=== PATIENT | male | born 1935 | race Caucasian/White ===

== ENCOUNTER 2016-12-08 16:15 | Emergency (ER) | payer BC ==
[~2016-12-08] VITALS: Ht 170.2 cm; Wt 72.2 kg
[~2016-12-08 16:15] MED LIST changes: -BENZ100C6 PO; -CARV6.252 PO; -CLOP1TAB15 PO; -CRD200 PO; -CRG3125 PO; -FRRS300 PO; -METO25TA56 PO; -NTRGSL/4 UT; -PANT40TA PO; -TAMS0.4C38 PO; -ZNTT/150 PO
[2016-12-08 16:26] VITALS: BP 166/98; PULSE 75; TEMP 36.6; O2SAT 99; Ht 170.2 cm; Wt 72.2 kg
[2017-06-06] MEDS ORDERED: NTRGSL/4 UT (15:53)
[2017-06-06] MEDS ORDERED: FRRS300 PO (15:53)
[2017-06-06] MEDS ORDERED: LOSA50TA6 PO (15:53)
[2017-06-06] MEDS ORDERED: ZNTT/150 PO (15:53)
[2017-06-06] MEDS ORDERED: CRD200 PO (15:53)
[2017-06-06] MEDS ORDERED: CRG3125 PO (15:53)
[2017-06-06] MEDS ORDERED: BENZ100C6 PO (16:09)
[2017-07-07] MEDS ORDERED: CARV6.252 PO (13:34)
== END 2016-12-08 17:18 | disposition left against medical advice (07) ==
LOC: C.EDB 16:16
DX: R10.30 Lower abdominal pain, unspecified (principal)

== ENCOUNTER → 2016-12-08 | Outpatient (CLI) | payer BC ==
[~2016-12-08] MED LIST: ASPI81TA25 PO; BENZ100C6 PO; CARV6.252 PO; CLOP1TAB15 PO; CRD200 PO; CRG3125 PO; CRS/10 PO; EZET10TA63 PO; FRRS300 PO; LOSA50TA6 PO; METO25TA56 PO; MULT-506 PO; NTRGSL/4 UT; PANT40TA PO; RANI300T2 PO; RST15 PO; TAMS0.4C38 PO; ZNTT/150 PO
[2016-12-08 12:59] LABS: HEMATOCRIT 39.3 % (42-52); MEAN CELL VOLUME 88.5 fL (80-100); MEAN CORPUSCULAR HEMOGLOBIN 31.5 pg (25-34); MEAN PLATELET VOLUME 9.4 fL (7.4-10.4); PLATELET COUNT 215 K/uL (130-400); RED BLOOD COUNT 4.44 M/uL (4.7-6.1); WHITE BLOOD COUNT 9.01 K/uL (4.8-10.8)
[2016-12-08 13:09] LABS: MEAN CORPUSCULAR HGB CONC 35.6 g/dl (32-36)
[2016-12-08 13:24] LABS: ALB/GLOB RATIO 1.2 (0.9-2); ALKALINE PHOSPHATASE 83 U/L (45-117); ALT/SGPT 47 U/L (12-78); AST/SGOT 34 U/L (15-37); BLOOD UREA NITROGEN 23 mg/dl (7-18); BUN/CREATININE RATIO 18.8 (10-20); CALCIUM 8.9 mg/dl (8.5-10.1); CARBON DIOXIDE 29 mmol/L (21-32); CHLORIDE 100 mmol/L (98-107); COMPLETE YES; EOS % 0.3 %; GLUCOSE 97 mg/dl (70-99); IG% 0.9 %; LYMPH % 7.8 %; MONO % 9.3 %; NEUT % 81.7 %; SODIUM 138 mmol/L (136-145)
--- NOTE | 2016-12-08 15:32 | DIAGNOSTIC IMAGING REPORT ---
CT SCAN OF THE ABDOMEN AND PELVIS WITH IV CONTRAST CLINICAL HISTORY: Left lower quadrant abdominal pain. COMPARISON STUDY: Abdominal CT dated 05/27/2011. TECHNIQUE: Following the IV administration of 120 cc of Optiray 320, CT scan of the abdomen and pelvis is performed from the lung bases to the proximal femora. Images are reviewed in the axial, sagittal, and coronal planes. IV contrast was administered without complication. Automated dose control exposure was utilized. CT DOSE: 351.12 mGy.cm FINDINGS: Lung bases: The heart is enlarged and without pericardial effusion. The coronary arteries are calcified. There are fat-containing Bochdalek hernias present at both lung bases. No airspace consolidation or pleural effusion is identified. There is a small hiatal hernia. Liver: The contrast-enhanced liver is normal in size, contour, and attenuation. There is no intrahepatic biliary ductal dilatation. The hepatic veins and portal veins are patent. There is a small hiatal hernia. A 2 cm cyst is noted in the right lobe. Gallbladder: Unremarkable. Spleen: Normal in size and attenuation. Pancreas: Unremarkable. Adrenal glands: Unremarkable. Kidneys: The contrast enhanced kidneys demonstrate cortical atrophy and are without hydronephrosis. The kidneys enhance symmetrically. Abdominal vasculature: The abdominal aorta is normal in course and caliber noting advanced atherosclerotic calcification. There is high-grade (greater than 50%) stenosis in the left common iliac artery. Bowel: There are postoperative changes from right hemicolectomy with ileocolic anastomosis. No bowel obstruction is seen. There is moderate colonic fecal retention. There is moderate to advanced diverticulosis. There is significant wall thickening with pericolonic inflammation and fluid seen around the mid descending colon consistent with acute diverticulitis. There is a tiny fluid collection seen on axial image #222 measuring 1.3 x 1.2 cm which may represent a developing abscess. Peritoneum: There is no intraperitoneal free air or abdominal ascites. Lymphadenopathy: None. Pelvic viscera: The prostate gland is enlarged and heterogeneous, measuring 5.4 cm transverse diameter. The bladder wall is thickened and trabeculated suggesting chronic outlet obstruction. There is a small fat-containing left inguinal hernia. There is evidence of previous right inguinal herniorrhaphy. Skeletal structures: The skeletal structures are osteopenic. There is mild/moderate lumbosacral spondylosis as well as mild scoliosis No lytic or blastic lesions are seen. IMPRESSION: 1. There is moderate to advanced colonic diverticulosis with evidence of acute diverticulitis involving the descending colon. 2. A tiny diverticular abscess is suspected adjacent to the descending colon measuring up to 1.3 cm. No intraperitoneal free air is seen. 3. There are postoperative changes from right hemicolectomy with ileocolic anastomosis. No bowel obstruction is seen. Moderate fecal retention is noted. 4. Cardiomegaly and hiatal hernia. 5. Prostatomegaly with evidence of chronic bladder obstruction. 6. Additional findings as above. Electronically signed by: Ed Ni M.D. 12/08/2016 3:30 PM Dictated Date/Time: 12/08/2016 3:20 PM
== END | disposition home or self-care (01) ==
LOC: C.CTS 12:25
PROVIDERS: ATTEND Family Medicine
DX: R10.32 Left lower quadrant pain (principal); K44.9 Diaphragmatic hernia without obstruction or gangrene; N40.0 Benign prostatic hyperplasia without lower urinary tract symptoms

== ENCOUNTER → 2017-01-13 | Outpatient (CLI) | payer BC ==
[~2017-01-13] MED LIST changes: +BENZ100C6 PO; +CARV6.252 PO; +CLOP1TAB15 PO; +CRD200 PO; +CRG3125 PO; +FRRS300 PO; +METO25TA56 PO; +NTRGSL/4 UT; +PANT40TA PO; +TAMS0.4C38 PO; +ZNTT/150 PO
--- NOTE | 2017-01-13 16:22 | DIAGNOSTIC IMAGING REPORT ---
CHEST 2 VIEWS ROUTINE CLINICAL HISTORY: Cough and wheezing. COMPARISON STUDY: Chest radiograph July 09, 2015. FINDINGS: Lung volumes are normal. There is no pneumothorax or pleural effusion. Biapical opacities are unchanged and suggest scarring. There is no evidence of pulmonary edema. Mild left basilar opacity is unchanged and suggests atelectasis. IMPRESSION: No acute findings. No change in appearance of the chest. Electronically signed by: Neto Urbina M.D. 01/13/2017 4:20 PM Dictated Date/Time: 01/13/2017 4:18 PM
== END | disposition home or self-care (01) ==
LOC: C.RAD1850 16:00
PROVIDERS: ATTEND Internal Medicine Infectious Disease
DX: R06.2 Wheezing (principal); R05 Cough

== ENCOUNTER → 2017-04-19 | Day surgery (SDC) | payer BC ==
[2017-04-03 08:35] VITALS: Ht 170.2 cm; Wt 67.3 kg
[~2017-04-19] VITALS: Ht 170.2 cm; Wt 67.3 kg
[~2017-04-19] MED LIST changes: +IOPAMIDOL INJ 61% 15 ML VIAL ONE; +LIDOCAINE HCL 1% MPF 5 ML VIAL ONE; -RANI300T2 PO; +SODIUM CHLORIDE 0.9% INJ 10 ML VIAL ONE
--- NOTE | 2017-04-19 12:37 | History & Physical Bridge - [place] ---
H&P Re-Evaluation Bridge Note: I have examined the patient, reviewed the History & Physical and in the interval since the performance of the History & Physical I have noted the following changes of clinical significance: No changes noted
[2017-04-19 13:02] VITALS: BP 132/80; PULSE 65; TEMP 37.1; O2SAT 95
--- NOTE | 2017-04-19 13:05 | Discharge Instructions ---
Discharge Instructions Date of Service April 19, 2017. Visit Reason for Visit: Lumbar Radiculopathy Discharge Discharge Diagnosis / Problem: right leg pain Discharge Goals Goal(s): Decrease discomfort, Improve function Medications Stopped Medications Name(s): asa stopped last dose on monday. Activity Recommendations Activity Limitations: resume your previous activity Anesthesia . Post Anesthesia Instructions: If you have had General Anesthesia or IV Sedation: * Do not drive today. * Resume driving when surgeon permits. * Do not make important decisions or sign legal documents today. * Call surgeon for: 1. Temperature elevations greater than 101 degrees F. 2. Uncontrollable pain. 3. Excessive bleeding. 4. Persistent nausea and vomiting. 5. Medication intolerance (nausea, vomiting or rash). * For nausea and vomiting use only clear liquids such as: tea, soda, bouillon until nausea subsides, then gradually increase diet as tolerated. * If you have any concerns or questions, call your surgeon's office. If physician is unavailable and it is an emergency, call 911 or go to the nearest emergency room. . Diet Recommendations Recommended Home Diet: resume previous diet Procedures Procedures Performed: Lumbar Epidural Steroid Injection Pending Studies Studies pending at discharge: no Medical Emergencies . Who to Call and When: Medical Emergencies: If at any time you feel your situation is an emergency, please call 911 immediately. . Non-Emergent Contact Non-Emergency issues call your: Specialist . . "Provider Documentation" section prepared by Hector Munguia. .
--- NOTE | 2017-04-19 14:46 | OPERATIVE REPORT ---
DATE OF OPERATION: 04/19/2017 PREOPERATIVE DIAGNOSIS: Lumbar spinal stenosis with a right L5 radiculopathy. POSTOPERATIVE DIAGNOSIS: Same. PROCEDURE: Right paramedian L5-S1 intralaminar epidural steroid injection under fluoroscopic guidance. SURGEON: Dr. Hector Munguia. INDICATIONS: The patient is an 81-year-old white male who has a right L5 radiculopathy and is not responding to conservative measures. He responded favorably to an epidural injection in August. Pain is starting to return and come back and be problematic to him. PHYSICAL EXAMINATION: Pleasant male seated comfortably in no apparent distress. He has normal motor and sensory examination with the exception of the right S1 dermatome, which was subjectively decreased. Negative seated straight leg raises. CONSENT: Verbal and written consent was obtained from the patient. Risks and benefits were reviewed. Risks include but are not limited to epidural abscess, epidural hematoma, allergic reaction, dural puncture. The patient wishes to proceed. PROCEDURE: The patient was taken back to the special procedures room of the [facility] where he was maintained in a prone position. Backside was cleansed with Betadine x3 and a dry sterile dressing was applied. Fluoroscope was used to identify the L5-S1 intralaminar space. Overlying skin on the right side was anesthetized with 4 mL of lidocaine 1% with a 25 gauge 1.5-inch needle. A 22-gauge 3-1/2 inch Tuohy needle was then directed under fluoroscopic guidance into the epidural space and advanced under lateral fluoroscopic guidance with loss of resistance noted at a depth of 6.5 cm. Isovue-300 contrast 1 mL was injected in which demonstrated epidural uptake pattern which was confirmed with both AP and lateral views. The patient then underwent injection of Isovue 300 1 mL which confirmed with AP and lateral views and then 40 mg injection after negative aspiration of Depo-Medrol and 4 mL of preservative free sodium chloride. Injection was well tolerated. DISPOSITION: 1. The patient is taken out into the discharge recovery area where he will be discharged home once discharge criteria have been met. 2. Follow up in the [facility] office in 2-4 weeks. I attest to the content of the Intraoperative Record and any orders documented therein. Any exceptio ns are noted below.
== END | disposition home or self-care (01) ==
LOC: X.SURG 11:50
PROVIDERS: ATTEND Physical Medicine & Rehabilitation
DX: M48.06 Spinal stenosis, lumbar region (principal)

== ENCOUNTER 2017-05-28 11:34 | Inpatient (IN) | payer BC, OTHER ==
[~2017-05-28] VITALS: Ht 170.2 cm; Wt 76.3 kg
[~2017-05-28 11:34] MED LIST changes: -BENZ100C6 PO; -CARV6.252 PO; -CLOP1TAB15 PO; -CRD200 PO; -CRG3125 PO; -FRRS300 PO; -IOPAMIDOL INJ 61% 15 ML VIAL ONE; -LIDOCAINE HCL 1% MPF 5 ML VIAL ONE; -METO25TA56 PO; -NTRGSL/4 UT; -PANT40TA PO; -SODIUM CHLORIDE 0.9% INJ 10 ML VIAL ONE; -TAMS0.4C38 PO; -ZNTT/150 PO
--- NOTE | 2017-05-28 12:06 | EMERGENCY ROOM VISIT NOTE ---
History Report prepared by Chauncey: Isabel Lunsford Under the Supervision of: Dr. Hamilton Perez M.D. First contact with patient: 11:56 Chief Complaint: SYNCOPE Stated Complaint: NEAR SYNCOPE History of Present Illness The patient is a 81 year old male who presents to the Emergency Room with complaints of a syncopal episode that occurred just prior to arrival. The patient states that he was in the check out line of [facility] [employer] with his when he began very lightheaded. He then had the syncopal episode. His states that she helped him to the ground and he was back to consciousness within a few seconds. The patient does note that recently when he stands up fast he feels very lightheaded. The patient denies chest pain, shortness of breath, head injury, recent fevers, chills, swelling to lower extremities. The patient on Monday had a stent placed in [place]. He does note that all his medications were changed on Monday. Source of History: patient Onset: just PERSONNEL REPRESENTATIVE Position: other (global) Quality: other (syncope) Timing: other (episode) Associated Symptoms: + LOC, No fevers, No chills, No chest pain, No SOB Note: The patient is experiencing lightheadedness. Review of Systems All systems have been listed, reviewed, and are negative other than those previously mentioned. Please see Additional Medical History Sheet. Past Medical & Surgical Medical Problems: (1) CAD (coronary artery disease) (2) Hypertension (3) Status post myocardial infarction of inferior wall (4) Syncope Surgical Problems: (1) S/P cardiac catheterization Family History Patient reports no known family medical history. Social History Smoking Status: Never Smoker Smokeless Tobacco Use: No Marital Status: Housing Status: lives with significant other Occupation Status: retired Current/Historical Medications Scheduled Aspirin (Aspir-Low), 1 TAB PO QAM Clopidogrel (Plavix), 75 MG PO DAILY Ezetimibe (Zetia), 10 MG PO HS Losartan Potassium (Cozaar), 50 MG PO QAM Metoprolol Tartrate (Lopressor) (Lopressor), 25 MG PO DAILY Multivitamin (Multivitamin), 1 TAB PO QAM Nitroglycerin (Nitrostat), 0.4 MG UT PRN Pantoprazole (Protonix), 40 MG PO DAILY Rosuvastatin Calcium (Crestor), 10 MG PO HS Tamsulosin Hcl (Flomax), 0.4 MG PO HS Temazepam (Temazepam), 15 MG PO HS Allergies Coded Allergies: Oxycodone (Verified Allergy, Mild, CANT REMEMBER JUST HAD BAD REACTION, 05/28/17) Physical Exam Vital Signs Date Time Temp Pulse Resp B/P (MAP) Pulse Ox O2 Delivery O2 Flow Rate FiO2 05/28/17 14:00 98 Room Air 05/28/17 13:35 69 16 120/74 98 Room Air 05/28/17 12:12 66 05/28/17 12:05 64 05/28/17 11:45 96 Room Air 05/28/17 11:41 36.9 72 20 123/85 96 Room Air Physical Exam GENERAL: Patient awake, alert, oriented x 3. Patient follows commands. Patient does not appear toxic. Patient is adequately hydrated and well- nourished. SKIN: No erythema, pallor, cyanosis or rash HEENT: Normal head, pupils equal, reactive to light and accommodation. Ears normal. Oral cavity and posterior pharynx appear normal. Neck: Without adenopathy, no neck vein distention. LUNGS: Clear to auscultation. No wheezes, no rales, no rhonchi. HEART: No murmurs. No gallops. No rubs ABDOMEN: No masses, no rebound, no hepatomegaly or splenomegaly. EXTREMITIES: No signs of trauma. No pedal or pretibial edema. No calf or thigh tenderness. NEUROLOGIC: Cranial nerves II-XII within normal limits. No gross motor sensory function deficits. Medical Decision & Procedures ER Provider Diagnostic Interpretation: X ray results are stated below per my interpretation and the radiologist's interpretation. SINGLE VIEW CHEST CLINICAL HISTORY: Syncope. FINDINGS: An AP, portable, upright chest radiograph is compared to study dated 01/13/17. The examination is degraded by portable technique and apical lordotic positioning. The heart is enlarged and there is atherosclerotic calcification of the thoracic aorta. The pulmonary vascular structures noncongested. Chronic interstitial thickening is similar to previous. Linear atelectasis is seen at the left lung base. No airspace consolidation is identified typical for pneumonia and there is no large pleural effusion. No pneumothorax is seen. The skeletal structures are osteopenic. The bony thorax is grossly intact. IMPRESSION: Cardiomegaly with no acute cardiopulmonary abnormality. Electronically signed by: Ed Ni M.D. 05/28/2017 12:25 PM Dictated Date/Time: 05/28/2017 12:24 PM Laboratory Results 05/28/17 13:04 Red Blood Count 3.67, Mean Corpuscular Volume 88.8, Mean Corpuscular Hemoglobin 30.5, Mean Corpuscular Hemoglobin Concent 34.4, Mean Platelet Volume 9.7, Neutrophils (%) (Auto) 68.3, Lymphocytes (%) (Auto) 12.9, Monocytes (%) (Auto) 16.5, Eosinophils (%) (Auto) 1.0, Basophils (%) (Auto) 0.0, Neutrophils # (Auto ) 2.60, Lymphocytes # (Auto) 0.49, Monocytes # (Auto) 0.63, Eosinophils # (Auto ) 0.04, Basophils # (Auto) 0.00 05/28/17 11:50 Test 05/28/17 11:50 05/28/17 13:04 Prothrombin Time 10.6 SECONDS (9.0-12.0) Prothromb Time International Ratio 1.0 (0.9-1.1) Activated Partial Thromboplast Time 29.9 SECONDS (21.0-31.0) Partial Thromboplastin Ratio 1.2 Anion Gap 8.0 mmol/L (3-11) Est Creatinine Clear Calc Drug Dose 36.7 ml/min Estimated GFR () 50.2 Estimated GFR (Non- 43.3 BUN/Creatinine Ratio 21.3 (10-20) Calcium Level 8.5 mg/dl (8.5-10.1) Total Bilirubin 0.5 mg/dl (0.2-1) Aspartate Amino Transf (AST/SGOT) 90 U/L (15-37) Alanine Aminotransferase (ALT/SGPT) 121 U/L (12-78) Alkaline Phosphatase 92 U/L (45-117) Troponin I 10.400 ng/ml (0-0.045) Total Protein 6.6 gm/dl (6.4-8.2) Albumin 2.9 gm/dl (3.4-5.0) Globulin 3.8 gm/dl (2.5-4.0) Albumin/Globulin Ratio 0.8 (0.9-2) White Blood Count 3.81 K/uL (4.8-10.8) Red Blood Count 3.67 M/uL (4.7-6.1) Hemoglobin 11.2 g/dL (14.0-18.0) Hematocrit 32.6 % (42-52) Mean Corpuscular Volume 88.8 fL (80-100) Mean Corpuscular Hemoglobin 30.5 pg (25-34) Mean Corpuscular Hemoglobin Concent 34.4 g/dl (32-36) Platelet Count 214 K/uL (130-400) Mean Platelet Volume 9.7 fL (7.4-10.4) Neutrophils (%) (Auto) 68.3 % Lymphocytes (%) (Auto) 12.9 % Monocytes (%) (Auto) 16.5 % Eosinophils (%) (Auto) 1.0 % Basophils (%) (Auto) 0.0 % Neutrophils # (Auto) 2.60 K/uL (1.4-6.5) Lymphocytes # (Auto) 0.49 K/uL (1.2-3.4) Monocytes # (Auto) 0.63 K/uL (0.11-0.59) Eosinophils # (Auto) 0.04 K/uL (0-0.5) Basophils # (Auto) 0.00 K/uL (0-0.2) RDW Standard Deviation 40.9 fL (36.4-46.3) RDW Coefficient of Variation 12.7 % (11.5-14.5) Immature Granulocyte % (Auto) 1.3 % Immature Granulocyte # (Auto) 0.05 K/uL (0.00-0.02) Laboratory results as stated above per my review. Procedure An external pacemaker was placed on the patient's chest. The machine was not turned on but readied for any further episodes of block. ECG Indication: syncope Rate (beats per minute): 70 Rhythm: sinus with SA Findings: 1st degree AV block, RBBB, left axis deviation Change: Evaluation of other rhythm strips reveal a complete heart block. ED Course 1156: Past medical records reviewed. The patient was evaluated in room A2. A complete history and physical examination was performed. 1320: I spoke to Dr. Almeida - Cardiology about the patient. He said to speak with Dr. Crews because he cannot pass the pacemaker. 1328: I spoke with Dr. Crews - Cardiology. He will come evaluate the patient. 1412: Discussed the patient's case with Dr. Grant GRAHAM. The patient will be evaluated for further management. 1420: Upon reevaluation, the patient is hemodynamically stable.I discussed today 's findings with the patient. He verbalized agreement of the treatment plan. I spoke with Dr. Burns of the [facility] Hospitalist Service to evaluate the patient for further management. Medical Decision Nurses notes reviewed. Medical history sheet reviewed. Differential diagnosis includes but is not limited to: syncope, 2nd or 3rd degree block, metabolic disorder. The patient is here after syncopal episode. He apparently had an inferior wall infarction less than 1 week ago. He denies any pain at this time. He did not hurt himself when he passed out. He now feels back to normal. During the exam the patient had multiple episodes of 3-6 second pauses. EKG revealed third- degree block. He also has slight ST elevations in his inferior leads. Troponin was markedly elevated. Other labs and imaging were also obtained. Please see above. I discussed care with cardiology regarding placement of a pacemaker. In the meantime the patient had an external pacemaker placed but not turned on. I also discussed care with the hospitalist. Medication Reconciliation: I attest that I have personally reviewed the patient' s current medication list. Blood pressure Screening: Patient was found to have normal blood pressure on screening and does not require follow up. Consults Time Called: 1318 Consulting Physician: Dr. Elle Jackson Returned Call: [address] Elle Jackson about the patient. He said to speak with Dr. Crews because he cannot pass the pacemaker. Additional Consults: Time Called: 1326 Consulted Physician: Dr. Mars Jackson Returned Call: 1328 Additional Comments: I spoke with Dr. Mars Jackson. He will come evaluate the patient. Time Called: 1410 Consulted Physician: Dr. Grant GRAHAM Returned Call: 1412 Additional Comments: Discussed the patient's case with Dr. Grant GRAHAM. The patient will be evaluated for further management. Impression Primary Impression: Third degree heart block Additional Impression: Recent myocardial infarction of inferior wall Critical Care I have personally spent greater than 35 minutes of critical care time in the direct management of this patient. This includes bedside care, interpretation of diagnostic studies, and testing, discussion with consultants, patient, and family members, and other required patient management activities. This 35 minutes is in excess of all separately billable procedures. Scribe Attestation The scribe's documentation has been prepared under my direction and personally reviewed by me in its entirety. I confirm that the note above accurately reflects all work, treatment, procedures, and medical decision making performed by me. Departure Information Dispostion Being Evaluated By Hospitalist Referrals Austin Merino M.D. (PCP) Problem Qualifiers
[2017-05-28 12:22] LABS: BUN/CREATININE RATIO 21.3 (10-20); CALCIUM 8.5 mg/dl (8.5-10.1); CREATININE 1.5 mg/dl (0.60-1.40); POTASSIUM 3.9 mmol/L (3.5-5.1)
[2017-05-28 12:24] LABS: PARTIAL THROMBOPLASTIN RATIO 1.2; PROTHROMBIN TIME (PATIENT) 10.6 SECONDS (9.0-12.0)
--- NOTE | 2017-05-28 12:26 | DIAGNOSTIC IMAGING REPORT ---
SINGLE VIEW CHEST CLINICAL HISTORY: Syncope. FINDINGS: An AP, portable, upright chest radiograph is compared to study dated 01/13/17. The examination is degraded by portable technique and apical lordotic positioning. The heart is enlarged and there is atherosclerotic calcification of the thoracic aorta. The pulmonary vascular structures noncongested. Chronic interstitial thickening is similar to previous. Linear atelectasis is seen at the left lung base. No airspace consolidation is identified typical for pneumonia and there is no large pleural effusion. No pneumothorax is seen. The skeletal structures are osteopenic. The bony thorax is grossly intact. IMPRESSION: Cardiomegaly with no acute cardiopulmonary abnormality. Electronically signed by: Ed Ni M.D. 05/28/2017 12:25 PM Dictated Date/Time: 05/28/2017 12:24 PM
[2017-05-28 12:35] LABS: ALB/GLOB RATIO 0.8 (0.9-2)
[2017-05-28] MEDS ORDERED: CLOP1TAB15 PO (12:36)
[2017-05-28] MEDS ORDERED: PANT40TA PO (12:36)
[2017-05-28] MEDS ORDERED: METO25TA56 PO (12:36)
[2017-05-28] MEDS ORDERED: TAMS0.4C38 PO (12:36)
[2017-05-28] MEDS ORDERED: NTRGSL/4 UT (12:36)
[2017-05-28 13:14] LABS: COMPLETE YES; HEMATOCRIT 32.6 % (42-52); IG% 1.3 %; LYMPH % 12.9 %; LYMPH ABS # 0.49 K/uL (1.2-3.4); MEAN CELL VOLUME 88.8 fL (80-100); MEAN CORPUSCULAR HEMOGLOBIN 30.5 pg (25-34); MEAN CORPUSCULAR HGB CONC 34.4 g/dl (32-36); MEAN PLATELET VOLUME 9.7 fL (7.4-10.4); MONO % 16.5 %; NEUT % 68.3 %; PLATELET COUNT 214 K/uL (130-400); RED BLOOD COUNT 3.67 M/uL (4.7-6.1); WHITE BLOOD COUNT 3.81 K/uL (4.8-10.8)
[2017-05-28 14:00] VITALS: O2SAT 98; Ht 170.2 cm; Wt 76.3 kg
[2017-05-28] MEDS ORDERED: FENTANYL CITRATE INJ 50 MCG/1 ML 2 ML VIAL ONE (14:12)
[2017-05-28] MEDS ORDERED: MIDAZOLAM HCL 1 MG/ML 2ML VIAL ONE (14:12)
[2017-05-28] MEDS ORDERED: NSS + 20MEQ KCL 1000ML 1,000 ML IV SCH (15:00)
[2017-05-28] MEDS ORDERED: TEMAZEPAM 15 MG CAP PO PRN (15:00)
[2017-05-28] MEDS ORDERED: ALUMINUM/MAGNESIUM/SIMETH (MAALOX MAX) 30 ML UDC PO PRN (15:30)
[2017-05-28] MEDS ORDERED: ONDANSETRON INJ 2 MG/ML 2 ML VIAL IV PRN (15:30)
[2017-05-28] MEDS ORDERED: MAGNESIUM HYDROXIDE SUSP 30 ML UDC PO PRN (15:30)
[2017-05-28] MEDS ORDERED: ACETAMINOPHEN 325 MG TAB PO PRN (15:30)
[2017-05-28] MEDS ORDERED: NITROGLYCERIN 0.4 MG SL PER TAB CHARGE SL PRN (15:30)
[2017-05-28] MEDS ORDERED: ZOLPIDEM TARTRATE 5 MG TAB PO PRN ×2 (15:30)
[2017-05-28] MEDS ORDERED: IV FLUIDS COMPLETED PRN (16:30)
[2017-05-28 16:37] VITALS: BP 122/73; PULSE 74; TEMP 36.6; O2SAT 95
[2017-05-28] MEDS: NSS + 20MEQ KCL 1000ML 1,000 ML IV SCH (17:00)
[2017-05-28] MEDS: ENOXAPARIN 40 MG/0.4 ML SYR SC SCH (17:02)
--- NOTE | 2017-05-28 17:47 | Cardiology Consultation ---
Cardiology Consultation Date of Service May 28, 2017. Cardiology Consultation The patient was seen in Cardiology consultation by me this afternoon. At that time he was in the emergency department. Cardiology consultation initially requested by Dr. Hamilton Perez. The patient is an 81-year-old white male. Denies having had any history heart disease until in admission to [facility] on May 22, 2017. He was brought there by ambulance from a local gas station after developing PR type symptoms. He had had retrosternal chest pressure, diaphoresis, nausea, and dyspnea. He was found to have evidence of an acute inferior myocardial infarction. It is reported that the electrocardiogram revealed an acute inferolateral myocardial infarction. Underwent emergency cardiac catheterization. The patient states he had a total RCA occlusion treated with deployment of a CloudMedx. 2.75 millimeter diameter Synergy drug eluting stent. Was discharged home on May 24 2017. Available records from [place] showed that his troponin I on May 23 was 43.172. The patient states that he has [id number] disease in other coronary arteries. Was told he sustained myocardial injury. Available records from [place] do not include any description of his LV systolic function or LV wall motion. The patient states that after discharge she initially felt tired. Over each successive day his exercise tolerance and stamina improved. This morning he felt that he was back at his baseline. No unusual malaise or fatigue. Us since his myocardial infarction he had no further chest discomfort, diaphoresis , or nausea. Denies any orthopnea or PND. Palpitations, lightheadedness, or syncope until today. Today he had been feeling well. He was standing and a checkout counter at a local store when he developed lightheadedness. He had a brief episode of syncope lasting several seconds. This was witnessed by his . He quickly regained consciousness. He had no cardiac complaints other than the lightheadedness. No associated chest pain, nausea, dyspnea, or palpitations. Was brought by EMS to [facility]. While in the emergency department he was noted to have a 7 second episode of sinus rhythm with complete heart block. With this episode he had a brief loss of consciousness. He quickly regained consciousness when his AV conduction returned. The patient was placed on a temporary transcutaneous pacemaker in the emergency department. This was assessed by me. He paced well at only 8 mA. At the time my exam he denies any cardiac symptoms. He was feeling very well. It was discussed with him that the options were transcutaneous pacing or insertion of a temporary transvenous pacemaker. Was told he paced well with the transcutaneous pacemaker. However, he was told that if it paced him he may feel electrical shocks. He was comfortable with this. Was decided that he would remain on a transcutaneous pacemaker and that no number a transvenous pacemaker would be inserted at this time. It was discussed with him that if he required prolonged transcutaneous pacing then a temporary transvenous pacemaker would be preferable. the patient was transferred from the emergency department to the telemetry unit room. While being transferred from his stretcher to the telemetry unit bed he had a episode of complete heart block again resulting in loss of consciousness. At that time the pacemaker was not set to perform demand pacing. Thus, the transcutaneous pacemaker did not provide any impulses. The pads were in place. He transiently received chest compressions. He spontaneously regained sinus rhythm. Quickly awakened. After awakening he only had complain of mild lower retrosternal chest discomfort. This was worse with deep inspiration. Was also precipitated by pressure on his lower sternum and xiphoid process. This was felt to be secondary to the chest compressions which he had just received. Denied any of his prior PR or anginal-type symptoms. The patient stated that when he was trying to transfer from the stretcher to the bed he was straining. Past medical history 1. Coronary artery disease as above. 2. Dyslipidemia. 3. Hypertension. 4. Lumbar spinal stenosis. 5. No history of diabetes mellitus. 6. No history of pulmonary or renal disease. No endocrine disease. 7. Benign prostatic hypertrophy. Medications at time of admission were aspirin 81 milligrams daily, clopidogrel 75 milligrams daily, Zetia 10 milligrams q.h.s., losartan 50 milligrams daily, metoprolol tartrate 25 milligrams daily, multivitamin 1 daily, subcu nitroglycerin as needed, pantoprazole 40 milligram daily, Crestor 10 milligrams daily, tamsulosin 0.4 milligrams q.h.s., temazepam 50 milligrams q.h.s.. Allergies: Adverse reaction to oxycodone. Social history the patient is lives with his . 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 He has never smoked cigarettes. Occasional use of alcohol. Family history: No family history of premature coronary artery disease. Review of Systems 1. As above. 2. Bilateral hearing loss. Hearing aids in both ears. 3. No cerebrovascular or peripheral vascular complaints. 4. Ecchymoses at right groin. His recent cardiac catheterization procedure was performed via the right groin. No pain at this site. No right leg pain. No calf swelling or tenderness. 5. No claudication type symptoms. 6. No skin rash complaints suggestive of drug reaction. 7. No bleeding complaints. 8. No GI complaints. 9. No fevers or chills. No pulmonary complaints. 10. The patient denies injuring himself when he had a syncopal event at the store earlier today. Exam: In the emergency department the patient was in no distress. Vital signs revealed pulse 69. Blood pressure 120/74. Pulse oximetry on room air 98 percent. Monitor revealed sinus rhythm with first-degree atrioventricular block. Head: Normal. Eyes: Pupils equal and round. Anicteric. Conjunctiva normal. No xanthelasma. Neck: No jugular venous distention. Carotids 2/2 bilaterally. Normal upstroke. No bruits. Lungs: Normal respiratory effort. Clear. No rales or wheezes. Heart: PMI normal. No lifts or heaves. Regular rate and rhythm. S1-S2 normal. No S3 or S4. No murmur or rub. Abdomen: Soft. Nontender. No palpable masses organomegaly. No bruits. Extremities: Right femoral catheterization site without hematoma or tenderness. Extensive ecchymoses right groin in right upper thigh. No calf tenderness. No pretibial edema. No cyanosis or clubbing. Pulses: Distal pulses all extremities palpable. No bruit over the right femoral artery. Neurologic: Alert and oriented x3. Motor grossly intact. Psychiatric: Affect is normal. Data: Chest x-ray reviewed by me. No heart failure. No infiltrate. New Electrocardiogram reviewed by me. Sinus rhythm with first-degree AV block. OH interval 256 milliseconds. Q-waves in leads [address] segment elevations leads 3 and AVF. Inverted T-waves in leads 2, 3, AVF. Right bundle branch block. Left axis deviation. ST depressions V1-V3. Compared to an electrocardiogram performed May 23, 2017 at [facility] [place] inferior Q-waves are now present. The OH interval has increased. Left axis deviation is now present. The electrocardiogram from May [address] elevations in the inferior leads. Labs today with WBC 3.81, hemoglobin 11.2, hematocrit 32.6, platelet count 214. INR 1.0. PTT 29.9. Metabolic profile sodium 133, potassium 3.9, chloride 98, carbon dioxide 27, BUN 32, creatinine 1.50, random glucose 94. Troponin I 10.400. Albumin 2.9. AST 90. ALT 121. Available labs from May 23 performed at [facility] showed hemoglobin of 13.6. BUN 17 , creatinine 0.98. Assessment: 1. Documented episode of complete heart block. Baseline first- degree atrioventricular block. Suspect significant injury to the AV node from his myocardial infarction. He is on low-dose beta-frank which could contribute to the AV node dysfunction. However, he is on a very low dose of metoprolol. Repeat episode of complete heart block when he was straining to move from his stretcher to his bed in the telemetry unit. At this time is likely he had increased vagal tone which exacerbated his atrioventricular block. His potassium level is new. Do not suspect any acute myocardial injury. His troponin I is elevated. However, it was significantly elevated on May 23. Troponin elevations after myocardial infarction can persist for 2 weeks. His myocardial infarction was on May 22. This was only 6 days ago. 2. Acute kidney injury. Elevation both BUN and creatinine. This may reflect contrast dye nephropathy from his procedure on May 22. The patient appears euvolemic on exam. Is on losartan. This is a new medication. Cannot exclude an adverse reaction from the losartan. 3. Anemia. His hemoglobin has decreased since May 23. No symptoms of active bleeding. He does have significant ecchymoses in his right groin. Hemoglobin could be partly decreased from bleeding from the cardiac catheterization and PCI procedure. 4. No current signs or symptoms of congestive heart failure. No evidence of congestive heart failure on exam. Recommendations: 1. Discontinue metoprolol at this time. 2. Transcutaneous pacemaker as needed. The rate has been set 36 beats per minute. mA is 10. If he fails to capture with this mA, the mA can be increased. 3. Hold losartan. 4. Intravenous fluids. 5. Repeat troponin I in a.m.. 6. Check CK and CK-MB. Would not expect these to still be elevated from his myocardial infarction on May 22. 7. Echocardiogram to assess LV systolic function. 8. Serial hemoglobin and renal function testing. 9. EP consultation in regards to placement of a permanent pacemaker. 10. At this time the patient declines 8 transvenous pacemaker. If he has prolonged episodes of transcutaneous pacing he would be agreeable to insertion of a temporary transvenous pacemaker at that time. 11. Complete bed rest. 12. Continue aspirin and clopidogrel.
--- NOTE | 2017-05-28 18:06 | History and Physical ---
History & Physical Date & Time of Service: May 28, 2017 at 17:33 Chief Complaint: 1. Syncope secondary to Intermittent Complete Heart Block. 2. CAD s/p Acute Inferior RI 05/22/2017. 3. S/P Proximal RCA Drug Eluting Stent 05/22/2017 [facility]. 4. Hypertension. 5. Dyslipidemia. Primary Care Physician: Austin Merino M.D. History of Present Illness Source: patient, spouse, hospital records Mr. Villavicencio is an 81-year-old white male with a history of Hypertension with Dyslipidemia who sustained an Acute Inferior STEMI on 05/22/2017 s/p Drug Eluting Stent in Proximal RCA who presented acutely to [facility] ER today after a Syncopal episode. Patient has been doing reasonably well since his RI, but he has had periods of diaphoresis / lightheadedness which culminated in a Syncopal episode earlier today. Patient was standing in the checkout line at a local store when he developed sweating , [id number], and profound lightheadedness followed by a Syncopal event. His helped lower him to the ground so he did not sustain any injuries. He regained consciousness within a few seconds. Did not have any lingering symptoms afterwards. Patient denies any prodromal chest pain, discomfort, heaviness, tightness, pressure, or angina pectoris. He did not have any prodromal shortness of breath. He denies any palpitations or tachypalpitations associated with these episodes. While in the emergency room and on the heart monitor -- Patient developed CHB and had a ventricular pause of > 7 seconds. Past Medical/Surgical History 1. CAD s/p Inferior RI and Proximal RCA JONNIE 05/22/2017. 2. Hypertension. 3. Dyslipidemia. 4. Residual non-obstructive CAD of Left Coronary System. Family History Patient reports no known family medical history. Social History Smoking Status: Never Smoker Smokeless Tobacco Use: No Drug Use: none Marital Status: Housing status: lives with significant other Occupational Status: retired Immunizations History of Influenza Vaccine: Unknown History of Tetanus Vaccine?: Unknown History of Pneumococcal: Unknown History of Hepatitis B Vaccine: Unknown Multi-Drug Resistant Organisms History of MDRO: No Allergies Coded Allergies: Oxycodone (Verified Allergy, Mild, CANT REMEMBER JUST HAD BAD REACTION, 05/28/17) Amlodipine (Unverified Allergy, Unknown, UNKNOWN, 05/29/17) Codeine (Unverified Allergy, Unknown, UNKNOWN, 05/29/17) Lisinopril (Unverified Allergy, Unknown, UNKNOWN, 05/29/17) Home Medications Scheduled Aspirin (Aspir-Low), 1 TAB PO QAM Clopidogrel (Plavix), 75 MG PO DAILY Ezetimibe (Zetia), 10 MG PO HS Losartan Potassium (Cozaar), 50 MG PO QAM Metoprolol Tartrate (Lopressor) (Lopressor), 25 MG PO DAILY Multivitamin (Multivitamin), 1 TAB PO QAM Nitroglycerin (Nitrostat), 0.4 MG UT PRN Pantoprazole (Protonix), 40 MG PO DAILY Rosuvastatin Calcium (Crestor), 10 MG PO HS Tamsulosin Hcl (Flomax), 0.4 MG PO HS Temazepam (Temazepam), 15 MG PO HS Review of Systems Constitutional: + sweats Respiratory: No cough, No sputum, No wheezing, No shortness of breath, No dyspnea on exertion, No dyspnea at rest, No hemoptysis, No problem reported Cardiovascular: + problem reported (syncope), No chest pain, No orthopnea, No PND, No edema, No claudication, No palpitations Abdomen: No pain, No nausea, No vomiting, No diarrhea, No constipation, No GI bleeding, No problem reported Neurologic: No memory loss, No paralysis, No weakness, No numbness/tingling, No vertigo, No balance problems, No problem reported Psychiatric: No depression symptoms, No anhedonism, No anxiety, No insomnia, No substance abuse, No problem reported Endocrine: No fatigue, No excessive thirst, No excessive urination, No problem reported Integumentary: No rash, No itch, No new/changing skin lesions, No color change , No bleeding, No problem reported Allergic / Immunologic: No environmental allergies, No seasonal allergies, No pet sensitivities, No food allergies, No hives, No frequent infections, No poor healing, No prolonged convalescence, No problem reported Physical Exam Vital Signs Date Time Temp Pulse Resp B/P (MAP) Pulse Ox O2 Delivery O2 Flow Rate FiO2 05/28/17 16:37 36.6 74 18 122/73 (89) 95 Room Air 05/28/17 16:04 78 18 120/74 98 05/28/17 14:00 98 Room Air 7/9/17 13:35 69 16 120/74 98 Room Air 05/28/17 12:12 66 05/28/17 12:05 64 05/28/17 11:45 96 Room Air 05/28/17 11:41 36.9 72 20 123/85 96 Room Air General: Patient in no acute distress. HEENT: Head is atraumatic, normocephalic. EOMs intact. Sclerae anicteric. Facies symmetric. No perioral cyanosis. Neck: No thyromegaly, adenopathy, or JVD. Carotid upstrokes +2 bilaterally without bruits. JVP is not elevated. Chest and Lungs: Clear to auscultation throughout all lung basurto, no wheezes, rales, or rhonchi. CVS: S1 and S2 are regular at a rate of 72 bpm. No murmurs, gallops, or rubs. PMI is nondisplaced. No lifts, heaves, or thrills. No abdominal aortic or renal bruits. Abdominal Exam: Bowel sounds present. No masses, organomegaly, or tenderness. Extremities: No clubbing, cyanosis, or edema. Intact posterior tibial and radial pulses bilaterally. Normal femoral arterial pulsations. Right groin eccymosis secondary to recent arterial puncture. Neurologic Exam: Patient is awake, alert, and oriented. Pleasant and cooperative. Answers questions appropriately. Speech is clear. Normal movement in all 4 extremities. Gait pattern is unremarkable. Diagnostics Laboratory Results Results Past 24 Hours Test 05/28/17 11:50 05/28/17 13:04 Range/Units Prothrombin Time 10.6 9.0-12.0 SECONDS Prothromb Time International Ratio 1.0 0.9-1.1 Activated Partial Thromboplast Time 29.9 21.0-31.0 SECONDS Partial Thromboplastin Ratio 1.2 Sodium Level 133 136-145 mmol/L Potassium Level 3.9 3.5-5.1 mmol/L Chloride Level 98 98-107 mmol/L Carbon Dioxide Level 27 21-32 mmol/L Anion Gap 8.0 3-11 mmol/L Blood Urea Nitrogen 32 7-18 mg/dl Creatinine 1.50 0.60-1.40 mg/dl Est Creatinine Clear Calc Drug Dose 36.7 ml/min Estimated GFR () 50.2 Estimated GFR (Non- 43.3 BUN/Creatinine Ratio 21.3 10-20 Random Glucose 94 70-99 mg/dl Calcium Level 8.5 8.5-10.1 mg/dl Total Bilirubin 0.5 0.2-1 mg/dl Aspartate Amino Transf (AST/SGOT) 90 15-37 U/L Alanine Aminotransferase (ALT/SGPT) 121 12-78 U/L Alkaline Phosphatase 92 45-117 U/L Troponin I 10.400 0-0.045 ng/ml Total Protein 6.6 6.4-8.2 gm/dl Albumin 2.9 3.4-5.0 gm/dl Globulin 3.8 2.5-4.0 gm/dl Albumin/Globulin Ratio 0.8 0.9-2 White Blood Count 3.81 4.8-10.8 K/uL Red Blood Count 3.67 4.7-6.1 M/uL Hemoglobin 11.2 14.0-18.0 g/dL Hematocrit 32.6 42-52 % Mean Corpuscular Volume 88.8 80-100 fL Mean Corpuscular Hemoglobin 30.5 25-34 pg Mean Corpuscular Hemoglobin Concent 34.4 32-36 g/dl Platelet Count 214 130-400 K/uL Mean Platelet Volume 9.7 7.4-10.4 fL Neutrophils (%) (Auto) 68.3 % Lymphocytes (%) (Auto) 12.9 % Monocytes (%) (Auto) 16.5 % Eosinophils (%) (Auto) 1.0 % Basophils (%) (Auto) 0.0 % Neutrophils # (Auto) 2.60 1.4-6.5 K/uL Lymphocytes # (Auto) 0.49 1.2-3.4 K/uL Monocytes # (Auto) 0.63 0.11-0.59 K/uL Eosinophils # (Auto) 0.04 0-0.5 K/uL Basophils # (Auto) 0.00 0-0.2 K/uL RDW Standard Deviation 40.9 36.4-46.3 fL RDW Coefficient of Variation 12.7 11.5-14.5 % Immature Granulocyte % (Auto) 1.3 % Immature Granulocyte # (Auto) 0.05 0.00-0.02 K/uL Diagnostic Radiology Telemetry -- NSR with transient CHB with > 7 second ventricular pause. EKG NSR with 1st degree AV Block, RBBB, and LAFB. Evolving ST T wave abnormalities following recent Inferior RI. Trop I elevated but trending down following recent RI. Impression Assessment and Plan 1. Syncope / Intermittent CHB: -- Admit to telemetry, transcutaneous pacer in place and turned on -- 10 mA and a rate of 36 bpm. Titrate rate as needed. -- D/C Metoprolol. -- Strict Bedrest. -- Consult EP - Pacemaker placement. 2. CAD s/p Inferior RI 05/22/2017 s/p Proximal RCA drug Eluting Stent: -- Aspirin 81 mg daily. -- Plavix 75 mg daily without interruption. -- Crestor 10 mg q HS. -- Losartan 50 mg daily. -- Zetia 10 mg daily. -- PRN SL NTG. 3. HTN / Dyslipidemia: -- medications as listed above. Level of Care Telemetry Advanced Directives Existing Living Will: No Existing Power of Mine Car Dispatcher: No Resuscitation Status FULL RESUSCITATION VTE Prophylaxis VTE Risk Assessment Done? Y/N: Yes Risk Level: Moderate Given or contraindicated: Aminah Stockings Social Service Consult None Apply Additional Copies To Devin Mak MD Zoda,Chandrakant Zeng M.D. Assessment and Plan Attending Addendum: I have physically seen and examined this patient, have directed the physician assistants medical extremities, and agree with the H&P as noted above with the following exceptions: NONE The patient is awake, well-developed and adequately nourished, alert and oriented 3, normocephalic and atraumatic, lying in bed and in no acute distress. HEENT--PERRL, EOMI, mucous membranes and oropharynx dry. Neck--supple, no JVD or bruits, thyroid normal, trachea midline, no adenopathy. Heart--normal S1 and S2, no extra beats, no murmurs, rubs or gallops. Lungs--few crackles at the bases bilaterally, no respiratory distress, no accessory muscle use. Abdomen--normal bowel sounds and soft, nontender and nondistended, no hernias or masses, no organomegaly. Extremities--no cyanosis, clubbing or edema. There are good distal pulses b/l. Dermatologic--normal skin turgor, normal color, warm and dry, no abnormal lymph nodes, no rash. Neurologic--cranial nerves II through XII grossly intact. Rheumatologic--normal range of motion. Psychiatric--normal affect. Assessment and Plan: 1. CAD/status post inferior RI 05/22/2017 with proximal RCA drug-eluting stent/ syncope with intermittent complete heart block/abnormal EKG shows evolving ST elevations and Q waves inferiorly patient will be admitted to the telemetry unit. Discontinue metoprolol. Continue aspirin 81 mg by mouth daily, Plavix 75 mg by mouth daily, losartan 50 mg by mouth daily, Zetia 10 mg by mouth daily and Crestor 10 mg by mouth at bedtime. When necessary sublingual nitroglycerin. Strict bedrest. Consult EP for pacemaker placement.
[2017-05-28] MEDS ORDERED: LORAZEPAM 2 MG/ML 1 ML VIAL ONE (19:12)
[2017-05-28] MEDS ORDERED: NURSING VERBAL MED ORDER ONE (19:30)
[2017-05-28 19:55] VITALS: BP 113/65; PULSE 78; TEMP 36.7; O2SAT 94
--- NOTE | 2017-05-28 19:58 | EMERGENCY ROOM VISIT NOTE ---
ED Visit Note First contact with patient: 11:56 I responded to a CODE BLUE on this 81-year-old male. I've seen the patient earlier today with third-degree heart block. On arrival the patient was awake alert and speaking to me. According to the nurses he had at least 30-60 seconds of asystole. Patient had turned blue. The external pacemaker had not been activated. also arrived at the patient's bedside and the pacemaker was set at the correct milliamps and rate. Care of the patient was signed off to Dr. Crews.
[2017-05-28] MEDS ORDERED: ROSUVASTATIN CALCIUM 10 MG TAB PO SCH (21:00)
[2017-05-28] MEDS ORDERED: TAMSULOSIN HCL 0.4 MG CAP PO SCH (21:00)
[2017-05-29] VITALS (10 sets, daily range): BP systolic 92–127; BP diastolic 51–74; PULSE 62–83; TEMP 36.7–38.1; O2SAT 92–97
[2017-05-29 06:30] LABS: BUN/CREATININE RATIO 18.6 (10-20); CALCIUM 7.9 mg/dl (8.5-10.1); CREATININE 1.3 mg/dl (0.60-1.40); MAGNESIUM 2.4 mg/dl (1.8-2.4); POTASSIUM 4.5 mmol/L (3.5-5.1)
[2017-05-29] MEDS: NSS + 20MEQ KCL 1000ML 1,000 ML IV SCH ×2 (06:31→16:19)
[2017-05-29] MEDS ORDERED: NURSING VERBAL MED ORDER ONE (08:00)
[2017-05-29] MEDS ORDERED: AMIODARONE 360MG / 200ML D5W ONE ×2 (08:03→14:24)
[2017-05-29] MEDS ORDERED: AMIODARONE 150MG / 100ML D5W ONE ×2 (08:03→14:15)
[2017-05-29] MEDS ORDERED: MAGNESIUM SULFATE 1GM / D5W 1 GM BAG IV ONE (08:19)
[2017-05-29] MEDS ORDERED: SODIUM CHLORIDE 0.9% 10ML FLUSH IV ONE (08:19)
[2017-05-29] MEDS ORDERED: AMIODARONE HCL INJ 50 MG/ML 3 ML VIAL IV ONE (08:19)
[2017-05-29] MEDS ORDERED: FENTANYL CITRATE INJ 50 MCG/1 ML 2 ML VIAL ONE (08:40)
[2017-05-29] MEDS ORDERED: MIDAZOLAM HCL 5 MG/ML 1 ML VIAL ONE (08:40)
--- NOTE | 2017-05-29 08:56 | Progress Note ---
Progress Note Date of Service May 29, 2017. Progress Note Called by rigging man for airway management. Patient is an 81 year old M who had a recent TN and now has persistent recurrent pulseless VT. On arrival, the patient was somnolent but was conscious and protecting his airway. While preparations for intubation were being made, the patient did enter pulseless VT and ACLS was started. One attempt at defibrillation was started and the patient had return of spontaneous circulation. I made an attempt at Direct Laryngoscopy with a Mil2 blade and had an adequate view of the vocal cords but could not place the ETT due to extensive coughing and gagging on the blade. At this point the patient was given 20mg Etomidate and 200mg Succinylcholine and a glidescope was used to facilitate passage of an 8.0 ETT. The tube was secured 21cm at the lip, continuous ETCO2 was confirmed, and bilateral breath sounds were heard. The patient had a pulse and adequate oxygenation following the procedure. Care will be continued by the rigging man who plans to take the patient to the EP lab for management of his tachyarrythmia.
[2017-05-29] MEDS ORDERED: EZETIMIBE 10MG TAB PO SCH (09:00)
[2017-05-29] MEDS ORDERED: CLOPIDOGREL BISULFATE 75 MG TAB PO SCH (09:00)
[2017-05-29] MEDS ORDERED: PANTOprazole SOD 40 MG TAB PO SCH (09:00)
[2017-05-29] MEDS ORDERED: ASPIRIN 81 MG ECTAB PO SCH (09:00)
[2017-05-29] MEDS ORDERED: LOSARTAN POTASSIUM 50 MG TAB PO SCH (09:00)
[2017-05-29] MEDS ORDERED: PROPOFOL IV EMULSION 10 MG/ML 100 ML VIAL IV ONE (09:31)
[2017-05-29] MEDS: PROPOFOL IV EMULSION 10 MG/ML 100 ML VIAL IV PRN ×3 (10:10→21:40)
[2017-05-29 10:14] LABS: URINE APPEARANCE CLEAR (CLEAR); URINE BILIRUBIN NEG (NEG); URINE COLOR YELLOW; URINE EPITHELIAL CELL AUTO >30 /lpf (0-5); URINE NITRITE NEG (NEG); URINE SPECIFIC GRAVITY 1.015 (1.000-1.030); UROBILINOGEN NEG (NEG); ZZUR CULT IF INDIC CLEAN CATCH NO
[2017-05-29 10:22] LABS: MANUAL MICROSCOPIC REQUIRED? NO; REVIEW REQ? YES
--- NOTE | 2017-05-29 10:27 | Clinical Documentation Query ---
HOLDEN Vasquez : CLINICAL DOCUMENTATION QUERY Patient is an 81 year old male admitted s/p syncopal episode. This is on the backdrop of May 22 acute inferolateral myocardial infarction and subsequent JONNIE in RCA occlusive lesion. Transcutaneous pacing initiated with pending EP consultation for possible permanent pacemaker. In your clinical opinion is this patient being managed for: ( x) Complete heart block (possibly/likely) due to inferolateral NSTEMI ( ) Other explanation of clinical findings (Please Explain) ( ) Unable to determine (Please Define) ( ) Need to Discuss ( ) Not Agree The medical record reflects the following clinical findings, treatment, and risk factors. Clinical Indicators: As above Treatment: Telemetry, cardiology and EP consultation, serial cardiac enzymes, echocardiogram, discontinuation of lopressor, IVF, Risk Factors: Inferolateral OH Please clarify and document your clinical opinion in the progress notes and discharge summary. Terms such as "probable", "suspected", "likely", "questionable", "possible", or "still to be ruled out" are acceptable. IF IN AGREEMENT, YOU MUST DOCUMENT ABOVE DIAGNOSTIC STATEMENT IN DAILY PROGRESS NOTES AND DISCHARGE SUMMARY. This document is not part of the patient's record. Thank You, Crispin Kemp RN
--- NOTE | 2017-05-29 10:34 | DIAGNOSTIC IMAGING REPORT ---
CHEST ONE VIEW PORTABLE CLINICAL HISTORY: 81 years-old Male presenting with intubation. TECHNIQUE: Portable upright AP view of the chest was obtained. COMPARISON: 05/28/2017. FINDINGS: The patient is LATVIAN rotated. Interval intubation with the endotracheal tube terminating in the upper thoracic trachea. Nasogastric tube descends below the diaphragm terminating within the gastric body. Right internal jugular central venous catheter terminates within the right ventricle. Multiple overlying leads/device is noted. Cardiomediastinal silhouette unchanged. Moderately low lung volumes with hypoventilatory changes. Increased opacity at the left lung base. Minimal blunting of the bilateral costophrenic angles, possibly trace effusions. No pneumothorax. Osseous structures and upper abdomen normal. IMPRESSION: 1. Right internal jugular central venous catheter terminates within the right ventricle. This may represent a [place] catheter, which case advancement into the main pulmonary artery is recommended or alternatively a central venous line in which retraction is recommended. 2. Remaining medical devices appropriately positioned. 3. Left basilar opacity, atelectasis or aspiration. Electronically signed by: Og Varghese 05/29/2017 10:32 AM Dictated Date/Time: 05/29/2017 10:28 AM
--- NOTE | 2017-05-29 10:34 | Critical Care Consultation ---
Critical Care Consultation Date of Consultation: May 29, 2017. Attending Physician: Jesu Burns M.D. 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 Had been slowly recovering when he developed syncope and presented to [facility] ER. Was treated for possible ventricular arrhythmia with amiodarone. Underlying HTN and Hyperlipidemia. He developed VT and was cardioverted as well as received several chest compressions. Taken to the medical laboratory technician after ETT and transvenous pace placed. He is now in the ICU on a vent and amiodarone drip. Will require support pending probable AICD/pacer placement. He is intubated and sedated at the time of my initial evaluation. The records reviewed and I spoke personally with the leaf stripper. Past Medical/Surgical History HTN Dyslipidemia BPH ASCAD as noted Family History Patient reports no known family medical history. Social History Smoking Status: Never Smoker Smokeless Tobacco Use: No Drug Use: none Marital Status: Housing Status: lives with significant other Occupation Status: retired Allergies Coded Allergies: Oxycodone (Verified Allergy, Mild, CANT REMEMBER JUST HAD BAD REACTION, 05/28/17) Home Medications Scheduled Aspirin (Aspir-Low), 1 TAB PO QAM Clopidogrel (Plavix), 75 MG PO DAILY Ezetimibe (Zetia), 10 MG PO HS Losartan Potassium (Cozaar), 50 MG PO QAM Metoprolol Tartrate (Lopressor) (Lopressor), 25 MG PO DAILY Multivitamin (Multivitamin), 1 TAB PO QAM Nitroglycerin (Nitrostat), 0.4 MG UT PRN Pantoprazole (Protonix), 40 MG PO DAILY Rosuvastatin Calcium (Crestor), 10 MG PO HS Tamsulosin Hcl (Flomax), 0.4 MG PO HS Temazepam (Temazepam), 15 MG PO HS Current Inpatient Medications Current Inpatient Medications Medications (Trade) Dose Ordered Sig/Alexa Route Start Time Stop Time Status Last Admin Dose Admin Clopidogrel Bisulfate (plAVix TAB) 75 mg QAM PO 05/29/17 09:00 06/28/17 08:59 Aspirin (Ecotrin Tab) 81 mg QAM PO 05/29/17 09:00 06/28/17 08:59 Losartan Potassium (coZAAR TAB) 50 mg QAM PO 05/29/17 09:00 06/28/17 08:59 Pantoprazole Sodium (Protonix Tab) 40 mg QAM PO 05/29/17 09:00 06/28/17 08:59 Tamsulosin HCl (Flomax Cap) 0.4 mg HS PO 05/28/17 21:00 06/27/17 20:59 05/28/17 21:07 0.4 MG Rosuvastatin Calcium (Crestor Tab) 10 mg HS PO 05/28/17 21:00 06/27/17 20:59 05/28/17 21:07 10 MG Temazepam (Restoril Cap) 15 mg HS PRN PO 05/28/17 15:00 06/27/17 14:59 05/28/17 22:39 15 MG EZETIMIBE (Zetia Tab) 10 mg QAM PO 05/29/17 09:00 06/28/17 08:59 Enoxaparin Sodium (Lovenox Inj) 40 mg Q24H SC 05/28/17 18:00 06/27/17 17:59 05/28/17 17:02 40 MG Potassium Chloride/Sodium Chloride 1,000 ml @ 75 mls/hr [id number] IV 05/28/17 16:30 06/27/17 16:29 05/29/17 06:31 75 MLS/HR Acetaminophen (Tylenol Tab) 650 mg Q4H PRN PO 05/28/17 15:30 06/27/17 15:29 Al Hydrox/Mg Hydrox/Simethicone (Maalox Max Susp) 15 ml Q4H PRN PO 05/28/17 15:30 06/27/17 15:29 Magnesium Hydroxide (Milk Of Magnesia Susp) 30 ml Q12H PRN PO 05/28/17 15:30 06/27/17 15:29 Ondansetron HCl (Zofran Inj) 4 mg Q6H PRN IV 05/28/17 15:30 06/27/17 15:29 Nitroglycerin (Nitrostat Tab) 0.4 mg UD PRN SL 05/28/17 15:30 06/27/17 15:29 Polyethylene (Miralax Powder Packet) 17 gm DAILY PRN PO 05/28/17 15:30 06/27/17 15:29 Miscellaneous (Iv Fluids Completed) 1 ea PRN PRN N/A 05/28/17 16:30 05/28/18 16:29 Propofol (Diprivan Iv Emulsion 100ml Vial) 1 dose UD PRN IV 05/29/17 09:38 06/01/17 09:37 05/29/17 10:10 1 DOSE Fentanyl Citrate (Fentanyl Inj) 25 mcg Q1H PRN IV 05/29/17 09:30 06/12/17 09:29 Review of Systems The ROS was limited given his current intubated state. He is still somewhat sedated. Appears synchronous on the vent. Physical Exam Date Time Temp Pulse Resp B/P (MAP) Pulse Ox O2 Delivery O2 Flow Rate FiO2 05/29/17 09:20 50 05/29/17 08:20 100 05/29/17 07:37 36.8 77 18 114/70 (85) 95 Room Air 05/29/17 04:25 36.7 71 18 124/74 (91) 95 Room Air 05/29/17 04:00 Room Air 05/29/17 00:07 36.7 83 16 112/64 (80) 97 Room Air 05/28/17 23:59 Room Air 05/28/17 20:00 Room Air 05/28/17 19:55 36.7 78 16 113/65 (81) 94 Room Air 05/28/17 16:37 36.6 74 18 122/73 (89) 95 Room Air 05/28/17 16:04 78 18 120/74 98 05/28/17 14:00 98 Room Air 05/28/17 13:35 69 16 120/74 98 Room Air 05/28/17 12:12 66 05/28/17 12:05 64 05/28/17 11:45 96 Room Air 05/28/17 11:41 36.9 72 20 123/85 96 Room Air Intubated and sedated HEENT--Sclera pale--no lesions Resp--exchange is adequate bilaterally--some sparse rhonchi Cardio--rate and volume at this point acceptable. No JVD Abd--somewhat distended. Soft and no guarding suggested Musculo--large right groin resolving hematoma--probable from previous care for the RV infarct and cath Neuro--moving all ext. Derm--as noted Psych--sedated Laboratory Results Last 24 Hours Test 05/28/17 11:50 05/28/17 13:04 05/29/17 00:00 05/29/17 05:20 Prothrombin Time 10.6 SECONDS Prothromb Time International Ratio 1.0 Activated Partial Thromboplast Time 29.9 SECONDS Partial Thromboplastin Ratio 1.2 Sodium Level 133 mmol/L 138 mmol/L Potassium Level 3.9 mmol/L 4.5 mmol/L Chloride Level 98 mmol/L 104 mmol/L Carbon Dioxide Level 27 mmol/L 28 mmol/L Anion Gap 8.0 mmol/L 6.0 mmol/L Blood Urea Nitrogen 32 mg/dl 24 mg/dl Creatinine 1.50 mg/dl 1.30 mg/dl Est Creatinine Clear Calc Drug Dose 36.7 ml/min 42.4 ml/min Estimated GFR () 50.2 59.7 Estimated GFR (Non- 43.3 51.5 BUN/Creatinine Ratio 21.3 18.6 Random Glucose 94 mg/dl 99 mg/dl Calcium Level 8.5 mg/dl 7.9 mg/dl Total Bilirubin 0.5 mg/dl Aspartate Amino Transf (AST/SGOT) 90 U/L Alanine Aminotransferase (ALT/SGPT) 121 U/L Alkaline Phosphatase 92 U/L Troponin I 10.400 ng/ml Total Protein 6.6 gm/dl Albumin 2.9 gm/dl Globulin 3.8 gm/dl Albumin/Globulin Ratio 0.8 White Blood Count 3.81 K/uL Red Blood Count 3.67 M/uL Hemoglobin 11.2 g/dL Hematocrit 32.6 % Mean Corpuscular Volume 88.8 fL Mean Corpuscular Hemoglobin 30.5 pg Mean Corpuscular Hemoglobin Concent 34.4 g/dl Platelet Count 214 K/uL Mean Platelet Volume 9.7 fL Neutrophils (%) (Auto) 68.3 % Lymphocytes (%) (Auto) 12.9 % Monocytes (%) (Auto) 16.5 % Eosinophils (%) (Auto) 1.0 % Basophils (%) (Auto) 0.0 % Neutrophils # (Auto) 2.60 K/uL Lymphocytes # (Auto) 0.49 K/uL Monocytes # (Auto) 0.63 K/uL Eosinophils # (Auto) 0.04 K/uL Basophils # (Auto) 0.00 K/uL RDW Standard Deviation 40.9 fL RDW Coefficient of Variation 12.7 % Immature Granulocyte % (Auto) 1.3 % Immature Granulocyte # (Auto) 0.05 K/uL Magnesium Level 2.4 mg/dl Assessment & Plan RV infarct/VT/Heart Block 1. Cardio--pacer in place--continues on amiodarone. Will track volume and await cardiology continue plans--AICD/Pacer anticipated 2. Pulmonary--AC vent with 5 PEEP and Fi02 50%. TV at 500 currently. Will track sats and optimize tube placement. Sedation until procedure completed and extubation safe 3. GI- OG to low intermittent suction 4. F/E/N--will track and optimize 5. Neuro--brief CPR--will continue to track although will require sedation while on the vent. 6. --zelaya to gravity for now. Out as soon as possible.
--- NOTE | 2017-05-29 11:26 | ECHOCARDIOGRAM REPORT ---
*NOTICE TO RECEIVING [employer] This information is strictly Confidential and protected under [place] law. [place] law prohibits you from making any further disclosure of this information unless further disclosure is expressly permitted by the written consent of the person to whom it pertains or is authorized by law. A general authorization for the release of medical or other information is not sufficient for this purpose. Hospital accepts no responsibility if the information is made available to any other person, INCLUDING THE PATIENT. Interpretation Summary * Name: BREA HENRY Study Date: 05/29/2017 06:59 AM BP: 124/74 mmHg * Patient Location: C.2E\S\E205\S\1 HR: 79 * : 1935 (M/d/yyyy) Gender: Male Height: 67 in * Age: 81 yrs Ethnicity: [place] Weight: 162 lb * Ordering Physician: Ward Benitez * Referring Physician: Self, Referred * Performed By: Sarah Yates RCS * * Reason For Study: SYNCOPE * BSA: 1.8 m2 * Moderate left ventricular systolic dysfunction. * Left ventricular inferior and posterior infarct. * Left ventricular diastolic dysfunction. * Moderate to severe right ventricular systolic dysfunction. * Mild right ventricular dilatation. * Mild biatrial dilatation. * Mild tricuspid regurgitation. * -- Conclusions -- * Aortic valve sclerosis moderate, without significant aortic valvular stenosis. Procedure Details * A complete two-dimensional transthoracic echocardiogram was performed (2D, M-mode, Doppler and color flow Doppler). Left Ventricle * The left ventricle is normal in size. * There is normal left ventricular wall thickness. * Ejection Fraction = 40-45%. * A full diastolic examination was done with clinical findings of Class I diastolic dysfunction. * Left ventricular systolic function is moderately reduced. * There is inferior wall akinesis. * There is posterior wall akinesis. Right Ventricle * The right ventricle is mildly dilated. * The right ventricular systolic function is moderate to severely reduced. Atria * The left atrium is mildly dilated. * The right atrium is mildly dilated. * No ASD detected; PFO is not assessed. Mitral Valve * There is mild mitral annular calcification. * There is no mitral valve stenosis. * There is no mitral regurgitation noted. Tricuspid Valve * The tricuspid valve is normal. * There is no tricuspid stenosis. * There is mild tricuspid regurgitation. * Right ventricular systolic pressure is normal. Aortic Valve * The aortic valve is trileaflet. * Aortic valve sclerosis moderate, without significant aortic valvular stenosis. * Aortic stenosis is absent. * No aortic regurgitation is present. Great Vessels * The aortic root is normal size. Pericardium/Pleural * There is no pericardial effusion. Great Vessels * Normal inferior vena cava diameter and respiratory variation suggests normal central venous pressure. MMode 2D Measurements and Calculations IVSd 1.1 cm IVSs 1.7 cm LVIDd 4.8 cm LVIDs 3.7 cm LVPWd 1.2 cm LVPWs 1.3 cm IVS/LVPW 0.93 FS 23.1 % EDV(Teich) 109.8 ml ESV(Teich) 59.0 ml EF(Teich) 46.2 % EDV(cubed) 113.6 ml ESV(cubed) 51.6 ml EF(cubed) 54.5 % % IVS thick 53.6 % % LVPW thick 15.8 % LV mass(C)d 202.9 grams LV mass(C)dI 109.8 grams/m\S\2 LV mass(C)s 212.2 grams LV mass(C)sI 114.8 grams/m\S\2 SV(Teich) 50.8 ml SI(Teich) 27.5 ml/m\S\2 SV(cubed) 62.0 ml SI(cubed) 33.5 ml/m\S\2 Ao root diam 3.4 cm Ao root area 8.9 cm\S\2 ACS 2.0 cm LA dimension 4.2 cm LA/Ao 1.2 LVOT diam 2.0 cm LVOT area 3.3 cm\S\2 LVAd ap4 28.6 cm\S\2 LVLd ap4 7.8 cm EDV(MOD-sp4) 86.7 ml EDV(sp4-el) 88.5 ml LVAs ap4 19.4 cm\S\2 LVLs ap4 6.6 cm ESV(MOD-sp4) 48.0 ml ESV(sp4-el) 48.4 ml EF(MOD-sp4) 44.6 % EF(sp4-el) 45.3 % LVAd ap2 28.9 cm\S\2 LVLd ap2 7.8 cm EDV(MOD-sp2) 91.8 ml EDV(sp2-el) 90.9 ml LVAs ap2 20.0 cm\S\2 LVLs ap2 6.5 cm ESV(MOD-sp2) 52.7 ml ESV(sp2-el) 52.0 ml EF(MOD-sp2) 42.5 % EF(sp2-el) 42.7 % LVLd %diff -0.58 % EDV(MOD-bp) 88.7 ml LVLs %diff -1.45 % ESV(MOD-bp) 50.3 ml EF(MOD-bp) 43.4 % SV(MOD-sp4) 38.7 ml SI(MOD-sp4) 20.9 ml/m\S\2 SV(MOD-sp2) 39.0 ml SI(MOD-sp2) 21.1 ml/m\S\2 SV(MOD-bp) 38.5 ml SI(MOD-bp) 20.8 ml/m\S\2 SV(sp4-el) 40.1 ml SI(sp4-el) 21.7 ml/m\S\2 SV(sp2-el) 38.8 ml SI(sp2-el) 21.0 ml/m\S\2 Doppler Measurements and Calculations MV E max diane 45.8 cm/sec MV A max diane 78.2 cm/sec MV E/A 0.59 MV P1/2t max diane 66.4 cm/sec MV P1/2t 112.8 msec MVA(P1/2t) 1.9 cm\S\2 MV dec slope 172.5 cm/sec\S\2 MV dec time 0.24 sec Ao V2 max 139.6 cm/sec Ao max PG 7.8 mmHg Ao max PG (full) 2.6 mmHg MARINA(V,A) 2.7 cm\S\2 MARINA(V,D) 2.7 cm\S\2 LV V1 max PG 5.2 mmHg LV V1 max 113.9 cm/sec PA V2 max 102.4 cm/sec PA max PG 4.2 mmHg TR max diane 228.0 cm/sec
[2017-05-29] MEDS: FAMOTIDINE IV INJ 20 MG in DEXTROSE 5% 100ML 100 ML IV SCH ×2 (11:36→23:35)
[2017-05-29] MEDS: CLOPIDOGREL BISULFATE 75 MG TAB NG SCH (13:18)
[2017-05-29] MEDS: ASPIRIN 81 MG CHEW GT SCH (13:18)
[2017-05-29] MEDS ORDERED: SODIUM CHLORIDE 0.9% 500ML 500 ML IV SCH (13:30)
--- NOTE | 2017-05-29 15:13 | Progress Note ---
Subjective Date of Service: May 29, 2017. Problem List Medical Problems: (1) Recent myocardial infarction of inferior wall Status: Acute (2) Third degree heart block Status: Acute Objective Vital Signs Date Time Temp Pulse Resp B/P (MAP) Pulse Ox O2 Delivery O2 Flow Rate FiO2 05/29/17 11:15 30 05/29/17 10:00 97 Mechanical Ventilator 100 05/29/17 10:00 100 05/29/17 09:20 50 05/29/17 08:20 100 05/29/17 07:37 36.8 77 18 114/70 (85) 95 Room Air 05/29/17 04:25 36.7 71 18 124/74 (91) 95 Room Air 05/29/17 04:00 Room Air 05/29/17 00:07 36.7 83 16 112/64 (80) 97 Room Air 05/28/17 23:59 Room Air 05/28/17 20:00 Room Air 05/28/17 19:55 36.7 78 16 113/65 (81) 94 Room Air 05/28/17 16:37 36.6 74 18 122/73 (89) 95 Room Air 05/28/17 16:04 78 18 120/74 98 Laboratory Results Last 24 Hours Test 05/29/17 00:00 05/29/17 05:20 Urine Color YELLOW Urine Appearance CLEAR Urine pH 7.0 Urine Specific [place] 1.015 Urine Protein TRACE Urine Glucose (UA) NEG Urine Ketones NEG Urine Occult Blood NEG Urine Nitrite NEG Urine Bilirubin NEG Urine Urobilinogen NEG Urine Leukocyte Esterase NEG Urine WBC (Auto) 1-5 /hpf Urine RBC (Auto) 0-4 /hpf Urine Hyaline Casts (Auto) 1-5 /lpf Urine Epithelial Cells (Auto) >30 /lpf Urine Bacteria (Auto) NEG Urine Renal Epithelial Cells 0-5 /lpf Sodium Level 138 mmol/L Potassium Level 4.5 mmol/L Chloride Level 104 mmol/L Carbon Dioxide Level 28 mmol/L Anion Gap 6.0 mmol/L Blood Urea Nitrogen 24 mg/dl Creatinine 1.30 mg/dl Est Creatinine Clear Calc Drug Dose 42.4 ml/min Estimated GFR () 59.7 Estimated GFR (Non- 51.5 BUN/Creatinine Ratio 18.6 Random Glucose 99 mg/dl Calcium Level 7.9 mg/dl Magnesium Level 2.4 mg/dl Assessment and Plan 81 M who had recent stemi and presented with heart block, then had v tach today with amiodarone and recurred with heart block. Pt taken to manager cath lab with emergent temporary pacemaker placed. Syncope / Intermittent CHB/Vtach amiodarone , EP is following temporary pacemaker, if arrhythmia recurrs consider transfer for ablation D/C Metoprolol. Acute respiratory failure associated with heart block, intubation and ventilation until rhythm stabilizes CAD s/p Inferior NM 05/22/2017 s/p Proximal RCA drug Eluting Stent: Aspirin 81 mg daily. Plavix 75 mg daily without interruption. Crestor 10 mg q HS.Losartan 50 mg daily. Zetia 10 mg daily.
[2017-05-29] MEDS: ENOXAPARIN 40 MG/0.4 ML SYR SC SCH (18:33)
--- NOTE | 2017-05-29 18:34 | Cardiology Consultation ---
Cardiology Consultation Date of Consultation: May 29, 2017. Requesting Physician: Tony Crews Reason for Consultation: Heart Block Pt evaluation today including: conversation w/ patient, conversation w/ family , physical exam, conversation w/ building performance consultant, review of inpatient medication list History of Present Illness Patient is an 81-year-old gentleman who recently suffered an acute myocardial infarction on May 22, 2017. Patient was treated an outside hospital for right coronary artery occlusion and was eventually discharged home without complication. The patient was admitted yesterday to [facility] [address] after suffering a syncopal episode. Shortly after admission the patient was noted to have an episode of complete heart block and placed on telemetry. Transcutaneous pacing was placed on standby. The patient was on metoprolol the time of discharge from the outside facility and this was discontinued. Over the course of the evening the patient's rhythm remained stable, however this morning he began to have episodes of sustained ventricular tachycardia. This was initially felt to be related to transcutaneous pacing but further episodes clearly were not. Patient was conscious during the majority of these episodes although slightly hemodynamically compromised. He did report some discomfort in the chest at that time, however the symptoms seem to be related to compression 0 performed the day prior and were not reminiscent of his ischemic discomfort present on admission to the outside facility. Past Medical/Surgical History Acute myocardial infarction with PCI to the right coronary artery 05/22/2017 Hyperlipidemia Hypertension Lumbar stenosis Benign prostatic hypertrophy Family History Patient reports no known family medical history. No premature Social History Smoking Status: Never Smoker History of Alcohol Use: Yes (RARE) I reviewed the patient's records from [place] including his cardiac catheterization report, H&P and discharge. Review of Systems Constitutional: + see HPI Respiratory: + see HPI Cardiac: + see HPI Abdomen: + see HPI Male : + see HPI Neurologic: + see HPI Heme: + see HPI Endo: + see HPI Skin: + see HPI Some of the review of systems was deferred due to the critical nature of the patient's condition at the time of this interview All Other Systems: Reviewed and Negative Allergies Coded Allergies: Oxycodone (Verified Allergy, Mild, CANT REMEMBER JUST HAD BAD REACTION, 05/28/17) Amlodipine (Unverified Allergy, Unknown, UNKNOWN, 05/29/17) Codeine (Unverified Allergy, Unknown, UNKNOWN, 05/29/17) Lisinopril (Unverified Allergy, Unknown, UNKNOWN, 05/29/17) Medications Current Inpatient Medications Medications (Trade) Dose Ordered Sig/Alexa Route Start Time Stop Time Status Last Admin Dose Admin Losartan Potassium (coZAAR TAB) 50 mg QAM PO 05/29/17 09:00 06/28/17 08:59 Future Hold Pantoprazole Sodium (Protonix Tab) 40 mg QAM PO 05/29/17 09:00 06/28/17 08:59 Future Hold Tamsulosin HCl (Flomax Cap) 0.4 mg HS PO 05/28/17 21:00 06/27/17 20:59 Future Hold 05/28/17 21:07 0.4 MG Rosuvastatin Calcium (Crestor Tab) 10 mg HS PO 05/28/17 21:00 06/27/17 20:59 Future Hold 05/28/17 21:07 10 MG Temazepam (Restoril Cap) 15 mg HS PRN PO 05/28/17 15:00 06/27/17 14:59 Future Hold 05/28/17 22:39 15 MG EZETIMIBE (Zetia Tab) 10 mg QAM PO 05/29/17 09:00 06/28/17 08:59 Future Hold Enoxaparin Sodium (Lovenox Inj) 40 mg Q24H SC 05/28/17 18:00 06/27/17 17:59 05/28/17 17:02 40 MG Potassium Chloride/Sodium Chloride 1,000 ml @ 75 mls/hr [id number] IV 05/28/17 16:30 06/27/17 16:29 05/29/17 16:19 75 MLS/HR Acetaminophen (Tylenol Tab) 650 mg Q4H PRN PO 05/28/17 15:30 06/27/17 15:29 Al Hydrox/Mg Hydrox/Simethicone (Maalox Max Susp) 15 ml Q4H PRN PO 05/28/17 15:30 06/27/17 15:29 Magnesium Hydroxide (Milk Of Magnesia Susp) 30 ml Q12H PRN PO 05/28/17 15:30 06/27/17 15:29 Ondansetron HCl (Zofran Inj) 4 mg Q6H PRN IV 05/28/17 15:30 06/27/17 15:29 Nitroglycerin (Nitrostat Tab) 0.4 mg UD PRN SL 7/9/17 15:30 06/27/17 15:29 Polyethylene (Miralax Powder Packet) 17 gm DAILY PRN PO 05/28/17 15:30 06/27/17 15:29 Miscellaneous (Iv Fluids Completed) 1 ea PRN PRN N/A 05/28/17 16:30 05/28/18 16:29 Propofol (Diprivan Iv Emulsion 100ml Vial) 1 dose UD PRN IV 05/29/17 09:38 06/01/17 09:37 05/29/17 15:57 1 DOSE Fentanyl Citrate (Fentanyl Inj) 25 mcg Q1H PRN IV 05/29/17 09:30 06/12/17 09:29 Famotidine 20 mg/ Dextrose 102 ml @ 200 mls/hr Q12H IV 05/29/17 11:00 06/28/17 10:59 05/29/17 11:36 200 MLS/HR Clopidogrel Bisulfate (plAVix TAB) 75 mg QAM NG 05/29/17 12:00 06/28/17 11:59 05/29/17 13:18 75 MG Aspirin (Aspirin Chew) 81 mg DAILY GT 05/29/17 12:00 06/28/17 11:59 05/29/17 13:18 81 MG Amiodarone HCL/ Dextrose 200 ml @ 16.7 mls/hr [id number] IV 05/30/17 03:00 06/29/17 02:59 Physical Exam Vital Signs Past 12 Hours Date Time Temp Pulse Resp B/P (MAP) Pulse Ox O2 Delivery O2 Flow Rate FiO2 05/29/17 18:14 30 05/29/17 16:19 30 05/29/17 16:00 36.8 69 14 94/69 (77) 94 Mechanical Ventilator 30 05/29/17 16:00 94 Mechanical Ventilator 30 05/29/17 16:00 30 05/29/17 11:15 30 05/29/17 10:00 97 Mechanical Ventilator 100 05/29/17 10:00 100 05/29/17 09:20 50 05/29/17 08:20 100 05/29/17 07:37 36.8 77 18 114/70 (85) 95 Room Air The patient is alert and had normal mentation for most of today's examination.. He answered all questions appropriately. He did have a brief loss of consciousness during an episode of ventricular tachycardia. HEENT: Pupils are equal and reactive to light and accommodation. Extraocular movements are intact. The sclerae are anicteric. Neuro: Cranial nerves intact Neck: Patient's neck is supple. He has palpable carotid pulses bilaterally without bruits on auscultation. There is no evidence of jugular venous distention. The thyroid is not enlarged. Lungs: Clear to auscultation bilaterally. He has good air movement without use of accessory muscles. No rales wheezes or rhonchi. Cardiac: Heart demonstrates a regular rate and rhythm. Normal S1 and S2. No murmurs on examination. Pulses: The patient has palpable radial pulses bilaterally that are equal in intensity Extremities: There was no evidence of hypoperfusion. There is no cyanosis or clubbing. There is no edema. Skin: I did not appreciate any rashes on examination today. Data Laboratory Results: Last 24 Hours Test 05/29/17 00:00 05/29/17 05:20 05/29/17 17:41 Urine Color YELLOW Urine Appearance CLEAR Urine pH 7.0 Urine Specific [place] 1.015 Urine Protein TRACE Urine Glucose (UA) NEG Urine Ketones NEG Urine Occult Blood NEG Urine Nitrite NEG Urine Bilirubin NEG Urine Urobilinogen NEG Urine Leukocyte Esterase NEG Urine WBC (Auto) 1-5 /hpf Urine RBC (Auto) 0-4 /hpf Urine Hyaline Casts (Auto) 1-5 /lpf Urine Epithelial Cells (Auto) >30 /lpf Urine Bacteria (Auto) NEG Urine Renal Epithelial Cells 0-5 /lpf Sodium Level 138 mmol/L Potassium Level 4.5 mmol/L Chloride Level 104 mmol/L Carbon Dioxide Level 28 mmol/L Anion Gap 6.0 mmol/L Blood Urea Nitrogen 24 mg/dl Creatinine 1.30 mg/dl Est Creatinine Clear Calc Drug Dose 42.4 ml/min Estimated GFR () 59.7 Estimated GFR (Non- 51.5 BUN/Creatinine Ratio 18.6 Random Glucose 99 mg/dl Calcium Level 7.9 mg/dl Magnesium Level 2.4 mg/dl Bedside Glucose 95 mg/dl Imaging: Normal chest x-ray EKG: Initial EKG demonstrated this trifascicular block. There was telemetry available demonstrating complete heart block. Telemetry reviewed: There was evidence of R on T phenomena. Assessment & Plan 1. 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 This was likely related both to chronic conduction disease , his recent myocardial infarction and initiation of beta-blockade. Presumably his syncope was related to an episode of complete heart block as he demonstrated this during his admission. Whether this will improve over time is unclear, but given the dramatic presentation and the significant conduction disease seen on presentation would seem reasonable to recommend permanent pacing in order to avoid additional episodes of syncope. Given nature is myocardial infarction I would consider his metoprolol as necessary therapy. 2. Ventricular tachycardia: Patient had monomorphic ventricular tachycardia suggesting that this is scar mediated. This seemed to be related to R on T phenomena from early coupled PVCs. I do not think this was related to a reocclusion of his right coronary artery despite his EKG. He did not have symptoms suggestive of his initial infarct at the time of his ventricular tachycardia today. Patient was loaded with amiodarone given 1 dose of metoprolol. This did result in a transient period of complete heart block. Based on the need for medical therapy and his notable conduction disease the patient was taken to the EP lab for placement of a temporary transvenous pacemaker. Patient also underwent intubation in order to facilitate possible cardioversion or more aggressive interventions. The stability was not known at the time of intubation. Subsequent to intubation initiation of medical therapy his PVCs or reduced in number and there are no additional episodes of ventricular tachycardia. This point would seem reasonable continue medical therapy and monitor him overnight. Should he do well he appears to be an appropriate candidate for an ICD as secondary prevention against sudden cardiac . He likely has an element of scar from his myocardial infarction. Whether this will continue to be a problem is unclear as he is still in the healing process. The patient continues to have incessant episodes of ventricular tachycardia despite aggressive medical therapy he could be considered for urgent transfer and VT ablation or perhaps mechanical support. 3. Coronary artery disease: Patient does have evidence of an acute infarct on his EKG, however the changes are not much different from that on presentation. He did not have symptoms of a reocclusion at the time of presentation or during his episodes today. I suspect he simply had a completed infarct. This is supported by his echocardiogram findings as well. He will be continued on aggressive secondary prevention to include beta blockade once his device is placed. 4. Ischemic cardiomyopathy: Patient does have reduced LV for and RV function on his echocardiogram. He has not had a good trial of medical therapy as his infarct was only recent. However, he likely will have significant ventricular pacing based on his history of complete heart block and the need for 2 medications which will compromise his AV pratik function. As such consideration will be given to implantation of a biventricular device during the procedure tomorrow
[2017-05-29] MEDS: FENTANYL CITRATE INJ 50 MCG/1 ML 2 ML VIAL IV PRN ×2 (18:36→22:46)
--- NOTE | 2017-05-29 18:36 | Cardiology Procedure Brief Nt ---
Preliminary Cardiology Note Procedure Date May 29, 2017. Pre-Procedure Diagnosis Complete heart block, ventricular tachycardia Post-Procedure Diagnosis Same Procedure(s) Performed Implantation of transvenous pacemaker, temporary Patient was taken urgently to the EP lab where the right internal jugular area was prepped and draped in the usual sterile fashion. Right internal jugular vein was subsequently accessed using modified Seldinger technique under ultrasound guidance and a venous sheath was placed over a guidewire at this site. This sheath was used to facilitate passage of a balloon tip pacing catheter to the right ventricular apex under fluoroscopic guidance. Adequate pacing thresholds with good capture was confirmed prior to securing of the sheath and catheter to the patient. There were no immediate complications. The patient tolerated the procedure well. Numberer And Wirer Aubree System Support Analyst(s) None Estimated Blood Loss None Medication(s) Versed, fentanyl Preliminary Findings Successful placement of right IJ temporary transvenous pacemaker Recommendations Continue monitoring the intensive care unit Specimens None Complication(s) None Disposition
--- NOTE | 2017-05-29 18:57 | Cardiology Progress Note ---
Cardiology Progress Note Date of Service May 29, 2017. Cardiology Progress Note The events of this morning including monitor history, nursing notes, and physician notes reviewed by me. Case discussed with nursing staff, Dr. Holm , Dr. Mak, patient's , and patient's son. Patient seen and examined by me in his intensive care unit this evening. The patient had done well overnight. His rhythm was sinus rhythm. This morning he developed ventricular tachycardia. He remained conscious. After receiving intravenous amiodarone for ventricular tachycardia he developed complete heart block. Received CPR for a few minutes. He was endotracheally intubated. Then underwent placement of a temporary transvenous pacemaker by Dr. Mak. Since then he has been maintained on deep sedation with intravenous propofol and he remains endotracheally intubated and on mechanical ventilation. Since the pacemaker was placed his rhythm is sinus rhythm with occasional ventricular paced beats. No further ventricular tachycardia since this morning' s episode. The patient's family reports that he sleeps awoke slightly earlier today. He acted purposefully. Propofol infusion was increased. At the time of my exam he is under deep sedation. Current monitor reveals sinus rhythm. Blood pressure at the time of my visit was 124/65. Pulse 76. Pulse oximetry was 95 percent. Is on 30 percent FiO2. Patient is sedated. He is in no distress. Neck: No jugular venous distention noted. Lungs: No rales or wheezes. Equal breath sounds bilaterally. Heart: Regular rate and rhythm. S1-S2 normal. No S3 or S4.No murmur or rub. Abdomen: Normal bowel sounds. Soft. Extremities: No pretibial edema. No calf swelling. No erythema of the legs. Distal pulses palpable in the legs. Echocardiogram performed this morning prior to the episodes of ventricular tachycardia revealed moderate left ventricular systolic dysfunction. LV ejection fraction 40-45 percent. Inferior and posterior akinesis to dyskinesis. Mild right ventricular dilatation. Moderate to severe right ventricular systolic dysfunction. Left ventricular diastolic dysfunction. Mild tricuspid regurgitation. Mild biatrial dilatation. Electrocardiogram this morning after the ventricular tachycardia and CPR revealed sinus rhythm, inferior PR, inferior ST elevations, ST depressions in the anterolateral leads. Compared to electro cardiogram performed yesterday the ST segment elevations and depressions are more prominent. Labs this morning revealed sodium 138, potassium 4.5, chloride 104, carbon dioxide 28, BUN 24, creatinine 1.30, random glucose 99. Magnesium 2.4. Current medications include intravenous amiodarone, clopidogrel 75 milligrams daily, aspirin 81 milligrams daily, famotidine 20 milligrams IV q.12 hours, intravenous propofol, enoxaparin 40 milligram subcu Q 24 hours, normal saline with potassium chloride 75 milliliters/hour. Allergies and adverse drug reactions: Amlodipine, codeine, lisinopril, oxycodone. Assessment: 1. Status post acute inferior posterior myocardial infarction May 22, 2017. Total proximal RCA occlusion on emergency cardiac catheterization performed at [facility]. Subsequent PCI to the RCA. Deployment of a 2.75 x 16 millimeter synergy drug-eluting stent. [id number] disease reported in left circumflex and LAD. 2. Echocardiogram today with moderate LV systolic dysfunction. Inferior and posterior akinesis to dyskinesis. There is also right ventricular dilatation and right ventricular systolic dysfunction. This is consistent with him sustaining a right ventricular infarct at the time of his RCA occlusion. No evidence of congestive heart failure on exam this evening. Chest x-ray post intubation did not reveal any evidence of significant heart failure. 3. Admission to this hospital May 28, 2017 with brief syncopal episode. Episode of complete heart block noted in the emergency department. Brief episode of complete heart block also occurred when he was transferred from the emergency department to the telemetry unit. Since last evening no episodes of any his significant heart block until this morning. This occurred after receiving intravenous amiodarone for ventricular tachycardia. Since placement of the temporary transvenous pacemaker he has had no further episodes of any significant heart block. There are occasional ventricular paced beats. 4. Ventricular tachycardia this morning. Since being started on intravenous amiodarone receiving magnesium bolus he has had no further significant ventricular ectopy. 5. Following his episode ventricular tachycardia and before the episode he did not have any of his typical anginal complaints. No symptoms that he had at the time of his myocardial infarction on May 22. Post resuscitation electrocardiogram did reveal increased ST segment depressions in elevations compared to yesterday's electrocardiogram. This would not be unexpected after the his cardiac arrest this morning. He had at least a few minutes of low blood pressure. 6. Improvement in BUN and creatinine since admission. 7. Despite the biventricular systolic dysfunction there is no evidence of any significant elevations in his right heart or central venous pressures on echocardiogram this morning. Plan recommendations: 1. Remain on intravenous amiodarone. 2. Continue temporary transvenous pacemaker. 3. Continue aspirin and clopidogrel. 4. It is planned for him undergo placement of a pacemaker/ICD tomorrow. 5. Discontinuation of sedation and extubation following placement of the ICD/ pacemaker. 6. Restart beta-frank therapy after permanent pacemaker placement. 7. Recheck CBC , magnesium, and metabolic profile tomorrow morning. 8. Restart losartan if his renal function continues to improve and if his blood pressure is stable. 9. Check troponin I in a.m..
[2017-05-29] MEDS ORDERED: ALBUMIN HUMAN 25% 12.5 GM/50 ML VIAL IV STA (22:10)
--- NOTE | 2017-05-29 22:27 | DIAGNOSTIC IMAGING REPORT ---
CHEST ONE VIEW PORTABLE CLINICAL HISTORY: Fever. Respiratory failure. COMPARISON STUDY: 05/29/2017 FINDINGS: There is an endotracheal tube 53 mm above the елена. There is a nasogastric tube which passes into the stomach. There is a right internal jugular right ventricular catheter/electrode. There is mild central vascular prominence without evidence of overt failure. There are bibasilar densities, likely atelectatic.[ IMPRESSION: Bibasilar opacities, statistically atelectatic. Electronically signed by: Maico Giron M.D. 05/29/2017 10:26 PM Dictated Date/Time: 05/29/2017 10:24 PM
[2017-05-29] MEDS: AMIODARONE / D5W 200 ML IV SCH (22:39)
[2017-05-30] VITALS (62 sets, daily range): BP systolic 74–130; BP diastolic 47–76; PULSE 40–101; TEMP 36.4–38.8; O2SAT 89–99
[2017-05-30 00:46] LABS: URINE APPEARANCE TURBID (CLEAR); URINE BILIRUBIN NEG (NEG); URINE COLOR DK YELLOW; URINE NITRITE NEG (NEG); URINE PH 5.5 (4.5-7.5); URINE SPECIFIC GRAVITY 1.026 (1.000-1.030); UROBILINOGEN NEG (NEG); ZZURINE CULT IF INDIC CATH NO
[2017-05-30 00:50] LABS: MANUAL MICROSCOPIC REQUIRED? NO; REVIEW REQ? NO
[2017-05-30] MEDS ORDERED: ALBUMIN HUMAN 25% 12.5 GM/50 ML VIAL IV ONE (01:00)
[2017-05-30] MEDS ORDERED: NURSING VERBAL MED ORDER STA (02:00)
[2017-05-30] MEDS ORDERED: ALBUMIN HUMAN 25% 12.5 GM/50 ML VIAL IV STA ×2 (02:04→22:16)
[2017-05-30] MEDS ORDERED: AMIODARONE / D5W 200 ML IV SCH (03:00)
[2017-05-30] MEDS: NSS + 20MEQ KCL 1000ML 1,000 ML IV SCH ×2 (04:58→15:51)
[2017-05-30] MEDS: FENTANYL CITRATE INJ 50 MCG/1 ML 2 ML VIAL IV PRN ×2 (05:19→10:45)
[2017-05-30] MEDS ORDERED: CEFAZOLIN SOD 1000MG/55 ML D5W IV SCH (06:00)
[2017-05-30] MEDS ORDERED: CEFAZOLIN IV 1,000 MG in DEXTROSE 5% 50ML 50 ML IV SCH ×2 (06:00→23:30)
[2017-05-30 06:07] LABS: BUN/CREATININE RATIO 16.2 (10-20); CALCIUM 7.2 mg/dl (8.5-10.1); CREATININE 1.2 mg/dl (0.60-1.40); MAGNESIUM 2.6 mg/dl (1.8-2.4); POTASSIUM 4.5 mmol/L (3.5-5.1)
[2017-05-30] MEDS: PROPOFOL IV EMULSION 10 MG/ML 100 ML VIAL IV PRN ×3 (06:07→21:16)
[2017-05-30 06:26] LABS: ALB/GLOB RATIO 1.2 (0.9-2); HEMATOCRIT 25.2 % (42-52); MEAN CORPUSCULAR HEMOGLOBIN 31.4 pg (25-34); MEAN CORPUSCULAR HGB CONC 34.5 g/dl (32-36); MEAN PLATELET VOLUME 9.5 fL (7.4-10.4); PLATELET COUNT 182 K/uL (130-400); RED BLOOD COUNT 2.77 M/uL (4.7-6.1); WHITE BLOOD COUNT 5.25 K/uL (4.8-10.8)
[2017-05-30 06:31] LABS: COMPLETE YES; ECHINOCYTES 1+; EOS % 0.6 %; IG% 1.3 %; LYMPH % 10.1 %; LYMPH ABS # 0.53 K/uL (1.2-3.4); MONO % 9.7 %; NEUT % 78.3 %
--- NOTE | 2017-05-30 07:55 | Critical Care Progress Note ---
Critical Care Progress Note Date of Service May 30, 2017. ICU Day ICU Day Number: [address] Holm Subjective Uneventful night on the vent. No substantial ectopy. Amiodarone drip tolerated. Lightly sedated on propofol. Anticipating procedure today. Objective Gen--calm and synchronous HEENT--no focal changes. Pulmonary--exchange is good--no rhonchi/wheezing Cardio--rate and volume adequate--no JVD GI--nontender--functional --zelaya to gravity Musculo--no erythema or edema Neuro--no focal neuro targets--Propofol tolerated Psych--negative Derm--no active lesions--sites ok Current SOFA Score SOFA Score Response (Comments) Value PaO2/FiO2 (mmHg) < 400 1 SaO2 / FIO2 221 - 301 1 Platelets (x10) < 150 1 Bilirubin (mg/dL) < 1.2 0 [place] Coma Score < 6 4 Level of Hypotension No Hypotension 0 Creatinine (mg/dL) 1.2 - 1.9 1 Total 8 Assessment & Plan VT arrest in setting of RV infarct. Cardiology planning pacer/AICD today. Plan to extubate after procedure and mobilize Zelaya out NATALIIA too. Pulmonary toilette. Mobilization. Likely will require some rehab care post ICU. Consults & Procedures Consultants: none Procedures: none Data Medications: Current Inpatient Medications Medications (Trade) Dose Ordered Sig/Alexa Route Start Time Stop Time Status Last Admin Dose Admin Losartan Potassium (coZAAR TAB) 50 mg QAM PO 05/29/17 09:00 06/28/17 08:59 Future Hold Pantoprazole Sodium (Protonix Tab) 40 mg QAM PO 05/29/17 09:00 06/28/17 08:59 Future Hold Tamsulosin HCl (Flomax Cap) 0.4 mg HS PO 05/28/17 21:00 06/27/17 20:59 Future Hold 05/28/17 21:07 0.4 MG Rosuvastatin Calcium (Crestor Tab) 10 mg HS PO 05/28/17 21:00 06/27/17 20:59 Future Hold 05/28/17 21:07 10 MG Temazepam (Restoril Cap) 15 mg HS PRN PO 05/28/17 15:00 06/27/17 14:59 Future Hold 05/28/17 22:39 15 MG EZETIMIBE (Zetia Tab) 10 mg QAM PO 05/29/17 09:00 06/28/17 08:59 Future Hold Enoxaparin Sodium (Lovenox Inj) 40 mg Q24H SC 05/28/17 18:00 06/27/17 17:59 05/29/17 18:33 40 MG Potassium Chloride/Sodium Chloride 1,000 ml @ 100 mls/hr Q10H IV 05/28/17 16:30 06/27/17 16:29 05/30/17 04:58 100 MLS/HR Al Hydrox/Mg Hydrox/Simethicone (Maalox Max Susp) 15 ml Q4H PRN PO 05/28/17 15:30 06/27/17 15:29 Magnesium Hydroxide (Milk Of Magnesia Susp) 30 ml Q12H PRN PO 05/28/17 15:30 06/27/17 15:29 Ondansetron HCl (Zofran Inj) 4 mg Q6H PRN IV 05/28/17 15:30 06/27/17 15:29 Nitroglycerin (Nitrostat Tab) 0.4 mg UD PRN SL 05/28/17 15:30 06/27/17 15:29 Polyethylene (Miralax Powder Packet) 17 gm DAILY PRN PO 05/28/17 15:30 06/27/17 15:29 Miscellaneous (Iv Fluids Completed) 1 ea PRN PRN N/A 05/28/17 16:30 05/28/18 16:29 Propofol (Diprivan Iv Emulsion 100ml Vial) 1 dose UD PRN IV 05/29/17 09:38 06/01/17 09:37 05/30/17 06:07 1 DOSE Fentanyl Citrate (Fentanyl Inj) 25 mcg Q1H PRN IV 05/29/17 09:30 06/12/17 09:29 05/30/17 05:19 25 MCG Famotidine 20 mg/ Dextrose 102 ml @ 200 mls/hr Q12H IV 05/29/17 11:00 06/28/17 10:59 05/29/17 23:35 200 MLS/HR Clopidogrel Bisulfate (plAVix TAB) 75 mg QAM NG 05/29/17 12:00 06/28/17 11:59 05/29/17 13:18 75 MG Aspirin (Aspirin Chew) 81 mg DAILY GT 05/29/17 12:00 06/28/17 11:59 05/29/17 13:18 81 MG Cefazolin Sodium 1000 mg/Dextrose 55 ml @ 110 mls/hr PREOP IV 05/30/17 06:00 05/31/17 05:59 Amiodarone HCL/ Dextrose 200 ml @ 16.7 mls/hr [id number] IV 05/29/17 21:45 06/28/17 21:44 05/29/17 22:39 16.7 MLS/HR Acetaminophen 650 mg/Empty Bag 65 ml @ 260 mls/hr Q6H PRN IV 05/29/17 22:15 06/28/17 22:14 Vital Signs: Date Time Temp Pulse Resp B/P (MAP) Pulse Ox O2 Delivery O2 Flow Rate FiO2 05/30/17 07:35 30 05/30/17 07:02 61 15 97/58 (72) 95 05/30/17 06:32 60 15 90/53 (63) 94 05/30/17 06:02 62 14 97/55 (65) 94 05/30/17 06:00 37.1 05/30/17 05:33 61 14 80/51 (61) 93 05/30/17 05:02 65 15 94/59 (66) 94 05/30/17 04:48 30 05/30/17 04:32 64 17 101/61 (73) 95 05/30/17 04:02 65 14 110/64 (78) 96 05/30/17 04:00 30 05/30/17 04:00 96 Mechanical Ventilator 30 05/30/17 04:00 36.4 05/30/17 03:32 78 14 107/68 (72) 97 05/30/17 03:02 64 14 90/56 (73) 95 05/30/17 02:32 65 14 89/54 (66) 95 05/30/17 02:02 68 16 91/55 (65) 95 05/30/17 01:32 66 16 91/53 (64) 95 05/30/17 01:27 30 05/30/17 01:02 67 14 86/56 (59) 95 05/30/17 01:00 37.1 05/30/17 00:32 68 16 82/49 (59) 94 05/30/17 00:04 70 15 83/47 (56) 93 05/30/17 00:02 70 79/47 (51) 93 05/30/17 00:02 70 16 79/47 (51) 93 05/30/17 00:01 37.9 05/30/17 00:00 70 93 05/29/17 23:59 30 05/29/17 23:59 93 Mechanical Ventilator 30 05/29/17 23:02 76 14 92/51 (61) 92 05/29/17 22:42 30 05/29/17 22:00 38.1 62 14 104/60 (75) 93 Mechanical Ventilator 30 05/29/17 20:00 37.7 74 14 97/54 (68) 93 Mechanical Ventilator 30 05/29/17 20:00 93 Mechanical Ventilator 30 05/29/17 20:00 30 05/29/17 19:48 30 05/29/17 18:14 30 05/29/17 18:00 37.1 69 14 127/65 (85) 94 Mechanical Ventilator 30 05/29/17 16:19 30 05/29/17 16:00 36.8 69 14 94/69 (77) 94 Mechanical Ventilator 30 05/29/17 16:00 94 Mechanical Ventilator 30 05/29/17 16:00 30 05/29/17 11:15 30 05/29/17 10:00 97 Mechanical Ventilator 100 05/29/17 10:00 100 05/29/17 09:20 50 05/29/17 08:20 100 Laboratory Results: Last 24 Hours Test 05/29/17 17:41 05/29/17 23:24 05/29/17 23:43 05/30/17 05:07 Bedside Glucose 95 mg/dl 134 mg/dl 133 mg/dl Urine Color DK YELLOW Urine Appearance TURBID Urine pH 5.5 Urine Specific [place] 1.026 Urine Protein 2+ Urine Glucose (UA) NEG Urine Ketones TRACE Urine Occult Blood 3+ Urine Nitrite NEG Urine Bilirubin NEG Urine Urobilinogen NEG Urine Leukocyte Esterase TRACE Urine WBC (Auto) 1-5 /hpf Urine RBC (Auto) >30 /hpf Urine Hyaline Casts (Auto) 1-5 /lpf Urine Epithelial Cells (Auto) 10-20 /lpf Urine Bacteria (Auto) NEG Test 05/30/17 05:08 White Blood Count 5.25 K/uL Red Blood Count 2.77 M/uL Hemoglobin 8.7 g/dL Hematocrit 25.2 % Mean Corpuscular Volume 91.0 fL Mean Corpuscular Hemoglobin 31.4 pg Mean Corpuscular Hemoglobin Concent 34.5 g/dl Platelet Count 182 K/uL Mean Platelet Volume 9.5 fL Neutrophils (%) (Auto) 78.3 % Lymphocytes (%) (Auto) 10.1 % Monocytes (%) (Auto) 9.7 % Eosinophils (%) (Auto) 0.6 % Basophils (%) (Auto) 0.0 % Neutrophils # (Auto) 4.11 K/uL Lymphocytes # (Auto) 0.53 K/uL Monocytes # (Auto) 0.51 K/uL Eosinophils # (Auto) 0.03 K/uL Basophils # (Auto) 0.00 K/uL RDW Standard Deviation 44.7 fL RDW Coefficient of Variation 13.3 % Immature Granulocyte % (Auto) 1.3 % Immature Granulocyte # (Auto) 0.07 K/uL Echinocytes 1+ Sodium Level 136 mmol/L Potassium Level 4.5 mmol/L Chloride Level 105 mmol/L Carbon Dioxide Level 24 mmol/L Anion Gap 7.0 mmol/L Blood Urea Nitrogen 19 mg/dl Creatinine 1.20 mg/dl Est Creatinine Clear Calc Drug Dose 45.9 ml/min Estimated GFR () 65.8 Estimated GFR (Non- 56.8 BUN/Creatinine Ratio 16.2 Random Glucose 121 mg/dl Calcium Level 7.2 mg/dl Magnesium Level 2.6 mg/dl Total Bilirubin 0.6 mg/dl Aspartate Amino Transf (AST/SGOT) 28 U/L Alanine Aminotransferase (ALT/SGPT) 57 U/L Alkaline Phosphatase 101 U/L Troponin I 4.970 ng/ml Total Protein 5.6 gm/dl Albumin 3.0 gm/dl Globulin 2.6 gm/dl Albumin/Globulin Ratio 1.2
[2017-05-30] MEDS: CLOPIDOGREL BISULFATE 75 MG TAB NG SCH (08:27)
[2017-05-30] MEDS: ASPIRIN 81 MG CHEW GT SCH (08:27)
[2017-05-30] MEDS ORDERED: ASPIRIN 81 MG CHEW GT SCH (09:00)
--- NOTE | 2017-05-30 10:13 | Cardiology Follow-Up ---
Subjective Date of Service: May 30, 2017. Pt evaluation today including: conversation w/ family, physical exam, chart review, lab review, review of studies, conversation w/ attending History of Present Illness This morning the patient remains intubated and sedated. He was however arousable in did answer questions appropriately when queried by the nursing staff. Social History Smoking Status: Never Smoker History of Alcohol Use: Yes (RARE) Review of Systems Respiratory: + see HPI Cardiac: + see HPI Some of the review of systems was deferred due to the critical nature of the patient's condition at the time of this interview Objective Vital Signs Past 12 Hours Date Time Temp Pulse Resp B/P (MAP) Pulse Ox O2 Delivery O2 Flow Rate FiO2 05/30/17 08:02 37.1 62 15 106/64 (78) 95 Mechanical Ventilator 30 05/30/17 08:00 Mechanical Ventilator 30 05/30/17 08:00 30 05/30/17 07:35 30 05/30/17 07:02 61 14 97/58 (71) 95 Mechanical Ventilator 30 05/30/17 07:02 61 15 97/58 (72) 95 05/30/17 06:32 60 15 90/53 (63) 94 05/30/17 06:02 62 14 97/55 (65) 94 05/30/17 06:00 37.1 05/30/17 05:33 61 14 80/51 (61) 93 05/30/17 05:02 65 15 94/59 (66) 94 05/30/17 04:48 30 05/30/17 04:32 64 17 101/61 (73) 95 05/30/17 04:02 65 14 110/64 (78) 96 05/30/17 04:00 30 05/30/17 04:00 96 Mechanical Ventilator 30 05/30/17 04:00 36.4 05/30/17 03:32 78 14 107/68 (72) 97 05/30/17 03:02 64 14 90/56 (73) 95 05/30/17 02:32 65 14 89/54 (66) 95 05/30/17 02:02 68 16 91/55 (65) 95 05/30/17 01:32 66 16 91/53 (64) 95 05/30/17 01:27 30 05/30/17 01:02 67 14 86/56 (59) 95 05/30/17 01:00 37.1 05/30/17 00:32 68 16 82/49 (59) 94 05/30/17 00:04 70 15 83/47 (56) 93 05/30/17 00:02 70 79/47 (51) 93 05/30/17 00:02 70 16 79/47 (51) 93 05/30/17 00:01 37.9 05/30/17 00:00 70 93 05/29/17 23:59 30 05/29/17 23:59 93 Mechanical Ventilator 30 05/29/17 23:02 76 14 92/51 (61) 92 05/29/17 22:42 30 Last Recorded Weight-Kilograms: 71.100 Physical Exam Intubated and sedated but arousable. Lungs are clear to auscultation without upper airway congestion. Cardiac examination revealed him to be in irregular rhythm. I did not appreciate a murmurs. IJ temporary transvenous pacemaker was intact. Data Laboratory Results: Last 24 Hours Test 05/29/17 17:41 05/29/17 23:24 05/29/17 23:43 05/30/17 05:07 Bedside Glucose 95 mg/dl 134 mg/dl 133 mg/dl Urine Color DK YELLOW Urine Appearance TURBID Urine pH 5.5 Urine Specific [place] 1.026 Urine Protein 2+ Urine Glucose (UA) NEG Urine Ketones TRACE Urine Occult Blood 3+ Urine Nitrite NEG Urine Bilirubin NEG Urine Urobilinogen NEG Urine Leukocyte Esterase TRACE Urine WBC (Auto) 1-5 /hpf Urine RBC (Auto) >30 /hpf Urine Hyaline Casts (Auto) 1-5 /lpf Urine Epithelial Cells (Auto) 10-20 /lpf Urine Bacteria (Auto) NEG Test 05/30/17 05:08 White Blood Count 5.25 K/uL Red Blood Count 2.77 M/uL Hemoglobin 8.7 g/dL Hematocrit 25.2 % Mean Corpuscular Volume 91.0 fL Mean Corpuscular Hemoglobin 31.4 pg Mean Corpuscular Hemoglobin Concent 34.5 g/dl Platelet Count 182 K/uL Mean Platelet Volume 9.5 fL Neutrophils (%) (Auto) 78.3 % Lymphocytes (%) (Auto) 10.1 % Monocytes (%) (Auto) 9.7 % Eosinophils (%) (Auto) 0.6 % Basophils (%) (Auto) 0.0 % Neutrophils # (Auto) 4.11 K/uL Lymphocytes # (Auto) 0.53 K/uL Monocytes # (Auto) 0.51 K/uL Eosinophils # (Auto) 0.03 K/uL Basophils # (Auto) 0.00 K/uL RDW Standard Deviation 44.7 fL RDW Coefficient of Variation 13.3 % Immature Granulocyte % (Auto) 1.3 % Immature Granulocyte # (Auto) 0.07 K/uL Echinocytes 1+ Sodium Level 136 mmol/L Potassium Level 4.5 mmol/L Chloride Level 105 mmol/L Carbon Dioxide Level 24 mmol/L Anion Gap 7.0 mmol/L Blood Urea Nitrogen 19 mg/dl Creatinine 1.20 mg/dl Est Creatinine Clear Calc Drug Dose 45.9 ml/min Estimated GFR () 65.8 Estimated GFR (Non- 56.8 BUN/Creatinine Ratio 16.2 Random Glucose 121 mg/dl Calcium Level 7.2 mg/dl Magnesium Level 2.6 mg/dl Total Bilirubin 0.6 mg/dl Aspartate Amino Transf (AST/SGOT) 28 U/L Alanine Aminotransferase (ALT/SGPT) 57 U/L Alkaline Phosphatase 101 U/L Troponin I 4.970 ng/ml Total Protein 5.6 gm/dl Albumin 3.0 gm/dl Globulin 2.6 gm/dl Albumin/Globulin Ratio 1.2 Imaging: Echocardiogram performed yesterday revealed reduced LV systolic function with regional wall motion abnormalities including akinesis of the inferior and posterior hunter. Was also an element of RV dysfunction. EKG: Normal sinus rhythm with right bundle branch block and evidence of recent completed inferior myocardial infarction Telemetry reviewed: Occasional PVCs but no additional sustained ventricular tachycardia Assessment and Plan 1. Complete heart block: Patient will undergo implantation of a defibrillator today which will serve to treat his episode of complete heart block. With the episode in question was related to his myocardial infarction is unclear. Likely combination of cardiac ischemia, completed infarct, longstanding conduction disease and medication. 2. Ventricular tachycardia: No additional episodes since intubation and institution of amiodarone therapy. Patient will require defibrillator, and this will be placed today. Patient will be discharged on beta blockade and amiodarone 3. Ischemic cardiomyopathy: Patient does appear to have had a completed infarct. Subjective indications of such include his EKG and echocardiogram. Unclear whether he will have symptoms related to his reduced LV function. He will need to be reinstituted on his beta-blockade and Naman inhibitor. Will monitor him for evidence of pulmonary vascular congestion prior to discharge. This will dictate the use of diuretics. Hopefully, as time progresses and he maintains medical therapy we will see some improvement in his LV function. 4. Coronary artery disease: Patient had occlusion of the right coronary artery. While his EKG was suspicious for continued injury, he had no symptoms to support this. His cardiac biomarkers continue to trend down despite the EKG changes and episodes of ventricular tachycardia yesterday suggesting no reocclusion of his right coronary artery. Patient will be continued on dual anti -platelet therapy. 5. Syncope: This was the presenting complaint on May 28. Presumably this was related to complete heart block although after yesterday's events the possibility of ventricular tachycardia also exists. Both etiologies will be treated with device therapy today. 6. Anemia: Patient's hemoglobin has dropped over the course of the day. Some this is likely dilutional. However, we need to be vigilant for sources of bleeding. He is currently hemodynamically stable. No tachycardias suggest an element of hypokalemia.
[2017-05-30] MEDS: FAMOTIDINE IV INJ 20 MG in DEXTROSE 5% 100ML 100 ML IV SCH ×2 (10:44→22:04)
[2017-05-30] MEDS: AMIODARONE / D5W 200 ML IV SCH ×2 (10:49→22:04)
--- NOTE | 2017-05-30 13:56 | Progress Note ---
Subjective Date of Service: May 30, 2017. Subjective pt is sedate and ventilated, for AICD today, plan to ventilate until stable after procedure Problem List Medical Problems: (1) Recent myocardial infarction of inferior wall Status: Acute (2) Third degree heart block Status: Acute Review of Systems cannot have ROS due to intubation and sedation Objective Vital Signs Date Time Temp Pulse Resp B/P (MAP) Pulse Ox O2 Delivery O2 Flow Rate FiO2 05/30/17 12:02 37.3 65 16 110/71 (84) 95 Mechanical Ventilator 30 05/30/17 12:00 Mechanical Ventilator 30 05/30/17 12:00 30 05/30/17 11:32 63 15 116/70 (85) 93 Mechanical Ventilator 30 05/30/17 11:30 30 05/30/17 11:02 65 15 106/65 (79) 93 Mechanical Ventilator 30 05/30/17 10:03 63 16 105/70 (82) 93 Mechanical Ventilator 30 05/30/17 09:32 63 14 106/64 (78) 92 Mechanical Ventilator 05/30/17 09:02 62 14 108/67 (81) 94 Mechanical Ventilator 30 05/30/17 08:33 66 13 97/58 (71) 92 Mechanical Ventilator 30 05/30/17 08:02 37.1 62 15 106/64 (78) 95 Mechanical Ventilator 30 05/30/17 08:00 Mechanical Ventilator 05/30/17 08:00 Mechanical Ventilator 05/30/17 08:00 30 05/30/17 07:35 30 05/30/17 07:02 61 14 97/58 (71) 95 Mechanical Ventilator 05/30/17 07:02 61 15 97/58 (72) 95 05/30/17 06:32 60 15 90/53 (63) 94 05/30/17 06:02 62 14 97/55 (65) 94 05/30/17 06:00 37.1 05/30/17 05:33 61 14 80/51 (61) 93 05/30/17 05:02 65 15 94/59 (66) 94 05/30/17 04:48 30 05/30/17 04:32 64 17 101/61 (73) 95 05/30/17 04:02 65 14 110/64 (78) 96 05/30/17 04:00 30 05/30/17 04:00 96 Mechanical Ventilator 30 05/30/17 04:00 36.4 05/30/17 03:32 78 14 107/68 (72) 97 05/30/17 03:02 64 14 90/56 (73) 95 05/30/17 02:32 65 14 89/54 (66) 95 05/30/17 02:02 68 16 91/55 (65) 95 05/30/17 01:32 66 16 91/53 (64) 95 05/30/17 01:27 30 05/30/17 01:02 67 14 86/56 (59) 95 05/30/17 01:00 37.1 05/30/17 00:32 68 16 82/49 (59) 94 05/30/17 00:04 70 15 83/47 (56) 93 05/30/17 00:02 70 79/47 (51) 93 05/30/17 00:02 70 16 79/47 (51) 93 05/30/17 00:01 37.9 05/30/17 00:00 70 93 05/29/17 23:59 30 05/29/17 23:59 93 Mechanical Ventilator 30 05/29/17 23:02 76 14 92/51 (61) 92 05/29/17 22:42 30 05/29/17 22:00 38.1 62 14 104/60 (75) 93 Mechanical Ventilator 30 05/29/17 20:00 37.7 74 14 97/54 (68) 93 Mechanical Ventilator 30 05/29/17 20:00 93 Mechanical Ventilator 30 05/29/17 20:00 30 05/29/17 19:48 30 05/29/17 18:14 30 05/29/17 18:00 37.1 69 14 127/65 (85) 94 Mechanical Ventilator 30 05/29/17 16:19 30 05/29/17 16:00 36.8 69 14 94/69 (77) 94 Mechanical Ventilator 30 05/29/17 16:00 94 Mechanical Ventilator 30 05/29/17 16:00 30 Physical Exam General Appearance: WD/WN, + moderate distress Respiratory/Chest: + decreased breath sounds, + rhonchi Cardiovascular: regular rate, rhythm, + systolic murmur Abdomen: normal bowel sounds, soft Extremities: normal inspection, no pedal edema Laboratory Results Last 24 Hours Test 05/29/17 17:41 05/29/17 23:24 05/29/17 23:43 05/30/17 05:07 Bedside Glucose 95 mg/dl 134 mg/dl 133 mg/dl Urine Color DK YELLOW Urine Appearance TURBID Urine pH 5.5 Urine Specific [place] 1.026 Urine Protein 2+ Urine Glucose (UA) NEG Urine Ketones TRACE Urine Occult Blood 3+ Urine Nitrite NEG Urine Bilirubin NEG Urine Urobilinogen NEG Urine Leukocyte Esterase TRACE Urine WBC (Auto) 1-5 /hpf Urine RBC (Auto) >30 /hpf Urine Hyaline Casts (Auto) 1-5 /lpf Urine Epithelial Cells (Auto) 10-20 /lpf Urine Bacteria (Auto) NEG Test 05/30/17 05:08 White Blood Count 5.25 K/uL Red Blood Count 2.77 M/uL Hemoglobin 8.7 g/dL Hematocrit 25.2 % Mean Corpuscular Volume 91.0 fL Mean Corpuscular Hemoglobin 31.4 pg Mean Corpuscular Hemoglobin Concent 34.5 g/dl Platelet Count 182 K/uL Mean Platelet Volume 9.5 fL Neutrophils (%) (Auto) 78.3 % Lymphocytes (%) (Auto) 10.1 % Monocytes (%) (Auto) 9.7 % Eosinophils (%) (Auto) 0.6 % Basophils (%) (Auto) 0.0 % Neutrophils # (Auto) 4.11 K/uL Lymphocytes # (Auto) 0.53 K/uL Monocytes # (Auto) 0.51 K/uL Eosinophils # (Auto) 0.03 K/uL Basophils # (Auto) 0.00 K/uL RDW Standard Deviation 44.7 fL RDW Coefficient of Variation 13.3 % Immature Granulocyte % (Auto) 1.3 % Immature Granulocyte # (Auto) 0.07 K/uL Echinocytes 1+ Sodium Level 136 mmol/L Potassium Level 4.5 mmol/L Chloride Level 105 mmol/L Carbon Dioxide Level 24 mmol/L Anion Gap 7.0 mmol/L Blood Urea Nitrogen 19 mg/dl Creatinine 1.20 mg/dl Est Creatinine Clear Calc Drug Dose 45.9 ml/min Estimated GFR () 65.8 Estimated GFR (Non- 56.8 BUN/Creatinine Ratio 16.2 Random Glucose 121 mg/dl Calcium Level 7.2 mg/dl Magnesium Level 2.6 mg/dl Total Bilirubin 0.6 mg/dl Aspartate Amino Transf (AST/SGOT) 28 U/L Alanine Aminotransferase (ALT/SGPT) 57 U/L Alkaline Phosphatase 101 U/L Troponin I 4.970 ng/ml Total Protein 5.6 gm/dl Albumin 3.0 gm/dl Globulin 2.6 gm/dl Albumin/Globulin Ratio 1.2 Assessment and Plan 81 M who had recent stemi and presented with heart block, then had v tach 05/29 with amiodarone and recurred with heart block. 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 Plavix 75 mg daily without interruption. Crestor 10 mg q HS.Losartan 50 mg daily. Zetia 10 mg daily. son at bedside and updated
[2017-05-30] MEDS ORDERED: LIDOCAINE HCL 1% 20 ML VIAL ONE (14:51)
[2017-05-30] MEDS ORDERED: BUPIVACAINE 0.5 % 5 MG/1 ML MPF 30ML VIAL ONE (14:51)
[2017-05-30] MEDS ORDERED: BACITRACIN 50000 UNIT VIAL ONE (14:51)
[2017-05-30] MEDS ORDERED: DOPamine 400MG / 250ML D5W ONE (16:24)
[2017-05-30] MEDS ORDERED: PHENYLEPHRINE HCL INJ 10 MG/ML VIAL ONE (16:43)
--- NOTE | 2017-05-30 18:02 | DIAGNOSTIC IMAGING REPORT ---
CHEST ONE VIEW PORTABLE CLINICAL HISTORY: Mechanical ventilation. Cardiac catheterization. COMPARISON STUDY: Chest radiograph May 29, 2017. FINDINGS: The tip of the endotracheal tube is approximately 5.7 cm above the елена. Tip of the nasogastric tube is below the lower aspect of this image but at least within the mid body of the stomach. There has been interval placement of a dual lead left subclavian pacer/AICD. No pneumothorax is identified although sensitivity is diminished given motion artifact. There is minimal soft tissue gas inferior to the left clavicle which is postprocedural. Lead tips project over the expected location of the right atrial appendage and right ventricle. Mild cardiomegaly is noted. Mild left basilar opacity favors atelectasis. There is no evidence of pulmonary edema. IMPRESSION: 1. Satisfactory positioning of lines and tube. 2. Interval placement of a dual lead left pacer/AICD. No pneumothorax although sensitivity diminished given motion artifact. 3. Mild bibasilar opacities which favor atelectasis. No evidence of pulmonary edema. Electronically signed by: Neto Urbina M.D. 05/30/2017 6:01 PM Dictated Date/Time: 05/30/2017 5:54 PM
[2017-05-30] MEDS: ENOXAPARIN 40 MG/0.4 ML SYR SC SCH (19:24)
--- NOTE | 2017-05-30 19:41 | ECHOCARDIOGRAM REPORT ---
*NOTICE TO RECEIVING LIBERTARIAN AGENCY This information is strictly Confidential and protected under [place] law. [place] law prohibits you from making any further disclosure of this information unless further disclosure is expressly permitted by the written consent of the person to whom it pertains or is authorized by law. A general authorization for the release of medical or other information is not sufficient for this purpose. Hospital accepts no responsibility if the information is made available to any other person, INCLUDING THE PATIENT. Interpretation Summary * Name: BREA HENRY Study Date: 05/30/2017 06:48 PM BP: 130/68 mmHg * Patient Location: E104 HR: 80 * : 1935 (M/d/yyyy) Gender: Male Height: 67 in * Age: 81 yrs Ethnicity: [place] Weight: 156 lb * Ordering Physician: Christopher. Mak MD * Referring Physician: Christopher. Mak MD * Performed By: Sarah Yates RCS * * Reason For Study: ASSESS FOR FLUID * BSA: 1.8 m2 * -- Conclusions -- * The right ventricular systolic function is moderately reduced. * The right ventricle is moderate to severely dilated. * Moderate size pericardial effusion. * Compared to a study performed 2 hours prior, there is minimal change * The inferior vena cava is severely dilated. Procedure Details * Limited views were obtained. Right Ventricle * The right ventricle is moderate to severely dilated. * The right ventricular systolic function is moderately reduced. Pericardium/Pleural * Moderate size pericardial effusion. Great Vessels * The inferior vena cava is severely dilated.
--- NOTE | 2017-05-30 20:08 | Procedure Note ---
Procedure Note Date of Service May 30, 2017. 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 He presented to [facility] several days following the infarct with an episode of syncope believed related to complete heart block. Patient was also noted to have episodes of sustained ventricular tachycardia while an inpatient. This did require defibrillation on 1 occasion. Based on the nature of his arrhythmia issues felt to be a good candidate for an ICD as secondary prevention against sudden cardiac . A dual-chamber device was selected as the patient also has a pacing indication and presented with complete heart block. Procedure in detail: The patient's provided informed consent as the patient is currently intubated and sedated. The patient was brought to the electrophysiology suite in a fasting state. Preoperative antibiotic was administered. The patient was monitored electrocardiographically throughout today's procedure. The left upper pectoral area is prepped and draped in usual sterile fashion. This area was anesthetized using subcutaneous Mr. a watson of lidocaine solution. An incision was made at this site and carried down to the prepectoralis fascia using sharp dissection. Electrocautery was also employ for dissection as well as for hemostasis. A device pocket was fashioned and tissues above pectoralis muscle. Subsequent this maneuver the left axillary vein was accessed twice using modified Seldinger technique. Sheaths were placed over guidewires at this site use of silk tape passage of the pacing leads to the respective chambers under fluoroscopic guidance. This included right atrial and right ventricular leads. Adequate sensing and threshold parameters were obtained prior to Active fixation of these leads to the endocardial surface. The proximal portion of the leads were then sutured to the prepectoralis fascia using nonabsorbable suture. A device pocket was irrigated with an antibiotic solution. Leads were then attached to the device. The device and leads were then placed in the pocket and the pocket was closed with 3 layers of absorbable suture. Steri-Strips and a sterile dressing were applied. There are several complications which occurred during this procedure. The patient did have an episode of ventricular fibrillation with manipulation of leads requiring defibrillation externally. Near the end of the procedure the patient also was noted to have an acute drop in blood pressure. This was accompanied by an element of tachycardia. A bedside echocardiogram performed urgently revealed a new pericardial effusion. The patient was administered volume resuscitation and low-dose vasopressors and regained stability. Patient was subsequently transferred back to the intensive care unit for continued monitoring and therapy. Impression 1 implantation of dual-chamber ICD 2. likely lead perforation resulting in pericardial effusion and transient hypotension. Equitmint used: New pulse generator. [employer]. Model [id number] SN: [id number] RA lead: [employer]. Model Number 4076 SN: [id number] RV lead: [employer]. Model 6947M SN: [id number]
[2017-05-30] MEDS: ACETAMINOPHEN IV 650 MG in EMPTY BAG 0 ML IV PRN (20:23)
[2017-05-30] MEDS ORDERED: NURSING VERBAL MED ORDER ONE ×2 (20:30→21:00)
[2017-05-30] MEDS ORDERED: CEFEPIME IV 2000 MG in DEXTROSE 5% 100ML IV STA (21:28)
[2017-05-30] MEDS ORDERED: VANCOMYCIN IV SCH (22:00)
[2017-05-30] MEDS ORDERED: SODIUM CHLORIDE 0.9% IV SCH (22:00)
[2017-05-30 22:59] LABS: HEMATOCRIT 27.3 % (42-52); MEAN CELL VOLUME 92.5 fL (80-100); MEAN CORPUSCULAR HEMOGLOBIN 31.2 pg (25-34); MEAN PLATELET VOLUME 9.6 fL (7.4-10.4); PLATELET COUNT 224 K/uL (130-400); RED BLOOD COUNT 2.95 M/uL (4.7-6.1); WHITE BLOOD COUNT 10.35 K/uL (4.8-10.8)
[2017-05-30 23:20] LABS: MEAN CORPUSCULAR HGB CONC 33.7 g/dl (32-36)
[2017-05-30 23:40] LABS: COMPLETE YES; DOHLE BODIES 1+; ECHINOCYTES 1+; IG% 1.1 %; LYMPH % 2.5 %; LYMPH ABS # 0.26 K/uL (1.2-3.4); MONO % 6.7 %; NEUT % 89.7 %
[2017-05-31] VITALS (37 sets, daily range): BP systolic 96–167; BP diastolic 61–112; PULSE 60–81; TEMP 36.6–38; O2SAT 92–98
[2017-05-31] MEDS ORDERED: CEFTRIAXONE SOD INJ 1000 MG in DEXTROSE 5% 50ML IV SCH ×2
[2017-05-31] MEDS ORDERED: ALBUMIN HUMAN 25% 12.5 GM/50 ML VIAL IV ONE (01:00)
[2017-05-31] MEDS: NSS + 20MEQ KCL 1000ML 1,000 ML IV SCH ×3 (01:31→17:24)
[2017-05-31] MEDS ORDERED: NURSING VERBAL MED ORDER ONE ×2 (03:30→20:15)
[2017-05-31] MEDS ORDERED: NSS + 20MEQ KCL 1000ML 1,000 ML IV SCH (03:45)
[2017-05-31] MEDS: PROPOFOL IV EMULSION 10 MG/ML 100 ML VIAL IV PRN (05:26)
[2017-05-31 06:06] LABS: HEMATOCRIT 26.8 % (42-52); MEAN CELL VOLUME 92.4 fL (80-100); MEAN CORPUSCULAR HGB CONC 32.5 g/dl (32-36); MEAN PLATELET VOLUME 9.8 fL (7.4-10.4); PLATELET COUNT 193 K/uL (130-400); WHITE BLOOD COUNT 9.05 K/uL (4.8-10.8)
[2017-05-31 06:34] LABS: CREATININE 1.5 mg/dl (0.60-1.40)
--- NOTE | 2017-05-31 06:50 | DIAGNOSTIC IMAGING REPORT ---
CHEST ONE VIEW PORTABLE HISTORY:81 yearsMaleEXACT TIME ORDERED Evaluate for pneumothorax and lead placement COMPARISON: 05/30/2017 at 5:48 PM TECHNIQUE: Portable upright AP view of the chest FINDINGS: Endotracheal tube has been slightly advanced, now terminating 3.4 cm superior to the level the елена on the midline. Enteric tube courses below the level the diaphragm outside the [id number]. Multiple telemetry leads are seen overlying the chest. Left pectoral pacer/AICD appears unchanged with leads intact. There is unchanged cardiomegaly. No pneumothorax, large pleural effusion or focal airspace consolidation. Retrocardiac linear opacities suggesting atelectasis and/or pleural parenchymal scarring are redemonstrated with minimal subsegmental atelectasis of the lingula. This causes mild blunting of left costophrenic angle. The bones appear grossly intact. IMPRESSION: 1. Slight advancement of the endotracheal tube, which appears in satisfactory positioning. 2. Mild cardiomegaly without overt pulmonary edema. 3. Mild left basilar atelectasis. The above report was generated using voice recognition software. It may contain grammatical, syntax or spelling errors. Electronically signed by: Benitez Ortega M.D. 05/31/2017 6:48 AM Dictated Date/Time: 05/31/2017 6:46 AM
--- NOTE | 2017-05-31 07:56 | Critical Care Progress Note ---
Critical Care Progress Note Date of Service May 31, 2017. ICU Day ICU Day Number: [address] Holm Subjective Settled down last night. Did have a difficult time with B/P and tachycardia after Pacer/AICD. Temp spike with cultures and IV antibiotics started. Weaning sedation and started PSV trial. Goal is to extubate and mobilize today. His secretions moderate. No temp AM today. I believe important we get him extubated if close. Objective Gen--calm and synchronous HEENT--no focal changes. Pulmonary--exchange is good--some upper airway congestions/no substantial wheezing Cardio--rate and volume adequate--no JVD GI--nontender--functional --zelaya to gravity Musculo--no erythema or edema Neuro--no focal neuro targets--Propofol tolerated-plan to discontinue Psych--negative Derm--no active lesions--sites ok Current SOFA Score SOFA Score Response (Comments) Value PaO2/FiO2 (mmHg) < 400 1 SaO2 / FIO2 221 - 301 1 Platelets (x10) < 150 1 Bilirubin (mg/dL) < 1.2 0 Reza Coma Score < 6 4 Level of Hypotension No Hypotension 0 Creatinine (mg/dL) 1.2 - 1.9 1 Total 8 Assessment & Plan VT/ RV/Inferior CT/ Pacer/AICD 1. Pulmonary--wean and extubate--will track very closely 2. Cardio--appears volume appropriate today. 3. F/E/N--acceptable 4. Neuro--discontinue Propofol 5. ID--cultures--Antibiotics in place--may deescalate once next 24 hours with results noted 6. Gen-he remains critically ill and tenuous Consults & Procedures Consultants: see orders Procedures: none Data Medications: Current Inpatient Medications Medications (Trade) Dose Ordered Sig/Alexa Route Start Time Stop Time Status Last Admin Dose Admin Losartan Potassium (coZAAR TAB) 50 mg QAM PO 05/29/17 09:00 06/28/17 08:59 Future Hold Pantoprazole Sodium (Protonix Tab) 40 mg QAM PO 05/29/17 09:00 06/28/17 08:59 Future Hold Tamsulosin HCl (Flomax Cap) 0.4 mg HS PO 05/28/17 21:00 06/27/17 20:59 Future Hold 05/28/17 21:07 0.4 MG Rosuvastatin Calcium (Crestor Tab) 10 mg HS PO 05/28/17 21:00 06/27/17 20:59 Future Hold 05/28/17 21:07 10 MG Temazepam (Restoril Cap) 15 mg HS PRN PO 05/28/17 15:00 06/27/17 14:59 Future Hold 05/28/17 22:39 15 MG EZETIMIBE (Zetia Tab) 10 mg QAM PO 05/29/17 09:00 06/28/17 08:59 Future Hold Enoxaparin Sodium (Lovenox Inj) 40 mg Q24H SC 05/28/17 18:00 06/27/17 17:59 05/30/17 19:24 40 MG Al Hydrox/Mg Hydrox/Simethicone (Maalox Max Susp) 15 ml Q4H PRN PO 05/28/17 15:30 06/27/17 15:29 Magnesium Hydroxide (Milk Of Magnesia Susp) 30 ml Q12H PRN PO 05/28/17 15:30 06/27/17 15:29 Ondansetron HCl (Zofran Inj) 4 mg Q6H PRN IV 05/28/17 15:30 06/27/17 15:29 Nitroglycerin (Nitrostat Tab) 0.4 mg UD PRN SL 05/28/17 15:30 06/27/17 15:29 Polyethylene (Miralax Powder Packet) 17 gm DAILY PRN PO 05/28/17 15:30 06/27/17 15:29 Miscellaneous (Iv Fluids Completed) 1 ea PRN PRN N/A 05/28/17 16:30 05/28/18 16:29 Propofol (Diprivan Iv Emulsion 100ml Vial) 1 dose UD PRN IV 05/29/17 09:38 06/01/17 09:37 05/31/17 05:26 1 DOSE Fentanyl Citrate (Fentanyl Inj) 25 mcg Q1H PRN IV 05/29/17 09:30 06/12/17 09:29 05/30/17 10:45 25 MCG Famotidine 20 mg/ Dextrose 102 ml @ 200 mls/hr Q12H IV 05/29/17 11:00 06/28/17 10:59 05/30/17 22:04 200 MLS/HR Clopidogrel Bisulfate (plAVix TAB) 75 mg QAM NG 05/29/17 12:00 06/28/17 11:59 05/30/17 08:27 75 MG Aspirin (Aspirin Chew) 81 mg DAILY GT 05/29/17 12:00 06/28/17 11:59 05/30/17 08:27 81 MG Amiodarone HCL/ Dextrose 200 ml @ 16.7 mls/hr [id number] IV 05/29/17 21:45 06/28/17 21:44 05/30/17 22:04 16.7 MLS/HR Acetaminophen 650 mg/Empty Bag 65 ml @ 260 mls/hr Q6H PRN IV 05/29/17 22:15 06/28/17 22:14 05/30/17 20:23 260 MLS/HR Cefepime HCl 2000 mg/Dextrose 112.5 ml @ 225 mls/hr Q12H IV 05/31/17 10:00 06/02/17 09:59 Potassium Chloride/Sodium Chloride 1,000 ml @ 200 mls/hr Q5H IV 05/31/17 03:45 05/31/17 07:45 05/31/17 03:39 200 MLS/HR Potassium Chloride/Sodium Chloride 1,000 ml @ 100 mls/hr Q10H IV 05/31/17 07:45 06/30/17 07:44 Vital Signs: Date Time Temp Pulse Resp B/P (MAP) Pulse Ox O2 Delivery O2 Flow Rate FiO2 05/31/17 06:02 60 19 127/70 (89) Mechanical Ventilator 40 05/31/17 05:20 40 05/31/17 05:02 60 21 121/70 (87) Mechanical Ventilator 40 05/31/17 04:02 37.5 60 20 112/71 (85) 94 Mechanical Ventilator 40 05/31/17 04:00 92 Mechanical Ventilator 40 05/31/17 04:00 40 05/31/17 03:32 60 20 103/66 (78) Mechanical Ventilator 40 05/31/17 03:17 60 21 112/66 (81) Mechanical Ventilator 40 05/31/17 03:02 60 20 103/64 (77) Mechanical Ventilator 40 05/31/17 02:47 60 21 110/65 (80) Mechanical Ventilator 40 05/31/17 02:32 60 19 105/65 (78) Mechanical Ventilator 40 05/31/17 02:17 60 18 107/64 (78) Mechanical Ventilator 40 05/31/17 02:11 60 19 107/62 (77) Mechanical Ventilator 40 05/31/17 02:02 60 19 98/64 (75) Mechanical Ventilator 40 05/31/17 01:47 60 22 105/68 (80) Mechanical Ventilator 40 05/31/17 01:44 40 05/31/17 01:32 60 18 97/64 (75) Mechanical Ventilator 40 05/31/17 01:17 60 20 96/64 (75) Mechanical Ventilator 40 05/31/17 01:10 60 19 106/65 (79) Mechanical Ventilator 40 05/31/17 01:02 60 21 108/65 (79) Mechanical Ventilator 40 05/31/17 00:47 60 20 107/68 (81) Mechanical Ventilator 40 05/31/17 00:32 60 21 102/65 (77) Mechanical Ventilator 40 05/31/17 00:17 60 22 104/61 (75) Mechanical Ventilator 40 05/31/17 00:02 37.5 60 20 98/64 (75) 96 Mechanical Ventilator 40 05/31/17 00:01 40 05/31/17 00:01 95 Mechanical Ventilator 40 05/30/17 23:47 40 21 93/60 (71) 05/30/17 23:46 61 20 88/64 (72) 05/30/17 23:32 60 19 86/57 (67) 05/30/17 23:17 61 20 95/57 (70) 05/30/17 23:03 63 23 92/59 (70) 05/30/17 22:57 63 23 91/59 (70) 05/30/17 22:17 63 21 96/62 (73) 05/30/17 22:05 40 05/30/17 22:02 60 22 98/61 (73) 95 Mechanical Ventilator 40 05/30/17 21:47 61 20 89/59 (69) 05/30/17 21:38 61 20 96/61 (73) 05/30/17 21:32 56 22 74/59 (64) 05/30/17 21:17 54 22 96/62 (73) Mechanical Ventilator 40 05/30/17 21:03 38.0 64 24 95/53 (67) Mechanical Ventilator 40 05/30/17 20:48 68 24 112/59 (76) Mechanical Ventilator 40 05/30/17 20:32 62 24 95/64 (74) Mechanical Ventilator 40 05/30/17 20:17 93 23 95/58 (70) Mechanical Ventilator 40 05/30/17 20:10 70 24 98/59 (72) Mechanical Ventilator 40 05/30/17 20:03 89 24 95/66 (76) Mechanical Ventilator 40 05/30/17 20:00 30 05/30/17 20:00 96 Mechanical Ventilator 40 05/30/17 19:48 95 23 89/61 (70) Mechanical Ventilator 40 05/30/17 19:34 38.8 101 24 101/57 (72) Mechanical Ventilator 40 05/30/17 19:33 93 25 94/59 (71) Mechanical Ventilator 40 05/30/17 19:17 82 26 93/76 (82) Mechanical Ventilator 40 05/30/17 19:13 40 05/30/17 19:03 69 24 92/61 (71) Mechanical Ventilator 40 05/30/17 19:01 83 23 92/61 (71) 99 Mechanical Ventilator 40 05/30/17 18:30 63 24 106/72 (83) 95 Mechanical Ventilator 40 05/30/17 18:00 66 23 118/73 (88) 98 Mechanical Ventilator 50 05/30/17 17:30 85 24 92/72 (79) 95 Mechanical Ventilator 80 05/30/17 17:18 100 05/30/17 17:15 100 05/30/17 17:15 37.5 76 24 103/69 (80) 89 Mechanical Ventilator 100 05/30/17 17:15 Mechanical Ventilator 100 05/30/17 14:40 30 05/30/17 14:02 50 20 130/68 (88) 95 Mechanical Ventilator 30 05/30/17 13:32 50 18 114/64 (81) 94 Mechanical Ventilator 30 05/30/17 13:03 54 17 115/59 (77) 95 Mechanical Ventilator 30 05/30/17 12:33 52 17 108/56 (73) 95 Mechanical Ventilator 30 05/30/17 12:02 37.3 65 16 110/71 (84) 95 Mechanical Ventilator 30 05/30/17 12:00 Mechanical Ventilator 30 05/30/17 12:00 30 05/30/17 11:32 63 15 116/70 (85) 93 Mechanical Ventilator 30 05/30/17 11:30 30 05/30/17 11:02 65 15 106/65 (79) 93 Mechanical Ventilator 30 05/30/17 10:03 63 16 105/70 (82) 93 Mechanical Ventilator 30 05/30/17 09:32 63 14 106/64 (78) 92 Mechanical Ventilator 30 05/30/17 09:02 62 14 108/67 (81) 94 Mechanical Ventilator 30 05/30/17 08:33 66 13 97/58 (71) 92 Mechanical Ventilator 30 05/30/17 08:02 37.1 62 15 106/64 (78) 95 Mechanical Ventilator 30 05/30/17 08:00 Mechanical Ventilator 30 05/30/17 08:00 Mechanical Ventilator 05/30/17 08:00 30 Laboratory Results: Last 24 Hours Test 05/30/17 19:36 05/30/17 20:15 05/30/17 22:18 05/31/17 01:07 Bedside Glucose (other) 403 mg/dl 149 mg/dl 151 mg/dl White Blood Count 10.35 K/uL Red Blood Count 2.95 M/uL Hemoglobin 9.2 g/dL Hematocrit 27.3 % Mean Corpuscular Volume 92.5 fL Mean Corpuscular Hemoglobin 31.2 pg Mean Corpuscular Hemoglobin Concent 33.7 g/dl Platelet Count 224 K/uL Mean Platelet Volume 9.6 fL Neutrophils (%) (Auto) 89.7 % Lymphocytes (%) (Auto) 2.5 % Monocytes (%) (Auto) 6.7 % Eosinophils (%) (Auto) 0.0 % Basophils (%) (Auto) 0.0 % Neutrophils # (Auto) 9.29 K/uL Lymphocytes # (Auto) 0.26 K/uL Monocytes # (Auto) 0.69 K/uL Eosinophils # (Auto) 0.00 K/uL Basophils # (Auto) 0.00 K/uL RDW Standard Deviation 47.4 fL RDW Coefficient of Variation 13.9 % Immature Granulocyte % (Auto) 1.1 % Immature Granulocyte # (Auto) 0.11 K/uL Dohle Bodies 1+ Echinocytes 1+ Test 05/31/17 05:28 05/31/17 05:33 White Blood Count 9.05 K/uL Red Blood Count 2.90 M/uL Hemoglobin 8.7 g/dL Hematocrit 26.8 % Mean Corpuscular Volume 92.4 fL Mean Corpuscular Hemoglobin 30.0 pg Mean Corpuscular Hemoglobin Concent 32.5 g/dl RDW Standard Deviation 48.4 fL RDW Coefficient of Variation 14.2 % Platelet Count 193 K/uL Mean Platelet Volume 9.8 fL Creatinine 1.50 mg/dl Est Creatinine Clear Calc Drug Dose 36.7 ml/min Estimated GFR () 50.2 Estimated GFR (Non- 43.3 Bedside Glucose 167 mg/dl
[2017-05-31] MEDS ORDERED: VANCOMYCIN CONSULT ACTIVE PRN (08:15)
--- NOTE | 2017-05-31 10:08 | Cardiology Follow-Up ---
Subjective Date of Service: May 31, 2017. Pt evaluation today including: conversation w/ patient, conversation w/ family , physical exam, lab review, review of studies, conversation w/ consultant internship, review of inpatient medication list History of Present Illness Patient was extubated early this morning. He had some difficulty with speech due to his recent intubation, but when asked about pain he denied any. He did not report any pain at the device implant site. He has no abdominal discomfort. He did report feeling uncomfortable in the hospital bed. Social History Smoking Status: Never Smoker History of Alcohol Use: Yes (RARE) Review of Systems Respiratory: + see HPI Cardiac: + see HPI Some of the review of systems was deferred due to the critical nature of the patient's condition at the time of this interview Objective Vital Signs Past 12 Hours Date Time Temp Pulse Resp B/P (MAP) Pulse Ox O2 Delivery O2 Flow Rate FiO2 05/31/17 09:02 69 24 160/87 (111) 96 Nasal Cannula 6.0 05/31/17 08:32 67 25 156/84 (108) 94 Nasal Cannula 6.0 05/31/17 08:02 37.2 66 22 149/81 (103) 96 Nasal Cannula 6.0 05/31/17 08:00 Nasal Cannula 6.0 05/31/17 07:33 67 24 158/82 (107) 95 Nasal Cannula 6.0 05/31/17 07:02 61 26 136/81 (99) 05/31/17 06:02 60 19 127/70 (89) Mechanical Ventilator 40 05/31/17 05:20 40 05/31/17 05:02 60 21 121/70 (87) Mechanical Ventilator 40 05/31/17 04:02 37.5 60 20 112/71 (85) 94 Mechanical Ventilator 40 05/31/17 04:00 92 Mechanical Ventilator 40 05/31/17 04:00 40 05/31/17 03:32 60 20 103/66 (78) Mechanical Ventilator 40 05/31/17 03:17 60 21 112/66 (81) Mechanical Ventilator 40 05/31/17 03:02 60 20 103/64 (77) Mechanical Ventilator 40 05/31/17 02:47 60 21 110/65 (80) Mechanical Ventilator 40 05/31/17 02:32 60 19 105/65 (78) Mechanical Ventilator 40 05/31/17 02:17 60 18 107/64 (78) Mechanical Ventilator 40 05/31/17 02:11 60 19 107/62 (77) Mechanical Ventilator 40 05/31/17 02:02 60 19 98/64 (75) Mechanical Ventilator 40 05/31/17 01:47 60 22 105/68 (80) Mechanical Ventilator 40 05/31/17 01:44 40 05/31/17 01:32 60 18 97/64 (75) Mechanical Ventilator 40 05/31/17 01:17 60 20 96/64 (75) Mechanical Ventilator 40 05/31/17 01:10 60 19 106/65 (79) Mechanical Ventilator 40 05/31/17 01:02 60 21 108/65 (79) Mechanical Ventilator 40 05/31/17 00:47 60 20 107/68 (81) Mechanical Ventilator 40 05/31/17 00:32 60 21 102/65 (77) Mechanical Ventilator 40 05/31/17 00:17 60 22 104/61 (75) Mechanical Ventilator 40 05/31/17 00:02 37.5 60 20 98/64 (75) 96 Mechanical Ventilator 40 05/31/17 00:01 40 05/31/17 00:01 95 Mechanical Ventilator 40 05/30/17 23:47 40 21 93/60 (71) 05/30/17 23:46 61 20 88/64 (72) 05/30/17 23:32 60 19 86/57 (67) 05/30/17 23:17 61 20 95/57 (70) 05/30/17 23:03 63 23 92/59 (70) 05/30/17 22:57 63 23 91/59 (70) 05/30/17 22:17 63 21 96/62 (73) 05/30/17 22:05 40 05/30/17 22:02 60 22 98/61 (73) 95 Mechanical Ventilator 40 05/30/17 21:47 61 20 89/59 (69) Last Recorded Weight-Kilograms: 77.100 Physical Exam I patient was mildly sedated but easily arousable and answered questions appropriately. The ICD implant site appeared well healed without drainage, erythema or hematoma. His abdomen appear distended it was somewhat firm but nontender. He had an element of anasarca. Occult a watson of the lungs revealed coarse upper airway sounds with expiration. Cardiac examination revealed an be in a regular rhythm without murmur Data Laboratory Results: Last 24 Hours Test 05/30/17 19:36 05/30/17 20:15 05/30/17 22:18 05/31/17 01:07 Bedside Glucose (other) 403 mg/dl 149 mg/dl 151 mg/dl White Blood Count 10.35 K/uL Red Blood Count 2.95 M/uL Hemoglobin 9.2 g/dL Hematocrit 27.3 % Mean Corpuscular Volume 92.5 fL Mean Corpuscular Hemoglobin 31.2 pg Mean Corpuscular Hemoglobin Concent 33.7 g/dl Platelet Count 224 K/uL Mean Platelet Volume 9.6 fL Neutrophils (%) (Auto) 89.7 % Lymphocytes (%) (Auto) 2.5 % Monocytes (%) (Auto) 6.7 % Eosinophils (%) (Auto) 0.0 % Basophils (%) (Auto) 0.0 % Neutrophils # (Auto) 9.29 K/uL Lymphocytes # (Auto) 0.26 K/uL Monocytes # (Auto) 0.69 K/uL Eosinophils # (Auto) 0.00 K/uL Basophils # (Auto) 0.00 K/uL RDW Standard Deviation 47.4 fL RDW Coefficient of Variation 13.9 % Immature Granulocyte % (Auto) 1.1 % Immature Granulocyte # (Auto) 0.11 K/uL Dohle Bodies 1+ Echinocytes 1+ Test 05/31/17 05:28 05/31/17 05:33 White Blood Count 9.05 K/uL Red Blood Count 2.90 M/uL Hemoglobin 8.7 g/dL Hematocrit 26.8 % Mean Corpuscular Volume 92.4 fL Mean Corpuscular Hemoglobin 30.0 pg Mean Corpuscular Hemoglobin Concent 32.5 g/dl RDW Standard Deviation 48.4 fL RDW Coefficient of Variation 14.2 % Platelet Count 193 K/uL Mean Platelet Volume 9.8 fL Creatinine 1.50 mg/dl Est Creatinine Clear Calc Drug Dose 36.7 ml/min Estimated GFR () 50.2 Estimated GFR (Non- 43.3 Bedside Glucose 167 mg/dl Imaging: I reviewed his chest x-ray obtained last evening and this morning. No evidence of pulmonary vascular congestion. No pneumothorax. Lead placement appears stable and the leads are in good position. I reviewed the results of his echocardiogram demonstrating small pericardial effusion, reduced RV systolic function, RV dilation and plethora of the IVC. LV systolic function was also reduced. There is no evidence of VSD, or significant valvular disease. I performed a complete device interrogation this morning. Details are available in the medical record. Patient has normal sensing on the atrial lead but no intrinsic R waves. Are normal thresholds in both the atrial and ventricular leads. No events were detected by the device. EKG: Telemetry reviewed: Assessment and Plan 1. Complete heart block: Patient underwent successful implantation of dual- chamber ICD yesterday. Interrogation today reveals complete heart block.. 2. Ventricular tachycardia: Patient had 1 episode of ventricular fibrillation during the implant yesterday which required external defibrillation. No overnight events. Will continue him on amiodarone and at some point initiate beta-frank therapy. 3. Ischemic cardiomyopathy: Apprising we his lung examination is clear, no evidence of pulmonary vascular congestion. He is oxygenating well despite aggressive volume administration yesterday. Ideally he will be on Naman inhibitor or ARB as well as beta-frank. His medications have temporarily been held due to his hemodynamic instability last evening. We also must be cautious with menstruation beta-blockers in the setting of a right ventricular infarct. 4. Coronary artery disease: Patient had occlusion of the right coronary artery. While his EKG was suspicious for continued injury, he had no symptoms to support this. His cardiac biomarkers continue to trend down despite the EKG changes and episodes of ventricular tachycardia yesterday suggesting no reocclusion of his right coronary artery. Patient will be continued on dual anti -platelet therapy. 5. Syncope: This was the presenting complaint on May 28. Presumably this was related to complete heart block although after yesterday's events the possibility of ventricular tachycardia also exists. Both etiologies will be treated with device therapy today. 6. Anemia: This appears stable. His abdomen is distended but this is likely related to volume administration and RV failure. He has no back pain to suggest retroperitoneal hemorrhage. Given his hemodynamic stability as well as the stability of his hemoglobin the weekend for an additional evaluation at this point. 7. Right ventricular heart failure: This is likely a consequence of his recent inferior infarct. He is highly volume dependent at this point. He was aggressively hydrated yesterday after his procedure and does have an element of edema and anasarca today. Hopefully with normalization of his hemodynamics he will affect a diuresis. Use of diuretic medications could be considered but we must be cautious given the volume dependent nature of his RV function. A. Pericardial effusion: This is likely related to a perforation which occurred during his device implant. He had some hemodynamic embarrassment initially but appeared to respond to volume resuscitation. There did not appear to be any enlargement of the pericardial effusion during the last evaluation. Generally speaking, these infusions will resolve without drainage. We will monitor his hemodynamics and consider re-evaluation of the effusion in a no other day or so provided he continues to be stable.
--- NOTE | 2017-05-31 10:25 | Pharmacy Progress Note ---
Pharmacy Antibiotic Consult Date of Service: May 31, 2017. Pharmacy Dosing Scope Pharmacy is consulted to initiate vancomycin IV dosing therapy, order appropriate labs and adjust drug dose/frequency. Subjective The patient is a 81 year old male admitted on May 28, 2017 at 15:14. Objective Height (Feet): 5 Height (Inches): 7.00 Weight (Kilograms): 77.100 Lab Results (24hrs): Test 05/30/17 20:15 05/30/17 22:18 05/31/17 01:07 05/31/17 05:28 Bedside Glucose (other) 149 mg/dl (70-99) 151 mg/dl (70-99) White Blood Count 10.35 K/uL (4.8-10.8) 9.05 K/uL (4.8-10.8) Red Blood Count 2.95 M/uL (4.7-6.1) 2.90 M/uL (4.7-6.1) Hemoglobin 9.2 g/dL (14.0-18.0) 8.7 g/dL (14.0-18.0) Hematocrit 27.3 % (42-52) 26.8 % (42-52) Mean Corpuscular Volume 92.5 fL (80-100) 92.4 fL (80-100) Mean Corpuscular Hemoglobin 31.2 pg (25-34) 30.0 pg (25-34) Mean Corpuscular Hemoglobin Concent 33.7 g/dl (32-36) 32.5 g/dl (32-36) Platelet Count 224 K/uL (130-400) 193 K/uL (130-400) Mean Platelet Volume 9.6 fL (7.4-10.4) 9.8 fL (7.4-10.4) Neutrophils (%) (Auto) 89.7 % Lymphocytes (%) (Auto) 2.5 % Monocytes (%) (Auto) 6.7 % Eosinophils (%) (Auto) 0.0 % Basophils (%) (Auto) 0.0 % Neutrophils # (Auto) 9.29 K/uL (1.4-6.5) Lymphocytes # (Auto) 0.26 K/uL (1.2-3.4) Monocytes # (Auto) 0.69 K/uL (0.11-0.59) Eosinophils # (Auto) 0.00 K/uL (0-0.5) Basophils # (Auto) 0.00 K/uL (0-0.2) RDW Standard Deviation 47.4 fL (36.4-46.3) 48.4 fL (36.4-46.3) RDW Coefficient of Variation 13.9 % (11.5-14.5) 14.2 % (11.5-14.5) Immature Granulocyte % (Auto) 1.1 % Immature Granulocyte # (Auto) 0.11 K/uL (0.00-0.02) Dohle Bodies 1+ Echinocytes 1+ Creatinine 1.50 mg/dl (0.60-1.40) Est Creatinine Clear Calc Drug Dose 36.7 ml/min Estimated GFR () 50.2 Estimated GFR (Non- 43.3 Test 05/31/17 05:33 Bedside Glucose 167 mg/dl (70-99) Assessment & Plan Assessment * 81 yo M s/p pacemaker/AICD placement yesterday (05/30/17) now with fever spike * Remains critically ill in ICU, but was extubated this AM * On cefepime, vancomycin for ?HAP vs. other source. 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 * Anticipate it may be supratherapeutic as patient's estimated t 1/2 is about 20 hours, but would like to prevent subtherapeutic level based on severity of illness * Anticipate need for vancomycin 1250 mg IV x1 later today, timing based on level ordered for 1200. However, if level is significantly supratherapeutic, will obtain 2nd random level prior to administration of additional vancomycin Pharmacy will continue to follow and will adjust dose/frequency as necessary. Thank you
[2017-05-31] MEDS: CLOPIDOGREL BISULFATE 75 MG TAB NG SCH (10:47)
[2017-05-31] MEDS: ASPIRIN 81 MG CHEW GT SCH (10:47)
[2017-05-31] MEDS: FAMOTIDINE IV INJ 20 MG in DEXTROSE 5% 100ML 100 ML IV SCH ×2 (10:48→23:05)
[2017-05-31] MEDS: CEFEPIME IV 2000 MG in DEXTROSE 5% 100ML IV SCH ×2 (10:48→22:03)
[2017-05-31] MEDS: AMIODARONE / D5W 200 ML IV SCH ×2 (10:57→22:05)
[2017-05-31] MEDS: ACETAMINOPHEN IV 650 MG in EMPTY BAG 0 ML IV PRN (13:49)
[2017-05-31] MEDS ORDERED: VANCOMYCIN INJ 1,500 MG in SODIUM CHLORIDE 0.9% 500ML 500 ML IV ONE (14:45)
--- NOTE | 2017-05-31 15:36 | Progress Note ---
Subjective Date of Service: May 31, 2017. Subjective pt is doing fair since extubation, did have fever overnight, does have some coughing of tannish mucus, did have arrythmia 05/30 but has settled down overnight Problem List Medical Problems: (1) Recent myocardial infarction of inferior wall Status: Acute (2) Third degree heart block Status: Acute Review of Systems Constitutional: + weakness, + fatigue, No fever, No chills Respiratory: + cough, + sputum, No shortness of breath, No dyspnea on exertion Cardiac: No chest pain, No orthopnea, No PND, No edema Abdomen: + constipation, No pain, No nausea Psychiatric: No depression symptoms, No anhedonism Objective Vital Signs Date Time Temp Pulse Resp B/P (MAP) Pulse Ox O2 Delivery O2 Flow Rate FiO2 05/31/17 14:02 80 24 150/86 (107) 95 Nasal Cannula 6.0 05/31/17 13:02 81 28 167/112 (130) 95 Nasal Cannula 6.0 05/31/17 12:02 38.0 79 26 157/94 (115) 98 Nasal Cannula 6.0 05/31/17 12:00 Nasal Cannula 6.0 05/31/17 11:02 75 20 158/96 (116) 96 Nasal Cannula 6.0 05/31/17 10:02 71 20 150/83 (105) 97 Nasal Cannula 6.0 05/31/17 09:02 69 24 160/87 (111) 96 Nasal Cannula 6.0 05/31/17 08:32 67 25 156/84 (108) 94 Nasal Cannula 6.0 05/31/17 08:02 37.2 66 22 149/81 (103) 96 Nasal Cannula 6.0 05/31/17 08:00 Nasal Cannula 6.0 05/31/17 08:00 Nasal Cannula Mechanical Ventilator 05/31/17 07:33 67 24 158/82 (107) 95 Nasal Cannula 6.0 05/31/17 07:02 61 26 136/81 (99) 05/31/17 06:02 60 19 127/70 (89) Mechanical Ventilator 40 05/31/17 05:20 40 05/31/17 05:02 60 21 121/70 (87) Mechanical Ventilator 40 05/31/17 04:02 37.5 60 20 112/71 (85) 94 Mechanical Ventilator 40 05/31/17 04:00 92 Mechanical Ventilator 40 05/31/17 04:00 40 05/31/17 03:32 60 20 103/66 (78) Mechanical Ventilator 40 05/31/17 03:17 60 21 112/66 (81) Mechanical Ventilator 40 05/31/17 03:02 60 20 103/64 (77) Mechanical Ventilator 40 05/31/17 02:47 60 21 110/65 (80) Mechanical Ventilator 40 05/31/17 02:32 60 19 105/65 (78) Mechanical Ventilator 40 05/31/17 02:17 60 18 107/64 (78) Mechanical Ventilator 40 05/31/17 02:11 60 19 107/62 (77) Mechanical Ventilator 40 05/31/17 02:02 60 19 98/64 (75) Mechanical Ventilator 40 05/31/17 01:47 60 22 105/68 (80) Mechanical Ventilator 40 05/31/17 01:44 40 05/31/17 01:32 60 18 97/64 (75) Mechanical Ventilator 40 05/31/17 01:17 60 20 96/64 (75) Mechanical Ventilator 40 05/31/17 01:10 60 19 106/65 (79) Mechanical Ventilator 40 05/31/17 01:02 60 21 108/65 (79) Mechanical Ventilator 40 05/31/17 00:47 60 20 107/68 (81) Mechanical Ventilator 40 05/31/17 00:32 60 21 102/65 (77) Mechanical Ventilator 40 05/31/17 00:17 60 22 104/61 (75) Mechanical Ventilator 40 05/31/17 00:02 37.5 60 20 98/64 (75) 96 Mechanical Ventilator 40 05/31/17 00:01 40 05/31/17 00:01 95 Mechanical Ventilator 40 05/30/17 23:47 40 21 93/60 (71) 05/30/17 23:46 61 20 88/64 (72) 05/30/17 23:32 60 19 86/57 (67) 05/30/17 23:17 61 20 95/57 (70) 05/30/17 23:03 63 23 92/59 (70) 05/30/17 22:57 63 23 91/59 (70) 05/30/17 22:17 63 21 96/62 (73) 05/30/17 22:05 40 05/30/17 22:02 60 22 98/61 (73) 95 Mechanical Ventilator 40 05/30/17 21:47 61 20 89/59 (69) 05/30/17 21:38 61 20 96/61 (73) 05/30/17 21:32 56 22 74/59 (64) 05/30/17 21:17 54 22 96/62 (73) Mechanical Ventilator 40 05/30/17 21:03 38.0 64 24 95/53 (67) Mechanical Ventilator 40 05/30/17 20:48 68 24 112/59 (76) Mechanical Ventilator 40 05/30/17 20:32 62 24 95/64 (74) Mechanical Ventilator 40 05/30/17 20:17 93 23 95/58 (70) Mechanical Ventilator 40 05/30/17 20:10 70 24 98/59 (72) Mechanical Ventilator 40 05/30/17 20:03 89 24 95/66 (76) Mechanical Ventilator 40 05/30/17 20:00 30 05/30/17 20:00 96 Mechanical Ventilator 40 05/30/17 19:48 95 23 89/61 (70) Mechanical Ventilator 40 05/30/17 19:34 38.8 101 24 101/57 (72) Mechanical Ventilator 40 05/30/17 19:33 93 25 94/59 (71) Mechanical Ventilator 40 05/30/17 19:17 82 26 93/76 (82) Mechanical Ventilator 40 05/30/17 19:13 40 05/30/17 19:03 69 24 92/61 (71) Mechanical Ventilator 40 05/30/17 19:01 83 23 92/61 (71) 99 Mechanical Ventilator 40 05/30/17 18:30 63 24 106/72 (83) 95 Mechanical Ventilator 40 05/30/17 18:00 66 23 118/73 (88) 98 Mechanical Ventilator 50 05/30/17 17:30 85 24 92/72 (79) 95 Mechanical Ventilator 80 05/30/17 17:18 100 05/30/17 17:15 100 05/30/17 17:15 37.5 76 24 103/69 (80) 89 Mechanical Ventilator 100 05/30/17 17:15 Mechanical Ventilator 100 Physical Exam General Appearance: WD/WN, + mild distress Eyes: PERRL, EOMI Neck: supple, trachea midline Respiratory/Chest: chest non-tender, + decreased breath sounds, + rhonchi Cardiovascular: regular rate, rhythm, no murmur Abdomen: normal bowel sounds, non tender, soft Extremities: no pedal edema, no calf tenderness Laboratory Results Last 24 Hours Test 05/30/17 19:36 05/30/17 20:15 05/30/17 22:18 05/31/17 01:07 Bedside Glucose (other) 403 mg/dl 149 mg/dl 151 mg/dl White Blood Count 10.35 K/uL Red Blood Count 2.95 M/uL Hemoglobin 9.2 g/dL Hematocrit 27.3 % Mean Corpuscular Volume 92.5 fL Mean Corpuscular Hemoglobin 31.2 pg Mean Corpuscular Hemoglobin Concent 33.7 g/dl Platelet Count 224 K/uL Mean Platelet Volume 9.6 fL Neutrophils (%) (Auto) 89.7 % Lymphocytes (%) (Auto) 2.5 % Monocytes (%) (Auto) 6.7 % Eosinophils (%) (Auto) 0.0 % Basophils (%) (Auto) 0.0 % Neutrophils # (Auto) 9.29 K/uL Lymphocytes # (Auto) 0.26 K/uL Monocytes # (Auto) 0.69 K/uL Eosinophils # (Auto) 0.00 K/uL Basophils # (Auto) 0.00 K/uL RDW Standard Deviation 47.4 fL RDW Coefficient of Variation 13.9 % Immature Granulocyte % (Auto) 1.1 % Immature Granulocyte # (Auto) 0.11 K/uL Dohle Bodies 1+ Echinocytes 1+ Test 05/31/17 05:28 05/31/17 05:33 05/31/17 11:12 05/31/17 12:17 White Blood Count 9.05 K/uL Red Blood Count 2.90 M/uL Hemoglobin 8.7 g/dL Hematocrit 26.8 % Mean Corpuscular Volume 92.4 fL Mean Corpuscular Hemoglobin 30.0 pg Mean Corpuscular Hemoglobin Concent 32.5 g/dl RDW Standard Deviation 48.4 fL RDW Coefficient of Variation 14.2 % Platelet Count 193 K/uL Mean Platelet Volume 9.8 fL Creatinine 1.50 mg/dl Est Creatinine Clear Calc Drug Dose 36.7 ml/min Estimated GFR () 50.2 Estimated GFR (Non- 43.3 Bedside Glucose 167 mg/dl 142 mg/dl Random Vancomycin Level 11.0 mcg/ml Assessment and Plan 81 M who had recent stemi and presented with heart block, then had v tach 05/29 with amiodarone and recurred with heart block. 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 Plavix 75 mg daily Crestor 10 mg q HS.Losartan 50 mg daily. Zetia 10 mg daily. at bedside and updated
[2017-05-31] MEDS: ENOXAPARIN 40 MG/0.4 ML SYR SC SCH (17:24)
[2017-05-31] MEDS ORDERED: FUROSEMIDE INJ 40 MG in SYRINGE 0 ML IV ONE (20:15)
[2017-06-01] VITALS (39 sets, daily range): BP systolic 115–150; BP diastolic 75–116; PULSE 67–76; TEMP 36.6–36.9; O2SAT 92–98
[2017-06-01] MEDS: ACETAMINOPHEN IV 650 MG in EMPTY BAG 0 ML IV PRN (00:09)
[2017-06-01 06:22] LABS: CREATININE 1.5 mg/dl (0.60-1.40)
[2017-06-01] MEDS ORDERED: FUROSEMIDE 40 MG/4 ML VIAL ONE (07:20)
[2017-06-01] MEDS ORDERED: VANCOMYCIN INJ 1,250 MG in SODIUM CHLORIDE 0.9% 250ML 250 ML IV ONE (07:30)
--- NOTE | 2017-06-01 07:35 | Critical Care Progress Note ---
Critical Care Progress Note Date of Service Jun 01, 2017. ICU Day ICU Day Number: [address] Holm Subjective Feeling better. Had some Lasix last night and improved with regard to A-a gradient. I/Os noted with move back to baseline. No chest pain. No interactive. Remains very frail and fatigued. I spoke with cardiology and hospitalist team--should be good to move to telemetry Objective Gen--calm and synchronous HEENT--no focal changes. Pulmonary--exchange is good--better Cardio--rate and volume adequate--no JVD GI--nontender--functional --zelaya to gravity Musculo--no erythema or edema Neuro--no focal neuro targets- He is alert and oriented Psych--negative Derm--no active lesions--sites ok Current SOFA Score SOFA Score Response (Comments) Value PaO2/FiO2 (mmHg) < 400 1 SaO2 / FIO2 221 - 301 1 Platelets (x10) < 150 1 Bilirubin (mg/dL) < 1.2 0 Reza Coma Score < 6 4 Level of Hypotension No Hypotension 0 Creatinine (mg/dL) 1.2 - 1.9 1 Total 8 Assessment & Plan Complex cardiac course--InferoRV infarct and VT--he is starting to mobilize third space fluids 1. Cardio--will be able to move out of the ICU--Dose of Lasix PRN. Cardiology will modify PO Rx 2. Pulmonary--toilette is adequate--A-a gradient improved 3. ID--cultures negative to date--probably can deescalate antibiotics at 48 hours 4. F/E/N--appropriate--Ramp up nutrition 5. Dispo--will require rehab care Consults & Procedures Consultants: see orders Procedures: none Data Medications: Current Inpatient Medications Medications (Trade) Dose Ordered Sig/Alexa Route Start Time Stop Time Status Last Admin Dose Admin Losartan Potassium (coZAAR TAB) 50 mg QAM PO 05/29/17 09:00 06/28/17 08:59 Future Hold Pantoprazole Sodium (Protonix Tab) 40 mg QAM PO 05/29/17 09:00 06/28/17 08:59 Future Hold Tamsulosin HCl (Flomax Cap) 0.4 mg HS PO 05/28/17 21:00 06/27/17 20:59 Future Hold 05/28/17 21:07 0.4 MG Rosuvastatin Calcium (Crestor Tab) 10 mg HS PO 05/28/17 21:00 06/27/17 20:59 Future Hold 05/28/17 21:07 10 MG Temazepam (Restoril Cap) 15 mg HS PRN PO 05/28/17 15:00 06/27/17 14:59 Future Hold 05/28/17 22:39 15 MG EZETIMIBE (Zetia Tab) 10 mg QAM PO 05/29/17 09:00 06/28/17 08:59 Future Hold Enoxaparin Sodium (Lovenox Inj) 40 mg Q24H SC 05/28/17 18:00 06/27/17 17:59 05/31/17 17:24 40 MG Al Hydrox/Mg Hydrox/Simethicone (Maalox Max Susp) 15 ml Q4H PRN PO 05/28/17 15:30 06/27/17 15:29 Magnesium Hydroxide (Milk Of Magnesia Susp) 30 ml Q12H PRN PO 05/28/17 15:30 06/27/17 15:29 Ondansetron HCl (Zofran Inj) 4 mg Q6H PRN IV 05/28/17 15:30 06/27/17 15:29 Nitroglycerin (Nitrostat Tab) 0.4 mg UD PRN SL 05/28/17 15:30 06/27/17 15:29 Polyethylene (Miralax Powder Packet) 17 gm DAILY PRN PO 05/28/17 15:30 06/27/17 15:29 Miscellaneous (Iv Fluids Completed) 1 ea PRN PRN N/A 05/28/17 16:30 05/28/18 16:29 Fentanyl Citrate (Fentanyl Inj) 25 mcg Q1H PRN IV 05/29/17 09:30 06/12/17 09:29 05/30/17 10:45 25 MCG Famotidine 20 mg/ Dextrose 102 ml @ 200 mls/hr Q12H IV 05/29/17 11:00 06/28/17 10:59 05/31/17 23:05 200 MLS/HR Clopidogrel Bisulfate (plAVix TAB) 75 mg QAM NG 05/29/17 12:00 06/28/17 11:59 05/31/17 10:47 75 MG Aspirin (Aspirin Chew) 81 mg DAILY GT 05/29/17 12:00 06/28/17 11:59 05/31/17 10:47 81 MG Amiodarone HCL/ Dextrose 200 ml @ 16.7 mls/hr [id number] IV 05/29/17 21:45 06/28/17 21:44 05/31/17 22:05 16.7 MLS/HR Acetaminophen 650 mg/Empty Bag 65 ml @ 260 mls/hr Q6H PRN IV 05/29/17 22:15 06/28/17 22:14 06/01/17 00:09 260 MLS/HR Cefepime HCl 2000 mg/Dextrose 112.5 ml @ 225 mls/hr Q12H IV 05/31/17 10:00 06/02/17 09:59 05/31/17 22:03 225 MLS/HR Potassium Chloride/Sodium Chloride 1,000 ml @ 15 mls/hr Q24H IV 05/31/17 07:45 06/30/17 07:44 05/31/17 17:24 100 MLS/HR Vancomycin HCl (Consult) 1 ea UD PRN N/A 05/31/17 08:15 06/30/17 08:14 Vancomycin HCl 1250 mg/Sodium Chloride 275 ml @ 125 mls/hr NOW ONCE IV 06/01/17 07:30 06/01/17 09:41 Vital Signs: Date Time Temp Pulse Resp B/P (MAP) Pulse Ox O2 Delivery O2 Flow Rate FiO2 06/01/17 06:00 36.6 67 14 148/94 (112) 95 Nasal Cannula 4.0 06/01/17 04:00 36.6 72 23 130/83 (99) 96 Nasal Cannula 5.0 06/01/17 04:00 96 Nasal Cannula 5.0 06/01/17 02:00 72 28 115/80 (92) 95 Nasal Cannula 5.0 06/01/17 00:00 97 Nasal Cannula 6.0 06/01/17 00:00 36.6 72 23 149/95 (113) 97 Nasal Cannula 6.0 05/31/17 22:00 74 22 140/86 (104) 97 Nasal Cannula 6.0 05/31/17 20:00 36.7 75 31 151/102 (118) 93 Nasal Cannula 6.0 05/31/17 20:00 93 Nasal Cannula 6.0 05/31/17 18:02 76 24 148/82 (104) 98 Nasal Cannula 6.0 05/31/17 16:02 36.9 73 23 134/93 (107) 96 Nasal Cannula 6.0 05/31/17 16:00 Nasal Cannula 6.0 05/31/17 15:02 75 21 133/81 (98) 96 Nasal Cannula 6.0 05/31/17 14:02 80 24 150/86 (107) 95 Nasal Cannula 6.0 05/31/17 13:02 81 28 167/112 (130) 95 Nasal Cannula 6.0 05/31/17 12:02 38.0 79 26 157/94 (115) 98 Nasal Cannula 6.0 05/31/17 12:00 Nasal Cannula 6.0 05/31/17 11:02 75 20 158/96 (116) 96 Nasal Cannula 6.0 05/31/17 10:02 71 20 150/83 (105) 97 Nasal Cannula 6.0 05/31/17 09:02 69 24 160/87 (111) 96 Nasal Cannula 6.0 05/31/17 08:32 67 25 156/84 (108) 94 Nasal Cannula 6.0 05/31/17 08:02 37.2 66 22 149/81 (103) 96 Nasal Cannula 6.0 05/31/17 08:00 Nasal Cannula 6.0 05/31/17 08:00 Nasal Cannula Mechanical Ventilator Laboratory Results: Last 24 Hours Test 05/31/17 11:12 05/31/17 12:17 06/01/17 05:32 06/01/17 07:23 Bedside Glucose 142 mg/dl Random Vancomycin Level 11.0 mcg/ml 13.3 mcg/ml Creatinine 1.50 mg/dl Est Creatinine Clear Calc Drug Dose 36.7 ml/min Estimated GFR () 50.2 Estimated GFR (Non- 43.3
[2017-06-01] MEDS: ASPIRIN 81 MG CHEW GT SCH (07:46)
[2017-06-01] MEDS: CLOPIDOGREL BISULFATE 75 MG TAB NG SCH (07:46)
[2017-06-01 08:51] LABS: BASO % 0.1 %; BASO ABS # 0.01 K/uL (0-0.2); COMPLETE YES; EOS % 0.2 %; IG% 1.4 %; LYMPH % 3.6 %; LYMPH ABS # 0.37 K/uL (1.2-3.4); MEAN CELL VOLUME 91.2 fL (80-100); MEAN CORPUSCULAR HEMOGLOBIN 31.3 pg (25-34); MEAN CORPUSCULAR HGB CONC 34.3 g/dl (32-36); MEAN PLATELET VOLUME 10.2 fL (7.4-10.4); NEUT % 83.7 %; PLATELET COUNT 187 K/uL (130-400); RED BLOOD COUNT 3.29 M/uL (4.7-6.1); WHITE BLOOD COUNT 10.17 K/uL (4.8-10.8)
[2017-06-01 09:09] LABS: BUN/CREATININE RATIO 18.5 (10-20); CALCIUM 7.4 mg/dl (8.5-10.1); CREATININE 1.5 mg/dl (0.60-1.40); POTASSIUM 4.5 mmol/L (3.5-5.1)
[2017-06-01] MEDS: AMIODARONE 200 MG TAB PO SCH (09:14)
[2017-06-01] MEDS: ROSUVASTATIN CALCIUM 10 MG TAB PO SCH (09:15)
--- NOTE | 2017-06-01 09:28 | Cardiology Follow-Up ---
Subjective Date of Service: Jun 01, 2017. 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 He states he is somewhat tired and over the course of the evening and some generalized body aches. He denies any focal pain. He denies any pleuritic chest pain. He has some mild discomfort with deep breathing in the lower abdomen. No back pain this morning. He states his breathing is comfortable. He denies any dizziness with transferring from the bed to the chair. He appears to be tolerating a normal diet denies any pain or coughing with swallowing.. Social History Smoking Status: Never Smoker History of Alcohol Use: Yes (RARE) Review of Systems Respiratory: + cough, + sputum, No shortness of breath, No dyspnea on exertion Cardiac: No chest pain, No orthopnea, No PND, No edema Some of the review of systems was deferred due to the critical nature of the patient's condition at the time of this interview Objective Vital Signs Past 12 Hours Date Time Temp Pulse Resp B/P (MAP) Pulse Ox O2 Delivery O2 Flow Rate FiO2 06/01/17 08:03 72 27 150/83 (105) 96 06/01/17 08:00 74 26 96 06/01/17 07:30 96 Nasal Cannula 4.0 06/01/17 07:17 36.7 70 25 147/88 (107) 97 Nasal Cannula 4.0 06/01/17 07:00 68 18 97 06/01/17 06:00 36.6 67 14 148/94 (112) 95 Nasal Cannula 4.0 06/01/17 04:00 36.6 72 23 130/83 (99) 96 Nasal Cannula 5.0 06/01/17 04:00 96 Nasal Cannula 5.0 06/01/17 02:00 72 28 115/80 (92) 95 Nasal Cannula 5.0 06/01/17 00:00 97 Nasal Cannula 6.0 06/01/17 00:00 36.6 72 23 149/95 (113) 97 Nasal Cannula 6.0 05/31/17 22:00 74 22 140/86 (104) 97 Nasal Cannula 6.0 Last Recorded Weight-Kilograms: 78.300 Physical Exam He was more alert today and answered all questions appropriately. Mood and affect appeared appropriate The ICD implant site appeared well healed without drainage, erythema or hematoma. His abdomen appear distended it was somewhat firm but nontender, improved from yesterday. He had an element of anasarca, improved from yesterday. Ascultation of the lungs revealed occasional upper airway congestion but improved from yesterday. There are no rales appreciated. He has good air movement. No wheezes. Cardiac examination revealed an be in a regular rhythm without murmur Data Laboratory Results: Last 24 Hours Test 05/31/17 11:12 05/31/17 12:17 06/01/17 05:32 Bedside Glucose 142 mg/dl Random Vancomycin Level 11.0 mcg/ml 13.3 mcg/ml White Blood Count 10.17 K/uL Red Blood Count 3.29 M/uL Hemoglobin 10.3 g/dL Hematocrit 30.0 % Mean Corpuscular Volume 91.2 fL Mean Corpuscular Hemoglobin 31.3 pg Mean Corpuscular Hemoglobin Concent 34.3 g/dl Platelet Count 187 K/uL Mean Platelet Volume 10.2 fL Neutrophils (%) (Auto) 83.7 % Lymphocytes (%) (Auto) 3.6 % Monocytes (%) (Auto) 11.0 % Eosinophils (%) (Auto) 0.2 % Basophils (%) (Auto) 0.1 % Neutrophils # (Auto) 8.51 K/uL Lymphocytes # (Auto) 0.37 K/uL Monocytes # (Auto) 1.12 K/uL Eosinophils # (Auto) 0.02 K/uL Basophils # (Auto) 0.01 K/uL RDW Standard Deviation 45.9 fL RDW Coefficient of Variation 13.6 % Immature Granulocyte % (Auto) 1.4 % Immature Granulocyte # (Auto) 0.14 K/uL Sodium Level 135 mmol/L Potassium Level 4.5 mmol/L Chloride Level 107 mmol/L Carbon Dioxide Level 18 mmol/L Anion Gap 10.0 mmol/L Blood Urea Nitrogen 28 mg/dl Creatinine 1.50 mg/dl Est Creatinine Clear Calc Drug Dose 36.7 ml/min Estimated GFR () 50.2 Estimated GFR (Non- 43.3 BUN/Creatinine Ratio 18.5 Random Glucose 146 mg/dl Calcium Level 7.4 mg/dl Imaging: Limited echocardiogram pending today EKG: Telemetry reviewed: Mostly ventricular pacing with some pseudo fusion and intact AV pratik conduction. Assessment and Plan 1. Complete heart block: Patient underwent successful implantation of dual- chamber ICD 05/30. He has intermittent intact AV pratik conduction. 2. Ventricular tachycardia: No recurrent ventricular tachycardia. Will continue him on amiodarone. Will switch to oral amiodarone today. Normally functioning ICD on interrogation yesterday. 3. Ischemic cardiomyopathy: He may have had an element of mild pulmonary vascular congestion last evening. This responded well to diuretics. He has remained hemodynamically stable. I think it is likely time to attempt reinstitution of standard therapy for an ischemic cardiomyopathy to include an ARB today and likely beta-frank tomorrow. 4. Coronary artery disease: Patient had occlusion of the right coronary artery. While his EKG was suspicious for continued injury, he had no symptoms to support this. His cardiac biomarkers continue to trend down despite the EKG changes and episodes of ventricular tachycardia. Patient will be continued on dual anti-platelet therapy. Reinstitute anti-lipid therapy today 5. Syncope: This was the presenting complaint on May 28. Presumably this was related to complete heart block although after yesterday's events the possibility of ventricular tachycardia also exists. Both etiologies will be treated with device therapy today. 6. Anemia: Improved today. No evidence of active bleeding. 7. Right ventricular heart failure: He seemed to tolerate diuresis well over the past 24 hours. Blood pressure is maintained stability. He certainly has an element of volume overload in the tissues. We will need to monitor his hemodynamics closely with continued diuresis. Hopefully will fact an auto diuresis and will not require much more Lasix. 8. Pericardial effusion: This is likely related to a perforation which occurred during his device implant. He had some hemodynamic embarrassment initially but appeared to respond to volume resuscitation. Hopefully resolving. Will check limited echocardiogram today in order to track resolution. With the infusion is improving or resolve we can be more aggressive with his diuresis and therapy for cardiomyopathy. 9. Deconditioning: Patient will be evaluated by physical therapy. He will need to regain his strength over the next couple of days in order to have a discharge home. There have been some inquiries made regarding a brief stay at [facility] 10. Fever: Patient did have slight temperature yesterday afternoon. However, there is no source of active infection. He does not have a leukocytosis. All of his cultures are negative. This may been reactive in nature and not associated with infection. I think the current plan is to monitor him for another 24 hours in the absence of an obvious infection or recurrent fevers discontinue his antibiotics.
[2017-06-01] MEDS: FAMOTIDINE IV INJ 20 MG in DEXTROSE 5% 100ML 100 ML IV SCH ×2 (10:21→23:16)
[2017-06-01] MEDS: CEFEPIME IV 2000 MG in DEXTROSE 5% 100ML IV SCH ×2 (10:21→22:06)
[2017-06-01] MEDS ORDERED: ACETAMINOPHEN 325 MG TAB ONE (12:54)
[2017-06-01] MEDS ORDERED: NURSING VERBAL MED ORDER ONE ×2 (13:00→17:00)
--- NOTE | 2017-06-01 13:50 | ECHOCARDIOGRAM REPORT ---
*NOTICE TO RECEIVING [employer]ENCY This information is strictly Confidential and protected under [place] law. [place] law prohibits you from making any further disclosure of this information unless further disclosure is expressly permitted by the written consent of the person to whom it pertains or is authorized by law. A general authorization for the release of medical or other information is not sufficient for this purpose. Hospital accepts no responsibility if the information is made available to any other person, INCLUDING THE PATIENT. Interpretation Summary * Name: BREA HENRY Study Date: 06/01/2017 10:13 AM BP: 148/84 mmHg * [facility] HR: 70 * : 1935 (M/d/yyy) Gender: Male Height: 67 in * Age: 81 yrs Ethnicity: [place] Weight: 172 lb * Ordering Physician: Devin Mak * Referring Physician: Self, Referred * Performed By: Bhumika Arboleda RDCS * * Reason For Study: Pericardial effusion * BSA: 1.9 m2 * -- Conclusions -- * 1. Normal LV size. Mild to moderate LV dysfunction. EF 40-45%. Inferior akinesis. Posterior moderate hypokinesis. Abnormal septal motion consistent with conduction abnormality. * 3. Moderately dilated RV. Moderate RV dysfunction. * 4. Small pericardial effusion. * 5. IVC dilated. Est RA pressure 15 mmHg. * 5. Compared with prior study on 05/31/2017: No significant change. Procedure Details * A two-dimensional transthoracic echocardiogram was performed. Left Ventricle * The left ventricle is grossly normal size. * Ejection Fraction = 40-45%. * There is inferior wall akinesis. * There is moderate posterior wall hypokinesis. * Septal motion is consistent with conduction abnormality. Right Ventricle * The right ventricle is moderately dilated. * There is a pacemaker lead in the right ventricle. * The right ventricular systolic function is moderately reduced. Atria * The left atrial size is normal. * The right atrium is moderately dilated. Mitral Valve * There is no mitral valve stenosis. Tricuspid Valve * The tricuspid valve is not well visualized, but is grossly normal. Aortic Valve * The aortic valve opens well. * Aortic valve sclerosis mild, without significant aortic valvular stenosis. * The aortic valve is trileaflet. Pulmonic Valve * The pulmonic valve is not well visualized. Pericardium/Pleural * Small pericardial effusion. Great Vessels * Dilated inferior vena cava with reduced collapsability with sniff indicates an elevated right atrial pressure of 15 mmHg
--- NOTE | 2017-06-01 14:06 | ECHOCARDIOGRAM REPORT ---
*NOTICE TO RECEIVING [employer] AGENCY This information is strictly Confidential and protected under [place] law. [place] law prohibits you from making any further disclosure of this information unless further disclosure is expressly permitted by the written consent of the person to whom it pertains or is authorized by law. A general authorization for the release of medical or other information is not sufficient for this purpose. Hospital accepts no responsibility if the information is made available to any other person, INCLUDING THE PATIENT. Interpretation Summary * Name: BREA HENRY Study Date: 05/31/2017 07:47 AM BP: 127/70 mmHg * Patient Location: [facility] HR: 120 * : 1935 (M/d/yyyy) Gender: Male Height: 67 in * Age: 81 yrs Ethnicity: [place] Weight: 169 lb * Ordering Physician: Christopher. Mak MD * Referring Physician: Christopher. Mak MD * Performed By: Sarah Yates RCS * * Reason For Study: ASSESS FOR EFFUSION * BSA: 1.9 m2 * -- Conclusions -- * 1. Normal LV size. Mild to moderate LV dysfunction. LVEF 40-45%. Inferior akinesis. Posterior severe hypokinesis. Abnormal septal motion consistent with conduction abnormality. * 2. Moderate to severely dilated RV. Moderate RV dysfunction. * 3. Dilated IVC. Est RA 15 mmHg. * 4. Trivial pericardial effusion. * 5. Compared with prior study from 05/30/2017: Pericardial effusion is reduced. Procedure Details * Limited views were obtained. Left Ventricle * The left ventricle is grossly normal size. * Ejection Fraction = 40-45%. * There is inferior wall akinesis. * There is posterior wall akinesis. * Septal motion is consistent with conduction abnormality. Right Ventricle * The right ventricle is moderate to severely dilated. * There is a pacemaker lead in the right ventricle. * The right ventricular systolic function is moderately reduced. Atria * The left atrial size is normal. * The right atrium is severely dilated. Mitral Valve * The mitral valve is grossly normal. Tricuspid Valve * The tricuspid valve is not well visualized, but is grossly normal. * There is trace tricuspid regurgitation. * RVSP \R\ 40 mmHg. Aortic Valve * Aortic valve sclerosis mild, without significant aortic valvular stenosis. Pulmonic Valve * The pulmonic valve is not well visualized. Pericardium/Pleural * Trivial pericardial effusion Great Vessels * Dilated inferior vena cava with reduced collapsability with sniff indicates an elevated right atrial pressure of 15 mmHg
--- NOTE | 2017-06-01 16:26 | Progress Note ---
Subjective Date of Service: Jun 01, 2017. Subjective pt is doing better but is weak and fatigued, he may benefit from subacute rehab if he does not bounce back significantly before discharge at bedside and updated Problem List Medical Problems: (1) Recent myocardial infarction of inferior wall Status: Acute (2) Third degree heart block Status: Acute Review of Systems Constitutional: + weakness, + fatigue, No fever, No chills Respiratory: + cough, + dyspnea on exertion, No sputum, No shortness of breath Cardiac: No chest pain, No orthopnea, No PND, No edema Abdomen: No pain, No nausea, No vomiting, No diarrhea Objective Vital Signs Date Time Temp Pulse Resp B/P (MAP) Pulse Ox O2 Delivery O2 Flow Rate FiO2 06/01/17 15:45 94 Nasal Cannula 4.0 06/01/17 14:35 74 92 06/01/17 14:03 72 23 148/76 (100) 95 Nasal Cannula 2.0 06/01/17 14:00 73 26 92 06/01/17 13:24 72 28 142/80 (100) 96 06/01/17 13:21 75 25 96 06/01/17 13:00 74 30 96 06/01/17 12:03 36.8 73 31 140/95 (110) 96 Nasal Cannula 2.0 06/01/17 12:00 73 26 96 06/01/17 12:00 96 Nasal Cannula 2.0 06/01/17 11:00 70 20 94 06/01/17 11:00 70 20 94 06/01/17 10:15 70 23 98 06/01/17 10:02 70 23 148/84 (105) 97 Nasal Cannula 2.0 06/01/17 10:02 70 23 148/84 (105) 97 06/01/17 09:15 73 28 96 06/01/17 09:00 74 24 97 06/01/17 08:15 72 24 97 06/01/17 08:03 72 27 150/83 (105) 96 06/01/17 08:03 72 27 150/83 (105) 96 06/01/17 08:00 74 26 96 06/01/17 08:00 74 26 96 06/01/17 08:00 Nasal Cannula Mechanical Ventilator 06/01/17 07:30 96 Nasal Cannula 4.0 06/01/17 07:17 36.7 70 25 147/88 (107) 97 Nasal Cannula 4.0 06/01/17 07:17 70 25 147/88 (107) 97 06/01/17 07:00 68 18 97 06/01/17 07:00 68 18 97 06/01/17 06:12 74 25 148/94 (112) 94 06/01/17 06:00 36.6 67 14 148/94 (112) 95 Nasal Cannula 4.0 06/01/17 06:00 69 20 97 06/01/17 05:00 69 21 98 06/01/17 04:04 70 23 130/83 (99) 96 06/01/17 04:03 74 29 146/116 (126) 95 06/01/17 04:00 36.6 72 23 130/83 (99) 96 Nasal Cannula 5.0 06/01/17 04:00 72 27 95 06/01/17 04:00 96 Nasal Cannula 5.0 06/01/17 03:00 69 23 96 06/01/17 02:03 72 28 115/80 (92) 95 06/01/17 02:00 71 19 96 06/01/17 02:00 72 28 115/80 (92) 95 Nasal Cannula 5.0 06/01/17 01:00 76 16 95 06/01/17 00:02 75 28 149/95 (113) 97 06/01/17 00:00 97 Nasal Cannula 6.0 06/01/17 00:00 36.6 72 23 149/95 (113) 97 Nasal Cannula 6.0 06/01/17 00:00 76 29 96 05/31/17 22:00 74 22 140/86 (104) 97 Nasal Cannula 6.0 05/31/17 20:00 36.7 75 31 151/102 (118) 93 Nasal Cannula 6.0 05/31/17 20:00 93 Nasal Cannula 6.0 05/31/17 18:02 76 24 148/82 (104) 98 Nasal Cannula 6.0 Physical Exam General Appearance: WD/WN, + mild distress Eyes: PERRL, EOMI Respiratory/Chest: chest non-tender, lungs clear, + decreased breath sounds ( left base) Cardiovascular: regular rate, rhythm, + systolic murmur Abdomen: normal bowel sounds, non tender, soft Extremities: no pedal edema, no calf tenderness Neurologic/Psychiatric: alert, oriented x 3 Laboratory Results Last 24 Hours Test 06/01/17 05:32 White Blood Count 10.17 K/uL Red Blood Count 3.29 M/uL Hemoglobin 10.3 g/dL Hematocrit 30.0 % Mean Corpuscular Volume 91.2 fL Mean Corpuscular Hemoglobin 31.3 pg Mean Corpuscular Hemoglobin Concent 34.3 g/dl Platelet Count 187 K/uL Mean Platelet Volume 10.2 fL Neutrophils (%) (Auto) 83.7 % Lymphocytes (%) (Auto) 3.6 % Monocytes (%) (Auto) 11.0 % Eosinophils (%) (Auto) 0.2 % Basophils (%) (Auto) 0.1 % Neutrophils # (Auto) 8.51 K/uL Lymphocytes # (Auto) 0.37 K/uL Monocytes # (Auto) 1.12 K/uL Eosinophils # (Auto) 0.02 K/uL Basophils # (Auto) 0.01 K/uL RDW Standard Deviation 45.9 fL RDW Coefficient of Variation 13.6 % Immature Granulocyte % (Auto) 1.4 % Immature Granulocyte # (Auto) 0.14 K/uL Sodium Level 135 mmol/L Potassium Level 4.5 mmol/L Chloride Level 107 mmol/L Carbon Dioxide Level 18 mmol/L Anion Gap 10.0 mmol/L Blood Urea Nitrogen 28 mg/dl Creatinine 1.50 mg/dl Est Creatinine Clear Calc Drug Dose 36.7 ml/min Estimated GFR () 50.2 Estimated GFR (Non- 43.3 BUN/Creatinine Ratio 18.5 Random Glucose 146 mg/dl Calcium Level 7.4 mg/dl Random Vancomycin Level 13.3 mcg/ml Assessment and Plan 81 M who had recent stemi and presented with heart block, then had v tach 05/29 with amiodarone and recurred with heart block. 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 leader with emergent temporary pacemaker placed 05/29, pacer and AICD placed 05/30, did have some post placement arrythmia, now improved Syncope / Intermittent CHB/Vtach cardiology arrhythmia and device placement, has stable rhythm, will proceed to PT EP pacemaker/defibrillator, Acute respiratory failure associated with heart block, intubation and ventilation , now extubated and improved cough, was placed on antibiotics with fever, but no defined pneumonia concern for catheter associated uti, is covered for gram positive and negative , if cultures result negative will stop after 48 hours CAD s/p Inferior [place] 05/22/2017 s/p Proximal RCA drug Eluting Stent, no angina despite rapid rate associated with arrhythmia Aspirin 81 mg daily. Plavix 75 mg daily Crestor 10 mg q HS.Losartan 50 mg daily. Zetia 10 mg daily. and son at bedside and updated, transfer to tele, sleeping aid requested will try seroquel
[2017-06-01] MEDS: NSS + 20MEQ KCL 1000ML 1,000 ML IV SCH (16:55)
[2017-06-01] MEDS: ENOXAPARIN 40 MG/0.4 ML SYR SC SCH (17:25)
[2017-06-01] MEDS: ACETAMINOPHEN 325 MG TAB PO PRN ×2 (17:25→20:57)
[2017-06-01] MEDS: LOSARTAN POTASSIUM 25 MG TAB PO SCH (19:22)
[2017-06-01] MEDS: QUETIAPINE FUMARATE 25 MG TAB PO SCH (20:56)
[2017-06-02] VITALS (10 sets, daily range): BP systolic 98–142; BP diastolic 55–81; PULSE 62–73; TEMP 36.6–37.1; O2SAT 75–99
[2017-06-02 07:01] LABS: HEMATOCRIT 30.1 % (42-52); MEAN CELL VOLUME 90.4 fL (80-100); MEAN CORPUSCULAR HEMOGLOBIN 30.6 pg (25-34); MEAN CORPUSCULAR HGB CONC 33.9 g/dl (32-36); MEAN PLATELET VOLUME 10.4 fL (7.4-10.4); PLATELET COUNT 191 K/uL (130-400); RED BLOOD COUNT 3.33 M/uL (4.7-6.1); WHITE BLOOD COUNT 9.04 K/uL (4.8-10.8)
[2017-06-02 07:30] LABS: CREATININE 1.4 mg/dl (0.60-1.40)
[2017-06-02] MEDS: POLYETHYLENE (MIRALAX) 17 GM PACK PO PRN (08:07)
[2017-06-02] MEDS: ASPIRIN 81 MG CHEW GT SCH (08:08)
[2017-06-02] MEDS: ROSUVASTATIN CALCIUM 10 MG TAB PO SCH (08:08)
[2017-06-02] MEDS: LOSARTAN POTASSIUM 25 MG TAB PO SCH (08:08)
[2017-06-02] MEDS: CLOPIDOGREL BISULFATE 75 MG TAB NG SCH (08:08)
[2017-06-02] MEDS: AMIODARONE 200 MG TAB PO SCH (08:09)
[2017-06-02] MEDS ORDERED: CARVEDILOL 3.125 MG TAB PO ONE (10:30)
[2017-06-02] MEDS ORDERED: FUROSEMIDE INJ 40 MG in SYRINGE 0 ML IV ONE (11:00)
--- NOTE | 2017-06-02 11:02 | Cardiology Follow-Up ---
Subjective Date of Service: Jun 02, 2017. Pt evaluation today including: conversation w/ patient, conversation w/ family , physical exam, chart review, lab review, review of inpatient medication list, conversation w/ attending History of Present Illness I am seeing Mr. Villavicencio today at the request of Dr. Mak as he is away from the hospital. Mr. Villavicencio feels as though he is improving on a daily basis. He denies orthopnea, PND, syncope, near syncope, palpitations, or angina. He believes that his shortness of breath continues to improve. He states that he is weak and feels tired but that he is improving each day. Review of systems: As above. Social History Smoking Status: Never Smoker History of Alcohol Use: Yes (RARE) Medications Current Inpatient Medications Medications (Trade) Dose Ordered Sig/Alexa Route Start Time Stop Time Status Last Admin Dose Admin Losartan Potassium (coZAAR TAB) 50 mg QAM PO 05/29/17 09:00 06/28/17 08:59 Future Hold Pantoprazole Sodium (Protonix Tab) 40 mg QAM PO 05/29/17 09:00 06/28/17 08:59 Future Hold Tamsulosin HCl (Flomax Cap) 0.4 mg HS PO 05/28/17 21:00 06/27/17 20:59 Future Hold 05/28/17 21:07 0.4 MG Temazepam (Restoril Cap) 15 mg HS PRN PO 05/28/17 15:00 06/27/17 14:59 Future Hold 05/28/17 22:39 15 MG EZETIMIBE (Zetia Tab) 10 mg QAM PO 05/29/17 09:00 06/28/17 08:59 Future Hold Enoxaparin Sodium (Lovenox Inj) 40 mg Q24H SC 05/28/17 18:00 06/27/17 17:59 06/01/17 17:25 40 MG Al Hydrox/Mg Hydrox/Simethicone (Maalox Max Susp) 15 ml Q4H PRN PO 05/28/17 15:30 06/27/17 15:29 Magnesium Hydroxide (Milk Of Magnesia Susp) 30 ml Q12H PRN PO 05/28/17 15:30 06/27/17 15:29 Ondansetron HCl (Zofran Inj) 4 mg Q6H PRN IV 05/28/17 15:30 06/27/17 15:29 Nitroglycerin (Nitrostat Tab) 0.4 mg UD PRN SL 05/28/17 15:30 06/27/17 15:29 Polyethylene (Miralax Powder Packet) 17 gm DAILY PRN PO 05/28/17 15:30 06/27/17 15:29 06/02/17 08:07 17 GM Miscellaneous (Iv Fluids Completed) 1 ea PRN PRN N/A 05/28/17 16:30 05/28/18 16:29 Fentanyl Citrate (Fentanyl Inj) 25 mcg Q1H PRN IV 05/29/17 09:30 06/12/17 09:29 05/30/17 10:45 25 MCG Famotidine 20 mg/ Dextrose 102 ml @ 200 mls/hr Q12H IV 05/29/17 11:00 06/28/17 10:59 06/01/17 23:16 200 MLS/HR Clopidogrel Bisulfate (plAVix TAB) 75 mg QAM NG 05/29/17 12:00 06/28/17 11:59 06/02/17 08:08 75 MG Aspirin (Aspirin Chew) 81 mg DAILY GT 05/29/17 12:00 06/28/17 11:59 06/02/17 08:08 81 MG Amiodarone HCl (Cordarone Tab) 400 mg QAM PO 06/01/17 09:00 07/01/17 08:59 06/02/17 08:09 400 MG Rosuvastatin Calcium (Crestor Tab) 10 mg QAM PO 06/01/17 10:00 07/01/17 09:59 06/02/17 08:08 10 MG Acetaminophen (Tylenol Tab) 650 mg Q6H PRN PO 06/01/17 13:15 07/01/17 13:14 06/01/17 20:57 650 MG Quetiapine Fumarate (seroQUEL TAB) 25 mg HS PO 06/01/17 21:00 07/01/17 20:59 06/01/17 20:56 25 MG Losartan Potassium (coZAAR TAB) 25 mg QAM PO 06/01/17 18:30 07/01/17 18:29 06/02/17 08:08 25 MG Objective Vital Signs Past 12 Hours Date Time Temp Pulse Resp B/P (MAP) Pulse Ox O2 Delivery O2 Flow Rate FiO2 06/02/17 08:00 Nasal Cannula 2.0 06/02/17 07:47 37.0 73 21 136/68 (90) 99 Nasal Cannula 2.0 06/02/17 04:00 Nasal Cannula 2.0 06/02/17 03:50 37.1 66 18 105/55 (72) 98 Nasal Cannula 4.0 06/02/17 00:57 36.6 68 16 95 4.0 06/02/17 00:55 66 16 132/72 (92) 97 Nasal Cannula 4.0 06/01/17 23:59 36.6 68 18 142/81 (101) 95 Nasal Cannula 4.0 06/01/17 23:45 96 Nasal Cannula 4.0 Humidified Oxygen Last Recorded Weight-Kilograms: 77.300 Intake & Output 06/01/17 06/02/17 06/03/17 08:00 08:00 08:00 Intake Total 3293 ml 1430 ml Output Total 2050 ml 2325 ml Balance 1243 ml -895 ml Physical Exam Gen.: No acute distress. Alert. HEENT: Anicteric sclera. Neck: No appreciable JVD. Cardiac: No ventricular heave. Regular with ectopy. Normal S1-S2. No murmurs, rubs, or gallops. Pulmonary: Bibasilar rales, otherwise clear. Abdomen: Soft, nontender, nondistended, with normoactive bowel sounds. No bruits noted. Extremities: 1+ bilateral lower extremity edema. No cyanosis. Psychiatric: Affect appears appropriate. Data Laboratory Results: Last 24 Hours Test 06/02/17 06:43 White Blood Count 9.04 K/uL Red Blood Count 3.33 M/uL Hemoglobin 10.2 g/dL Hematocrit 30.1 % Mean Corpuscular Volume 90.4 fL Mean Corpuscular Hemoglobin 30.6 pg Mean Corpuscular Hemoglobin Concent 33.9 g/dl RDW Standard Deviation 45.0 fL RDW Coefficient of Variation 13.5 % Platelet Count 191 K/uL Mean Platelet Volume 10.4 fL Creatinine 1.40 mg/dl Est Creatinine Clear Calc Drug Dose 39.3 ml/min Estimated GFR () 54.6 Estimated GFR (Non- 47.1 Echo 05/31/2017: 1. Normal LV size. Mild to moderate LV dysfunction. LVEF 40-45%. Inferior akinesis. Posterior severe hypokinesis. Abnormal septal motion consistent with conduction abnormality. 2. Moderate to severely dilated RV. Moderate RV dysfunction. 3. Dilated IVC. Est RA 15 mmHg. 4. Trivial pericardial effusion. 5. Compared with prior study from 05/30/2017: Pericardial effusion is reduced. Telemetry reviewed: No ventricular arrhythmia. Assessment and Plan 1. Complete heart block: Dual-chamber ICD placed on 05/30/2017 by EP. 2. Ventricular tachycardia: He had sustained ventricular tachycardia with symptoms. He is now on amiodarone p.o.. No further ventricular tachycardia. ICD in place. Monitor TSH and LFTs while on amiodarone over time. 3. Ischemic cardiomyopathy: He appears mildly hypervolemic. We will gently diurese with Lasix 40 mg IV. Monitor closely for hypotension as he may be somewhat preload dependent given right ventricular systolic dysfunction. ARB was started yesterday. Will start low-dose carvedilol today. 4. CAD status post [place] and RCA PCI on 05/23/2017: No angina. Continue dual anti-platelet therapy. Beta-frank initiated today. Continue statin therapy. Consider high-intensity statin therapy if no contraindications. 5. RV failure: Gentle diuresis as noted above. Monitor blood pressure closely. 6. Pericardial effusion: Trace pericardial effusion reported yesterday. This was thought to be secondary to perforation during ICD implantation. Clinically he is not in tamponade. 7. Disposition: Dr. Franco will be covering over the weekend until Dr. Mak returns on 06/05/2017. Plan of care has been discussed with Dr. Narayanan.
[2017-06-02] MEDS: FAMOTIDINE IV INJ 20 MG in DEXTROSE 5% 100ML 100 ML IV SCH ×2 (12:16→20:49)
--- NOTE | 2017-06-02 13:11 | Progress Note ---
Subjective Date of Service: Jun 02, 2017. Subjective pt did have an episode of shortness of breath after some diuresis considering maybe secondary to pre load reduction from the same. he did have an EKG during the episode without significant changes but was atrial paced at the time. otherwise slightly constipated but did have some results Problem List Medical Problems: (1) Recent myocardial infarction of inferior wall Status: Acute (2) Third degree heart block Status: Acute Review of Systems Constitutional: No fever, No chills, No weakness, No fatigue Respiratory: + shortness of breath, + dyspnea at rest, No cough, No sputum, No wheezing Cardiac: + chest pain, + edema, No orthopnea, No PND Abdomen: No pain, No nausea Male : No dysuria, No urinary frequency Neurologic: + weakness, + balance problems Psychiatric: No depression symptoms, No anhedonism Objective Vital Signs Date Time Temp Pulse Resp B/P (MAP) Pulse Ox O2 Delivery O2 Flow Rate FiO2 06/02/17 12:01 110/59 (76) 06/02/17 12:00 Nasal Cannula 2.0 06/02/17 11:52 37.0 67 21 98/57 (71) 97 Nasal Cannula 2.0 06/02/17 08:00 Nasal Cannula 2.0 06/02/17 07:47 37.0 73 21 136/68 (90) 99 Nasal Cannula 2.0 06/02/17 04:00 Nasal Cannula 2.0 06/02/17 03:50 37.1 66 18 105/55 (72) 98 Nasal Cannula 4.0 06/02/17 00:57 36.6 68 16 95 4.0 06/02/17 00:55 66 16 132/72 (92) 97 Nasal Cannula 4.0 06/01/17 23:59 36.6 68 18 142/81 (101) 95 Nasal Cannula 4.0 06/01/17 23:45 96 Nasal Cannula 4.0 Humidified Oxygen 06/01/17 20:00 36.8 67 18 141/86 (104) 97 Nasal Cannula 4.0 06/01/17 20:00 96 Nasal Cannula 4.0 Humidified Oxygen 06/01/17 16:03 69 29 136/82 (100) 96 Nasal Cannula 4.0 06/01/17 16:00 70 27 95 06/01/17 15:45 94 Nasal Cannula 4.0 06/01/17 15:35 36.9 71 23 131/75 (93) 95 Nasal Cannula 4.0 06/01/17 15:00 74 28 95 06/01/17 14:35 74 92 06/01/17 14:03 72 23 148/76 (100) 95 Nasal Cannula 2.0 06/01/17 14:00 73 26 92 06/01/17 13:24 72 28 142/80 (100) 96 06/01/17 13:21 75 25 96 Physical Exam General Appearance: WD/WN, + mild distress Eyes: PERRL, EOMI Neck: supple, no JVD Respiratory/Chest: chest non-tender, + rales (scant basilar crackles) Cardiovascular: regular rate, rhythm, + systolic murmur Abdomen: normal bowel sounds, non tender, soft Extremities: no pedal edema, no calf tenderness Neurologic/Psychiatric: alert, oriented x 3 Laboratory Results Last 24 Hours Test 06/02/17 06:43 White Blood Count 9.04 K/uL Red Blood Count 3.33 M/uL Hemoglobin 10.2 g/dL Hematocrit 30.1 % Mean Corpuscular Volume 90.4 fL Mean Corpuscular Hemoglobin 30.6 pg Mean Corpuscular Hemoglobin Concent 33.9 g/dl RDW Standard Deviation 45.0 fL RDW Coefficient of Variation 13.5 % Platelet Count 191 K/uL Mean Platelet Volume 10.4 fL Creatinine 1.40 mg/dl Est Creatinine Clear Calc Drug Dose 39.3 ml/min Estimated GFR () 54.6 Estimated GFR (Non- 47.1 Assessment and Plan 81 M who had recent stemi and presented with heart block, then had v tach 05/29 with amiodarone and recurred with heart block. 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 with emergent temporary pacemaker placed 05/29, pacer and AICD placed 05/30, did have some post placement arrhythmia, now improved Syncope / Intermittent CHB/Vtach cardiology arrhythmia and device placement, has stable rhythm, will proceed to PT and eventually rehab placement Dyspnea, maybe from too brisk pre load reduction, has rebounded bp, will follow no acute ECG changes EP pacemaker/defibrillator, Acute respiratory failure associated with heart block, previous intubation and ventilation , was placed on antibiotics with fever, but no defined pneumonia or uti stopped 06/01 CAD s/p Inferior [place] 05/22/2017 s/p Proximal RCA drug Eluting Stent, no angina despite rapid rate associated with arrhythmia Aspirin 81 mg daily. Plavix 75 mg daily Crestor 10 mg q HS.Losartan 50 mg daily. Zetia 10 mg daily. PT had restful night with seroquel will continue per patient request and son at bedside and updated, transfer to tele, sleeping aid requested will try seroquel
[2017-06-02] MEDS: ENOXAPARIN 40 MG/0.4 ML SYR SC SCH (17:08)
[2017-06-02] MEDS ORDERED: NURSING VERBAL MED ORDER STA (20:18)
[2017-06-02] MEDS: CARVEDILOL 3.125 MG TAB PO SCH (20:43)
[2017-06-02] MEDS: QUETIAPINE FUMARATE 25 MG TAB PO SCH (20:43)
[2017-06-02] MEDS ORDERED: ALBUT/IPRATROP 3MG/0.5MG NEB 3 ML VIAL INH ONE (20:45)
[2017-06-03] VITALS (8 sets, daily range): BP systolic 111–133; BP diastolic 46–75; PULSE 60–67; TEMP 36.7–37; O2SAT 93–98
[2017-06-03] MEDS: LOSARTAN POTASSIUM 25 MG TAB PO SCH (08:34)
[2017-06-03] MEDS: AMIODARONE 200 MG TAB PO SCH (08:34)
[2017-06-03] MEDS: CLOPIDOGREL BISULFATE 75 MG TAB NG SCH (08:34)
[2017-06-03] MEDS: ROSUVASTATIN CALCIUM 10 MG TAB PO SCH (08:35)
[2017-06-03] MEDS: CARVEDILOL 3.125 MG TAB PO SCH ×2 (08:35→21:10)
[2017-06-03] MEDS: ASPIRIN 81 MG CHEW GT SCH (08:37)
[2017-06-03 09:26] LABS: BUN/CREATININE RATIO 29.5 (10-20); CALCIUM 8.3 mg/dl (8.5-10.1); CREATININE 1.3 mg/dl (0.60-1.40); MAGNESIUM 2.6 mg/dl (1.8-2.4); POTASSIUM 3.6 mmol/L (3.5-5.1)
--- NOTE | 2017-06-03 10:44 | Cardiology Follow-Up ---
Subjective Subjective Date of Service: Jun 03, 2017. Pt evaluation today including: conversation w/ patient, conversation w/ family , physical exam, chart review, lab review, review of studies, conversation w/ [employer] retailer sales consultant, review of inpatient medication list Additional Details: Episode of "chest tightness"/chest pain yesterday afternoon. No shortness of breath this AM + abdominal fullness Uncomfortable on bed Tele reviewed -- primarily sinus rhythm, intermittent atrial, AV pacing. No recurrent VT Problem List Medical Problems: (1) Recent myocardial infarction of inferior wall Status: Acute (2) Third degree heart block Status: Acute Review of Systems Constitutional: No fever, No chills, No weakness, No fatigue Respiratory: + shortness of breath, + dyspnea at rest, No cough, No sputum, No wheezing Cardiac: + chest pain, + edema, No orthopnea, No PND Abdomen: No pain, No nausea Male : No dysuria, No urinary frequency Psychiatric: No depression symptoms Skin: No rash Objective Vital Signs Last Vital Signs Documentation Date Time Temp Pulse Resp B/P (MAP) Pulse Ox O2 Delivery O2 Flow Rate FiO2 06/03/17 08:03 36.7 67 19 112/46 (68) 96 Nasal Cannula 2.0 05/31/17 06:02 40 Physical Exam: General Appearance: no apparent distress Neck: supple, + JVD Respiratory/Chest: chest non-tender, + rales (scant basilar crackles) Cardiovascular: regular rate, rhythm, + systolic murmur (systolic ejection murmur) Abdomen: normal bowel sounds, soft, + distended Extremities: no pedal edema, no calf tenderness Neurologic/Psychiatric: alert, oriented x 3 Skin: normal color, warm/dry Assessment and Plan 1. Complete heart block s/p Dual-chamber ICD placed on 05/30/2017 by EP. 2. Ventricular tachycardia s/p ICD on PO amiodarone 3. CAD s/p Inferior [place] and PCI to RCA 05/23 4. ICM, [id number]%, RV dysfunction 5. Pericardial effusion -- trace residual on 06/01 No recurrent ventricular arrhythmias, pacer functioning appropriately. Today still with mild pulmonary and systemic venous congestion on exam. Still up 7Kg from admit, requiring minimal supplemental 02 Agree with additional diuresis today. Gentle in the setting of RV dysfunction. -- Lasix 40 mg IV x 1 today -- reassess tomorrow -- continue PO amiodarone -- continue CAYLA/Beta-frank -- on ASA/Plavix, moderate statin Will follow. Medications: Current Inpatient Medications Medications (Trade) Dose Ordered Sig/Alexa Route Start Time Stop Time Status Last Admin Dose Admin Losartan Potassium (coZAAR TAB) 50 mg QAM PO 05/29/17 09:00 06/28/17 08:59 Future Hold Pantoprazole Sodium (Protonix Tab) 40 mg QAM PO 05/29/17 09:00 06/28/17 08:59 Future Hold Tamsulosin HCl (Flomax Cap) 0.4 mg HS PO 05/28/17 21:00 06/27/17 20:59 Future Hold 05/28/17 21:07 0.4 MG EZETIMIBE (Zetia Tab) 10 mg QAM PO 05/29/17 09:00 06/28/17 08:59 Future Hold Enoxaparin Sodium (Lovenox Inj) 40 mg Q24H SC 05/28/17 18:00 06/27/17 17:59 06/02/17 17:08 40 MG Al Hydrox/Mg Hydrox/Simethicone (Maalox Max Susp) 15 ml Q4H PRN PO 05/28/17 15:30 06/27/17 15:29 Magnesium Hydroxide (Milk Of Magnesia Susp) 30 ml Q12H PRN PO 05/28/17 15:30 06/27/17 15:29 Ondansetron HCl (Zofran Inj) 4 mg Q6H PRN IV 05/28/17 15:30 06/27/17 15:29 Nitroglycerin (Nitrostat Tab) 0.4 mg UD PRN SL 05/28/17 15:30 06/27/17 15:29 Polyethylene (Miralax Powder Packet) 17 gm DAILY PRN PO 05/28/17 15:30 06/27/17 15:29 06/02/17 08:07 17 GM Miscellaneous (Iv Fluids Completed) 1 ea PRN PRN N/A 05/28/17 16:30 05/28/18 16:29 Fentanyl Citrate (Fentanyl Inj) 25 mcg Q1H PRN IV 05/29/17 09:30 06/12/17 09:29 05/30/17 10:45 25 MCG Famotidine 20 mg/ Dextrose 102 ml @ 200 mls/hr Q12H IV 05/29/17 11:00 06/28/17 10:59 06/02/17 20:49 200 MLS/HR Clopidogrel Bisulfate (plAVix TAB) 75 mg QAM NG 05/29/17 12:00 06/28/17 11:59 06/03/17 08:34 75 MG Aspirin (Aspirin Chew) 81 mg DAILY GT 05/29/17 12:00 06/28/17 11:59 06/03/17 08:37 81 MG Amiodarone HCl (Cordarone Tab) 400 mg QAM PO 06/01/17 09:00 07/01/17 08:59 06/03/17 08:34 400 MG Rosuvastatin Calcium (Crestor Tab) 10 mg QAM PO 06/01/17 10:00 07/01/17 09:59 06/03/17 08:35 10 MG Acetaminophen (Tylenol Tab) 650 mg Q6H PRN PO 06/01/17 13:15 07/01/17 13:14 06/01/17 20:57 650 MG Quetiapine Fumarate (seroQUEL TAB) 25 mg HS PO 06/01/17 21:00 07/01/17 20:59 06/02/17 20:43 25 MG Losartan Potassium (coZAAR TAB) 25 mg QAM PO 06/01/17 18:30 07/01/17 18:29 06/03/17 08:34 25 MG Carvedilol (Coreg Tab) 3.125 mg BID PO 06/02/17 21:00 07/02/17 20:59 06/03/17 08:35 3.125 MG Lab Results: 06/03/17 08:35 Test 06/03/17 08:35 Anion Gap 5.0 mmol/L (3-11) Est Creatinine Clear Calc Drug Dose 42.4 ml/min Estimated GFR () 59.7 Estimated GFR (Non- 51.5 BUN/Creatinine Ratio 29.5 (10-20) Calcium Level 8.3 mg/dl (8.5-10.1) Magnesium Level 2.6 mg/dl (1.8-2.4)
[2017-06-03] MEDS: FAMOTIDINE IV INJ 20 MG in DEXTROSE 5% 100ML 100 ML IV SCH ×2 (11:16→23:18)
--- NOTE | 2017-06-03 12:05 | Progress Note ---
Subjective Date of Service: Jun 03, 2017. Subjective pt had a Jw night with lack of sleep, was albe to lay flat and had no further chest pain or dypsnea. Problem List Medical Problems: (1) Recent myocardial infarction of inferior wall Status: Acute (2) Third degree heart block Status: Acute Review of Systems Constitutional: + weakness, + fatigue, No fever, No chills Respiratory: + dyspnea on exertion, No cough, No shortness of breath Cardiac: No chest pain, No orthopnea, No PND, No edema Abdomen: No pain, No nausea, No vomiting, No diarrhea Objective Vital Signs Date Time Temp Pulse Resp B/P (MAP) Pulse Ox O2 Delivery O2 Flow Rate FiO2 06/03/17 04:00 Nasal Cannula 2.0 06/03/17 03:15 37.0 62 22 112/46 (68) 93 Nasal Cannula 2.0 06/03/17 00:09 36.9 63 18 111/49 (69) 96 2.0 06/03/17 00:01 Nasal Cannula 2.0 06/02/17 20:34 66 22 94 Nasal Cannula 2.0 06/02/17 20:00 Nasal Cannula 2.0 06/02/17 19:35 36.6 68 24 105/61 (76) 94 Nasal Cannula 2.0 06/02/17 16:00 Nasal Cannula 2.0 06/02/17 15:37 36.7 62 20 130/73 (92) 97 Nasal Cannula 2.0 06/02/17 14:56 75 06/02/17 12:01 110/59 (76) 06/02/17 12:00 Nasal Cannula 2.0 06/02/17 11:52 37.0 67 21 98/57 (71) 97 Nasal Cannula 2.0 06/02/17 08:00 Nasal Cannula 2.0 06/02/17 07:47 37.0 73 21 136/68 (90) 99 Nasal Cannula 2.0 Physical Exam General Appearance: WD/WN, no apparent distress Neck: supple, no JVD Respiratory/Chest: chest non-tender, lungs clear, normal breath sounds Cardiovascular: regular rate, rhythm, + systolic murmur Abdomen: normal bowel sounds, non tender, soft Extremities: no calf tenderness, + pedal edema Neurologic/Psychiatric: alert, oriented x 3 Assessment and Plan 81 M who had recent stemi and presented with heart block, then had v tach 05/29 with amiodarone and recurred with heart block. 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 placed 05/29, pacer and AICD placed 05/30, did have some post placement arrhythmia, now improved Syncope / Intermittent CHB/Vtach cardiology arrhythmia and device placement, has stable rhythm, will proceed to PT and eventually rehab placement Dyspnea, maybe from too brisk pre load reduction, has rebounded bp, no acute ECG changes, still seems volume overloaded, will try lower lasix dose 06/03 EP pacemaker/defibrillator, seems to be atiral paced Acute respiratory failure associated with heart block, previous intubation and ventilation , was placed on antibiotics with fever, but no defined pneumonia or uti stopped 06/01 CAD s/p Inferior [place] 05/22/2017 s/p Proximal RCA drug Eluting Stent, no angina despite rapid rate associated with arrhythmia. no recent ecg changes with difficulty breathing 06/02 Aspirin 81 mg daily. Plavix 75 mg daily Crestor 10 mg q HS.Losartan 50 mg daily. PT requests increase seroquel will continue per patient request at bedside and updated, keep in tele
[2017-06-03] MEDS ORDERED: FUROSEMIDE INJ 20 MG in SYRINGE 0 ML IV ONE (12:30)
[2017-06-03] MEDS ORDERED: NURSING VERBAL MED ORDER ONE (13:30)
[2017-06-03] MEDS: ALBUT/IPRATROP 3MG/0.5MG NEB 3 ML VIAL INH SCH ×2 (13:51→19:32)
[2017-06-03] MEDS: ENOXAPARIN 40 MG/0.4 ML SYR SC SCH (18:20)
[2017-06-03] MEDS: QUETIAPINE FUMARATE 25 MG TAB PO SCH (21:09)
[2017-06-04] VITALS (11 sets, daily range): BP systolic 82–123; BP diastolic 41–62; PULSE 60–77; TEMP 36.4–37; O2SAT 91–100
[2017-06-04] MEDS: ALBUT/IPRATROP 3MG/0.5MG NEB 3 ML VIAL INH SCH ×4 (07:16→19:10)
[2017-06-04] MEDS: ASPIRIN 81 MG CHEW GT SCH (07:52)
[2017-06-04] MEDS: CARVEDILOL 3.125 MG TAB PO SCH ×2 (07:52→21:05)
[2017-06-04] MEDS: LOSARTAN POTASSIUM 25 MG TAB PO SCH (07:52)
[2017-06-04] MEDS: ROSUVASTATIN CALCIUM 10 MG TAB PO SCH (07:52)
[2017-06-04] MEDS: AMIODARONE 200 MG TAB PO SCH (07:53)
[2017-06-04] MEDS: CLOPIDOGREL BISULFATE 75 MG TAB NG SCH (07:53)
--- NOTE | 2017-06-04 07:55 | DIAGNOSTIC IMAGING REPORT ---
CHEST ONE VIEW PORTABLE CLINICAL HISTORY: increased hypoxia, hcf ? pix dyspnea COMPARISON STUDY: 05/31/2017 FINDINGS: Interval extubation. The cardiac pacemaker is unchanged in position. Small fixed hiatal hernia. Bibasilar atelectasis with small bilateral pleural effusions. Mid and upper lungs remain clear. IMPRESSION: 1. Interval extubation. 2. Slightly progressive bibasilar atelectasis with trace amount pleural fluid 3. Mid and upper lungs are clear The above report was generated using voice recognition software. It may contain grammatical, syntax or spelling errors. Electronically signed by: Talat Joe M.D. 06/04/2017 7:54 AM Dictated Date/Time: 06/04/2017 7:52 AM
[2017-06-04] MEDS ORDERED: FUROSEMIDE INJ 20 MG in SYRINGE 0 ML IV ONE (08:30)
--- NOTE | 2017-06-04 09:58 | Cardiology Follow-Up ---
Subjective Subjective Date of Service: Jun 04, 2017. Pt evaluation today including: conversation w/ family, physical exam, chart review, lab review, review of studies, review of inpatient medication list Additional Details: Feeling well this morning, up in chair. No chest pain. Breathing comfortable. Slept better overnight Problem List Medical Problems: (1) Recent myocardial infarction of inferior wall Status: Acute (2) Third degree heart block Status: Acute Review of Systems Constitutional: + fatigue, No fever, No chills Respiratory: + dyspnea on exertion, No cough, No shortness of breath Cardiac: No chest pain, No orthopnea, No edema Abdomen: No pain, No nausea, No vomiting, No diarrhea Male : No dysuria, No urinary frequency Psychiatric: No depression symptoms Skin: No rash Objective Vital Signs Last Vital Signs Documentation Date Time Temp Pulse Resp B/P (MAP) Pulse Ox O2 Delivery O2 Flow Rate FiO2 06/04/17 08:00 Nasal Cannula 4.0 06/04/17 07:24 36.5 66 20 123/62 (82) 98 05/31/17 06:02 40 Physical Exam: General Appearance: no apparent distress Neck: supple, no JVD (JVP improved.) Respiratory/Chest: chest non-tender, lungs clear, normal breath sounds (scant crackles at right base - improved from yesterday) Cardiovascular: regular rate, rhythm, + systolic murmur Abdomen: normal bowel sounds, non tender, soft Extremities: no calf tenderness, + pedal edema Neurologic/Psychiatric: alert, oriented x 3 Skin: normal color, warm/dry Assessment and Plan 1. Complete heart block s/p Dual-chamber ICD placed on 05/30/2017 by EP. 2. Ventricular tachycardia s/p ICD on PO amiodarone 3. CAD s/p Inferior [place] and PCI to RCA 05/23 4. ICM, [id number]%, RV dysfunction 5. Pericardial effusion -- trace residual on 06/01 No recurrent ventricular arrhythmias, pacer functioning appropriately. Improving congestion on exam after diuresis, still requiring minimal supplemental 02 -- Received lasix this AM --> f/u I/Os, labs in AM -- continue PO amiodarone -- continue current CAYLA/Beta-frank -- on ASA/Plavix, moderate statin From a cardiac standpoint, if stable OK with discharge tomorrow. Medications: Current Inpatient Medications Medications (Trade) Dose Ordered Sig/Alexa Route Start Time Stop Time Status Last Admin Dose Admin Losartan Potassium (coZAAR TAB) 50 mg QAM PO 05/29/17 09:00 06/28/17 08:59 Future Hold Pantoprazole Sodium (Protonix Tab) 40 mg QAM PO 05/29/17 09:00 06/28/17 08:59 Future Hold Tamsulosin HCl (Flomax Cap) 0.4 mg HS PO 05/28/17 21:00 06/27/17 20:59 Future Hold 05/28/17 21:07 0.4 MG EZETIMIBE (Zetia Tab) 10 mg QAM PO 05/29/17 09:00 06/28/17 08:59 Future Hold Enoxaparin Sodium (Lovenox Inj) 40 mg Q24H SC 05/28/17 18:00 06/27/17 17:59 06/03/17 18:20 40 MG Al Hydrox/Mg Hydrox/Simethicone (Maalox Max Susp) 15 ml Q4H PRN PO 05/28/17 15:30 06/27/17 15:29 Magnesium Hydroxide (Milk Of Magnesia Susp) 30 ml Q12H PRN PO 05/28/17 15:30 06/27/17 15:29 Ondansetron HCl (Zofran Inj) 4 mg Q6H PRN IV 05/28/17 15:30 06/27/17 15:29 Nitroglycerin (Nitrostat Tab) 0.4 mg UD PRN SL 05/28/17 15:30 06/27/17 15:29 Polyethylene (Miralax Powder Packet) 17 gm DAILY PRN PO 05/28/17 15:30 06/27/17 15:29 06/02/17 08:07 17 GM Miscellaneous (Iv Fluids Completed) 1 ea PRN PRN N/A 05/28/17 16:30 05/28/18 16:29 Fentanyl Citrate (Fentanyl Inj) 25 mcg Q1H PRN IV 05/29/17 09:30 06/12/17 09:29 05/30/17 10:45 25 MCG Famotidine 20 mg/ Dextrose 102 ml @ 200 mls/hr Q12H IV 05/29/17 11:00 06/28/17 10:59 06/03/17 23:18 200 MLS/HR Clopidogrel Bisulfate (plAVix TAB) 75 mg QAM NG 05/29/17 12:00 06/28/17 11:59 06/04/17 07:53 75 MG Aspirin (Aspirin Chew) 81 mg DAILY GT 05/29/17 12:00 06/28/17 11:59 06/04/17 07:52 81 MG Amiodarone HCl (Cordarone Tab) 400 mg QAM PO 06/01/17 09:00 07/01/17 08:59 06/04/17 07:53 400 MG Rosuvastatin Calcium (Crestor Tab) 10 mg QAM PO 06/01/17 10:00 07/01/17 09:59 06/04/17 07:52 10 MG Acetaminophen (Tylenol Tab) 650 mg Q6H PRN PO 06/01/17 13:15 07/01/17 13:14 06/01/17 20:57 650 MG Losartan Potassium (coZAAR TAB) 25 mg QAM PO 06/01/17 18:30 07/01/17 18:29 06/04/17 07:52 25 MG Carvedilol (Coreg Tab) 3.125 mg BID PO 06/02/17 21:00 07/02/17 20:59 06/04/17 07:52 3.125 MG Quetiapine Fumarate (seroQUEL TAB) 50 mg HS PO 06/03/17 21:00 07/01/17 20:59 06/03/17 21:09 50 MG Albuterol/ Ipratropium (Duoneb) 3 ml QIDR INH 06/03/17 16:00 07/03/17 15:59 06/04/17 07:16 3 ML
[2017-06-04] MEDS: FAMOTIDINE IV INJ 20 MG in DEXTROSE 5% 100ML 100 ML IV SCH ×2 (10:57→23:03)
--- NOTE | 2017-06-04 10:59 | Progress Note ---
Subjective Date of Service: Jun 04, 2017. Subjective this pt is doing well, slept flat and feels that he had a good night sleep Problem List Medical Problems: (1) Recent myocardial infarction of inferior wall Status: Acute (2) Third degree heart block Status: Acute Review of Systems Constitutional: + weakness, No fever, No chills, No fatigue Respiratory: + dyspnea on exertion, No cough, No shortness of breath, No dyspnea at rest Cardiac: No chest pain, No orthopnea, No PND, No edema Abdomen: No pain, No nausea, No vomiting, No diarrhea Musculoskeletal: No joint pain, No muscle pain Male : No dysuria, No urinary frequency Psychiatric: No depression symptoms, No anhedonism Objective Vital Signs Date Time Temp Pulse Resp B/P (MAP) Pulse Ox O2 Delivery O2 Flow Rate FiO2 06/04/17 08:00 Nasal Cannula 4.0 06/04/17 07:24 36.5 66 20 123/62 (82) 98 Nasal Cannula 4.0 06/04/17 07:16 72 18 95 Nasal Cannula 4.0 06/04/17 04:00 Nasal Cannula 4.0 06/04/17 04:00 36.5 60 20 113/47 (69) 96 Nasal Cannula 4.0 06/04/17 00:02 Nasal Cannula 4.0 06/04/17 00:02 36.8 60 16 82/41 (55) 93 Nasal Cannula 4.0 06/03/17 20:00 Nasal Cannula 4.0 06/03/17 19:37 67 18 94 Nasal Cannula 4.0 06/03/17 19:32 36.8 64 26 127/70 (89) 94 Nasal Cannula 2.0 06/03/17 16:00 Nasal Cannula 2.0 06/03/17 15:30 36.7 62 24 132/59 (83) 96 Nasal Cannula 4.0 06/03/17 14:09 60 22 95 Nasal Cannula 4.0 06/03/17 12:48 36.8 62 18 133/75 (94) 98 Nasal Cannula 4.0 06/03/17 12:00 Nasal Cannula 2.0 Physical Exam General Appearance: WD/WN, + mild distress Eyes: PERRL, EOMI Neck: supple, no JVD Respiratory/Chest: chest non-tender, lungs clear, + decreased breath sounds Cardiovascular: regular rate, rhythm, + systolic murmur Abdomen: normal bowel sounds, non tender, soft Extremities: no pedal edema, no calf tenderness Neurologic/Psychiatric: alert, oriented x 3 Assessment and Plan 81 M who had recent stemi and presented with heart block, then had v tach 05/29 with amiodarone and recurred with heart block. 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 with emergent temporary pacemaker placed 05/29, pacer and AICD placed 05/30, did have some post placement arrhythmia, now improved Syncope / Intermittent CHB/Vtach cardiology arrhythmia and device placement, has stable rhythm, will proceed to rehab placement Dyspnea, still 3 kg up from admission, cxr 06/04 with mild b/l effusoins and mild congestion, gentle small doses of lasix EP pacemaker/defibrillator, seems to be atiral paced follow up with Dr Mak Acute respiratory failure associated with heart block, previous intubation and ventilation , was placed on antibiotics with fever, but no defined pneumonia or uti antibiotics stopped 06/01 CAD s/p Inferior [place] 05/22/2017 s/p Proximal RCA drug Eluting Stent, no angina despite rapid rate. no recent ecg changes with difficulty breathing 06/02 Aspirin 81 mg daily. Plavix 75 mg daily Crestor 10 mg q HS.Losartan 50 mg daily. Sleeping well with seroquel
[2017-06-04] MEDS: POLYETHYLENE (MIRALAX) 17 GM PACK PO PRN (16:43)
[2017-06-04] MEDS: ENOXAPARIN 40 MG/0.4 ML SYR SC SCH (18:32)
[2017-06-04] MEDS: QUETIAPINE FUMARATE 25 MG TAB PO SCH (21:05)
[2017-06-05] VITALS (11 sets, daily range): BP systolic 97–142; BP diastolic 49–64; PULSE 60–68; TEMP 36.4–37.1; O2SAT 92–99
[2017-06-05 06:34] LABS: HEMATOCRIT 28.5 % (42-52); MEAN CELL VOLUME 88.5 fL (80-100); MEAN CORPUSCULAR HEMOGLOBIN 29.5 pg (25-34); MEAN CORPUSCULAR HGB CONC 33.3 g/dl (32-36); PLATELET COUNT 214 K/uL (130-400); RED BLOOD COUNT 3.22 M/uL (4.7-6.1); WHITE BLOOD COUNT 7.01 K/uL (4.8-10.8)
[2017-06-05 07:01] LABS: BUN/CREATININE RATIO 32.1 (10-20); CALCIUM 7.9 mg/dl (8.5-10.1); CREATININE 1.2 mg/dl (0.60-1.40); POTASSIUM 3.5 mmol/L (3.5-5.1)
[2017-06-05] MEDS: ALBUT/IPRATROP 3MG/0.5MG NEB 3 ML VIAL INH SCH ×4 (07:11→19:03)
[2017-06-05] MEDS: LOSARTAN POTASSIUM 25 MG TAB PO SCH (08:12)
[2017-06-05] MEDS: CLOPIDOGREL BISULFATE 75 MG TAB NG SCH (08:13)
[2017-06-05] MEDS: CARVEDILOL 3.125 MG TAB PO SCH ×2 (08:13→20:59)
[2017-06-05] MEDS: AMIODARONE 200 MG TAB PO SCH (08:13)
[2017-06-05] MEDS: ROSUVASTATIN CALCIUM 10 MG TAB PO SCH (08:13)
[2017-06-05] MEDS: ASPIRIN 81 MG CHEW GT SCH (08:15)
[2017-06-05] MEDS ORDERED: POTASSIUM CHLORIDE 10 MEQ TABCR PO ONE (08:30)
[2017-06-05] MEDS: FAMOTIDINE 20 MG TAB PO SCH ×2 (08:42→20:59)
[2017-06-05] MEDS ORDERED: FUROSEMIDE INJ 20 MG in SYRINGE 0 ML IV ONE (12:15)
--- NOTE | 2017-06-05 12:32 | Cardiology Follow-Up ---
Subjective Date of Service: Jun 05, 2017. Pt evaluation today including: conversation w/ patient, physical exam, chart review, lab review, review of studies, conversation w/ attending History of Present Illness This morning the patient claims to be feeling well. He claims of an ambulatory with a walker and feeling good. He currently has no symptoms of chest discomfort and feels comfortable with respect to his breathing. He denies any significant dizziness. He appears to be tolerating a diet. He has no significant discomfort at the ICD implant site. Social History Smoking Status: Never Smoker History of Alcohol Use: Yes (RARE) Review of Systems Respiratory: + dyspnea on exertion, No cough, No shortness of breath, No dyspnea at rest Cardiac: No chest pain, No orthopnea, No PND, No edema Objective Vital Signs Past 12 Hours Date Time Temp Pulse Resp B/P (MAP) Pulse Ox O2 Delivery O2 Flow Rate FiO2 06/05/17 11:41 36.4 60 17 97/49 (65) 99 Room Air 06/05/17 11:23 68 16 92 Room Air 06/05/17 07:50 Room Air 06/05/17 07:11 64 16 92 Room Air 06/05/17 06:59 36.4 61 18 108/57 (74) 95 Room Air 06/05/17 04:00 Room Air 06/05/17 03:43 36.6 60 16 112/64 (80) 93 Last Recorded Weight-Kilograms: 76.100 Physical Exam Gen.: No acute distress. Alert. HEENT: Anicteric sclera. Neck: No appreciable JVD. Cardiac: No ventricular heave. Regular with ectopy. Normal S1-S2. No murmurs, rubs, or gallops. Pulmonary: Rare crackle in the right base, otherwise clear. Abdomen: Soft, nontender, nondistended, with normoactive bowel sounds. No bruits noted. Chest: Well-healed ICD implant site in left upper pectoral area. Extremities: Wearing compression stockings. No cyanosis. Psychiatric: Affect appears appropriate. Data Laboratory Results: Last 24 Hours Test 06/05/17 06:10 White Blood Count 7.01 K/uL Red Blood Count 3.22 M/uL Hemoglobin 9.5 g/dL Hematocrit 28.5 % Mean Corpuscular Volume 88.5 fL Mean Corpuscular Hemoglobin 29.5 pg Mean Corpuscular Hemoglobin Concent 33.3 g/dl RDW Standard Deviation 43.5 fL RDW Coefficient of Variation 13.5 % Platelet Count 214 K/uL Mean Platelet Volume 10.0 fL Sodium Level 133 mmol/L Potassium Level 3.5 mmol/L Chloride Level 99 mmol/L Carbon Dioxide Level 26 mmol/L Anion Gap 8.0 mmol/L Blood Urea Nitrogen 39 mg/dl Creatinine 1.20 mg/dl Est Creatinine Clear Calc Drug Dose 45.9 ml/min Estimated GFR () 65.8 Estimated GFR (Non- 56.8 BUN/Creatinine Ratio 32.1 Random Glucose 97 mg/dl Calcium Level 7.9 mg/dl Imaging: EKG: Telemetry reviewed: Patient currently with atrial pacing. Intact AV conduction. No significant arrhythmias. Assessment and Plan 1. Complete heart block: Patient underwent successful implantation of dual- chamber ICD 05/30. He has intermittent intact AV pratik conduction. 2. Ventricular tachycardia: No recurrent ventricular tachycardia. Will continue him on amiodarone. Normally functioning ICD on interrogation yesterday. 3. Ischemic cardiomyopathy: He appears to be well compensated currently. He is tolerating standard therapy for ischemic cardiomyopathy to include a beta- frank and ARB. I think he would benefit from a low dose daily diuretic and potassium supplementation. He is on low-dose medications with relatively low BP. I think this can be monitored over time and hopefully titrated on an outpatient basis. 4. Coronary artery disease: Patient had occlusion of the right coronary artery. Continue dual anti-platelet therapy. Continue rosuvastatin. 5. Syncope: This was the presenting complaint on May 28. Presumably this was related to complete heart block although after his hospital events the possibility of ventricular tachycardia also exists. Both etiologies are treated with device therapy.. 6. Anemia: Improved today. No evidence of active bleeding. 7. Right ventricular heart failure: He has less edema after diuresis. Will monitor dysfunction over time 8. Pericardial effusion: Resolving. No hemodynamic compromise currently 9. Deconditioning: Likely discharged to [facility] 10. Fever: No recurrent fever or source of infection. Antibiotics have been stopped. Discharge planning: rehab hospital
[2017-06-05] MEDS: ENOXAPARIN 40 MG/0.4 ML SYR SC SCH (18:10)
--- NOTE | 2017-06-05 19:42 | Progress Note ---
Subjective Date of Service: Jun 05, 2017. Subjective Pt evaluation today including: conversation w/ patient, conversation w/ family ( at bedside), physical exam, chart review, lab review, conversation w/ software developer consultant (cardiology, social work ), review of inpatient medication list Pain: denies PO Intake: normal Voiding: no voiding problems tele with paced rhythm he feels good denies orthopnea, PND, STONE, chest pain no abdominal pain anxious to get to [facility] Problem List Medical Problems: (1) Recent myocardial infarction of inferior wall Status: Acute (2) Third degree heart block Status: Acute Review of Systems Constitutional: No fever Respiratory: + cough, No sputum, No wheezing Cardiac: + edema, No chest pain, No orthopnea, No PND Objective Vital Signs Date Time Temp Pulse Resp B/P (MAP) Pulse Ox O2 Delivery O2 Flow Rate FiO2 06/05/17 16:00 Room Air 06/05/17 15:32 36.8 60 22 124/64 (84) 94 Room Air 06/05/17 15:21 60 16 95 Room Air 06/05/17 13:15 100/61 (74) 06/05/17 12:00 Room Air 06/05/17 11:41 36.4 60 17 97/49 (65) 99 Room Air 06/05/17 11:23 68 16 92 Room Air 06/05/17 08:24 94 06/05/17 07:50 Room Air 06/05/17 07:11 64 16 92 Room Air 06/05/17 06:59 36.4 61 18 108/57 (74) 95 Room Air 06/05/17 04:00 Room Air 06/05/17 03:43 36.6 60 16 112/64 (80) 93 06/05/17 00:02 Room Air 06/04/17 23:09 36.9 60 20 101/44 (63) 91 Room Air 06/04/17 20:00 Room Air 06/04/17 19:10 64 18 98 Nasal Cannula 2.0 06/04/17 19:08 36.4 64 17 104/56 (72) 99 Nasal Cannula 2.0 Physical Exam General Appearance: no apparent distress ENT: pharynx normal Neck: no JVD Respiratory/Chest: no respiratory distress, no accessory muscle use, + rales ( minimal bases) Cardiovascular: regular rate, rhythm, no gallop, no murmur Abdomen: normal bowel sounds, non tender, soft, no organomegaly Extremities: + pedal edema (1+ b/l ) Neurologic/Psychiatric: alert, oriented x 3 Skin: + pertinent finding (ecchymoses over right wrist and right groin; left upper chest - pacer site clean, incision clean/dry, no hematoma) Laboratory Results Last 24 Hours Test 06/05/17 06:10 White Blood Count 7.01 K/uL Red Blood Count 3.22 M/uL Hemoglobin 9.5 g/dL Hematocrit 28.5 % Mean Corpuscular Volume 88.5 fL Mean Corpuscular Hemoglobin 29.5 pg Mean Corpuscular Hemoglobin Concent 33.3 g/dl RDW Standard Deviation 43.5 fL RDW Coefficient of Variation 13.5 % Platelet Count 214 K/uL Mean Platelet Volume 10.0 fL Sodium Level 133 mmol/L Potassium Level 3.5 mmol/L Chloride Level 99 mmol/L Carbon Dioxide Level 26 mmol/L Anion Gap 8.0 mmol/L Blood Urea Nitrogen 39 mg/dl Creatinine 1.20 mg/dl Est Creatinine Clear Calc Drug Dose 45.9 ml/min Estimated GFR () 65.8 Estimated GFR (Non- 56.8 BUN/Creatinine Ratio 32.1 Random Glucose 97 mg/dl Calcium Level 7.9 mg/dl Assessment and Plan 81yo male: 1. complete heart block in the setting of recent acute CO - s/p permanent pacemaker insertion this admission. Dr. Mak to follow as outpatient. Pacer functioning well. 2. multiple runs of V-tach - resolved. s/p AICD placement. On amiodarone 400mg daily. Defer management to cardiology. 3. CAD s/p acute [place] 2nd to RCA occlusion - hospitalized [facility] for such. Cont BB, ARB, statin, asa, plavix. 4. acute systolic CHF - 2nd to recent CO - still volume overloaded. Lasix IV again today. 5. CKD stage 3 - creatinine stable, repeat BMP in am. 6. DVT proph - lovenox daily. 7. hyponatremia - 2nd to diuresis. Repeat BMP in am for stability. 8. HTN - controlled. 9. anemia - likely 2nd to phlebotomy/repeated labs/etc - CBC in am for stability. Ferrous sulfate at discharge. 10. deconditioning - PT, OT appreciated. Hopefully to [facility] in am. updated. Peer to peer with insurance company completed. Discharge planning: rehab hospital
[2017-06-05] MEDS: QUETIAPINE FUMARATE 25 MG TAB PO SCH (20:58)
[2017-06-06] VITALS (8 sets, daily range): BP systolic 99–124; BP diastolic 54–70; PULSE 60–62; TEMP 36.4–37; O2SAT 91–96
[2017-06-06 06:47] LABS: BUN/CREATININE RATIO 25.6 (10-20); CALCIUM 8.3 mg/dl (8.5-10.1); CREATININE 1.4 mg/dl (0.60-1.40); POTASSIUM 3.7 mmol/L (3.5-5.1)
[2017-06-06] MEDS: ALBUT/IPRATROP 3MG/0.5MG NEB 3 ML VIAL INH SCH ×3 (07:02→15:16)
[2017-06-06] MEDS ORDERED: FERROUS SULFATE 325 MG TAB PO SCH (08:00)
[2017-06-06] MEDS: FAMOTIDINE 20 MG TAB PO SCH (08:41)
[2017-06-06] MEDS: AMIODARONE 200 MG TAB PO SCH (08:41)
[2017-06-06] MEDS: LOSARTAN POTASSIUM 25 MG TAB PO SCH (08:42)
[2017-06-06] MEDS: CLOPIDOGREL BISULFATE 75 MG TAB NG SCH (08:42)
[2017-06-06] MEDS: CARVEDILOL 3.125 MG TAB PO SCH (08:42)
[2017-06-06] MEDS: ROSUVASTATIN CALCIUM 10 MG TAB PO SCH (08:42)
--- NOTE | 2017-06-06 09:03 | Cardiology Follow-Up ---
Subjective Date of Service: Jun 06, 2017. Pt evaluation today including: conversation w/ patient, conversation w/ family , physical exam, chart review, lab review History of Present Illness This morning the patient claims to be feeling well. He is somewhat frustrated at being in the hospital. He has been ambulatory. He denies any current chest discomfort. Denies significant breathing trouble. He has not had any dizziness. Social History Smoking Status: Never Smoker History of Alcohol Use: Yes (RARE) Review of Systems Respiratory: + cough, No sputum, No wheezing Cardiac: + edema, No chest pain, No orthopnea, No PND Objective Vital Signs Past 12 Hours Date Time Temp Pulse Resp B/P (MAP) Pulse Ox O2 Delivery O2 Flow Rate FiO2 06/06/17 07:54 Room Air 06/06/17 07:40 37.0 62 18 114/58 (76) 94 Room Air 06/06/17 07:02 62 16 95 Room Air 06/06/17 04:47 36.4 62 18 113/57 (75) 96 Room Air 06/06/17 04:00 Room Air 06/06/17 00:02 36.9 60 16 99/54 (69) 93 Room Air 06/05/17 23:59 Room Air Last Recorded Weight-Kilograms: 76.300 Physical Exam Gen.: No acute distress. Alert. HEENT: Anicteric sclera. Neck: No appreciable JVD. Cardiac: No ventricular heave. Regular with ectopy. Normal S1-S2. No murmurs, rubs, or gallops. Pulmonary: Rare crackle in the right base, otherwise clear. Abdomen: Soft, nontender, nondistended, with normoactive bowel sounds. No bruits noted. Chest: Well-healed ICD implant site in left upper pectoral area. Extremities: Wearing compression stockings. No cyanosis. Psychiatric: Affect appears appropriate. Data Laboratory Results: Last 24 Hours Test 06/06/17 05:45 Hemoglobin 9.8 g/dL Sodium Level 131 mmol/L Potassium Level 3.7 mmol/L Chloride Level 95 mmol/L Carbon Dioxide Level 29 mmol/L Anion Gap 7.0 mmol/L Blood Urea Nitrogen 36 mg/dl Creatinine 1.40 mg/dl Est Creatinine Clear Calc Drug Dose 39.3 ml/min Estimated GFR () 54.6 Estimated GFR (Non- 47.1 BUN/Creatinine Ratio 25.6 Random Glucose 140 mg/dl Calcium Level 8.3 mg/dl Imaging: EKG: Telemetry reviewed: No arrhythmias. Minimal RV pacing Assessment and Plan 1. Complete heart block: Patient underwent successful implantation of dual- chamber ICD 05/30. He has intermittent intact AV pratik conduction. 2. Ventricular tachycardia: No recurrent ventricular tachycardia. Will continue him on amiodarone 400 milligrams daily 3. Ischemic cardiomyopathy: He appears to be well compensated currently. He is tolerating standard therapy for ischemic cardiomyopathy to include a beta- frank and ARB. He is on low-dose medications with relatively low BP. I think this can be monitored over time and hopefully titrated on an outpatient basis. Given the slight rise in the BUN and general resolution of his edema, I do not think a daily diuretic is required at this time. He may have element of preload dependence given his RV infarct. This can be monitored and diuretics can be used as necessary once he is re-evaluated in clinic. 4. Coronary artery disease: Patient had occlusion of the right coronary artery. Continue dual anti-platelet therapy. Continue rosuvastatin. 5. Syncope: This was the presenting complaint on May 28. Presumably this was related to complete heart block although after his hospital events the possibility of ventricular tachycardia also exists. Both etiologies are treated with device therapy.. 6. Anemia: Improved today. No evidence of active bleeding. 7. Right ventricular heart failure: He has less edema after diuresis. Will monitor dysfunction over time 8. Pericardial effusion: Resolving. No hemodynamic compromise currently 9. Deconditioning: Likely discharged to [facility] 10. Fever: No recurrent fever or source of infection. Antibiotics have been stopped. Discharge planning: rehab hospital
[2017-06-06] MEDS: POLYETHYLENE (MIRALAX) 17 GM PACK PO PRN (09:38)
[2017-06-06] MEDS: ASPIRIN 81 MG CHEW GT SCH (11:12)
[2017-06-06] MEDS ORDERED: NTRGSL/4 UT (15:53)
[2017-06-06] MEDS ORDERED: FRRS300 PO (15:53)
[2017-06-06] MEDS ORDERED: ZNTT/150 PO (15:53)
[2017-06-06] MEDS ORDERED: CRD200 PO (15:53)
[2017-06-06] MEDS ORDERED: LOSA50TA6 PO (15:53)
[2017-06-06] MEDS ORDERED: CRG3125 PO (15:53)
--- NOTE | 2017-06-06 16:08 | Discharge Instructions ---
Discharge Instructions Date of Service Jun 06, 2017. Admission Reason for Admission: 3rd degree heart block Discharge Discharge Diagnosis / Problem: 3rd degree heart block - placement of pacemaker Discharge Goals Goal(s): Learn about illness, Diagnostic testing, Therapeutic intervention Activity Recommendations Activity Limitations: as noted below Exercise/Sports Limitations: until after follow-up appointment May Resume Sexual Activity: after follow-up appointment Shower/Bathe: no limitations Driving or Machine Use: resume after you see Dr. Mak ACTIVITY RECOMMENDATIONS following pacemaker placement: * Do not raise the LEFT arm over your head for 1 more week. SPECIAL CARE INSTRUCTIONS: * If bleeding occurs, apply direct pressure to area for 5 minutes. * Call your doctor if you have severe pain, fever, drainage or bleeding at site. * Keep dressing on and dry for 48 hours then remove. * Keep any scheduled doctor's appointment. * Implant Card - hand held device with website information given. SKIN IRRITATION: * You may experience some redness and/or swelling in the area where radiation was administered. If any skin irritation occurs, please contact your family physician. In addition, no strenuous activities beyond what your home physical therapist recommends. Ultimately Dr. Mak will refer you to cardiac rehab. . Instructions / Follow-Up Instructions / Follow-Up From Dr. Currie: 1. Instructions following your heart attack - Home Care: * Take your medications exactly as directed. Don't skip doses. * Remember that recovery after a heart attack takes time. Plan to rest for at lease 4-8 weeks while you recover. Then return to normal activity when your doctor says it's okay. * Ask your doctor about joining a heart rehabilitation program. * Tell your doctor if you are feeling depressed. Feelings of sadness are common after a heart attack, but it is important that you speak to someone if you are feeling overwhelmed by these feelings. * If you are having chest pain, call 911 for an ambulance. Do NOT drive yourself to the hospital. Keep your nitroglycerin bottle with you at all times. * Ask your family members to learn CPR. * Learn to take your own blood pressure and pulse. Keep a record of your results. Ask your doctor when you should seek emergency medical attention. He or she will tell you which blood pressure reading is dangerous. Lifestyle Changes: * Maintain a healthy weight. Get help to lose any extra pounds. * Cut back on salt. * Limit canned, dried, packaged, and fast foods. * Don't add salt to your food. * Season foods with herbs instead of salt when you cook. * Break the smoking habit. Enroll in a stop-smoking program to improve your chances of success. * Limit fatty foods. * Check your lipid levels regularly. (Your doctor can show you how to do this.) * Build up your activity according to your doctor's recommendation. * Ask your doctor when it's okay to resume sexual activity. * Tell your doctor about any erectile dysfunction (ED) medication you are taking. Some ED medications are not safe if you take certain heart medications. * Try to manage stress. 2. Congestive Heart Failure instructions: Your heart ultrasound ("echocardiogram") showed that you have a mild amount of congestive heart failure. You have this as a result of your heart attack. Hopefully your congestive heart failure will improve over time as you recover from the heart attack. Call 911 and go to the Emergency Room if: * You have tightness or pain in your chest that does not go away with rest or Nitroglycerin * You are very short of breath even with rest Call your doctor if any of the following symptoms or problems start or get worse: * Shortness of breath or difficulty breathing * Wake up at night short of breath * Chest pain * Cough * Swelling of your hands, fee, or legs * More fatigued or tired with your normal activity * Palpitations - sudden fast heart beats WEIGHT * Weigh yourself every morning after using the bathroom. * Use the same scale. * Wear the same amount of clothing. * Write your weight down on your chart. * Call your doctor if you gain more than 2-3 pounds in 1-2 days. This is a sign you may be taking on fluid weight* MEDICATIONS * Use this discharge instruction sheet for instructions. * Take your medications at the time your doctor ordered. * Do not skip a dose of your medicines. * If you miss a dose of medicine, take as soon as possible, but DO NOT DOUBLE A DOSE. * Read your medicine information when you get home. * Know all of the side effects of your medicine. * Call your doctor's office if you have any side effects. * Be sure all of your doctors know what medicine and herbs you take (including cold, flu, and herbal medicine). * Pain Medicine: If you do not get relief from your pain, please call your doctor for help. Take the following with you to your follow-up doctor appointments: * Weight Chart * Medication List * List of questions Do not drink excessive alcohol, beer or wine. 3. Follow-up appointments - * see Dr. Mak as scheduled next Monday * see Dr. Merino on June 09 at 12:50 * you will need a repeat "BMP" (basic metabolic panel) at that visit to ensure your kidney function and electrolytes are stable 4. Please take an iron supplement twice a day for 1-2 months. You have developed anemia due to the frequent blood draws over the course of your two hospital stays. Dr. Merino can follow your CBC (blood count) and iron levels over the next few months. Iron can make you constipated and also cause your stool to be dark in color. A common iron supplement is "ferrous sulfate". 5. It is ok to resume your temazepam for your sleep. 6. Please resume your flomax for your enlarged prostate. 7. Return to [facility] if you develop - * any symptoms that remind you of your heart attack * lightheadedness, dizziness, or you feel like you may pass out * chest pain that requires you to take nitroglycerin * worsening shortness of breath Current Hospital Diet Patient's current hospital diet: AHA Diet (Heart Healthy) Discharge Diet Recommended Diet: Low Sodium Diet (2gm Na) Fluid Restriction: 1500 ml (6 cups) Procedures Procedures Performed: 1. temporary pacemaker 2. permanent pacemaker 3. echocardiogram showing mild congestive heart failure with EF ("ejection fraction") of 40-45% Pending Studies Studies pending at discharge: no Medical Emergencies . Who to Call and When: Medical Emergencies: If at any time you feel your situation is an emergency, please call 911 immediately. Call 911 immediately or go to your nearest Emergency Room if you experience any of the following: Warning Signs and Symptoms of a Heart Attack * Chest pain that is not relieved by medication * Shortness of breath . Non-Emergent Contact Non-Emergency issues call your: Nitroglycerin Supervisor Call Non-Emergent contact if: temperature is above 100.5, your pain is not controlled, your pain is worsening, your pain is unusual for you, your pain is concerning you, wound has increased drainage, wound has increased redness, wound has increased pain, you have any medication questions . . "Provider Documentation" section prepared by Rogelio Currie. . AMI Core Measures Reason no ASA as I/P: Treatment provided - N/A Reason no ASA at D/C: Treatment provided - N/A Reason no statin as I/P: Treatment provided - N/A Reason no statin at D/C: Treatment provided - N/A VTE Core Measure Inpt VTE Proph given/why not?: Enoxaparin (Lovenox)SQ, T.E.D. Stockings
[2017-06-06] MEDS ORDERED: BENZ100C6 PO (16:09)
--- NOTE | 2017-06-15 23:07 | Discharge Summary ---
Discharge Summary Date of Service Jun 15, 2017. Discharge Summary Admission Date: May 28, 2017 at 15:14 Discharge Date: Jun 06, 2017 Discharge Disposition: Home with services Principal Diagnosis: complete heart block s/p AICD/pacemaker placement Problems/Secondary Diagnoses: 1. recent inferior wall STEMI s/p RCA stent - [facility] [place] - 05/22/17 2. ventricular tachycardia 3. acute hypoxic respiratory failure 2nd to ventricular tachycardia arrest/ complete heart block 4. acute systolic/diastolic CHF 5. acute cor pulmonale 2nd to recent RV infarction 6. CKD stage 3 7. syncope 2nd to complete heart block 8. cardiac arrest 2nd to complete heart block requiring CPR and transcutaneous pacing 9. cardiac arrest (2nd episode) due to ventricular tachycardia, followed by complete heart block - required CPR, intubation, and subsequent insertion of temporary pacemaker 10. HTN 11. hyperlipidemia 12. hyponatremia 13. BPH Immunizations: Have You Had Influenza Vaccine: Unknown History of Tetanus Vaccine?: Unknown History of Pneumococcal: Unknown History of Hepatitis B Vaccine: Unknown Procedures: 1. temporary transvenous pacemaker - Devin Mak MD 2. dual chamber ICD/permanent pacemaker - Devin Mak MD 3. echocardiogram #1 - * Moderate left ventricular systolic dysfunction, EF 40-45%. * Left ventricular inferior and posterior infarct. * Left ventricular diastolic dysfunction. * Moderate to severe right ventricular systolic dysfunction. * Mild right ventricular dilatation. * Mild biatrial dilatation. * Mild tricuspid regurgitation. 4. echocardiogram #2 - -- Conclusions -- The right ventricular systolic function is moderately reduced. The right ventricle is moderate to severely dilated. Moderate size pericardial effusion. The inferior vena cava is severely dilated. 5. echocardiogram #3 - -- Conclusions -- 1. Normal LV size. Mild to moderate LV dysfunction. LVEF 40-45%. Inferior akinesis. Posterior severe hypokinesis. Abnormal septal motion consistent with conduction abnormality. 2. Moderate to severely dilated RV. Moderate RV dysfunction. 3. Dilated IVC. Est RA 15 mmHg. 4. Trivial pericardial effusion. 5. Compared with prior study from 05/30/2017: Pericardial effusion is reduced. 6. CPR on 2 occasions 7. endotracheal intubation with mechanical ventilation Consultations: 1. critical care - Og Holm MD 2. cardiology - Chandrakant Crews MD / Devin Mak MD 3. PT, OT Medication Reconciliation New Medications: Benzonatate (Tessalon Perles) 100 Mg Cap 100 MG PO Q8H PRN for Cough, #30 CAP 0 Refills Ranitidine (Zantac) 150 Mg Tab 150 MG PO BID, #60 TAB 2 Refills to prevent stomach irritation from your aspirin & plavix Amiodarone HCl (Amiodarone HCl) 200 Mg Tab 400 MG PO QAM, #60 TAB 2 Refills for your heart Carvedilol (Carvedilol) 3.125 Mg Tab 3.125 MG PO BID, #60 TAB 2 Refills for your heart Ferrous Sulfate (Ferrous Sulfate) 325 Mg Tab 325 MG PO BIDM, #60 TAB 1 Refill take with a glass of orange juice Changed Medications: Losartan Potassium (Cozaar) 50 Mg Tab 25 MG PO QAM, #30 TAB 5 Refills (Changed from: 50 MG; Refills: ) for your heart Nitroglycerin (Nitrostat) 0.4 Mg Tab 0.4 MG UT [id number] PRN for chest pain, #1 BTL 0 Refills (Changed from: PRN; Refills: ) max 3 tablets in 15 minutes Continued Medications: Aspirin (Aspir-Low) 81 Mg Tab 1 TAB PO QAM, TAB 3 Refills Clopidogrel (Plavix) 75 Mg Tab 75 MG PO DAILY, TAB Ezetimibe (Zetia) 10 Mg Tab 10 MG PO HS, TAB Multivitamin (Multivitamin) Tab 1 TAB PO QAM, TAB Rosuvastatin Calcium (Crestor) 10 Mg Tab 10 MG PO HS, TAB Tamsulosin Hcl (Flomax) 0.4 Mg Cap 0.4 MG PO HS, CAP Temazepam (Temazepam) 15 Mg Cap 15 MG PO HS Discontinued Medications: Metoprolol Tartrate (Lopressor) (Lopressor) 25 Mg Tab 25 MG PO DAILY, TAB Pantoprazole (Protonix) 40 Mg Tab 40 MG PO DAILY, #30 TAB Referrals At Discharge Follow up Referrals: [employer] Referral - 06/13/17 with Devin Mak MD Discharge Exam Physical Exam: General Appearance: no apparent distress ENT: pharynx normal Neck: no JVD Respiratory/Chest: lungs clear, no respiratory distress, no accessory muscle use Cardiovascular: regular rate, rhythm, no gallop, no murmur, normal peripheral pulses Abdomen / GI: normal bowel sounds, non tender, soft, no organomegaly Extremities: + pedal edema (1-2+ b/l ) Neurologic/Psychiatric: alert, oriented x 3 Skin: + pertinent finding (pacemaker incision upper chest clean, no hematoma , no erythema or drainage ) Hospital Course HISTORY OF PRESENT ILLNESS: Mr. Villavicencio is an 81-year-old white male with a history of Hypertension with Dyslipidemia who recently sustained an Acute Inferior STEMI on 05/22/2017 s/p Drug Eluting Stent in Proximal RCA. He was hospitalized at [facility] for his acute AL. He presented acutely to [facility] ER today after a Syncopal episode. Patient has been doing reasonably well since his AL, but he has had periods of diaphoresis / lightheadedness which culminated in a Syncopal episode earlier today. Patient was standing in the checkout line at a local store when he developed sweating , [id number], and profound lightheadedness followed by a Syncopal event. His helped lower him to the ground so he did not sustain any injuries. He regained consciousness within a few seconds. Did not have any lingering symptoms afterwards. Patient denies any prodromal chest pain, discomfort, heaviness, tightness, pressure, or angina pectoris. He did not have any prodromal shortness of breath. He denies any palpitations or tachypalpitations associated with these episodes. While in the emergency room and on the heart monitor -- Patient developed complete heart block and had a ventricular pause of > 7 seconds. HOSPITAL COURSE: 1. complete heart block in the setting of recent acute inferior wall STEMI - The patient's hospital course was quite complicated. On hospital day #1 he developed recurrent complete heart block requiring CPR/ chest compressions and transcutaneous pacing. Beta frank was discontinued at that time and preparations were made for permanent pacemaker insertion. On the AM of hospital day #2 he developed ventricular tachycardia. Amiodarone was administered which, unfortunately, then resulted in recurrent complete heart block. He was intubated at that time and taken emergently to the cardiac EP lab where a temporary pacemaker was placed by Dr. Devin Mak. Following such he was admitted to the ICU. On hospital day #3 a permanent dual-chamber AICD/pacemaker was placed by Dr. Mak. This was complicated by lead rupture and development of a pericardial effusion. He developed transient hypotension requiring volume resuscitation and pressors. On hospital day #4 he was extubated from the ventilator and remained either on NC or in room air for the remainder of his stay. Fortunately serial echocardiograms demonstrated resolution of the pericardial effusion. For the rest of his stay his pacemaker appeared to be working well. The patient will follow-up with Dr. Mak on June 13 in the cardiology office. His AICD incision site looked clean and without infection/hematoma at time of discharge. 2. ventricular tachycardia - he is s/p AICD placement. He will remain on amiodarone 400mg once daily at discharge. 3. CAD s/p acute AL 2nd to RCA occlusion - following his AICD/pacemaker placement he was restarted on beta frank. He will also continue ARB, statin, aspirin, and plavix. He did not appear to suffer any recurrent AL despite the issues listed in #1 above. 4. acute systolic/diastolic CHF along with acute cor pulmonale - 2nd to recent AL - he required diuresis during this hospitalization. At time of discharge he was approaching euvolemia. He will need to check daily weights and restrict both his salt and fluid intake. He received comprehensive CHF instructions at discharge. 5. CKD stage 3 - creatinine was stable at discharge with level of 1.4. 6. hyponatremia - he developed this 2nd to diuresis. His sodium level was 131 at discharge. He will need a repeat BMP at time of hospital follow-up to ensure stability/ normalization. 7. anemia - likely 2nd to phlebotomy/repeated labs/etc. Discharge hemoglobin was 9.8. He will take iron supplementation after discharge. Lab follow-up is advised. 8. deconditioning - the patient was denied inpatient rehab by his insurance. Rehab at SNF was considered but the patient ultimately requested discharge to home with home health and home PT/OT. Total Time Spent: Greater than 30 minutes This includes examination of the patient, discharge planning, medication reconciliation, and communication with other providers. Discharge Instructions Please refer to the electronic Patient Visit Report (Discharge Instructions) for additional information. Follow-Up 1. Dr. Merino's office w/ Zohra BOUCHER for MondayJune 09 at 12:[address] Devin Mak, cardiology, within 1-2 weeks Additional Copies To Devin Mak MD; uAstin Merino M.D.
[2017-07-07] MEDS ORDERED: CARV6.252 PO (13:34)
== END 2017-06-06 17:00 | disposition home health service (06) | DRG 226 ==
LOC: EDBD 11:34 → C.EDA 11:35 → C.2E 15:14 → ENRESERV 15:19 → C.MSICU 05-29 08:32 → C.2E 06-02 01:02
PROVIDERS: ADMIT Hospitalist; ATTEND Internal Medicine
PROC: 0JH608Z Insertion of Defibrillator Generator into Chest Subcutaneous Tissue and Fascia, Open Approach (ICD-10-PCS; principal; 2017-05-30 13:00)
PROC: 02H63KZ Insertion of Defibrillator Lead into Right Atrium, Percutaneous Approach (ICD-10-PCS; principal; 2017-05-30 13:00)
PROC: 02HK3KZ Insertion of Defibrillator Lead into Right Ventricle, Percutaneous Approach (ICD-10-PCS; principal; 2017-05-30 13:00)
DX: I44.2 Atrioventricular block, complete (principal); I22.1 Subsequent ST elevation (STEMI) myocardial infarction of inferior wall; I31.3 Pericardial effusion (noninflammatory); T82.190A Other mechanical complication of cardiac electrode, initial encounter; I25.10 Atherosclerotic heart disease of native coronary artery without angina pectoris; I10 Essential (primary) hypertension; I95.81 Postprocedural hypotension; I25.2 Old myocardial infarction; E78.5 Hyperlipidemia, unspecified; Z79.82 Long term (current) use of aspirin; I25.5 Ischemic cardiomyopathy; I49.01 Ventricular fibrillation; Y83.1 Surgical operation with implant of artificial internal device as the cause of abnormal reaction of the patient, or of later complication, without mention of misadventure at the time of the procedure; Y92.234 Operating room of hospital as the place of occurrence of the external cause

== ENCOUNTER → 2018-01-15 | Outpatient (CLI) | payer BC ==
[~2018-01-15] MED LIST changes: +CARV6.252 PO; +CLOP1TAB15 PO; +CRD200 PO; +NTRGSL/4 UT; +RANI150T85 PO; +TAMS0.4C38 PO
== END | disposition home or self-care (01) ==
LOC: C.LABSPEC 11:57
PROVIDERS: ATTEND Physical Medicine & Rehabilitation Sports Medicine
DX: L03.115 Cellulitis of right lower limb (principal); S90.424A Blister (nonthermal), right lesser toe(s), initial encounter; X58.XXXA Exposure to other specified factors, initial encounter

== ENCOUNTER → 2018-01-15 | Outpatient (CLI) | payer BC ==
--- NOTE | 2018-01-15 10:13 | DIAGNOSTIC IMAGING REPORT ---
R FOOT MIN 3 VIEWS HISTORY: 82 years-old Male RIGHT FOOT PAIN acute right-sided foot pain without reported trauma COMPARISON: None available TECHNIQUE: 3 views of the right foot FINDINGS: Moderate to severe degenerative changes of the first MTP joint with mild hallux valgus deformity. Moderate degenerative changes are seen within the interphalangeal joints. Type II accessory navicular. Mild dorsal spurring about the midfoot. No acute fracture or subluxation. Additionally, there is mild plantar soft tissue swelling at the level the metatarsal phalangeal joints. IMPRESSION: 1. Mild soft tissue swelling without fracture. 2. 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 The above report was generated using voice recognition software. It may contain grammatical, syntax or spelling errors. Electronically signed by: Benitez Ortega M.D. 01/15/2018 10:12 AM Dictated Date/Time: 01/15/2018 10:10 AM
== END | disposition home or self-care (01) ==
LOC: C.RDSM 09:55
PROVIDERS: ATTEND Physician Assistant
DX: M79.671 Pain in right foot (principal); M19.071 Primary osteoarthritis, right ankle and foot; M20.11 Hallux valgus (acquired), right foot

== ENCOUNTER 2021-11-22 06:14 | Inpatient (IN) ==
[2021-11-22] MEDS ORDERED: ONDANSETRON INJ 2 MG/ML 2 ML VIAL IV STA ×2 (06:20→07:10)
[2021-11-22 06:33] LABS: Eosinophils # (auto) 0.05 K/uL (0-0.5); Eosinophils % (auto) 0.9 %; Hematocrit (blood only) 40.8 % (42-52); Hemoglobin 14.1 g/dL (14.0-18.0); Immature Granulocytes # (auto) 0.03 K/uL (0.00-0.02); Immature Granulocytes % (auto) 0.5 %; Lymphocytes % (auto) 20.8 %; Mean Corpuscular Hemoglobin 31.3 pg (25-34); Mean Corpuscular Hgb Conc 34.6 g/dL (32-36); Mean Corpuscular Volume 90.7 fL (80-100); Mean Platelet Volume 10.7 fL (7.4-10.4); Monocytes # (auto) 0.63 K/uL (0.11-0.59); Monocytes % (auto) 10.9 %; Neutrophils # (auto) 3.85 K/uL (1.4-6.5); Neutrophils % (auto) 66.9 %; Platelet Count 177 K/uL (130-400); RDW Coefficient of Variation 12.4 % (11.5-14.5); RDW Standard Deviation 41.4 fL (36.4-46.3); White Blood Count 5.76 K/uL (4.8-10.8)
--- NOTE | 2021-11-22 06:35 | Emergency Department Note ---
Impression & Plan ACS (acute coronary syndrome), Atypical chest pain, Nausea, Elevated troponin I level ED Provider Note NAME: BREA HENRY AGE: 86 SEX: M : 1935 ARRIVES VIA: Ambulance INFORMANT: Patient, ED PROVIDER(S): Jerod Marcelo MD Chief Complaint: Chest pain, abdominal pain HPI: Patient reportedly had some substernal chest pain which the patient did receive aspirin and 2 nitro without significant improvement in symptoms. The patient has had discomfort approximately 2 hours and is concerned about the possibility of food poisoning. Patient states currently he has a lot of nausea and abdominal discomfort but does not complain of true chest pain. The patient states that at the time that this began the patient did break out in a cold sweat and was nauseous. The patient does have a known history of CAD status post stents and pacemaker placement secondary to CAD and heart block respectively. The at bedside was concerned about the possibility of his abdominal symptoms given a prior history of an "intestinal cancer." This was completed and did require a second operation before at the beginning of 2019 the patient did not take his home medications. Patient denies any fevers or chills. No reported cough. Patient is vaccinated for Covid. No recent falls or trauma. ROS: See HPI for pertinent positives and negatives. A total of 10 systems were reviewed and otherwise negative. Past medical history: See below Surgical history: See below Social history: See below Physical Exam: GENERAL: Uncomfortable in appearance, wearing glasses. EYE EXAM: Normal conjunctiva. PERRL, no anisocoria and EOM's grossly intact w/o pain. OROPHARYNX: Moist mucus membranes. Grossly normal dentition. NECK: Supple, no nuchal rigidity, no adenopathy, non-tender. No signs of meningismus. LUNGS: Clear to auscultation. Normal chest wall mechanics. HEART: NSR, no MRG. ABDOMEN: Abdomen soft, non-tender, normo-active bowel sounds, no masses, no rebound or guarding. BACK: No CVA TTP. SKIN: No rashes and no bruising. UPPER EXTREMITIES: Upper extremities are grossly normal. LOWER EXTREMITIES: Grossly normal, no edema. NEURO EXAM: A&O x3, cranial nerves II-XII grossly intact, normal speech, moves all 4 extremities on command w/o issue. Differential diagnoses: Cardiac ischemia, aortic dissection, pulmonary embolism, pneumothorax, pneumonia, pericarditis, myocarditis, esophageal rupture, GERD, cholecystitis, pancreatitis, musculoskeletal, as well as other pathologies. Appendicitis, testicular torsion, infections, diverticulitis, UTI, obstruction, mesenteric ischemia, aortic pathology, inflammatory bowel disease, renal colic, PUD, pancreatitis, biliary pathology, hernia, volvulus, constipation, as well as other pathologies. Course: Patient was seen and evaluated the bedside. Full history physical exam was performed. EKG interpreted by me AV dual paced rhythm, rate of 76, left axis deviation, elevation in V3. EKG does appear to be changed from comparison EKG July 27, 2020. Patient's morphology appears fairly unchanged with the exception of the elevation in V3. Repeat EKG completed at 702 AV dual paced rhythm, rate of 68, wide QRS, left axis deviation, elevation in V3 no longer present. Imaging Studies: See Below Cardiac monitoring: An order was placed for continuous cardiac monitoring. The monitor shows a rate of 68 with paced rhythm. MDM: Patient was seen due to concern for abdominal discomfort/chest pain. The patient does not have significant abdominal pain to exam but does complain of nausea. He denies any chest pain at the time of my initial history and physical exam. Blood work had been ordered prior to my arrival in the department. Subsequently, I did attempt to review the prehospital EKGs and did speak with Dr. Parrish who is going to evaluate the patient. The patient may be having some dynamic changes based on prehospital and current EKG. The patient's presenting EKG did show elevation in V3 but has since resolved. The patient's troponin was positive and I did speak with Dr. Singh at approximately 715 and discussed patient's history and Dr. Singh did review the prehospital and current EKGs that had been sent. He stated that he would be at the bedside shortly and that they would discuss whether or not they would call her HEART Alert but not to do so at that time. The patient's repeat since his initial EKG appears to be improved. Patient was ordered additional nausea medication and IV fluids. Heparin bolus and gtt was ordered at recommendation of Dr. Singh. I did repeat several EKGs in the department most recent EKG showed no further elevation of V3. Patient has a normal white count hemoglobin and platelet count. Patient's k idney function does show an elevated BUN but BUN to creatinine ratio 20. Mild hyponatremia noted. Covid swab ordered. I did message Dr. Singh around 0800 again for the patient to be seen. I did speak with the on-call hospitalist Dr. Monteiro as well as the director family Dr. Wright's. He was to be admitted to the medicine service. Patient was seen by Dr. Singh. Dr. Singh will take the patient to the Emt/Dispatcher. I did reassess the patient in the room and the patient was on heparin. The patient had significant provement in his symptoms. The patient was feeling comfortable. BP was 130s over 60s. Patient was taken to the Emt/Dispatcher. Critical Care: I have personally spent 90 minutes of critical care time in direct management of this patient. This includes bedside care, interpretation of diagnostic studies, and testing, discussion with consultants, patient, and family members, and other require inpatient management activities. This 90 minutes is in excess of all separately billable procedures. Past Med/Surg History Medical History BPH (benign prostatic hyperplasia) CAD (coronary artery disease) CHF (congestive heart failure) Chronic kidney disease, stage 3a GERD (gastroesophageal reflux disease) Hearing deficit [place] History of colon polyps History of complete heart block History of myocardial infarction 1996, 2016 History of ventricular tachycardia HLD (hyperlipidemia) HTN (hypertension) ICD (implantable cardioverter-defibrillator) in place Dual-chamber Medtronic; 2019; CHB; last check 2 weeks ago Ischemic cardiomyopathy Osteoarthritis Poor historian Surgical History H/O heart artery stent pt unsure of amt. 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 Beliefs That Will Affect Care: None marital status: Current Living Situation: Spouse current occupational status: retired Feels Safe at Home: Yes Assistive Devices: Hearing Aid - Bilateral Allergies Allergies Allergy/AdvReac Type Severity Reaction Status Date / Time oxycodone Allergy Mild CANT Verified 11/22/21 07:33 REMEMBER JUST HAD BAD REACTION amlodipine Allergy Unknown UNKNOWN Verified 11/22/21 07:33 codeine Allergy Unknown UNKNOWN Verified 11/22/21 07:33 lisinopril Allergy Unknown UNKNOWN Verified 11/22/21 07:33 Home Meds Home Medications Medication Instructions Recorded Confirmed coenzyme Q10 200 mg capsule 200 mg PO QAM cap 07/03/19 11/22/21 ezetimibe 10 mg tablet 10 mg PO PM #90 tab 07/03/19 11/22/21 multivitamin (Daily Multi-Vitamin) 1 tab PO QAM 07/03/19 11/22/21 rosuvastatin 10 mg tablet 10 mg PO PM tab 07/03/19 11/22/21 tamsulosin 0.4 mg capsule 0.8 mg PO PM cap 07/03/19 11/22/21 temazepam 15 mg capsule 15 mg PO PM cap 07/03/19 11/22/21 aspirin 81 mg tablet,delayed 81 mg PO QAM 12/27/19 11/22/21 release famotidine 20 mg tablet (Pepcid) 20 - 40 mg PO DAILY PRN tab 02/22/21 11/22/21 memantine 10 mg tablet 10 mg PO HS 04/28/21 11/22/21 ferrous sulfate 325 mg (65 mg 325 mg PO QAM 11/22/21 11/22/21 iron) tablet vit C 250 mg-vit E 90 mg-zinc 40 1 tab PO BID 11/22/21 11/22/21 mg-copper 1 [id number] capsule (PreserVision AREDS-2) Previous Rx's Medication Instructions Recorded nitroglycerin 0.4 mg sublingual 0.4 mg SL Q5M PRN #30 tab 12/23/20 tablet carvedilol 12.5 mg tablet 12.5 mg PO BID #180 tab 04/16/21 sacubitril 49 mg-valsartan 51 mg 1 tab PO BID #180 tab 07/02/21 tablet (Entresto) Results & Data (ED) Vital Signs Vital Signs - 24 hr 11/22/21 06:16 11/22/21 06:30 11/22/21 06:32 Temperature 36.8 C Temperature Source Oral Pulse Rate 62 67 Pulse Rate [Apical] Respiratory Rate 20 Respiratory Effort / Characteristics Non-Labored Spontaneous Respiratory Depth Normal Respiratory Pattern Regular Blood Pressure 95/71 L 92/62 L Blood Pressure [Right Arm] Blood Pressure Mean 79 72 Blood Pressure Mean [Right Arm] Blood Pressure Position Lying Pulse Oximetry 95 96 96 Oxygen Delivery Method Room Air Room Air Room Air Sepsis Recent Fever Within 48 Hours No Sepsis New/Unexplained Change in Mental Status N/A Sepsis Action Taken by Nursing No Action Required 11/22/21 08:12 Temperature Temperature Source Pulse Rate Pulse Rate [Apical] 67 Respiratory Rate Respiratory Effort / Characteristics Respiratory Depth Respiratory Pattern Blood Pressure Blood Pressure [Right Arm] 92/64 L Blood Pressure Mean Blood Pressure Mean [Right Arm] 73 Blood Pressure Position Pulse Oximetry 96 Oxygen Delivery Method Sepsis Recent Fever Within 48 Hours Sepsis New/Unexplained Change in Mental Status Sepsis Action Taken by Retirement Medications Current Medication List: was personally reviewed by me Laboratory Data Attestation: I reviewed the patient's lab results. Result diagrams: 11/22/21 06:10 11/22/21 06:10 Lab Results 11/22/21 11/22/21 Range/Units 06:10 06:10 WBC 5.76 (4.8-10.8) K/uL RBC 4.50 L (4.7-6.1) M/uL Hgb 14.1 (14.0-18.0) g/dL Hct 40.8 L (42-52) % MCV 90.7 (80-100) fL MCH 31.3 (25-34) pg MCHC 34.6 (32-36) g/dL RDW Std Deviation 41.4 (36.4-46.3) fL RDW Coeff of Sonia 12.4 (11.5-14.5) % Plt Count 177 (130-400) K/uL MPV 10.7 H (7.4-10.4) fL Immature Gran % (Auto) 0.5 % Neut % (Auto) 66.9 % Lymph % (Auto) 20.8 % [place] % (Auto) 10.9 % Eos % (Auto) 0.9 % Baso % (Auto) 0.0 % Neut # (Auto) 3.85 (1.4-6.5) K/uL Lymph # (Auto) 1.20 (1.2-3.4) K/uL [place] # (Auto) 0.63 H (0.11-0.59) K/uL Eos # (Auto) 0.05 (0-0.5) K/uL Baso # (Auto) 0.00 (0-0.2) K/uL Immature Gran # (Auto) 0.03 H (0.00-0.02) K/uL Sodium 132 L (136-145) mmol/L Potassium 4.3 (3.5-5.1) mmol/L Chloride 97 L (98-107) mmol/L Carbon Dioxide 27 (21-32) mmol/L Anion Gap 8.0 (3-11) BUN 28 H (7-18) mg/dl Creatinine 1.39 (0.6-1.4) mg/dl Est Cr Clr Drug Dosing 38.7 ml/min Est GFR ( Amer) 53.2 ml/min Est GFR (Non-Af Amer) 45.9 ml/min BUN/Creatinine Ratio 20.0 (10-20) Glucose 187 H (70-99) mg/dl Calcium 9.0 (8.5-10.1) mg/dl Total Bilirubin 0.6 (0.2-1) mg/dl AST 28 (15-37) U/L ALT 31 (12-78) Alkaline Phosphatase 79 (45-117) U/L Troponin I 0.048 H* (0-0.045) ng/ml Total Protein 7.1 (6.4-8.2) gm/dl Albumin 3.8 (3.4-5.0) gm/dl Globulin 3.3 (2.5-4.0) gm/dl Albumin/Globulin Ratio 1.2 (0.9-2) Lipase 187 (73-393) U/L Administered Medications Heparin Sodium/Dextrose (Heparin Sodium/Dextrose) 25,000 units in 500 mls @ 0.02 mls/hr IV .Q24H [facility]; Protocol Stop: 12/22/21 07:29 Last Titration: 11/22/21 12:52 Dose: 0 units/hr, 0 mls/hr Documented by: [id number] Cosigned by: [id number] Admin: 11/22/21 08:20 Dose: 850 units/hr, 17 mls/hr Documented by: [id number] Cosigned by: [id number] Sodium Chloride (Nss 1000ml) 1,000 mls @ 100 mls/hr IV .Q10H [facility] Stop: 11/22/21 16:59 Last Admin: 11/22/21 12:56 Dose: 100 mls/hr Documented by: [id number] Eptifibatide (Integrilin) 75 mg in 100 mls @ 5.632 mls/hr IV .[id number] [facility]; Protocol Stop: 11/22/21 15:15 Last Admin: 11/22/21 12:56 Dose: 1 mcg/kg/min, 5.6 mls/hr Documented by: [id number] Cosigned by: [id number] Discontinued Medications Clopidogrel Bisulfate (Clopidogrel Bisulfate 300 Mg Tab) Confirm Administered Dose 600 mg .ROUTE .STK-MED ONE Stop: 11/22/21 11:16 Last Admin: 11/22/21 11:37 Dose: 600 mg Documented by: [id number] Eptifibatide (Eptifibatide 2 Mg/Ml 10 Ml Vial (Emt/Dispatcher Use Only)) Confirm Administered Dose 20 mg IV .STK-MED ONE Stop: 11/22/21 10:11 Last Admin: 11/22/21 10:50 Dose: 20 mg Documented by: [id number] Eptifibatide (Eptifibatide 0.75 Mg/Ml 75mg Vial (Emt/Dispatcher Use Only)) Confirm Administered Dose 75 mg .ROUTE .STK-MED ONE Stop: 11/22/21 10:11 Last Admin: 11/22/21 10:51 Dose: 75 mg Documented by: [id number] Fentanyl Citrate (Fentanyl Citrate 100 Mcg/2 Ml Vial) 25 mcg IV NOW ONE Stop: 11/22/21 07:39 Last Admin: 11/22/21 10:50 Dose: Not Given Documented by: [id number] Fentanyl Citrate (Fentanyl Citrate 100 Mcg/2 Ml Vial) Confirm Administered Dose 100 mcg .ROUTE .STK-MED ONE Stop: 11/22/21 09:25 Last Admin: 11/22/21 10:50 Dose: 25 mcg Documented by: [id number] Heparin Sodium (Porcine) (Heparin Sod (Porcine) 1000 Unit/Ml) 1 units IV NOW ONE Stop: 11/22/21 07:30 Last Admin: 11/22/21 08:15 Dose: 1 units Documented by: [id number] Cosigned by: [id number] Heparin Sodium (Porcine) (Heparin (Porcine) 1000 Unit/Ml 10 Ml (Emt/Dispatcher Use Only)) Confirm Administered Dose 10,000 units .ROUTE .STK-MED ONE Stop: 11/22/21 09:24 Last Admin: 11/22/21 10:50 Dose: 5,000 units Documented by: [id number] Heparin Sodium/Dextrose (Heparin Iv Adult Wt-Based Low-Dose With Bolus Protocol) 1 ea IV NOW STA; Protocol Stop: 11/22/21 07:15 Last Admin: 11/22/21 08:19 Dose: 1 ea Documented by: [id number] Heparin Sodium/Sodium Chloride (Heparin In Nss Infusion 1000 Unit/500 Ml (2 U/Ml) Bag) Confirm Administered Dose 3,000 units IV .STK-MED ONE Stop: 11/22/21 09:25 Last Admin: 11/22/21 10:47 Dose: 3,000 units Documented by: [id number] Sodium Chloride (Nss 1000ml) 500 mls @ 999 mls/hr IV .Q31M ONE Stop: 11/22/21 07:52 Last Infusion: 11/22/21 12:55 Dose: 0 mls/hr Documented by: [id number] Admin: 11/22/21 08:19 Dose: 999 mls/hr Documented by: [id number] Midazolam HCl (Midazolam Hcl 1 Mg/Ml 2ml Vial) Confirm Administered Dose 2 mg .ROUTE .STmVakil - Track Court Cases Live-MED ONE Stop: 11/22/21 09:24 Last Admin: 11/22/21 10:48 Dose: 1 mg Documented by: [id number] Nicardipine HCl (Nicardipine Hcl Inj 2.5 Mg/Ml 10 Ml Amp) Confirm Administered Dose 25 mg .ROUTE .STK-MED ONE Stop: 11/22/21 09:24 Last Admin: 11/22/21 10:47 Dose: 25 mg Documented by: [id number] Nitroglycerin/Dextrose (Nitroglycerin/D5w 100mcg/Ml 20ml Syr) Confirm Administered Dose 2,000 mcg .ROUTE .STmVakil - Track Court Cases Live-MED ONE Stop: 11/22/21 09:25 Last Admin: 11/22/21 10:47 Dose: 2,000 mcg Documented by: [id number] Ondansetron HCl (Ondansetron Inj 2 Mg/Ml 2 Ml Vial) 4 mg IV NOW STA Stop: 11/22/21 06:21 Last Admin: 11/22/21 06:26 Dose: 4 mg Documented by: [id number] Ondansetron HCl (Ondansetron Inj 2 Mg/Ml 2 Ml Vial) 4 mg IV NOW STA Stop: 11/22/21 07:11 Last Admin: 11/22/21 07:36 Dose: 4 mg Documented by: [id number] Imaging Data Radiologist's Impression: Chest X-Ray 11/22/21 06:18 XR chest 1V portable HISTORY: 86 years-old Male Chest Pain acute atypical chest pain COMPARISON: Chest radiograph 12/27/2019 TECHNIQUE: Portable AP view of the chest FINDINGS: Cardiac silhouette is enlarged. Left subclavian pacer/AICD. Calcified plaque of the thoracic aorta. Mild pleural thickening of the lung apices. No pneumothorax, large pleural effusion or overt pulmonary edema. Mild pulmonary vascular congestion suggested. Mild linear bibasilar densities suggestive of atelectasis. Degenerative changes of the shoulders and spine. IMPRESSION: Cardiomegaly without acute process. ACT 112: Negative or not required by law. The above report was generated using voice recognition software. It may contain grammatical, syntax or spelling errors. Electronically signed by: Ashkan Ortega M.D. 11/22/2021 6:58 AM Discharge Plan Visit Data Chief Complaint: Chest Pain Stated Complaint: Chest Pain ED Provider: Jerod Marcelo Discharge Problem: ACS (acute coronary syndrome), Atypical chest pain, Nausea, Elevated troponin I level Patient Disposition: Admitted As Inpatient Discharge Instructions Interventions: ED Discharge Assessment Last Done: 11/22/21 09:40
[2021-11-22 06:52] LABS: Albumin Level 3.8 gm/dl (3.4-5.0); Creatinine Clr Calc Pharmacy 38.7 ml/min; Est GFR (African American) 53.2 ml/min; Est GFR (Non-African American) 45.9 ml/min; Potassium 4.3 mmol/L (3.5-5.1)
--- NOTE | 2021-11-22 06:59 | XRay Report ---
XR chest 1V portable HISTORY: 86 years-old Male Chest Pain acute atypical chest pain COMPARISON: Chest radiograph 12/27/2019 TECHNIQUE: Portable AP view of the chest FINDINGS: Cardiac silhouette is enlarged. Left subclavian pacer/AICD. Calcified plaque of the thoracic aorta. M ild pleural thickening of the lung apices. No pneumothorax, large pleural effusion or overt pulmonary edema. Mild pulmonary vascular congestion suggested. Mild linear bibasilar densities suggestive of a telectasis. Degenerative changes of the shoulders and spine. IMPRESSION: Cardiomegaly without acute process. ACT 112: Negative or not required by law. The above report was generated using voice recognition software. It may contain grammatical, syntax o r spelling errors. Electronically signed by: Ashkan Ortega M.D. 11/22/2021 6:58 AM
[2021-11-22 07:08] LABS: Albumin Globulin Ratio 1.2 (0.9-2); Bilirubin,Total 0.6 mg/dl (0.2-1); Globulin 3.3 gm/dl (2.5-4.0); Total Protein 7.1 gm/dl (6.4-8.2); Troponin I 0.048 ng/ml (0-0.045)
[2021-11-22] MEDS ORDERED: Heparin IV Adult Wt-Based Low-Dose WITH Bolus Protocol IV STA (07:14)
[2021-11-22] MEDS ORDERED: SODIUM CHLORIDE 0.9% 1000ML 500 ML IV ONE (07:22)
[2021-11-22] MEDS ORDERED: HEPARIN SOD (PORCINE) 1000 UNIT/ML IV ONE (07:29)
[2021-11-22] MEDS ORDERED: HEPARIN SODIUM/DEXTROSE 25,000 UNITS/500 ML BAG IV SCH (07:30)
[2021-11-22] MEDS ORDERED: fentaNYL citrate 100 MCG/2 ML VIAL IV ONE (07:38)
--- NOTE | 2021-11-22 08:42 | Cardiology Consultation ---
Date of Consultation November 22, 2021 Assessment & Plan (1) ACS (acute coronary syndrome): Presentation concerning for acute coronary syndrome and recommend proceeding with urgent cardiac catheterization and possible PCI. No apparent contraindications to procedure. Discussed risks, benefits, alternatives of procedure with patient and they are willing to proceed. Given IV heparin in the ED. Further recommendations pending findings of coronary angiography. History of Present Illness History of Present Illness Mr. Villavicencio is a very pleasant 86-year-old man with a history of coronary artery disease post inferior MS and prior PCI seen urgently in the ED for suspected ACS. Prior inferior STEMI 05/2017 treated at [facility] with single JONNIE to proximal RCA, reported mild to moderate left system disease at that time. Chronic systolic heart failure/ischemic cardiomyopathy EF around 40% with mild to moderate RV dilation/dysfunction. Complete heart block and prior sustained VT post ICD. Follows with Dr. Mak and routinely with [facility] cardiology. Other medical issues include hypertension, dyslipidemia, BPH, stage III chronic kidney disease, lumbar spinal stenosis and colon cancer status post resection in 2014. Usual state of health until this morning around 4 AM. Was awoken with primarily abdominal/epigastric pain. Also reported nausea and chills/diaphoresis. Continued to have persistent 2 out of 10 pain despite sublingual nitroglycerin. Initial troponin mildly elevated at 0.048. Serial ECG showed atrialventricularly paced rhythm with ST changes in V2 through V5. Allergies Allergy/AdvReac Type Severity Reaction Status Date / Time oxycodone Allergy Mild CANT Verified 11/22/21 07:33 REMEMBER JUST HAD BAD REACTION amlodipine Allergy Unknown UNKNOWN Verified 11/22/21 07:33 codeine Allergy Unknown UNKNOWN Verified 11/22/21 07:33 lisinopril Allergy Unknown UNKNOWN Verified 11/22/21 07:33 Home Medications Medication Instructions Recorded Confirmed Type coenzyme Q10 200 mg capsule 200 mg PO QAM cap 07/03/19 11/22/21 History ezetimibe 10 mg tablet 10 mg PO PM #90 tab 07/03/19 11/22/21 History multivitamin (Daily Multi-Vitamin) 1 tab PO QAM 07/03/19 11/22/21 History rosuvastatin 10 mg tablet 10 mg PO PM tab 07/03/19 11/22/21 History tamsulosin 0.4 mg capsule 0.8 mg PO PM cap 07/03/19 11/22/21 History temazepam 15 mg capsule 15 mg PO PM cap 07/03/19 11/22/21 History aspirin 81 mg tablet,delayed 81 mg PO QAM 12/27/19 11/22/21 History release nitroglycerin 0.4 mg sublingual 0.4 mg SL Q5M PRN #30 tab 12/23/20 11/22/21 Rx tablet famotidine 20 mg tablet (Pepcid) 20 - 40 mg PO DAILY PRN tab 02/22/21 11/22/21 History carvedilol 12.5 mg tablet 12.5 mg PO BID #180 tab 04/16/21 11/22/21 Rx memantine 10 mg tablet 10 mg PO HS 04/28/21 11/22/21 History sacubitril 49 mg-valsartan 51 mg 1 tab PO BID #180 tab 07/02/21 11/22/21 Rx tablet (Entresto) ferrous sulfate 325 mg (65 mg 325 mg PO QAM 11/22/21 11/22/21 History iron) tablet vit C 250 mg-vit E 90 mg-zinc 40 1 tab PO BID 11/22/21 11/22/21 History mg-copper 1 [id number] capsule (PreserVision AREDS-2) Patient History Medical History (Updated 11/22/21 @ 08:53 by Jim Singh MD) BPH (benign prostatic hyperplasia) CAD (coronary artery disease) CHF (congestive heart failure) Chronic kidney disease, stage 3a GERD (gastroesophageal reflux disease) Hearing deficit [place] History of colon polyps History of complete heart block History of myocardial infarction 1996, 2016 History of ventricular tachycardia HLD (hyperlipidemia) HTN (hypertension) ICD (implantable cardioverter-defibrillator) in place Dual-chamber Medtronic; 2019; CHB; last check 2 weeks ago Ischemic cardiomyopathy Osteoarthritis Poor historian Surgical History H/O heart artery stent pt unsure of amt. per records, x 1 in 2017 History of cardiac catheterization most recent 2017 History of cataract surgery History of esophagogastroduodenoscopy (EGD) History of inguinal hernia repair sliding History of intestinal surgery removal of large polyp History of tonsillectomy History of wisdom tooth extraction Family History Other Family history non-contributory Social History Smoking Status: Former smoker Second Hand Exposure: No; Hx Alcohol Use: Yes Alcohol type: beer and wine Hx Substance Use: No Preferred Language: Mosotho Communication Ability: Effective Social Work Therapist Required: No Beliefs That Will Affect Care: None marital status: Current Living Situation: Spouse current occupational status: retired Feels Safe at Home: Yes Assistive Devices: Hearing Aid - Bilateral Review of Systems Review of Systems: All systems reviewed & are unremarkable except as noted in HPI & below Physical Exam Physical Exam: General: Uncomfortable, ill-appearing HEENT: Sclerae anicteric, Mask in place Lungs: Clear to auscultation bilaterally Cardiac: Regular rate and rhythm Vascular: 2+ radial Abdomen: Soft, tender Extremities: Well perfused, no peripheral edema Neuro: Nonfocal Psych: Alert orient x3, normal affect and mood Results & Data ([facility]) Vital Signs (Past 12 Hours) Vital Signs Temp Pulse Resp BP Pulse Ox 11/22/21 06:32 96 11/22/21 06:30 67 92/62 L 96 11/22/21 06:16 98.2 F 62 20 95/71 L 95 PG Care Time/CCT Total # of Minutes Spent Total Time Spent with Patient: Total time spent is greater than 50% in coordination of care (as documented) at patient's floor/unit and/or counseling patient: Coding Level of Care Code 76047 Initial Inpt Care Lvl 3 Diagnoses ACS (acute coronary syndrome) I24.9
--- NOTE | 2021-11-22 08:53 | History & Physical Report ---
Date of Service November 22, 2021 Assessment & Plan (1) Abdominal pain: Plan: 86 yo M w/ pMHx. of HTN, HLD, BPH, CKD, GERD, CHF, CAD s/p stent of RCA 2016, colon cancer s/p resection in 2014 and perforation in 2019 presenting with abdominal pain and nausea since 4AM without radiation, shortness of breath, with elevated troponin and dynamic EKG changes concerning for ACS. ACS Atypical chest pain with elevated troponin and dynamic changes seen on EKG Cardiology consulted and underwent catheterization and stent placement - 90% blockage - diffuse ostial to mid LAD (PCI ostial to mid LAD) - 80-90% obstruction of mid circumflex - 100% blockage - proximal RCA w/ right to right collateral - ECHO ordered - on DAPT - continue PRN Nitro, home Statin, home ASA - order for EKG with chest pain - continue to monitor for complications Heart failure, last ECHO w/ EF 38% stable in March - continue Entresto - ECHO ordered Colon cancer s/p resection s/p perforation in 2019 - continue to follow abdominal pain BPH - continue home Tamsulosin HTN - continue Carvedilol HLD - continue Rosuvastatin GERD - continue Famotidine Memory loss - continue Memantine Code: full Diet: NPO DVT: SCD's (2) Anemia: (3) Prostatic hypertrophy: (4) Ventricular tachycardia (paroxysmal): (5) Hypercholesteremia: (6) Essential hypertension: (7) Allergic rhinitis: (8) Complete heart block: (9) CAD (coronary artery disease): (10) Benign localized prostatic hyperplasia with lower urinary tract symptoms (LUTS): (11) Chronic kidney disease, stage 3a: History of Present Illness Chief Complaint: abdominal pain Primary Care Provider: Austin Merino MD Alphonso Saud has a past medical history of hypertension, hyperlipidemia, GERD, BPH, CKD, CHF, CAD s/p stent of RCA 2017, colon cancer s/p resection in 2014 and complicated by perforation in 2019 presents with abdominal pain. He came to the ER via ambulance for abdominal pain that started at 4 AM along with cold sweats and nausea. He does not remember if he had similar pain when he had a heart attack or when he had a bowel perforation. He took nitro at home for concern of a cardiac origin of the pain without improvement. It is unclear if the pain was worse with activity. Since coming to the ER he has had improvement in his pain and rates it currently at a 6/10 as a discomfort in his lower abdomen. He had stents placed in his RCA on 05/22/17 with readmit on 05/28/17 for syncope complicated by complete heart block requiring CPR and transcutaneous pacing as well as ventricular tachycardia s/p ICD 05/30/17 complicated by lead rupture and cardiac effusion (no intervention required). He follows with Dr. Mak locally for cardiology as well as through [facility] where he had a recent visit. Most recent ECHO from [facility] notes was April 09 with stable EF at 38%. Allergies Allergy/AdvReac Type Severity Reaction Status Date / Time oxycodone Allergy Mild CANT Verified 11/22/21 07:33 REMEMBER JUST HAD BAD REACTION amlodipine Allergy Unknown UNKNOWN Verified 11/22/21 07:33 codeine Allergy Unknown UNKNOWN Verified 11/22/21 07:33 lisinopril Allergy Unknown UNKNOWN Verified 11/22/21 07:33 Home Medications Medication Instructions Recorded Confirmed Type coenzyme Q10 200 mg capsule 200 mg PO QAM cap 07/03/19 11/22/21 History ezetimibe 10 mg tablet 10 mg PO PM #90 tab 07/03/19 11/22/21 History multivitamin (Daily Multi-Vitamin) 1 tab PO QAM 07/03/19 11/22/21 History rosuvastatin 10 mg tablet 10 mg PO PM tab 07/03/19 11/22/21 History tamsulosin 0.4 mg capsule 0.8 mg PO PM cap 07/03/19 11/22/21 History temazepam 15 mg capsule 15 mg PO PM cap 07/03/19 11/22/21 History aspirin 81 mg tablet,delayed 81 mg PO QAM 12/27/19 11/22/21 History release nitroglycerin 0.4 mg sublingual 0.4 mg SL Q5M PRN #30 tab 12/23/20 11/22/21 Rx tablet famotidine 20 mg tablet (Pepcid) 20 - 40 mg PO DAILY PRN tab 02/22/21 11/22/21 History carvedilol 12.5 mg tablet 12.5 mg PO BID #180 tab 04/16/21 11/22/21 Rx memantine 10 mg tablet 10 mg PO HS 04/28/21 11/22/21 History sacubitril 49 mg-valsartan 51 mg 1 tab PO BID #180 tab 07/02/21 11/22/21 Rx tablet (Entresto) ferrous sulfate 325 mg (65 mg 325 mg PO QAM 11/22/21 11/22/21 History iron) tablet vit C 250 mg-vit E 90 mg-zinc 40 1 tab PO BID 11/22/21 11/22/21 History mg-copper 1 [id number] capsule (PreserVision AREDS-2) Past Med/Surg History Medical History BPH (benign prostatic hyperplasia) CAD (coronary artery disease) CHF (congestive heart failure) Chronic kidney disease, stage 3a GERD (gastroesophageal reflux disease) Hearing deficit [place] History of colon polyps History of complete heart block History of myocardial infarction 1996, 2016 History of ventricular tachycardia HLD (hyperlipidemia) HTN (hypertension) ICD (implantable cardioverter-defibrillator) in place Dual-chamber Medtronic; 2019; CHB; last check 2 weeks ago Ischemic cardiomyopathy Osteoarthritis Poor historian Surgical History H/O heart artery stent pt unsure of amt. 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 Beliefs That Will Affect Care: None marital status: Current Living Situation: Spouse current occupational status: retired Feels Safe at Home: Yes Assistive Devices: Glasses and Hearing Aid - Bilateral Review of Systems Review of Systems: Constitutional: denies vomiting, admits chills, nausea, fatigue, diaphoresis Head: denies trauma Neurologic: denies slurring of speech, focal weakness ENT: denies rhinorrhea, stuffiness, sneezing Cardiac: denies chest pain, palpitations, leg edema Pulm.: admits chronic cough (relates to post nasal drip) GI: denies indigestion, diarrhea, blood in stool, changes in bowel habits (LBM yesterday) : chronic stable LUTS Physical Exam Constitutional: well developed and well nourished; no acute distress Eyes: PERRL, conjunctivae normal, anicteric sclerae ENMT: external ear and nose normal, oropharynx normal Neck: normal visual inspection Respiratory: normal respiratory effort, lungs clear to auscultation Cardiovascular: RRR, no murmur, no edema Vessels: no JVD Extremities: no pedal edema Gastrointestinal (Abdomen): Inspection/Auscultation: abdomen normal to inspection and normal bowel sounds; abdomen not distended Percussion/Palpation: + abdomen tender (slightly tender in the epigastric region) Musculoskeletal: no cyanosis or clubbing, extremities motor strength 5/5 Skin: no rashes, warm and dry Neurologic: no focal motor deficits Psychiatric: A+Ox3, euthymic affect Results & Data Results & Data ([place]) Vital Signs (Past 12 Hours) Vital Signs Temp Pulse Resp BP Pulse Ox 11/22/21 06:32 96 11/22/21 06:30 67 92/62 L 96 11/22/21 06:16 36.8 C 62 20 95/71 L 95 CBC Results Results Complete Blood Count Results: RBC 4.50 M/uL (4.7-6.1) L 11/22/21 WBC 5.76 K/uL (4.8-10.8) 11/22/21 Hgb 14.1 g/dL (14.0-18.0) 11/22/21 Hct 40.8 % (42-52) L 11/22/21 Plt Count 177 K/uL (130-400) 11/22/21 Chemistry (BMP) Results BMP Results: Sodium 132 mmol/L (136-145) L 11/22/21 Potassium 4.3 mmol/L (3.5-5.1) 11/22/21 Chloride 97 mmol/L (98-107) L 11/22/21 Carbon Dioxide 27 mmol/L (21-32) 11/22/21 Anion Gap 8.0 (3-11) 11/22/21 BUN 28 mg/dl (7-18) H 01/03/22 Creatinine 1.39 mg/dl (0.6-1.4) 11/22/21 Glucose 187 mg/dl (70-99) H 11/22/21 Code Status & VTE Plan VTE Prophylaxis Plan VTE Prophylaxis will be ordered: Yes Supervising Physician Co-Signing Physician Notes During face to face encounter with patient, I obtained a physical examination and history of present illness. Plan of care was discussed with Dr. Stevens, and patient. I reviewed above note and agree with it. All of patient's questions were answered. Patient is admitted with abdominal pain however, has elevated trop and history of CAD. Concern this may be ACS. will have cardiac cath done now. Resident Activity Tracking Resident Involvement: Resident Care Provided Care Provided: Adult Hospital Medicine
[2021-11-22] MEDS ORDERED: HEPARIN (PORCINE) 1000 UNIT/ML 10 ML (CATH LAB USE ONLY) ONE (09:23)
[2021-11-22] MEDS ORDERED: MIDAZOLAM HCL 1 MG/ML 2ML VIAL ONE (09:23)
[2021-11-22] MEDS ORDERED: niCARdipine HCL INJ 2.5 MG/ML 10 ML AMP ONE (09:23)
[2021-11-22] MEDS ORDERED: fentaNYL citrate 100 MCG/2 ML VIAL ONE (09:24)
[2021-11-22] MEDS ORDERED: NITROGLYCERIN/D5W 100MCG/ML 20ML SYR ONE (09:24)
--- NOTE | 2021-11-22 09:46 | Pre Anesthesia Assessment ---
Date of Service November 22, 2021 Pre Sedation Assessment Vital Signs Temp Pulse Pulse Resp BP BP Pulse Ox 11/22/21 09:25 64 16 110/71 94 11/22/21 08:12 67 92/64 L 96 11/22/21 06:32 96 11/22/21 06:30 67 92/62 L 96 11/22/21 06:16 98.2 F 62 20 95/71 L 95 Cardiovascular RRR, no murmur, no edema Respiratory normal respiratory effort, lungs clear to auscultation Pre-Sedation Airway Assessment Smoking Status: Former smoker Hx Sleep Apnea: No Hx Difficult Intubation: No Short, Thick Neck: No Thyromental Distance: > or= 3.5 Finger Breadths Oral Cavity: + WNL Mallampati Class: III ASA: ASA3 NPO Status Date of Last Intake of Fluids: 11/22/21 Time of Last Intake of Fluids: 07:00 Date of Last Intake of Solid Food: 11/21/21 Procedure Planning Contraindications for Sedation: none Current Medications Reviewed: Yes Notes The planned sedation has been discussed with the patient. Informed Consent was obtained. I have identified the patient, determined the appropriateness of sedation and have assessed the patient immediately prior to the procedure. All medicine(s) and interventions are by my order.
[2021-11-22] MEDS ORDERED: EPTIFIBATIDE 0.75 MG/ML 75MG VIAL (CATH LAB USE ONLY) ONE (10:10)
[2021-11-22] MEDS ORDERED: EPTIFIBATIDE 2 MG/ML 10 ML VIAL (CATH LAB USE ONLY) IV ONE (10:10)
[2021-11-22] MEDS ORDERED: CLOPIDOGREL BISULFATE 300 MG TAB ONE (11:15)
--- NOTE | 2021-11-22 11:53 | Post Anesthesia Assessment ---
Date of Service November 22, 2021 Post Sedation Assessment Vital Signs Temp Pulse Pulse Resp BP BP Pulse Ox 11/22/21 11:25 80 20 101/73 11/22/21 09:25 64 16 110/71 94 11/22/21 08:12 67 92/64 L 96 11/22/21 06:32 96 11/22/21 06:30 67 92/62 L 96 11/22/21 06:16 98.2 F 62 20 95/71 L 95 Recovery Score Activity: Moves 4 extremities Respiration: Deep Breath/Cough Circulation: +/-20% PreAnes Value Consciousness: Fully Awake Oxygen Saturation: O2 needed for >90% Post Anesthesia Score: 10 Discharge Sedation Level of Care: Fast Track Phase II Post Sedation Plan On clinical assessment, the patient appears to have tolerated the sedation without complications. Patient is recovering as anticipated. Patient will continue to be monitored by nursing and may be discharged when sedation discharge criteria are met per below protocol. Upon Completions of procedure up to 15 minutes continue every 5 minute vital signs and the P.A.R. score; then discharge to a Phase I or Fast Track to Phase II per the following guidelines: * Discharge Patient to appropriate Phase II area if PAR is 8 or greater or return to pre- procedure baseline. The post - procedure orders will be as directed. * If PAR score is less than 8 or not return to pre-procedure baseline then patient will follow Phase I monitoring till PAR is reached for Phase II. The Phase I may be done in procedure room or may call to secure a Phase I area. * If naloxone or flumazenil are used for reversal, hold in Phase I for continued monitoring from when last reversal dose was given for a minimum of 60 minutes or longer pending the nurse and/or physician discretion of patient condition before discharge to Phase II. Please call the Sedation Physician to re-evaluate and complete post-note for discharge to Phase II area. Do NOT discharge from procedure sedation or Phase 1 until post- sedation evaluation note is complete by procedure /sedation MD Sedation Discharge Instructions to be given to the patient at discharge to home.
--- NOTE | 2021-11-22 11:55 | Post Operative Brief Note ---
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 PCI ostial to mid LAD with 3 overlapping JONNIE. Possible staged PCI of circumflex later in hospitalization. Drains Other Anesthesia Type General Complications none Disposition Accompanied Patient To Recovery: Yes Disposition: Recovery Room Overlapping Procedure I was present for: the critical portions of procedure. I was immediately available: during the entire case. Back up surgeon: was not required during procedure.
[2021-11-22] MEDS ORDERED: EPTIFIBATIDE BOLUS/DRIP IV STA (11:56)
[2021-11-22] MEDS ORDERED: EPTIFIBATIDE 75 MG/100 ML VIAL IV SCH ×3 (12:00)
[2021-11-22] MEDS ORDERED: SODIUM CHLORIDE 0.9% 1000ML 1,000 ML IV SCH (12:00)
[2021-11-22] MEDS ORDERED: NITROGLYCERIN SL 0.4 MG/TAB TAB SL PRN (12:22)
[2021-11-22] MEDS ORDERED: ACETAMINOPHEN 325 MG TAB PO PRN (12:22)
[2021-11-22] MEDS ORDERED: NON-FORMULARY MEDICATION (Coenzyme Q10 200 mg capsule) PO SCH (12:22)
[2021-11-22] MEDS ORDERED: Nursing to Pharmacy Communication SCH (13:00)
--- NOTE | 2021-11-22 13:16 | Electrocardiogram Report ---
Test Reason : Blood Pressure : / mmHG Vent. Rate : 076 BPM Atrial Rate : 076 BPM P-R Int : 208 ms QRS Dur : 212 ms QT Int : 520 ms P-R-T Axes : 052 -79 089 degrees QTc Int : 585 ms AV dual-paced rhythm Abnormal ECG When compared with ECG of 27-DEC-2019 21:25, Vent. rate has decreased BY 4 BPM Confirmed by Kenyon Buckner ([id number]) on 11/22/2021 1:15:21 PM Referred By: REFERRED SELF Confirmed By:Kenyon Buckner
--- NOTE | 2021-11-22 13:16 | Electrocardiogram Report ---
Test Reason : Blood Pressure : / mmHG Vent. Rate : 068 BPM Atrial Rate : 057 BPM P-R Int : 206 ms QRS Dur : 214 ms QT Int : 562 ms P-R-T Axes : 011 -75 079 degrees QTc Int : 597 ms AV dual-paced rhythm with occasional Premature ventricular complexes Abnormal ECG When compared with ECG of 22-NOV-2021 06:30, (unconfirmed) Premature ventricular complexes are now Present Vent. rate has increased BY 8 BPM Confirmed by Kenyon Buckner ([id number]) on 11/22/2021 1:15:55 PM Referred By: REFERRED SELF Confirmed By:Kenyon Buckner
--- NOTE | 2021-11-22 13:16 | Electrocardiogram Report ---
Test Reason : Blood Pressure : / mmHG Vent. Rate : 060 BPM Atrial Rate : 060 BPM P-R Int : 208 ms QRS Dur : 220 ms QT Int : 568 ms P-R-T Axes : -25 -78 078 degrees QTc Int : 568 ms AV dual-paced rhythm Abnormal ECG When compared with ECG of 22-NOV-2021 06:18, (unconfirmed) Vent. rate has decreased BY 16 BPM Confirmed by Kenyon Buckner ([id number]) on 11/22/2021 1:15:26 PM Referred By: REFERRED SELF Confirmed By:Kenyon Buckner
--- NOTE | 2021-11-22 13:17 | Electrocardiogram Report ---
Test Reason : Blood Pressure : / mmHG Vent. Rate : 061 BPM Atrial Rate : 061 BPM P-R Int : 206 ms QRS Dur : 212 ms QT Int : 548 ms P-R-T Axes : -18 -77 091 degrees QTc Int : 551 ms AV dual-paced rhythm Abnormal ECG When compared with ECG of 22-NOV-2021 07:02, (unconfirmed) Premature ventricular complexes are no longer Present Vent. rate has decreased BY 7 BPM Confirmed by Kenyon Buckner ([id number]) on 11/22/2021 1:16:51 PM Referred By: REFERRED SELF Confirmed By:Kenyon Buckner
[2021-11-22] MEDS: carvediloL 12.5 MG TAB PO SCH ×2 (14:06→20:23)
[2021-11-22] MEDS: VALSARTAN/SACUBITRIL 51/49 MG TAB PO SCH ×2 (14:06→20:23)
[2021-11-22] MEDS: FAMOTIDINE 20 MG TAB PO SCH (14:06)
[2021-11-22] MEDS: FERROUS SULFATE 325 MG TAB PO SCH (14:06)
[2021-11-22] MEDS: MULTIVITAMIN TAB PO SCH (14:06)
--- NOTE | 2021-11-22 14:35 | XCELERA ---
[id number]
--- NOTE | 2021-11-22 15:07 | Cardiac Catheterization ---
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 Cardiac Status Clinical evaluation leading to the procedure CAD Presenation: Non STEMI Anginal Classification: CCS IV Heart Failure: No Cardiogenic Shock within 24 Hours: No Cardiac Arrest within 24 Hours: No Imaging Studies Past 6 Months: Yes Stress Studies Past 6 Months: No Diagnostic Physicians Name: Devin Singh MD Status: Urgent Closure Device Percutaneous Entry Location: Radial Closure Device: Radial Band Recommendations: PCI without planned CABG PCI Indication: Unstable Angina Lesion Segment Name: Proximal LAD Culprit Artery: Yes Stenosis Prior to Rx (%): 95 Chronic Total Occlusion: No IVUS: Yes FFR: No Pre-Procedure ANA Flow: 2 Previously Treated Lesion: No Lesion Complexity: High/C Lesion Length (mm): 50 Thrombus Present: Yes Bifurcation Lesion: Yes Guidewire Across Lesion: Stenosis Post-Procedure (%): 0 Post-Procedure ANA Flow: 3 Devices(s) Deployed: Yes Yes Intraprocedure Events Significant Disection: No Perforation: No Cardiac Cath Procedure Full Procedure Date November 22, 2021 Pre-Procedure Diagnosis Pre-Procedure Diagnosis: Non STEMI AUC Score AUC Score: 8 Post-Procedure Diagnosis Post-Procedure Diagnosis: Severe CAD, Successful PCI and Normal Intracardiac Pressures Procedure(s) Performed Procedure(s) Performed: Coronary Angiography, Left Heart Cath, Drug Eluting Stent and IVUS Insurance Agency 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 History of CAD with prior inferior MD with stenting to RCA 2016. Ischemic cardiomyopathy with inferior wall motion abnormality, EF around 40%. History of complete heart block/VT post ICD. Access: 6 Fr right radial artery Catheters: [place], EBU 3.5 guide Findings: LM -normal caliber, no significant disease LAD -medium caliber, 95% acute proximal stenosis with heavy thrombus burden, 80- 90% earlymid stenosis followed by diffuse up to 70% disease extending across takeoff of small D2. Distal vessel without significant disease but ANA I-II flow Circumflex -medium caliber, proximal luminal regularities, 80% focal mid stenosis prior to large OM 2 and LPL. RCA -dominant, medium caliber, 100% chronic occlusion of prior proximal stent. Mid to distal vessel fills via bridging right to right collaterals. Competitive flow in posterior lateral branches with faint [id number] collaterals. LVEDP -11 -- PCI -- Antithrombotic therapy: Heparin, Integrilin, clopidogrel Procedure: Left main cannulated with EBU 3.5 guide Nurse Charge Rn 50 wire placed into second diagonal Whisper wire placed across LAD disease into distal vessel Integrilin started for heavy thrombus burden Erlanger IVUS catheter passed across mid segment disease. IVUS pullback revealed severe diffuse disease extending back to LAD ostium. Minimal left main disease Proximal/mid LAD predilated with 2.5 compliant balloon Latemid LAD across D2 stented with 2.25 x 30 mm Hancock drug-eluting stent Second JONNIE placed to mid LAD (2.5 x 30 mm Khari) overlapped with proximal aspect of initial stent Third JONNIE placed from LAD ostium (3.0 x 26 mm Khari) overlapping with proximal aspect of mid LAD stent Stents post-dilated with 3.25 noncompliant balloon Repeat Erlanger IVUS catheter showed well apposed stents with some residual mid segment underexpansion Mid segment stents postdilated again with 4.0 NC to high atmospheres IC vasodilators administered for spasm Post procedure ANA 3 flow in LAD, stents well expanded with minimal residual stenosis and no apparent cardiac complications. Arterial Closure: TR band Summary: 1. Severe multivessel coronary artery disease -Acute 95% ostial LAD, 80 to 90% earlymid, diffuse late-mid up to 70% 80% focal mid circumflex 100% proximal RCA stent chronic total occlusion with right to right and [id number] collaterals 2. Normal intracardiac filling pressure 3. Successful PCI of ostial to latemid LAD with 3 overlapping drug-eluting stents (3.0 x 26, 2.5 x 30, 2.25 x 30 mm Hancock; postdilated in proximal/mid segment with 4.0 NC). 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 Medical management of RCA chronic total occlusion. Hemodynamics Rest Ao:: 107/62/81 Final Ao: 102/57/74 LV: 98/11 Recommendations Recommendations: PCI without planned CABG Specimens Specimens: None Radiation Exposure (mGy) 2416 Contrast (mls) 170 Fluids (cc crystalloids) Fluids (cc crystalloids): 370 Drains Drains: None Anesthesia Moderate 0548-7943 Procedural Complication(s) None Disposition PCU I attest to the content of the Intraoperative Record and any orders documented therein. Any exceptions are noted below. [facility] Card Cath Procedure Codes Cardiac Catheterization Procedure 1: Cardiovascular Cath Procedures: 67277 Coronaries and LHC (+/-LV) Therapeutic Services & Ancillary Proc Procedure 1: Cardiovascular Tx and Anc Procedures: 75233 IV Ultrasound (Coronary or Graft) Moderate Sedation Procedure 1: Sedation/Anesthesia: 57252 Mod Sedation by the same physician;Init15 Min Child Age 5 & Up Procedure 2: Sedation/Anesthesia: 68984 Mod Sedation by the same physician; Ea [id number] Minutes Stenting Procedure 1: Cardiovascular Stent Procedures: 73741 Perc transluminal revascularization of acute sub/total occl, aMI PG Care Time/CCT Total # of Minutes Spent Total Time Spent with Patient: Total time spent is greater than 50% in coordination of care (as documented) at patient's floor/unit and/or counseling patient:
[2021-11-22] MEDS ORDERED: ONDANSETRON 4 MG OD TAB PO ONE (15:24)
[2021-11-22] MEDS: ONDANSETRON 4 MG OD TAB PO PRN (20:12)
[2021-11-22] MEDS: ROSUVASTATIN CALCIUM 10 MG TAB PO SCH (20:23)
[2021-11-22] MEDS: TAMSULOSIN HCL 0.4 MG CAP PO SCH (20:23)
[2021-11-22] MEDS: EZETIMIBE 10 MG TABLET PO SCH (20:23)
--- NOTE | 2021-11-22 20:25 | Billing Data ---
Date of Service November 22, 2021 Coding Level of Care Code 61554 Initial Inpt Care Lvl 3
[2021-11-22] MEDS: TEMAZEPAM 15 MG CAPSULE PO SCH (20:36)
[2021-11-22] MEDS: MEMANTINE HCL 10 MG TAB PO SCH (20:38)
[2021-11-23] MEDS: ONDANSETRON 4 MG OD TAB PO PRN (06:08)
[2021-11-23 07:12] LABS: Eosinophils # (auto) 0.01 K/uL (0-0.5); Eosinophils % (auto) 0.1 %; Hematocrit (blood only) 38.2 % (42-52); Immature Granulocytes # (auto) 0.06 K/uL (0.00-0.02); Immature Granulocytes % (auto) 0.5 %; Lymphocytes # (auto) 0.63 K/uL (1.2-3.4); Lymphocytes % (auto) 5.4 %; Mean Corpuscular Hemoglobin 31.2 pg (25-34); Mean Corpuscular Volume 91.6 fL (80-100); Mean Platelet Volume 11.1 fL (7.4-10.4); Monocytes # (auto) 1.55 K/uL (0.11-0.59); Monocytes % (auto) 13.4 %; Neutrophils # (auto) 9.36 K/uL (1.4-6.5); Neutrophils % (auto) 80.6 %; Platelet Count 140 K/uL (130-400); RDW Coefficient of Variation 12.7 % (11.5-14.5); RDW Standard Deviation 42.8 fL (36.4-46.3); Red Blood Count 4.17 M/uL (4.7-6.1); White Blood Count 11.61 K/uL (4.8-10.8)
[2021-11-23 07:28] LABS: BUN Creatinine Ratio 20.3 (10-20); Calcium 8.2 mg/dl (8.5-10.1); Creatinine Clr Calc Pharmacy 38.6 ml/min; Est GFR (African American) 53.6 ml/min; Est GFR (Non-African American) 46.3 ml/min; Potassium 4.1 mmol/L (3.5-5.1)
--- NOTE | 2021-11-23 07:49 | Hospitalist Progress Note ---
Date of Service November 23, 2021 Assessment & Plan (1) Abdominal pain: Plan: 86 yo M w/ pMHx. of HTN, HLD, BPH, CKD, GERD, CHF, CAD s/p stent of RCA 2016, colon cancer s/p resection in 2014 and perforation in 2019 presenting with abdominal pain and nausea since 4AM without radiation, shortness of breath, with elevated troponin and dynamic EKG changes concerning for ACS. ACS Atypical chest pain with elevated troponin and dynamic changes seen on EKG Cardiology consulted and underwent catheterization and stent placement - 90% blockage - diffuse ostial to mid LAD (PCI ostial to mid LAD) - 80-90% obstruction of mid circumflex - 100% blockage - proximal RCA w/ right to right collateral - ECHO with severely reduced LV function (EF 20 to 25%), inferior wall akinesis, distal anterior wall and apical akinesis, mild mitral regurg - Per Cardiology 11/23: Continue to monitor on telemetry today Add spironolactone 12.5 mg daily Continue DAPT with aspirin, clopidogrel Continue current carvedilol, Entresto Continue home statin, Zetia Repeat limited echo in a.m. to rule out apical thrombus We will plan for staged PCI of circumflex as an outpatient in 2 weeks Likely home tomorrow with close cardiac follow-up. Discussed daily weights, salt restriction and possible need for PRN Lasix. Cardiac rehab as an outpatient. - on DAPT - continue PRN Nitro, home Statin, home ASA - order for EKG with chest pain - continue to monitor for complications Heart failure - last ECHO w/ EF 38% stable in March - continue Entresto - ECHO as above Colon cancer s/p resection s/p perforation in 2019 - continue to follow abdominal pain BPH - continue home Tamsulosin HTN - continue Carvedilol HLD - continue Rosuvastatin GERD - continue Famotidine Memory loss - continue Memantine Code: full Diet: NPO DVT: SCD's Dispo: PCU, likely DC tomorrow per cardiology (2) Anemia: (3) Prostatic hypertrophy: (4) Ventricular tachycardia (paroxysmal): (5) Hypercholesteremia: (6) Essential hypertension: (7) Allergic rhinitis: (8) Complete heart block: (9) CAD (coronary artery disease): (10) Benign localized prostatic hyperplasia with lower urinary tract symptoms (LUTS): (11) Chronic kidney disease, stage 3a: Admission and Anticipated Discharge Date Admission Date: November 22, 2021 Supervising Physician Co-Signing Physician Notes During face to face encounter with patient, I obtained a physical examination and history of present illness. Plan of care was discussed with Dr. Stevens, and patient. I reviewed above note and agree with it. All of patient's questions were answered. Patient is admitted with abdominal pain however, has elevated trop and history of CAD. NSTEMI ST/P cardiac cath and stents placement. Patient will have staged PCI as an outpatient. Trop elevated. will need to monitor peak. Will likely discharge in AM, if patient is doing well. Subjective Seen at bedside this AM. No acute events overnight. No current complaints. Denying CP, palp, SOB, cough, abd pain, neuro deficits. He did have a bout of nausea treated with zofran and then Compazine. Review of Systems Review of Systems: per subjective Physical Exam Physical Exam: GENERAL: A&Ox3. NAD. HEENT: PERRL, EOMI. Moist mucous membranes. NECK: No JVD. No lymphadenopathy. CHEST/LUNGS: CTAB A/P. No crackles, wheezes, rales, rhonchi. HEART: RRR. No m/g/r. ABDOMEN: NT/ND, soft. BS+ x4 EXTREMITIES: No cyanosis, no clubbing, no edema SKIN: Warm and dry. No rashes or lesions. PSYCHIATRIC: Euthymic affect, no SI, no pressured speech, no hallucinations NEUROLOGIC: No FND. CN II-XII grossly intact. Results & Data Results & Data ([facility]) Vital Signs (Past 12 Hours) Vital Signs Temp Pulse Resp BP Pulse Ox 11/23/21 07:09 36.4 C L 83 16 101/68 92 11/23/21 04:25 36.6 C 86 20 108/72 94 11/22/21 23:47 37 C 83 18 94/58 L 93 11/22/21 19:52 36.6 C 84 18 109/75 95 Resident Activity Tracking Resident Involvement: Resident Care Provided Care Provided: Adult Hospital Medicine
[2021-11-23] MEDS: VALSARTAN/SACUBITRIL 51/49 MG TAB PO SCH ×2 (08:03→20:44)
[2021-11-23] MEDS: ASPIRIN 81 MG ECTAB PO SCH (08:03)
[2021-11-23] MEDS: carvediloL 12.5 MG TAB PO SCH ×2 (08:03→20:44)
[2021-11-23] MEDS: CLOPIDOGREL BISULFATE 75 MG TAB PO SCH (08:03)
[2021-11-23] MEDS: FERROUS SULFATE 325 MG TAB PO SCH (08:04)
[2021-11-23] MEDS: FAMOTIDINE 20 MG TAB PO SCH (08:04)
[2021-11-23] MEDS: MULTIVITAMIN TAB PO SCH (08:05)
[2021-11-23] MEDS ORDERED: ASPIRIN 81 MG ECTAB PO SCH (09:00)
--- NOTE | 2021-11-23 09:06 | Cardiology Progress Note ---
Date of Service November 23, 2021 Assessment & Plan (1) ACS (acute coronary syndrome): Plan: Post PCI to proximal to mid LAD with 3 overlapping JONNIE 2. 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 Ischemic cardiomyopathyEF 20-25% 4. History of VT, complete heart blockpost ICD 5. Stage III CKD 6. Hyponatremia No recurrent anginal symptoms. Troponin has peaked. Hemodynamically and electrically stable No heart failure on exam today No apparent access site complications. Renal function stable Continue to monitor on telemetry today Add spironolactone 12.5 mg daily Continue DAPT with aspirin, clopidogrel Continue current carvedilol, Entresto Continue home statin, Zetia Repeat limited echo in a.m. to rule out apical thrombus We will plan for staged PCI of circumflex as an outpatient in 2 weeks Likely home tomorrow with close cardiac follow-up. Discussed daily weights, salt restriction and possible need for PRN Lasix. Cardiac rehab as an outpatient. Admission and Anticipated Discharge Date Admission Date: November 22, 2021 Subjective Feeling well this morning. Denies any chest pain or abdominal pain. Had some overnight nausea which responded to Zofran. Telemetry reviewedpaced rhythm 80s to 90s. Review of Systems Review of Systems: All systems reviewed & are unremarkable except as noted in HPI & below Physical Exam Physical Exam: General: Comfortable HEENT: Sclerae anicteric, Mask in place Lungs: Clear to auscultation bilaterally, no crackles or wheezes Cardiac: Regular rate and rhythm, no murmurs. Vascular: Right radial artery access site with no ecchymosis, hematoma. Distal pulse and sensation intact. Abdomen: Soft, nontender Extremities: Well perfused, no peripheral edema Neuro: Nonfocal Psych: Alert orient x3, normal affect and mood Results & Data ([facility]) Vital Signs (Past 12 Hours) Vital Signs Temp Pulse Pulse Resp BP Pulse Ox 11/23/21 08:00 85 11/23/21 07:09 97.5 F L 83 16 101/68 92 11/23/21 04:25 97.9 F 86 20 108/72 94 11/22/21 23:47 98.6 F 83 18 94/58 L 93 PG Care Time/CCT Total # of Minutes Spent Total Time Spent with Patient: Total time spent is greater than 50% in coordination of care (as documented) at patient's floor/unit and/or counseling patient: Coding Level of Care Code 59861 Subseq Hosp Care Lvl 3 Diagnoses ACS (acute coronary syndrome) I24.9
[2021-11-23] MEDS ORDERED: PROCHLORPERAZINE 5 MG in SYRINGE 4 ML IV PRN (10:13)
[2021-11-23] MEDS: SPIRONOLACTONE 12.5 MG TAB PO SCH (10:49)
--- NOTE | 2021-11-23 20:38 | Billing Data ---
Date of Service November 23, 2021 Coding Level of Care Code 90275 Subseq Hosp Care Lvl 2
[2021-11-23] MEDS: TEMAZEPAM 15 MG CAPSULE PO SCH (20:43)
[2021-11-23] MEDS: TAMSULOSIN HCL 0.4 MG CAP PO SCH (20:43)
[2021-11-23] MEDS: EZETIMIBE 10 MG TABLET PO SCH (20:44)
[2021-11-23] MEDS: ROSUVASTATIN CALCIUM 10 MG TAB PO SCH (20:44)
[2021-11-23] MEDS: MEMANTINE HCL 10 MG TAB PO SCH (20:47)
[2021-11-24 07:17] LABS: Hematocrit (blood only) 33.5 % (42-52); Hemoglobin 11.6 g/dL (14.0-18.0); Mean Corpuscular Hemoglobin 31.4 pg (25-34); Mean Corpuscular Hgb Conc 34.6 g/dL (32-36); Mean Corpuscular Volume 90.8 fL (80-100); Mean Platelet Volume 10.8 fL (7.4-10.4); Platelet Count 130 K/uL (130-400); RDW Coefficient of Variation 12.8 % (11.5-14.5); RDW Standard Deviation 42.5 fL (36.4-46.3); Red Blood Count 3.69 M/uL (4.7-6.1); White Blood Count 11.35 K/uL (4.8-10.8)
[2021-11-24 07:43] LABS: BUN Creatinine Ratio 23.8 (10-20); Calcium 8.2 mg/dl (8.5-10.1); Creatinine Clr Calc Pharmacy 33.4 ml/min; Est GFR (African American) 45.2 ml/min; Potassium 4.3 mmol/L (3.5-5.1)
[2021-11-24 07:45] LABS: Immature Granulocytes # (auto) 0.07 K/uL (0.00-0.02); Immature Granulocytes % (auto) 0.6 %; Lymphocytes # (auto) 1.24 K/uL (1.2-3.4); Lymphocytes % (auto) 10.9 %; Monocytes # (auto) 0.99 K/uL (0.11-0.59); Monocytes % (auto) 8.7 %; Neutrophils # (auto) 9.05 K/uL (1.4-6.5); Neutrophils % (auto) 79.8 %
--- NOTE | 2021-11-24 07:57 | Discharge Summary ---
Date of Service November 24, 2021 Admission HPI Per Admitting Provider Alphonso Villavicencio has a past medical history of hypertension, hyperlipidemia, GERD, BPH, CKD, CHF, CAD s/p stent of RCA 2016, colon cancer s/p resection in 2014 and complicated by perforation in 2019 presents with abdominal pain. He came to the ER via ambulance for abdominal pain that started at 4 AM along with cold sweats and nausea. He does not remember if he had similar pain when he had a heart attack or when he had a bowel perforation. He took nitro at home for concern of a cardiac origin of the pain without improvement. It is unclear if the pain was worse with activity. Since coming to the ER he has had improvement in his pain and rates it currently at a 6/10 as a discomfort in his lower abdomen. He had stents placed in his RCA on 05/22/17 with readmit on 05/28/17 for syncope complicated by complete heart block requiring CPR and transcutaneous pacing as well as ventricular tachycardia s/p ICD 05/30/17 complicated by lead rupture and cardiac effusion (no intervention required). He follows with Dr. Mak locally for cardiology as well as [facility] where [facility] had a [facility] visit. Most recent ECHO from [facility] notes was April 09 with stable EF at 38%. Principal Diagnosis Acute coronary syndrome Discharge Exam GENERAL: A&Ox3. NAD. CHEST/LUNGS: CTAB A/P. No crackles, wheezes, rales, rhonchi. HEART: RRR. No m/g/r. EXTREMITIES: No cyanosis, no clubbing, no edema SKIN: Warm and dry. No rashes or lesions. PSYCHIATRIC: Euthymic affect, no SI, no pressured speech, no hallucinations NEUROLOGIC: No FND. CN II-XII grossly intact. Discharge Data Allergies Allergy/AdvReac Type Severity Reaction Status Date / Time oxycodone Allergy Mild CANT Verified 11/22/21 07:33 REMEMBER JUST HAD BAD REACTION amlodipine Allergy Unknown UNKNOWN Verified 11/22/21 07:33 codeine Allergy Unknown UNKNOWN Verified 11/22/21 07:33 lisinopril Allergy Unknown UNKNOWN Verified 11/22/21 07:33 Consultations 11/22/21 07:57 ED Decision to Admit Stat 11/22/21 11:58 Consult Cardiac Rehabilitation Routine 11/22/21 12:22 Consult Cardiology Routine Procedures Performed Operation Date: 11/22/21 09:30 Actual Procedures s Cineradiography w/Routine Exam - Jim Singh MD s Cath, Left with Cors and Vent - Jim Singh MD s IVUS Coronary Single Vessel - Jim Singh MD p Drug Eluting Stent SGl Vessel - Jim Singh MD Ordered Studies 11/22/21 09:30 CL Cath Imgs for PACS use only Stat 11/22/21 11:33 CL IVUS Coronary Single Vessel Stat Hospital Course (1) Abdominal pain: 86 yo M w/ pMHx. of HTN, HLD, BPH, CKD, GERD, CHF, CAD s/p stent of RCA 2016, colon cancer s/p resection in 2014 and perforation in 2019 presenting with abdominal pain and nausea since 4AM without radiation, shortness of breath, with elevated troponin and dynamic EKG changes concerning for ACS. ACS Atypical chest pain with elevated troponin and dynamic changes seen on EKG Cardiology consulted and underwent catheterization and stent placement - 90% blockage - diffuse ostial to mid LAD (PCI ostial to mid LAD) - 80-90% obstruction of mid circumflex - 100% blockage - proximal RCA w/ right to right collateral - ECHO with severely reduced LV function (EF 20 to 25%), inferior wall akinesis, distal anterior wall and apical akinesis, mild mitral regurg - Per Cardiology: - Continue current medications including rosuvastatin, Entresto, carvedilol, clopidogrel, aspirin and spironolactone. - We will refer to cardiac rehab - Follow-up in the outpatient setting in 1-2 weeks - Refrain from vigorous use of the right wrist or arm for 1 week Heart failure - last ECHO w/ EF 38% stable in March - continue Entresto, carvedilol at DC - ECHO as above Colon cancer s/p resection s/p perforation in 2019 - Arrived to ED with abd pain but resolved with cardiac intervention BPH - continue home Tamsulosin HTN - continue Carvedilol HLD - continue Rosuvastatin GERD - continue Famotidine Memory loss - continue Memantine Dispo: Home - Self care, Cardio/PCP f/u, Cardiac rehab as outpt (2) Anemia: (3) Prostatic hypertrophy: (4) Ventricular tachycardia (paroxysmal): (5) Hypercholesteremia: (6) Essential hypertension: (7) Allergic rhinitis: (8) Complete heart block: (9) CAD (coronary artery disease): (10) Benign localized prostatic hyperplasia with lower urinary tract symptoms (LUTS): (11) Chronic kidney disease, stage 3a: Total Time Total Time Spent Total Time Spent (In Minutes): See attending attestation Discharge Plan Discharge Items Patient Disposition: Home - Self-Care Reason For Visit: ABDOMINAL PAIN Discharge Diagnosis: Acute coronary syndrome Activity: Per Instructions section Non-emergency contact: Primary Care Provider and Elevator Service Mechanic Call non-emergency contact if: you have any medication questions and your symptoms worsen Follow-up/Referrals: Jim Singh MD [Physician] - Austin Merino MD [Primary Care Provider] - Diet: Heart Healthy Addtl Attending Provider Instructions: You came to [facility] due to abdominal pain. Upon evaluation in the emergency room you were found to have a severely elevated troponin, indicative of an acute myocardial infarction. As such, you were admitted and cardiology was consulted on your case. They recommended catheterization. During this procedure you were found to have blockages of several of your coronary arteries. You had 3 stents placed to the LAD, but there were also findings of blockages in 2 other arteries. The canvas baster recommended following up as an outpatient for further percutaneous intervention of those blockages. You should continue to take all your prescribed medications. Additionally, you should start taking Plavix 75 mg daily and spironolactone 12.5 mg (half of one 25mg pill) daily. Your station operator recommended refraining from vigorous use of your right wrist or arm for 1 week. Please follow-up with your station operator within 1 to 2 weeks and with your PCP for discussion of your hospitalization and continued management of your chronic conditions. If you develop any severe, concerning symptoms such as chest pain, palpitations, significant shortness of breath, severe abdominal pain, intractable nausea or vomiting, or any other symptoms that are of significant concern to you, please return to the emergency department for further evaluation. Thank you for allowing us to participate in your care. Pending Studies at Discharge: No Stand-Alone Forms: My [facility], Smoking Cessation Medications and DC Order Prescriptions: New clopidogrel 75 mg Tablet 75 mg PO QAM 30 Days Qty: 30 RF: 0 spironolactone 25 mg Tablet 12.5 mg PO DAILY 30 Days Qty: 15 RF: 0 Hold Instructions: Home Medication placed on hold at Doctor's office Continued nitroglycerin 0.4 mg tablet, sublingual 0.4 mg SL Q5M PRN (Reason: chest pain) Qty: 30 RF: 3 carvedilol 12.5 mg tablet 12.5 mg PO BID Qty: 180 RF: 3 Entresto 49-51 mg tablet 1 tab PO BID Qty: 180 RF: 3 Hold Instructions: Home Medication placed on hold at Doctor's office tamsulosin 0.4 mg capsule 0.8 mg PO PM RF: 0 multivitamin [Daily Multi-Vitamin] tablet 1 tab PO QAM RF: 0 ezetimibe 10 mg tablet 10 mg PO PM Qty: 90 RF: 0 rosuvastatin 10 mg tablet 10 mg PO PM RF: 0 temazepam 15 mg capsule 15 mg PO PM RF: 0 coenzyme Q10 200 mg capsule 200 mg PO QAM RF: 0 memantine 10 mg tablet 10 mg PO HS RF: 0 famotidine [Pepcid] 20 mg tablet 20 - 40 mg PO DAILY PRN (Reason: gerd) RF: 0 aspirin 81 mg Tablet,Delayed Release (Dr/Ec) 81 mg PO QAM RF: 0 PreserVision AREDS-2 250-90-40-1 mg Capsule 1 tab PO BID RF: 0 ferrous sulfate 325 mg (65 mg iron) Tablet 325 mg PO QAM RF: 0 No Action furosemide 20 mg tablet 20 mg PO DAILY Qty: 30 RF: 2 Discharge Orders: Discharge Order (Routine); Ordered 11/24/21 Ordered By: Bob Cote/Other Patient Handouts: Having Cardiac Catheterization, Cardiac Catheterization Dc Admission Data Admit Date/Time: 11/22/21 08:38 Attending Provider: William Monteiro Admit Provider: William Monteiro Primary Care Provider: Austin Merino Other Providers: Jim Singh ; William Monteiro Other Interventions: Discharge Summary Assessment (RN) Last Done: 11/24/21 14:40 Supervising Physician Co-Signing Physician Notes During face to face encounter with patient, I obtained a physical examination and history of hospital stay. Plan of care was discussed with Dr. Chaparro, and patient. I reviewed above note and agree with it. All of patient's questions were answered. Patient is admitted with abdominal pain however, has elevated trop and history of CAD. NSTEMI ST/P cardiac cath and stents placement. Patient will have staged PCI as an outpatient. Trop elevated and peaked at >200 Cardiac recommendations as above. Resident Activity Tracking Resident Involvement: Resident Care Provided Care Provided: Adult Hospital Medicine
[2021-11-24] MEDS: CLOPIDOGREL BISULFATE 75 MG TAB PO SCH (08:36)
[2021-11-24] MEDS: FAMOTIDINE 20 MG TAB PO SCH (08:36)
[2021-11-24] MEDS: SPIRONOLACTONE 12.5 MG TAB PO SCH (08:36)
[2021-11-24] MEDS: MULTIVITAMIN TAB PO SCH (08:36)
[2021-11-24] MEDS: ASPIRIN 81 MG ECTAB PO SCH (08:36)
[2021-11-24] MEDS: FERROUS SULFATE 325 MG TAB PO SCH (08:36)
[2021-11-24] MEDS: VALSARTAN/SACUBITRIL 51/49 MG TAB PO SCH (08:36)
[2021-11-24] MEDS ORDERED: FUROSEMIDE INJ 20 MG/2 ML VIAL IV ONE (08:55)
--- NOTE | 2021-11-24 09:04 | XCELERA ---
[id number]
--- NOTE | 2021-11-24 09:46 | Cardiology Progress Note ---
Date of Service November 24, 2021 Assessment & Plan (1) ACS (acute coronary syndrome): Plan: Post PCI to proximal to mid LAD with 3 overlapping JONNIE 2. 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 Ischemic cardiomyopathyEF 20-25% 4. History of VT, complete heart blockpost ICD 5. Stage III CKD 6. Hyponatremia No recurrent anginal symptoms. Troponin has peaked. Hemodynamically and electrically stable No heart failure on exam today No apparent access site complications. Renal function stable Continue current medications including rosuvastatin, Entresto, carvedilol, clopidogrel, aspirin and spironolactone. We will refer to cardiac rehab Follow-up in the outpatient setting in 1-2 weeks Refrain from vigorous use of the right wrist or arm for 1 week Admission and Anticipated Discharge Date Admission Date: November 22, 2021 Subjective This morning the patient claims to be feeling well. He did not report dyspnea with ambulation or at rest. No recurrent chest pain. He denies dizziness or lightheadedness with ambulation. No discomfort at the right wrist access site. Good function of the right hand. Review of Systems Review of Systems: Per HPI Physical Exam Physical Exam: The patient is alert and oriented. Mood and affect appeared normal. He answered all questions appropriately. HEENT: Pupils are equal and reactive to light and accommodation. Extraocular movements are intact. The sclerae are anicteric. Neuro: Cranial nerves intact Lungs: Clear to auscultation bilaterally. He has good air movement without use of accessory muscles. No rales wheezes or rhonchi. Cardiac: Heart demonstrates a regular rate and rhythm. Normal S1 and S2. No murmurs on examination. Pulses: The patient has palpable radial pulses bilaterally that are equal in intensity. good perfusion of the right hand Extremities: There was no evidence of hypoperfusion. There is no cyanosis or clubbing. There is no edema. Skin: I did not appreciate any rashes on examination today. Results & Data ([facility]) Vital Signs (Past 12 Hours) Vital Signs Temp Pulse Pulse Resp BP Pulse Ox 11/24/21 08:31 86 96/62 L 11/24/21 08:00 85 11/24/21 07:01 36.9 C 84 18 91/59 L 94 11/24/21 03:37 36.7 C 89 19 94/60 L 90 11/23/21 23:48 37.0 C 86 19 102/70 91 Laboratory Results Abnormal Lab Results 11/24/21 11/24/21 06:54 06:54 WBC 11.35 H RBC 3.69 L Hgb 11.6 L Hct 33.5 L MCV 90.8 MCH 31.4 MCHC 34.6 RDW Std Deviation 42.5 RDW Coeff of Sonia 12.8 Plt Count 130 MPV 10.8 H Immature Gran % (Auto) 0.6 Neut % (Auto) 79.8 Lymph % (Auto) 10.9 Stearns % (Auto) 8.7 Eos % (Auto) 0.0 Baso % (Auto) 0.0 Neut # (Auto) 9.05 H Lymph # (Auto) 1.24 Stearns # (Auto) 0.99 H Eos # (Auto) 0.00 Baso # (Auto) 0.00 Immature Gran # (Auto) 0.07 H Sodium 128 L Potassium 4.3 Chloride 97 L Carbon Dioxide 24 Anion Gap 7.0 BUN 38 H Creatinine 1.59 H Est Cr Clr Drug Dosing 33.4 Est GFR ( Amer) 45.2 Est GFR (Non-Af Amer) 39.0 BUN/Creatinine Ratio 23.8 H Glucose 149 H Calcium 8.2 L PG Care Time/CCT Total # of Minutes Spent Total Time Spent with Patient: Total time spent is greater than 50% in coordination of care (as documented) at patient's floor/unit and/or counseling patient: Coding Level of Care Code 86523 Subseq Hosp Care Lvl 2 Diagnoses ACS (acute coronary syndrome) I24.9
[2021-11-24] MEDS: carvediloL 12.5 MG TAB PO SCH (09:55)
[2021-11-24 12:43] VITALS: TEMP 98.2; O2SAT 97
--- NOTE | 2021-11-24 13:09 | Electrocardiogram Report ---
Test Reason : Blood Pressure : / mmHG Vent. Rate : 085 BPM Atrial Rate : 085 BPM P-R Int : 176 ms QRS Dur : 202 ms QT Int : 474 ms P-R-T Axes : 027 -84 091 degrees QTc Int : 564 ms Poor data quality, interpretation may be adversely affected Atrial-sensed ventricular-paced rhythm Abnormal ECG When compared with ECG of 23-NOV-2021 08:25, Vent. rate has decreased BY 13 BPM Confirmed by Kenyon Buckner ([id number]) on 11/24/2021 1:08:42 PM Referred By: REFERRED SELF Confirmed By:Kenyon Buckner
[2021-11-24 14:42] VITALS: BP 109/77
[2021-11-24 15:37] VITALS: PULSE 83
--- NOTE | 2021-11-28 14:20 | Billing Data ---
Date of Service November 24, 2021 Coding Level of Care Code D/C DAY MANAGEMENT >30 MINS Time Spent (min) 32
--- NOTE | 2021-12-08 07:23 | Coding Query ---
CODING QUERY To promote full compliance with coding requirements relating to patient care, provider participation is requested in all cases of urogynaecologist uncertainty. Please assist us with the question(s) below: Coding Question(s): Pt admitted with chest pain. Cardiac Cath and PCI done. 100% occlusion RCA. DS documented acute coronary syndrome and NSTEMI . Cardiac Cath documented NSTEMI as presenting symptom . Seeking diagnosis, after study responsible for patient's inpatient stay /PCI. Please check below. Thank you . Thanh Olivier [facility] Physician's Response(s): ___x acute coronary syndrome NSTEMI Cannot clinically correlate if acute coronary syndrome or NSTEMI was treated Other: Please document: Principal Diagnosis: "that condition established after study, to be chiefly responsible for occasioning the admission of the patient to the hospital for care." Co-Existing Principal Diagnosis: "when two or more diagnoses equally meet the criteria for principal diagnosis as determined by the circumstances of admission, diagnostic work up, and/or therapy provided, and the Alphabetic Index, Tabular List, or another coding guideline does not provide sequencing direction, any one of the diagnoses may be sequenced first." "When the physician has documented what appears to be a current diagnosis in the body of the record, but has not included the diagnosis in the final diagnostic statement, the physician should be asked whether the diagnosis should be added." (Source Coding Clinic 2 QTR90. p3-4) APPLE
== END 2021-11-24 15:43 | disposition home or self-care (01) | DRG 247 ==
LOC: ED 06:14 → 2S 08:38

== ENCOUNTER 2021-11-29 16:20 | Inpatient (IN) ==
--- NOTE | 2021-11-29 16:51 | XRay Report ---
XR chest 1V portable CLINICAL HISTORY: Difficulty breathing. Evaluate for congestive heart failure.. COMPARISON STUDY: 11/22/2021 TECHNIQUE: 1 view of the chest FINDINGS: Single frontal view of the chest demonstrates the heart to again be enlarged with an ICD pacer in moises ce. Compared to previous examination, there is no evidence of central vascular congestion. No periphe ral interstitial edema is seen. There is no evidence for pleural effusion. No confluent alveolar opac ities are identified. There is no acute osseous pathology. IMPRESSION: Interval development of mild central vascular congestion characteristic of early cardiac decompensation and mild congestive heart failure. No peripheral interstitial edema is seen. ACT 112: Negative or not required by law. Electronically signed by: Az Smallwood M.D. 11/29/2021 4:49 PM
[2021-11-29 19:22] LABS: Eosinophils # (auto) 0.01 K/uL (0-0.5); Eosinophils % (auto) 0.1 %; Hemoglobin 12.2 g/dL (14.0-18.0); Immature Granulocytes # (auto) 0.13 K/uL (0.00-0.02); Immature Granulocytes % (auto) 1.7 %; Lymphocytes # (auto) 0.51 K/uL (1.2-3.4); Lymphocytes % (auto) 6.6 %; Mean Corpuscular Hemoglobin 31.4 pg (25-34); Mean Corpuscular Hgb Conc 34.9 g/dL (32-36); Mean Platelet Volume 11.5 fL (7.4-10.4); Monocytes # (auto) 0.79 K/uL (0.11-0.59); Monocytes % (auto) 10.2 %; Neutrophils # (auto) 6.31 K/uL (1.4-6.5); Neutrophils % (auto) 81.4 %; Platelet Count 200 K/uL (130-400); RDW Coefficient of Variation 12.8 % (11.5-14.5); RDW Standard Deviation 41.5 fL (36.4-46.3); Red Blood Count 3.89 M/uL (4.7-6.1); White Blood Count 7.75 K/uL (4.8-10.8)
[2021-11-29 19:33] LABS: iSTAT Hemoglobin 11.9 g/dl (14.0-18.0); iSTAT Ionized Calcium 1.07 mmol/l (1.12-1.32)
--- NOTE | 2021-11-29 19:48 | Emergency Department Note ---
Impression & Plan SOB (shortness of breath), Hypotension, CHF (congestive heart failure), Acute hyponatremia ED Provider Note NAME: BREA HENRY AGE: 86 SEX: M : 1935 ARRIVES VIA: Walk-In INFORMANT: [Patient][family] ED PROVIDER(S): [Ed Pabon MD] CHIEF COMPLAINT: Cardiac assessment HISTORY OF PRESENT ILLNESS: The patient is an 86-year-old male who presents to the ER with weakness and shortness of breath. The patient had 3 coronary stents placed about a week ago. He has been having increasing symptoms since. They have been trying to diurese him as an outpatient however, he is not improving. He has gained almost 20 pounds in just a week. The patient was sent to the ED today by his heater tender. He requires a hospitalization for IV diuresis and care. There has been no fever, he is coughing but this is baseline. No chest pain. He states his weakness is generalized, not one-sided. He does not think his diuretics are causing him to urinate any more than baseline. The patient is vaccinated for COVID-19 x3, he has had his flu vaccination as well. REVIEW OF SYSTEMS: See HPI for pertinent positives and negatives. A total of ten systems were reviewed and were otherwise negative. PMHx/PSHx: See Below SOCIAL HISTORY: See Below. PHYSICAL EXAM: GENERAL: Patient is in no acute distress. HEENT: No acute trauma, normocephalic atraumatic, mucous membranes moist, no nasal congestion, no scleral icterus. NECK: No stridor, no adenopathy, no meningismus, trachea is midline. LUNGS: Clear to auscultation bilaterally, no wheeze, no rhonchi, breath sounds equal. HEART: Without murmurs gallops or rubs, regular rate and rhythm. ABDOMEN: Soft, nontender, bowel sounds positive, no hernias, no peritonitis. EXTREMITIES: No cyanosis, mild bilateral pedal edema, full range of motion of all the joints without pain or difficulty, no signs for acute trauma. NEUROLOGIC: Oriented x 3, no acute motor or sensory deficits, no focal weakness. SKIN: No rash, no jaundice, no diaphoresis. DIFFERENTIAL DIAGNOSIS: Infection, dehydration, metabolic abnormality, CHF, COVID-19, influenza, hypo/hyperglycemia, electrolyte disturbance, anemia, hypoxia, cardiac sources, intracerebral event, stroke, TIA, as well as other pathologies. EMERGENCY DEPARTMENT COURSE/PROCEDURES: ECG: Indication was shortness of breath. The ECG shows a ventricular pacemaker with a rate of 68. There is no obvious ST elevation, no PVCs. The QTC is 548. Continuous Cardiac Monitoring: An order was placed for continuous cardiac monitoring. The monitor shows a rate of 67 with a ventricular pacemaker. Critical Care Note: I have personally spent 39 minutes of critical care time in the direct management of this patient. This includes bedside care, interpretation of diagnostic studies, and testing, discussion with consultants, patient, and family members, and other required patient management activities. This 39 minutes is in excess of all separately billable procedures. MEDICAL DECISION MAKING: There is no leukocytosis. The patient does have a mild anemia. There is a normal platelet count. Sodium is low at 120. Chloride is low at around 87. There is some elevation to the creatinine at 1.97. No concerning liver enzyme e levation. BNP is quite high at over 35,000. Troponin is elevated at 9.8 however, this value is quite a bit less than the value from a week ago when he was hospitalized for an MS and coronary stenting. Patient appears to be in a euthyroid state. COVID testing is negative. Chest x-ray does show some mild CHF, no pneumonia. ECG shows a ventricular pacemaker. On exam, the patient was not hypoxic. He was borderline hypotensive. The patient presents with weight gain, shortness of breath and fatigue. He is hyponatremic and in some mild CHF. Attempts have been made as an outpatient to get him feeling better however, these attempts have failed. He was sent to the hospital by cardiology for hospitalization. I did speak with the patient about his findings, I spoke with the community case manager. The on-call hospitalist was consulted. Past Med/Surg History Medical History BPH (benign prostatic hyperplasia) CAD (coronary artery disease) CHF (congestive heart failure) Chronic kidney disease, stage 3a GERD (gastroesophageal reflux disease) Hearing deficit [facility] History of colon polyps History of complete heart block History of myocardial infarction 1996, 2016 History of ventricular tachycardia HLD (hyperlipidemia) HTN (hypertension) ICD (implantable cardioverter-defibrillator) in place Dual-chamber Medtronic; 2019; [facility]; last check 2 weeks ago Ischemic cardiomyopathy Osteoarthritis Poor historian Surgical History H/O heart artery stent pt unsure of amt. 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 Beliefs That Will Affect Care: None marital status: Current Living Situation: Spouse current occupational status: retired Feels Safe at Home: Yes Assistive Devices: None Allergies Allergies Allergy/AdvReac Type Severity Reaction Status Date / Time oxycodone Allergy Mild CANT Verified 11/29/21 20:50 REMEMBER JUST HAD BAD REACTION amlodipine Allergy Unknown UNKNOWN Verified 11/29/21 20:50 codeine Allergy Unknown UNKNOWN Verified 11/29/21 20:50 lisinopril Allergy Unknown UNKNOWN Verified 11/29/21 20:50 Home Meds Home Medications Medication Instructions Recorded Confirmed coenzyme Q10 200 mg capsule 200 mg PO QAM cap 07/03/19 11/29/21 ezetimibe 10 mg tablet 10 mg PO PM #90 tab 07/03/19 11/29/21 multivitamin (Daily Multi-Vitamin) 1 tab PO QAM 07/03/19 11/29/21 rosuvastatin 10 mg tablet 10 mg PO PM tab 07/03/19 11/29/21 tamsulosin 0.4 mg capsule 0.8 mg PO PM cap 07/03/19 11/29/21 temazepam 15 mg capsule 15 mg PO PM cap 07/03/19 11/29/21 aspirin 81 mg tablet,delayed 81 mg PO QAM 12/27/19 11/29/21 release famotidine 20 mg tablet (Pepcid) 20 - 40 mg PO DAILY PRN tab 02/22/21 11/29/21 memantine 10 mg tablet 10 mg PO HS 06/09/21 01/10/22 ferrous sulfate 325 mg (65 mg 325 mg PO QAM 11/22/21 11/29/21 iron) tablet vit C 250 mg-vit E 90 mg-zinc 40 1 tab PO BID 11/22/21 11/29/21 mg-copper 1 [id number] capsule (PreserVision AREDS-2) Previous Rx's Medication Instructions Recorded nitroglycerin 0.4 mg sublingual 0.4 mg SL Q5M PRN #30 tab 12/23/20 tablet carvedilol 12.5 mg tablet 12.5 mg PO BID #180 tab 04/16/21 sacubitril 49 mg-valsartan 51 mg 1 tab PO BID #180 tab 07/02/21 tablet (Entresto) clopidogrel 75 mg tablet 75 mg PO QAM 30 Days #30 tab 11/24/21 furosemide 20 mg tablet 20 mg PO DAILY #30 tab 11/26/21 Results & Data (ED) Vital Signs Vital Signs - 24 hr 11/29/21 16:34 11/29/21 20:18 11/29/21 20:20 Temperature 36.4 C L Temperature Source Oral Pulse Rate 62 67 67 Pulse Rate [Bilateral Apical] Pulse Rate from SpO2 Sensor 64 Pulse Rhythm Regular Pulse Strength Normal Respiratory Rate 20 18 16 Respiratory Effort / Characteristics Non-Labored Spontaneous Respiratory Depth Normal Respiratory Pattern Regular Blood Pressure 97/69 L Blood Pressure [Left Arm] Blood Pressure Mean 78 Blood Pressure Mean [Left Arm] Pulse Oximetry 95 90 98 Oxygen Delivery Method Room Air Room Air Sepsis Recent Fever Within 48 Hours No Sepsis New/Unexplained Change in Mental Status N/A Sepsis Action Taken by Nursing No Action Required 11/29/21 20:30 11/29/21 20:40 11/29/21 20:45 Temperature Temperature Source Pulse Rate 65 65 67 Pulse Rate [Bilateral Apical] Pulse Rate from SpO2 Sensor 68 Pulse Rhythm Pulse Strength Respiratory Rate 12 12 14 Respiratory Effort / Characteristics Respiratory Depth Respiratory Pattern Blood Pressure 93/63 L 96/66 L Blood Pressure [Left Arm] Blood Pressure Mean 73 76 Blood Pressure Mean [Left Arm] Pulse Oximetry 99 99 97 Oxygen Delivery Method Room Air Room Air Room Air Sepsis Recent Fever Within 48 Hours Sepsis New/Unexplained Change in Mental Status Sepsis Action Taken by Nursing 11/29/21 20:50 11/29/21 21:00 11/29/21 22:54 Temperature Temperature Source Pulse Rate 68 67 Pulse Rate [Bilateral Apical] 67 Pulse Rate from SpO2 Sensor Pulse Rhythm Pulse Strength Respiratory Rate 16 22 20 Respiratory Effort / Characteristics Non-Labored Respiratory Depth Normal Respiratory Pattern Blood Pressure 99/66 L Blood Pressure [Left Arm] 91/50 L Blood Pressure Mean 77 Blood Pressure Mean [Left Arm] 63 Pulse Oximetry 97 94 Oxygen Delivery Method Room Air Room Air Sepsis Recent Fever Within 48 Hours Sepsis New/Unexplained Change in Mental Status Sepsis Action Taken by Correction Medications Current Medication List: was personally reviewed by me Laboratory Data Attestation: I reviewed the patient's lab results. Result diagrams: 11/29/21 19:12 11/29/21 19:12 Lab Results 11/29/21 11/29/21 11/29/21 Range/Units 19:12 19:12 19:19 WBC 7.75 (4.8-10.8) K/uL RBC 3.89 L (4.7-6.1) M/uL Hgb 12.2 L (14.0-18.0) g/dL POC Hgb 11.9 L (14.0-18.0) g/dl Hct 35.0 L (42-52) % POC Hct 35 L (42-52) % MCV 90.0 (80-100) fL MCH 31.4 (25-34) pg MCHC 34.9 (32-36) g/dL RDW Std Deviation 41.5 (36.4-46.3) fL RDW Coeff of Sonia 12.8 (11.5-14.5) % Plt Count 200 (130-400) K/uL MPV 11.5 H (7.4-10.4) fL Immature Gran % (Auto) 1.7 % Neut % (Auto) 81.4 % Lymph % (Auto) 6.6 % Haskell % (Auto) 10.2 % Eos % (Auto) 0.1 % Baso % (Auto) 0.0 % Neut # (Auto) 6.31 (1.4-6.5) K/uL Lymph # (Auto) 0.51 L (1.2-3.4) K/uL Haskell # (Auto) 0.79 H (0.11-0.59) K/uL Eos # (Auto) 0.01 (0-0.5) K/uL Baso # (Auto) 0.00 (0-0.2) K/uL Immature Gran # (Auto) 0.13 H (0.00-0.02) K/uL POC Sodium 120 L (135-144) mmol/L Sodium 119 L* (136-145) mmol/L POC Potassium 5.0 (3.3-5.0) mmol/L Potassium 4.9 (3.5-5.1) mmol/L POC Chloride 89 L (101-112) mmol/L Chloride 87 L (98-107) mmol/L Carbon Dioxide 22 (21-32) mmol/L POC Total CO2 23 L (24-31) mmol/L Anion Gap 10.0 (3-11) POC Anion Gap 14.0 L (16-25) mmol/L POC BUN 57 H (7-18) mg/dl BUN 60 H (7-18) mg/dl Creatinine 1.97 H (0.6-1.4) mg/dl POC Creatinine 2.0 H (0.6-1.3) mg/dl Est Cr Clr Drug Dosing 25.6 ml/min Est GFR ( Amer) 34.9 ml/min Est GFR (Non-Af Amer) 30.1 ml/min BUN/Creatinine Ratio 30.6 H (10-20) Glucose 162 H (70-99) mg/dl POC Glucose (other) 163 H (70-99) mg/dl Calcium 9.0 (8.5-10.1) mg/dl POC Ioniz Calcium Manish 1.07 L (1.12-1.32) mmol/l Magnesium 3.0 H (1.8-2.4) mg/dl Total Bilirubin 0.4 (0.2-1) mg/dl AST 56 H (15-37) U/L ALT 77 (12-78) Alkaline Phosphatase 117 (45-117) U/L Troponin I 9.840 H* (0-0.045) ng/ml NT-Pro-B Natriuret Pep > 13038 H (0-1800) pg/ml Total Protein 7.3 (6.4-8.2) gm/dl Albumin 3.4 (3.4-5.0) gm/dl Globulin 3.9 (2.5-4.0) gm/dl Albumin/Globulin Ratio 0.9 (0.9-2) TSH 3.010 (0.300-4.500) uIu/ml SARS-CoV-2, RNA, NAAT (NEGATIVE) 11/29/21 Range/Units 20:06 WBC (4.8-10.8) K/uL RBC (4.7-6.1) M/uL Hgb (14.0-18.0) g/dL POC Hgb (14.0-18.0) g/dl Hct (42-52) % POC Hct (42-52) % MCV (80-100) fL MCH (25-34) pg MCHC (32-36) g/dL RDW Std Deviation (36.4-46.3) fL RDW Coeff of Sonia (11.5-14.5) % Plt Count (130-400) K/uL MPV (7.4-10.4) fL Immature Gran % (Auto) % Neut % (Auto) % Lymph % (Auto) % Haskell % (Auto) % Eos % (Auto) % Baso % (Auto) % Neut # (Auto) (1.4-6.5) K/uL Lymph # (Auto) (1.2-3.4) K/uL Haskell # (Auto) (0.11-0.59) K/uL Eos # (Auto) (0-0.5) K/uL Baso # (Auto) (0-0.2) K/uL Immature Gran # (Auto) (0.00-0.02) K/uL POC Sodium (135-144) mmol/L Sodium (136-145) mmol/L POC Potassium (3.3-5.0) mmol/L Potassium (3.5-5.1) mmol/L POC Chloride (101-112) mmol/L Chloride (98-107) mmol/L Carbon Dioxide (21-32) mmol/L POC Total CO2 (24-31) mmol/L Anion Gap (3-11) POC Anion Gap (16-25) mmol/L POC BUN (7-18) mg/dl BUN (7-18) mg/dl Creatinine (0.6-1.4) mg/dl POC Creatinine (0.6-1.3) mg/dl Est Cr Clr Drug Dosing ml/min Est GFR ( Amer) ml/min Est GFR (Non-Af Amer) ml/min BUN/Creatinine Ratio (10-20) Glucose (70-99) mg/dl POC Glucose (other) (70-99) mg/dl Calcium (8.5-10.1) mg/dl POC Ioniz Calcium Manish (1.12-1.32) mmol/l Magnesium (1.8-2.4) mg/dl Total Bilirubin (0.2-1) mg/dl AST (15-37) U/L ALT (12-78) Alkaline Phosphatase (45-117) U/L Troponin I (0-0.045) ng/ml NT-Pro-B Natriuret Pep (0-1800) pg/ml Total Protein (6.4-8.2) gm/dl Albumin (3.4-5.0) gm/dl Globulin (2.5-4.0) gm/dl Albumin/Globulin Ratio (0.9-2) TSH (0.300-4.500) uIu/ml SARS-CoV-2, RNA, NAAT NEGATIVE (NEGATIVE) Administered Medications Discontinued Medications Furosemide (Furosemide Inj 20 Mg/2 Ml Vial) 20 mg IV ONE ONE Stop: 11/29/21 21:57 Last Admin: 11/29/21 22:51 Dose: 20 mg Documented by: [id number] Furosemide (Furosemide 40 Mg/4 Ml Vial) Confirm Administered Dose 40 mg IV .STK- MED ONE Stop: 11/29/21 22:49 Last Admin: 11/29/21 22:52 Dose: Not Given Documented by: [id number] Imaging Data Radiologist's Impression: Chest X-Ray 11/29/21 16:39 XR chest 1V portable CLINICAL HISTORY: Difficulty breathing. Evaluate for congestive heart failure.. COMPARISON STUDY: 11/22/2021 TECHNIQUE: 1 view of the chest FINDINGS: Single frontal view of the chest demonstrates the heart to again be enlarged with an ICD pacer in place. Compared to previous examination, there is no evidence of central vascular congestion. No peripheral interstitial edema is seen. There is no evidence for pleural effusion. No confluent alveolar opacities are identified. There is no acute osseous pathology. IMPRESSION: Interval development of mild central vascular congestion characteristic of early cardiac decompensation and mild congestive heart failu re. No peripheral interstitial edema is seen. ACT 112: Negative or not required by law. Electronically signed by: Az Smallwood M.D. 11/29/2021 4:49 PM Discharge Plan Visit Data Chief Complaint: Cardiac Assessment Stated Complaint: FLUID AROUNG HEART, SOB- DOC REF ED Provider: Ed Pabon Discharge Problem: SOB (shortness of breath), Hypotension, CHF (congestive heart failure), Acute hyponatremia Patient Disposition: Admitted As Inpatient Condition: Fair Forms Stand Alone Forms: [facility] [employer] Prescriptions Prescriptions: No Action nitroglycerin 0.4 mg tablet, sublingual 0.4 mg SL Q5M PRN (Reason: chest pain) Qty: 30 RF: 3 carvedilol 12.5 mg tablet 12.5 mg PO BID Qty: 180 RF: 3 Entresto 49-51 mg tablet 1 tab PO BID Qty: 180 RF: 3 Hold Instructions: Home Medication placed on hold at Doctor's office furosemide 20 mg tablet 20 mg PO DAILY Qty: 30 RF: 2 tamsulosin 0.4 mg capsule 0.8 mg PO PM RF: 0 multivitamin [Daily Multi-Vitamin] tablet 1 tab PO QAM RF: 0 ezetimibe 10 mg tablet 10 mg PO PM Qty: 90 RF: 0 rosuvastatin 10 mg tablet 10 mg PO PM RF: 0 temazepam 15 mg capsule 15 mg PO PM RF: 0 coenzyme Q10 200 mg capsule 200 mg PO QAM RF: 0 memantine 10 mg tablet 10 mg PO HS RF: 0 famotidine [Pepcid] 20 mg tablet 20 - 40 mg PO DAILY PRN (Reason: gerd) RF: 0 aspirin 81 mg Tablet,Delayed Release (Dr/Ec) 81 mg PO QAM RF: 0 PreserVision AREDS-2 250-90-40-1 mg Capsule 1 tab PO BID RF: 0 ferrous sulfate 325 mg (65 mg iron) Tablet 325 mg PO QAM RF: 0 clopidogrel 75 mg Tablet 75 mg PO QAM 30 Days Qty: 30 RF: 0 Referrals Referrals: Austin Merino MD [Primary Care Provider] -
[2021-11-29 20:15] LABS: Alanine Aminotransferase 77 (12-78); Albumin Globulin Ratio 0.9 (0.9-2); Albumin Level 3.4 gm/dl (3.4-5.0); Alkaline Phosphatase 117 U/L (45-117); Aspartate Aminotransferase 56 U/L (15-37); BUN Creatinine Ratio 30.6 (10-20); Bilirubin,Total 0.4 mg/dl (0.2-1); Blood Urea Nitrogen 60 mg/dl (7-18); Carbon Dioxide 22 mmol/L (21-32); Chloride 87 mmol/L (98-107); Creatinine Clr Calc Pharmacy 25.6 ml/min; Est GFR (African American) 34.9 ml/min; Est GFR (Non-African American) 30.1 ml/min; Globulin 3.9 gm/dl (2.5-4.0); Glucose 162 mg/dl (70-99); NT Pro B Type Natriuretic Pept > 35000 pg/ml (0-1800); Potassium 4.9 mmol/L (3.5-5.1); Sodium 119 mmol/L (136-145); Total Protein 7.3 gm/dl (6.4-8.2)
--- NOTE | 2021-11-29 21:38 | History & Physical Report ---
Date of Service November 29, 2021 Assessment & Plan (1) SOB (shortness of breath): Plan: Alphonso Villavicencio is a 86y/o M w/ PMH difficult for hypertension, hyperlipidemia, benign prostatic hyperplasia, CKD stage III, GERD, complete heart block s/p AICD, and recent PCI x3 to LAD following NSTEMI with significant reduction in EF; who presents following acute evaluation in cardiology clinic this afternoon for worsening shortness of breath and fatigue over the last week. Shortness of breath: -Likely 2/2 acute on chronic congestive heart failure in the setting of ischemic cardiomyopathy verse less likely acute coronary syndrome -Troponin in ED of 9.8, this is down trended from post cath troponin (11/22) -10 pound weight gain over last week -Echo from 11/24 demonstrating EF of 20 to 25% with significant LAD distribution wall motion abnormality -Hold Entresto -Transition oral Lasix to 20 mg IV every 6 hours -Hold for SBP level less than 80 -Cardiology consulted -Monitor I's and O's closely Hypotension: -Likely in the setting of poor forward flow from congestive heart failure/ischemic cardiomyopathy -Improved following 20 mg IV Lasix -Hold Entresto -Continue to monitor Elevated troponin: -Troponin on admission of 9.84, this is significantly down from last troponin on 11/22 of 189 -Does not appear to be secondary to acute coronary syndrome -Cardiology noted potential for additional PCI in future -Repeat troponin in a.m. to continue to trend downward -Continue aspirin, Plavix Acute kidney injury superimposed on chronic kidney disease: -Baseline creatinine approximately 1 -Creatinine on admission 1.97 -Slight improvement to 1.88 following 20 mg IV Lasix -Likely secondary to poor forward flow as above -Continue to monitor with BMPs twice daily to closely watch effect of continued IV Lasix Hyponatremia: -Na of 119 on admission -Down from last check on 11/24 of 128 -Potential for contributions from increased fluid retention versus potential overdiuresis -Slight increase to 122 following IV Lasix administration -Continue to monitor with BMPs twice daily Hypercholesterolemia: -Continue rosuvastatin 10 mg nightly BPH: -Continue tamsulosin nightly CODE STATUS: Full code Diet: Heart healthy/low-sodium DVT prophylaxis: SCDs (2) Acute systolic heart failure: (3) Acute hyponatremia: (4) Hypotension: (5) Elevated troponin I level: (6) Acute kidney injury: (7) Ischemic cardiomyopathy: (8) Hypercholesteremia: (9) Benign localized prostatic hyperplasia with lower urinary tract symptoms (LUTS): (10) Complete heart block: (11) Chronic kidney disease, stage 3a: History of Present Illness Primary Care Provider: Austin Merino MD Alphonso Villavicencio is a 86y/o M w/ PMH difficult for hypertension, hyperlipidemia, benign prostatic hyperplasia, CKD stage III, GERD, complete heart block s/p AICD, and recent PCI x3 to LAD following NSTEMI with significant reduction in EF; who presents following acute evaluation in cardiology clinic this afternoon for worsening shortness of breath and fatigue over the last week. Of note patient presented approximately 1 week ago with acute onset abdominal pain and subsequently underwent cardiac catheterization with 3 drug-eluting stents deployed. After that time had echo which demonstrated EF of 20 to 25% with significant wall motion abnormalities across the LAD distribution. Since that time he has continued to take his medication regularly, however has noticed that he has continued to have increasing shortness of breath and fatigue throughout the day. Occasionally helps had his note low blood pressures. Was seen by cardiology office earlier today for these concerns, and subsequently sent to the ED after discovery of 10 pound weight gain since discharge from hospital, as well as JVD. He notes that he feels comfortable lying flat at this time and most notices this when he is having to move around at all. Neither he nor noticed significant swelling of arms or legs, but did note that his ring was slightly tighter on his hand over the last several days. Allergies Allergy/AdvReac Type Severity Reaction Status Date / Time oxycodone Allergy Mild CANT Verified 11/29/21 20:50 REMEMBER JUST HAD BAD REACTION amlodipine Allergy Unknown UNKNOWN Verified 11/29/21 20:50 codeine Allergy Unknown UNKNOWN Verified 11/29/21 20:50 lisinopril Allergy Unknown UNKNOWN Verified 11/29/21 20:50 Home Medications Medication Instructions Recorded Confirmed Type coenzyme Q10 200 mg capsule 200 mg PO QAM cap 07/03/19 11/29/21 History ezetimibe 10 mg tablet 10 mg PO PM #90 tab 07/03/19 11/29/21 History multivitamin (Daily Multi-Vitamin) 1 tab PO QAM 07/03/19 11/29/21 History rosuvastatin 10 mg tablet 10 mg PO PM tab 07/03/19 11/29/21 History tamsulosin 0.4 mg capsule 0.8 mg PO PM cap 07/03/19 11/29/21 History temazepam 15 mg capsule 15 mg PO PM cap 07/03/19 11/29/21 History aspirin 81 mg tablet,delayed 81 mg PO QAM 12/27/19 11/29/21 History release nitroglycerin 0.4 mg sublingual 0.4 mg SL Q5M PRN #30 tab 12/23/20 11/29/21 Rx tablet famotidine 20 mg tablet (Pepcid) 20 - 40 mg PO DAILY PRN tab 02/22/21 11/29/21 History carvedilol 12.5 mg tablet 12.5 mg PO BID #180 tab 04/16/21 11/29/21 Rx memantine 10 mg tablet 10 mg PO HS 04/28/21 11/29/21 History sacubitril 49 mg-valsartan 51 mg 1 tab PO BID #180 tab 07/02/21 11/29/21 Rx tablet (Entresto) ferrous sulfate 325 mg (65 mg 325 mg PO QAM 11/22/21 11/29/21 History iron) tablet vit C 250 mg-vit E 90 mg-zinc 40 1 tab PO BID 11/22/21 11/29/21 History mg-copper 1 [id number] capsule (PreserVision AREDS-2) clopidogrel 75 mg tablet 75 mg PO QAM 30 Days #30 tab 11/24/21 11/29/21 Rx furosemide 20 mg tablet 20 mg PO DAILY #30 tab 11/26/21 11/29/21 Rx Past Med/Surg History Medical History BPH (benign prostatic hyperplasia) CAD (coronary artery disease) CHF (congestive heart failure) Chronic kidney disease, stage 3a GERD (gastroesophageal reflux disease) Hearing deficit [facility] History of colon polyps History of complete heart block History of myocardial infarction 1996, 2016 History of ventricular tachycardia HLD (hyperlipidemia) HTN (hypertension) ICD (implantable cardioverter-defibrillator) in place Dual-chamber [employer]; 2019; [facility]; last check 2 weeks ago Ischemic cardiomyopathy Osteoarthritis Poor historian Surgical History H/O heart artery stent pt unsure of amt. per records, x 1 in 2017 History of cardiac catheterization most recent 2017 History of cataract surgery History of esophagogastroduodenoscopy (EGD) History of inguinal hernia repair sliding History of intestinal surgery removal of large polyp History of tonsillectomy History of wisdom tooth extraction Family History Other Family history non-contributory Social History Smoking Status: Former smoker Tobacco Type: Cigarettes Second Hand Exposure: No; Do You Dip or Chew Tobacco: No; Tobacco Cessation Education Requested by Patient: No Hx Alcohol Use: No Hx Substance Use: No Preferred Language: Welsh Communication Ability: Effective 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 Beliefs That Will Affect Care: None marital status: Current Living Situation: Spouse current occupational status: retired Other Information That Helps Us Care for You: No Feels Safe at Home: Yes Safety Concerns: Feels Safe At This Time Assistive Devices: Glasses, Hearing Aid - Bilateral and Walker Review of Systems Review of Systems: All systems reviewed & are unremarkable except as noted in HPI & below Physical Exam Constitutional: WD/WN, vitals as above Eyes: PERRL, conjunctivae normal, anicteric sclerae ENMT: external ear and nose normal, oropharynx normal Respiratory: normal respiratory effort, lungs clear to auscultation Cardiovascular: Rate/Rhythm: regular rate and regular rhythm Heart Sounds: no murmur Vessels: + JVD Extremities: + pedal edema (trace to 1+); no calf tenderness Gastrointestinal (Abdomen): normal bowel sounds, soft, nontender, no hepatosplenomegaly Skin: + dry skin; no rashes and no erythema Psychiatric: A+Ox3, euthymic affect Results & Data Results & Data ([facility]) Vital Signs (Past 12 Hours) Vital Signs Temp Pulse Resp BP Pulse Ox 11/29/21 21:00 67 22 99/66 L 11/29/21 20:50 68 16 97 11/29/21 20:45 67 14 96/66 L 97 11/29/21 20:40 65 12 99 11/29/21 20:30 65 12 93/63 L 99 11/29/21 20:20 67 16 98 11/29/21 20:18 67 18 90 11/29/21 16:34 36.4 C L 62 20 97/69 L 95 Laboratory Results 11/30/21 11/29/21 11/29/21 Range/Units 01:06 20:06 19:19 WBC (4.8-10.8) K/uL RBC (4.7-6.1) M/uL Hgb (14.0-18.0) g/dL POC Hgb 11.9 L (14.0-18.0) g/dl Hct (42-52) % POC Hct 35 L (42-52) % MCV (80-100) fL MCH (25-34) pg MCHC (32-36) g/dL RDW Std Deviation (36.4-46.3) fL RDW Coeff of Sonia (11.5-14.5) % Plt Count (130-400) K/uL MPV (7.4-10.4) fL Immature Gran % (Auto) % Neut % (Auto) % Lymph % (Auto) % [place] % (Auto) % Eos % (Auto) % Baso % (Auto) % Neut # (Auto) (1.4-6.5) K/uL Lymph # (Auto) (1.2-3.4) K/uL [place] # (Auto) (0.11-0.59) K/uL Eos # (Auto) (0-0.5) K/uL Baso # (Auto) (0-0.2) K/uL Immature Gran # (Auto) (0.00-0.02) K/uL POC Sodium 120 L (135-144) mmol/L Sodium Pending (136-145) mmol/L POC Potassium 5.0 (3.3-5.0) mmol/L Potassium Pending (3.5-5.1) mmol/L POC Chloride 89 L (101-112) mmol/L Chloride Pending (98-107) mmol/L Carbon Dioxide Pending (21-32) mmol/L POC Total CO2 23 L (24-31) mmol/L Anion Gap Pending (3-11) POC Anion Gap 14.0 L (16-25) mmol/L POC BUN 57 H (7-18) mg/dl BUN Pending (7-18) mg/dl Creatinine Pending (0.6-1.4) mg/dl POC Creatinine 2.0 H (0.6-1.3) mg/dl Est Cr Clr Drug Dosing Pending ml/min Est GFR ( Amer) Pending ml/min Est GFR (Non-Af Amer) Pending ml/min BUN/Creatinine Ratio Pending (10-20) Glucose Pending (70-99) mg/dl POC Glucose (other) 163 H (70-99) mg/dl Calcium Pending (8.5-10.1) mg/dl POC Ioniz Calcium Manish 1.07 L (1.12-1.32) mmol/l Magnesium (1.8-2.4) mg/dl Total Bilirubin (0.2-1) mg/dl AST (15-37) U/L ALT (12-78) Alkaline Phosphatase (45-117) U/L Troponin I (0-0.045) ng/ml NT-Pro-B Natriuret Pep (0-1800) pg/ml Total Protein (6.4-8.2) gm/dl Albumin (3.4-5.0) gm/dl Globulin (2.5-4.0) gm/dl Albumin/Globulin Ratio (0.9-2) TSH (0.300-4.500) uIu/ml SARS-CoV-2, RNA, NAAT NEGATIVE (NEGATIVE) 11/29/21 11/29/21 Range/Units 19:12 19:12 WBC 7.75 (4.8-10.8) K/uL RBC 3.89 L (4.7-6.1) M/uL Hgb 12.2 L (14.0-18.0) g/dL POC Hgb (14.0-18.0) g/dl Hct 35.0 L (42-52) % POC Hct (42-52) % MCV 90.0 (80-100) fL MCH 31.4 (25-34) pg MCHC 34.9 (32-36) g/dL RDW Std Deviation 41.5 (36.4-46.3) fL RDW Coeff of Sonia 12.8 (11.5-14.5) % Plt Count 200 (130-400) K/uL MPV 11.5 H (7.4-10.4) fL Immature Gran % (Auto) 1.7 % Neut % (Auto) 81.4 % Lymph % (Auto) 6.6 % [place] % (Auto) 10.2 % Eos % (Auto) 0.1 % Baso % (Auto) 0.0 % Neut # (Auto) 6.31 (1.4-6.5) K/uL Lymph # (Auto) 0.51 L (1.2-3.4) K/uL [place] # (Auto) 0.79 H (0.11-0.59) K/uL Eos # (Auto) 0.01 (0-0.5) K/uL Baso # (Auto) 0.00 (0-0.2) K/uL Immature Gran # (Auto) 0.13 H (0.00-0.02) K/uL POC Sodium (135-144) mmol/L Sodium 119 L* (136-145) mmol/L POC Potassium (3.3-5.0) mmol/L Potassium 4.9 (3.5-5.1) mmol/L POC Chloride (101-112) mmol/L Chloride 87 L (98-107) mmol/L Carbon Dioxide 22 (21-32) mmol/L POC Total CO2 (24-31) mmol/L Anion Gap 10.0 (3-11) POC Anion Gap (16-25) mmol/L POC BUN (7-18) mg/dl BUN 60 H (7-18) mg/dl Creatinine 1.97 H (0.6-1.4) mg/dl POC Creatinine (0.6-1.3) mg/dl Est Cr Clr Drug Dosing 25.6 ml/min Est GFR ( Amer) 34.9 ml/min Est GFR (Non-Af Amer) 30.1 ml/min BUN/Creatinine Ratio 30.6 H (10-20) Glucose 162 H (70-99) mg/dl POC Glucose (other) (70-99) mg/dl Calcium 9.0 (8.5-10.1) mg/dl POC Ioniz Calcium Manish (1.12-1.32) mmol/l Magnesium 3.0 H (1.8-2.4) mg/dl Total Bilirubin 0.4 (0.2-1) mg/dl AST 56 H (15-37) U/L ALT 77 (12-78) Alkaline Phosphatase 117 (45-117) U/L Troponin I 9.840 H* (0-0.045) ng/ml NT-Pro-B Natriuret Pep > 12962 H (0-1800) pg/ml Total Protein 7.3 (6.4-8.2) gm/dl Albumin 3.4 (3.4-5.0) gm/dl Globulin 3.9 (2.5-4.0) gm/dl Albumin/Globulin Ratio 0.9 (0.9-2) TSH 3.010 (0.300-4.500) uIu/ml SARS-CoV-2, RNA, NAAT (NEGATIVE) Diagnostic Findings Impressions Chest X-Ray 11/29/21 16:39 XR chest 1V portable CLINICAL HISTORY: Difficulty breathing. Evaluate for congestive heart failure.. COMPARISON STUDY: 11/22/2021 TECHNIQUE: 1 view of the chest FINDINGS: Single frontal view of the chest demonstrates the heart to again be enlarged with an ICD pacer in place. Compared to previous examination, there is no evidence of central vascular congestion. No peripheral interstitial edema is seen. There is no evidence for pleural effusion. No confluent alveolar opacities are identified. There is no acute osseous pathology. IMPRESSION: Interval development of mild central vascular congestion characteristic of early cardiac decompensation and mild congestive heart failure. No peripheral interstitial edema is seen. ACT 112: Negative or not required by law. Electronically signed by: Az Smallwood M.D. 11/29/2021 4:49 PM Medications Administered Home Medication List Medication Instructions Recorded coenzyme Q10 200 mg capsule 200 mg PO QAM cap 07/03/19 ezetimibe 10 mg tablet 10 mg PO PM #90 tab 07/03/19 multivitamin (Daily Multi-Vitamin) 1 tab PO QAM 07/03/19 rosuvastatin 10 mg tablet 10 mg PO PM tab 07/03/19 tamsulosin 0.4 mg capsule 0.8 mg PO PM cap 07/03/19 temazepam 15 mg capsule 15 mg PO PM cap 07/03/19 aspirin 81 mg tablet,delayed 81 mg PO QAM 12/27/19 release nitroglycerin 0.4 mg sublingual 0.4 mg SL Q5M PRN #30 tab 12/23/20 tablet famotidine 20 mg tablet (Pepcid) 20 - 40 mg PO DAILY PRN tab 02/22/21 carvedilol 12.5 mg tablet 12.5 mg PO BID #180 tab 04/16/21 memantine 10 mg tablet 10 mg PO HS 04/28/21 sacubitril 49 mg-valsartan 51 mg 1 tab PO BID #180 tab 07/02/21 tablet (Entresto) ferrous sulfate 325 mg (65 mg 325 mg PO QAM 11/22/21 iron) tablet vit C 250 mg-vit E 90 mg-zinc 40 1 tab PO BID 11/22/21 mg-copper 1 [id number] capsule (PreserVision AREDS-2) clopidogrel 75 mg tablet 75 mg PO QAM 30 Days #30 tab 11/24/21 furosemide 20 mg tablet 20 mg PO DAILY #30 tab 11/26/21 Supervising Physician Co-Signing Physician Notes Patient seen and examined, chart reviewed, case discussed with Dr. Najera and I agree with the assessment and plan as discussed. In brief, Mr. Villavicencio is an 86yo male with history of multivessel CAD s/p recent anterior SD s/p catheterization with placement of 3 overlapping JONNIE to mid LAD. Patient has ICM with EF of 20-25% presenting in acute decompensated systolic heart failure. Patient reports compliance with his home regimen to include ASA, Plavix, Carvedilol, Entresto, Spironolactone and Crestor. He reports 10# weight gain over the last week as well as weakness and fatigue. He has been in contact with Cardiology - Entresto and Spironolactone have been on hold due to low blood pressures. Patient has been on Lasix 40mg daily which was increased to 40mg BID over the weekend. Patient is being admitted for IV diuresis. On exam patient is afebrile, HD stable, breathing comfortably on RA Skin - no rash HEENT - NC/AT, PERRL, Neck supple, +JVD to earlobe noted on right with bed at 45 degrees Heart - +S1/S2, regular, no m/r/g Lungs - scant bibasilar crackles Abd - +BS, soft, NT/ND Ext- 1+ pitting edema pretibial, 2+ palpable pulses, cool extremities Neuro - No deficits Labs and images reviewed. Patient with hyponatremia with Go=584. Elevation in BUN from 38 --> 60 and Cr from 1.59 --> 1.97 Troponin = 9.84, decline from prior BNP>[id number] CXR with suggestion of pulmonary edema Assessment/Plan - 86yo male with history of CAD, recent anterior SD with ICM EF of 20-25% presenting with acute systolic CHF. Hypervolemic hyponatremia. Suspect Cr with improve with diuresis -Lasix 20mg IV x 1, monitor response and redose if needed -Follow labs BID -Cardiology consultation appreciated -Continue to hold Entresto and Spironolactone -Remainder of plan as above Resident Activity Tracking Resident Involvement: Resident Care Provided Care Provided: Adult Hospital Medicine (1) Hypotension Hypotension type: unspecified hypotension type Qualified Code(s): I95.9 - Hypotension, unspecified
[2021-11-29] MEDS ORDERED: FUROSEMIDE INJ 20 MG/2 ML VIAL IV ONE (21:56)
[2021-11-29] MEDS ORDERED: FUROSEMIDE 40 MG/4 ML VIAL IV ONE (22:48)
[2021-11-30] MEDS ORDERED: POLYETHYLENE (MIRALAX) 17 GM PACK PO PRN (00:51)
[2021-11-30] MEDS ORDERED: MAGNESIUM HYDROXIDE SUSP 30 ML UDC PO PRN (00:51)
[2021-11-30] MEDS ORDERED: ONDANSETRON INJ 2 MG/ML 2 ML VIAL IV PRN (00:51)
[2021-11-30] MEDS ORDERED: ALUMINUM/MAGNESIUM SUSP 30 ML UDC PO PRN (00:51)
[2021-11-30] MEDS ORDERED: NITROGLYCERIN SL 0.4 MG/TAB TAB SL PRN (00:51)
[2021-11-30] MEDS ORDERED: FAMOTIDINE 20 MG TAB PO PRN (00:51)
[2021-11-30] MEDS ORDERED: ACETAMINOPHEN 325 MG TAB PO PRN (00:51)
[2021-11-30 01:37] LABS: BUN Creatinine Ratio 32.9 (10-20); Calcium 8.1 mg/dl (8.5-10.1); Creatinine Clr Calc Pharmacy 26.9 ml/min; Est GFR (African American) 36.9 ml/min; Est GFR (Non-African American) 31.9 ml/min; Potassium 5.1 mmol/L (3.5-5.1)
[2021-11-30] MEDS: ASPIRIN 81 MG ECTAB PO SCH (02:06)
[2021-11-30] MEDS: FERROUS SULFATE 325 MG TAB PO SCH (02:06)
[2021-11-30] MEDS: carvediloL 12.5 MG TAB PO SCH ×2 (02:06→20:58)
[2021-11-30] MEDS: CLOPIDOGREL BISULFATE 75 MG TAB PO SCH (02:06)
[2021-11-30] MEDS ORDERED: TEMAZEPAM 15 MG CAPSULE PO ONE (02:30)
[2021-11-30] MEDS ORDERED: FUROSEMIDE INJ 20 MG/2 ML VIAL IV SCH (03:30)
--- NOTE | 2021-11-30 03:47 | Billing Data ---
Date of Service November 29, 2021 Coding Level of Care Code 69458 Initial Inpt Care Lvl 3
[2021-11-30 04:34] LABS: Eosinophils # (auto) 0.02 K/uL (0-0.5); Eosinophils % (auto) 0.3 %; Hematocrit (blood only) 28.3 % (42-52); Hemoglobin 9.9 g/dL (14.0-18.0); Immature Granulocytes # (auto) 0.06 K/uL (0.00-0.02); Immature Granulocytes % (auto) 0.9 %; Lymphocytes # (auto) 1.08 K/uL (1.2-3.4); Lymphocytes % (auto) 16.9 %; Mean Corpuscular Hemoglobin 31.3 pg (25-34); Mean Corpuscular Volume 89.6 fL (80-100); Mean Platelet Volume 11.4 fL (7.4-10.4); Monocytes # (auto) 0.37 K/uL (0.11-0.59); Monocytes % (auto) 5.8 %; Neutrophils # (auto) 4.85 K/uL (1.4-6.5); Neutrophils % (auto) 76.1 %; Platelet Count 168 K/uL (130-400); RDW Coefficient of Variation 12.8 % (11.5-14.5); RDW Standard Deviation 41.1 fL (36.4-46.3); Red Blood Count 3.16 M/uL (4.7-6.1); White Blood Count 6.38 K/uL (4.8-10.8)
[2021-11-30 04:53] LABS: BUN Creatinine Ratio 32.6 (10-20); Calcium 8.1 mg/dl (8.5-10.1); Creatinine Clr Calc Pharmacy 26.9 ml/min; Est GFR (African American) 36.9 ml/min; Est GFR (Non-African American) 31.9 ml/min; Phosphorus 4.6 mg/dl (2.5-4.9)
--- NOTE | 2021-11-30 07:41 | Hospitalist Progress Note ---
Date of Service November 30, 2021 Assessment & Plan (1) SOB (shortness of breath): Plan: Alphonso Villavicencio is a 86y/o M w/ PMH difficult for hypertension, hyperlipidemia, benign prostatic hyperplasia, CKD stage III, GERD, complete heart block s/p AICD, and recent PCI x3 to LAD following NSTEMI with significant reduction in EF; who presents following acute evaluation in cardiology clinic for worsening shortness of breath and fatigue over a week. Acute on chronic Heart Failure w/ reduced EF: BNP >35,000. 10 pound weight gain in one week. -Echo from 11/24 demonstrating EF of 20 to 25% with significant LAD distribution wall motion abnormality -Cardiology consulted - Primary intervention diuresis with close monitor of kidney function and electrolytes. - 40mg IV Lasix BID. Hold for SBP less than 80. -Monitor I's and O's closely Hypotension: -Likely 2/2 congestive heart failure/ischemic cardiomyopathy given history of last admission. -Improved following 20 mg IV Lasix -Hold Entresto and spironolactone. -Continue to monitor Elevated troponin: NSTEMI 11/22/2021 within four weeks of admission -Troponin on admission of 9.84, this is significantly down from last troponin on 11/22 of 189 -No ACS currently -Cardiology noted potential for additional PCI in future. No current symptoms suggestive of ischemia. -Troponin continuing to downtrend. -Continue aspirin, Plavix Acute kidney injury superimposed on chronic kidney disease: -Baseline creatinine approximately 1.4 -Creatinine on admission 1.97 -Slight improvement to 1.88 following 20 mg IV Lasix -Likely secondary to poor forward flow from the heart. -Continue to monitor with BMPs twice daily to closely watch effect of continued IV Lasix Hyponatremia: -Na of 119 on admission -Down from last check on 11/24 of 128 -Potential for contributions from increased fluid retention versus potential overdiuresis -Slight increase to 122 following first IV Lasix administration -Sodium 117 on latest reading. Continue diuresis w/ cardiology recommendations. -Continue to monitor with BMPs twice daily Hypercholesterolemia: -Continue rosuvastatin 10 mg nightly BPH: -Continue tamsulosin nightly Dispo: Med/Surg w/ Tele CODE STATUS: Full code Diet: Heart healthy/low-sodium DVT prophylaxis: SCDs (2) Acute systolic heart failure: (3) Acute hyponatremia: (4) Hypotension: (5) Elevated troponin I level: (6) Acute kidney injury: (7) Ischemic cardiomyopathy: (8) Hypercholesteremia: (9) Benign localized prostatic hyperplasia with lower urinary tract symptoms (LUTS): (10) Complete heart block: (11) Chronic kidney disease, stage 3a: Admission and Anticipated Discharge Date Admission Date: November 29, 2021 Supervising Physician Co-Signing Physician Notes Resident Physician Supervision Note: I independently interviewed and examined the patient and verified the deluca history and physical, reviewed labs and image studies and agree with resident Dr. Pichardo findings and care plan. Subjective Patient seen at bedside this morning. Patient stated he feels tired and has more short of breath recently before coming in. He saw cardiology outpatient before coming in to the hospital. He told me Dr. 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 He said he was in the hospital a week ago for a heart attack where Dr. Singh put in stents. Patient denies any noticeable increased swelling to his peripheral extremities over the past week. Physical Exam Constitutional: WD/WN, vitals as above Eyes: PERRL, conjunctivae normal, anicteric sclerae Respiratory: normal respiratory effort, lungs clear to auscultation Cardiovascular: RRR, no murmur, no edema Gastrointestinal (Abdomen): normal bowel sounds, soft, nontender, no hepatosplenomegaly Results & Data Results & Data ([facility]) Vital Signs (Past 12 Hours) Vital Signs Temp Pulse Pulse Resp BP BP Pulse Ox 11/30/21 06:18 20 86/54 L 96 11/30/21 01:14 36.4 C L 70 22 107/67 98 11/30/21 00:06 67 20 80/56 L 95 11/29/21 22:54 67 20 91/50 L 94 11/29/21 21:00 67 22 99/66 L 11/29/21 20:50 68 16 97 11/29/21 20:45 67 14 96/66 L 97 11/29/21 20:40 65 12 99 11/29/21 20:30 65 12 93/63 L 99 11/29/21 20:20 67 16 98 11/29/21 20:18 67 18 90 Resident Activity Tracking Resident Involvement: Resident Care Provided Care Provided: Adult Hospital Medicine (1) Hypotension Hypotension type: unspecified hypotension type Qualified Code(s): I95.9 - Hypotension, unspecified
--- NOTE | 2021-11-30 08:48 | Electrocardiogram Report ---
Test Reason : Blood Pressure : / mmHG Vent. Rate : 068 BPM Atrial Rate : 068 BPM P-R Int : 178 ms QRS Dur : 170 ms QT Int : 516 ms P-R-T Axes : 027 -87 094 degrees QTc Int : 548 ms Atrial-sensed ventricular-paced rhythm Abnormal ECG When compared with ECG of 29-NOV-2021 19:05, No significant change was found Confirmed by Abebe Franco ([id number]) on 11/30/2021 8:47:46 AM Referred By: REFERRED SELF Confirmed By:Abebe Franco
[2021-11-30] MEDS ORDERED: FUROSEMIDE 20 MG TAB PO SCH (09:00)
[2021-11-30] MEDS ORDERED: VALSARTAN/SACUBITRIL 51/49 MG TAB PO SCH ×2 (09:00)
[2021-11-30] MEDS: FUROSEMIDE 40 MG/4 ML VIAL IV SCH ×2 (09:47→17:21)
--- NOTE | 2021-11-30 12:55 | Cardiology Progress Note ---
Date of Service November 30, 2021 Assessment & Plan (1) SOB (shortness of breath): (2) CHF (congestive heart failure): (3) Acute hyponatremia: (4) Ischemic cardiomyopathy: (5) Complete heart block: Plan: 1. Decompensated systolic heart failure: He suffered a recent large anterior myocardial infarction with resultant reduction in his overall LV function. I. Well compensated at the time of discharge she appears to have had progressive worsening of dyspnea and development of pulmonary edema. This was despite escalation in his outpatient diuretic regimen. At this point, the primary intervention is diuresis. Will need to monitor his renal function and electrolytes closely. Also borderline hypotensive. Hopefully all these elements will improve as we affect diuresis and improve overall cardiac function. 2. Coronary artery disease: He is known to have residual left circumflex disease. At some point intervention may be beneficial. However, at this point we need to monitor his renal function and determine the appropriate time for intervention. No current symptoms suggestive of ischemia. Continue aspirin and Plavix 3. Ischemic cardiomyopathy: Severe. Hopefully stunned myocardium. He was on an aggressive regimen for an ischemic cardiomyopathy. Entresto and spironolactone currently being held due to presenting hypotension. 4. Complete heart block: Normally functioning dual-chamber ICD. there been some inquiries regarding an upgrade to a biventricular device in the outpatient setting. Given his worsening LV function and heart failure he appears to have a good indication for upgrade. This could be accomplished when his clinical status stabilizes. 5. Hypotension: Likely related to medications and decompensated heart failure. 6. Hyponatremia: Likely due to his congestive heart failure. Will continue diuresis. He may require fluid restriction as well. 7. Anemia: Mild. He has had some anemia in the past. No symptoms or signs of active bleeding. We will need to monitor this closely. Admission and Anticipated Discharge Date Admission Date: November 29, 2021 Subjective This morning patient claims to be feeling well. He states that his breathing is improved. He was able ambulate to the commode and back without limiting dyspnea. No dizziness or lightheadedness. No palpitations. No orthopnea last evening. No chest pain. Review of Systems Review of Systems: Per HPI Physical Exam Physical Exam: The patient is alert and oriented. Mood and affect appeared normal. He answered all questions appropriately. HEENT: Pupils are equal and reactive to light and accommodation. Extraocular movements are intact. The sclerae are anicteric. Neuro: Cranial nerves intact Lungs: crackles in the bases bilaterally. More noticeable in the left. No expiratory wheezing. Normal respiratory effort. Cardiac: Heart demonstrates a regular rate and rhythm. Normal S1 and S2. No murmurs on examination. Pulses: The patient has palpable radial pulses bilaterally that are equal in intensity Extremities: There was no evidence of hypoperfusion. There is no cyanosis or clubbing. Mild lower extremity edema Skin: I did not appreciate any rashes on examination today. Results & Data ([facility]) Vital Signs (Past 12 Hours) Vital Signs Temp Pulse Resp BP BP Pulse Ox 11/30/21 11:55 36.5 C 61 16 98/60 L 96 11/30/21 09:12 88/60 L 86/58 L 11/30/21 08:14 36.2 C L 69 22 95/62 L 93 11/30/21 06:18 20 86/54 L 96 11/30/21 01:14 36.4 C L 70 22 107/67 98 Laboratory Results Abnormal Lab Results 11/29/21 11/29/21 11/29/21 19:12 19:12 19:19 WBC 7.75 RBC 3.89 L Hgb 12.2 L POC Hgb 11.9 L Hct 35.0 L POC Hct 35 L MCV 90.0 MCH 31.4 MCHC 34.9 RDW Std Deviation 41.5 RDW Coeff of Sonia 12.8 Plt Count 200 MPV 11.5 H Immature Gran % (Auto) 1.7 Neut % (Auto) 81.4 Lymph % (Auto) 6.6 [place] % (Auto) 10.2 Eos % (Auto) 0.1 Baso % (Auto) 0.0 Neut # (Auto) 6.31 Lymph # (Auto) 0.51 L [place] # (Auto) 0.79 H Eos # (Auto) 0.01 Baso # (Auto) 0.00 Immature Gran # (Auto) 0.13 H POC Sodium 120 L Sodium 119 L* POC Potassium 5.0 Potassium 4.9 POC Chloride 89 L Chloride 87 L Carbon Dioxide 22 POC Total CO2 23 L Anion Gap 10.0 POC Anion Gap 14.0 L POC BUN 57 H BUN 60 H Creatinine 1.97 H POC Creatinine 2.0 H Est Cr Clr Drug Dosing 25.6 Est GFR ( Amer) 34.9 Est GFR (Non-Af Amer) 30.1 BUN/Creatinine Ratio 30.6 H Glucose 162 H POC Glucose (other) 163 H Calcium 9.0 POC Ioniz Calcium Manish 1.07 L Phosphorus Magnesium 3.0 H Total Bilirubin 0.4 AST 56 H ALT 77 Alkaline Phosphatase 117 Troponin I 9.840 H* NT-Pro-B Natriuret Pep > 29008 H Total Protein 7.3 Albumin 3.4 Globulin 3.9 Albumin/Globulin Ratio 0.9 TSH 3.010 Nasal Screen MRSA (PCR) SARS-CoV-2, RNA, NAAT 11/29/21 11/30/21 11/30/21 20:06 01:06 02:00 WBC RBC Hgb POC Hgb Hct POC Hct MCV MCH MCHC RDW Std Deviation RDW Coeff of Sonia Plt Count MPV Immature Gran % (Auto) Neut % (Auto) Lymph % (Auto) [place] % (Auto) Eos % (Auto) Baso % (Auto) Neut # (Auto) Lymph # (Auto) [place] # (Auto) Eos # (Auto) Baso # (Auto) Immature Gran # (Auto) POC Sodium Sodium 122 L POC Potassium Potassium 5.1 POC Chloride Chloride 91 L Carbon Dioxide 20 L POC Total CO2 Anion Gap 11.0 POC Anion Gap POC BUN BUN 62 H Creatinine 1.88 H POC Creatinine Est Cr Clr Drug Dosing 26.9 Est GFR ( Amer) 36.9 Est GFR (Non-Af Amer) 31.9 BUN/Creatinine Ratio 32.9 H Glucose 147 H POC Glucose (other) Calcium 8.1 L POC Ioniz Calcium Manish Phosphorus Magnesium Total Bilirubin AST ALT Alkaline Phosphatase Troponin I NT-Pro-B Natriuret Pep Total Protein Albumin Globulin Albumin/Globulin Ratio TSH Nasal Screen MRSA (PCR) Negative SARS-CoV-2, RNA, NAAT NEGATIVE 11/30/21 11/30/21 11/30/21 04:14 04:14 04:14 WBC 6.38 RBC 3.16 L Hgb 9.9 L POC Hgb Hct 28.3 L POC Hct MCV 89.6 MCH 31.3 MCHC 35.0 RDW Std Deviation 41.1 RDW Coeff of Sonia 12.8 Plt Count 168 MPV 11.4 H Immature Gran % (Auto) 0.9 Neut % (Auto) 76.1 Lymph % (Auto) 16.9 [place] % (Auto) 5.8 Eos % (Auto) 0.3 Baso % (Auto) 0.0 Neut # (Auto) 4.85 Lymph # (Auto) 1.08 L [place] # (Auto) 0.37 Eos # (Auto) 0.02 Baso # (Auto) 0.00 Immature Gran # (Auto) 0.06 H POC Sodium Sodium 122 L POC Potassium Potassium 5.0 POC Chloride Chloride 91 L Carbon Dioxide 22 POC Total CO2 Anion Gap 9.0 POC Anion Gap POC BUN BUN 61 H Creatinine 1.88 H POC Creatinine Est Cr Clr Drug Dosing 26.9 Est GFR ( Amer) 36.9 Est GFR (Non-Af Amer) 31.9 BUN/Creatinine Ratio 32.6 H Glucose 123 H POC Glucose (other) Calcium 8.1 L POC Ioniz Calcium Manish Phosphorus 4.6 Magnesium 3.0 H Total Bilirubin AST ALT Alkaline Phosphatase Troponin I 8.000 H* NT-Pro-B Natriuret Pep Total Protein Albumin Globulin Albumin/Globulin Ratio TSH Nasal Screen MRSA (PCR) SARS-CoV-2, RNA, NAAT Diagnostic Findings chest x-ray obtained the time admission revealed some mild pulmonary vascular congestion. PG Care Time/CCT Total # of Minutes Spent Total Time Spent with Patient: Total time spent is greater than 50% in coordination of care (as documented) at patient's floor/unit and/or counseling patient: Coding Level of Care Code 10008 Subseq Hosp Care Lvl 3 Diagnoses SOB (shortness of breath) R06.02 CHF (congestive heart failure) I50.9 Heart failure chronicity: acute on chronic Heart failure type: unspecified Acute hyponatremia E87.1 Ischemic cardiomyopathy I25.5 Complete heart block I44.2 (1) CHF (congestive heart failure) Heart failure chronicity: acute on chronic Heart failure type: unspecified Qualified Code(s): I50.9 - Heart failure, unspecified
[2021-11-30 16:43] LABS: BUN Creatinine Ratio 30.6 (10-20); Calcium 8.2 mg/dl (8.5-10.1); Est GFR (African American) 29.1 ml/min; Est GFR (Non-African American) 25.1 ml/min; Potassium 5.3 mmol/L (3.5-5.1)
[2021-11-30] MEDS: MEMANTINE HCL 10 MG TAB PO SCH (20:58)
[2021-11-30] MEDS: EZETIMIBE 10 MG TABLET PO SCH (20:58)
[2021-11-30] MEDS: TAMSULOSIN HCL 0.4 MG CAP PO SCH (20:59)
[2021-11-30] MEDS: ROSUVASTATIN CALCIUM 10 MG TAB PO SCH (20:59)
[2021-11-30] MEDS: TEMAZEPAM 15 MG CAPSULE PO SCH (21:03)
[2021-12-01 05:40] LABS: Basophils # (auto) 0.01 K/uL (0-0.2); Basophils % (auto) 0.1 %; Eosinophils # (auto) 0.03 K/uL (0-0.5); Eosinophils % (auto) 0.4 %; Hematocrit (blood only) 32.3 % (42-52); Hemoglobin 11.4 g/dL (14.0-18.0); Immature Granulocytes # (auto) 0.07 K/uL (0.00-0.02); Immature Granulocytes % (auto) 0.9 %; Lymphocytes # (auto) 1.51 K/uL (1.2-3.4); Lymphocytes % (auto) 18.6 %; Mean Corpuscular Hemoglobin 31.3 pg (25-34); Mean Corpuscular Hgb Conc 35.3 g/dL (32-36); Mean Corpuscular Volume 88.7 fL (80-100); Mean Platelet Volume 11.5 fL (7.4-10.4); Monocytes % (auto) 11.1 %; Neutrophils # (auto) 5.61 K/uL (1.4-6.5); Neutrophils % (auto) 68.9 %; Platelet Count 171 K/uL (130-400); RDW Standard Deviation 41.9 fL (36.4-46.3); Red Blood Count 3.64 M/uL (4.7-6.1); White Blood Count 8.13 K/uL (4.8-10.8)
[2021-12-01 06:04] LABS: BUN Creatinine Ratio 34.1 (10-20); Calcium 7.9 mg/dl (8.5-10.1); Creatinine Clr Calc Pharmacy 23.6 ml/min; Est GFR (African American) 31.6 ml/min; Est GFR (Non-African American) 27.2 ml/min; Potassium 5.1 mmol/L (3.5-5.1)
--- NOTE | 2021-12-01 06:55 | Hospitalist Progress Note ---
Date of Service December 01, 2021 Assessment & Plan (1) SOB (shortness of breath): Plan: Alphonso Villavicencio is a 86y/o M w/ PMH difficult for hypertension, hyperlipidemia, benign prostatic hyperplasia, CKD stage III, GERD, complete heart block s/p AICD, and recent PCI x3 to LAD following NSTEMI with significant reduction in EF; who presents following acute evaluation in cardiology clinic for worsening shortness of breath and fatigue over a week. Acute on chronic Heart Failure w/ reduced EF: BNP >35,000. 10 pound weight gain in one week. -Echo from 11/24 EF of 20 to 25% with significant LAD distribution wall motion abnormality -Cardiology consulted -Patient not diuresing well, likely has cardiorenal syndrome. Hold evening diuretic dose. -w/ improvement in BP, candidate for new inotropic agent. -Goal is to unload left ventricle. -Monitor I's and O's closely Hypotension: -Likely 2/2 congestive heart failure/ischemic cardiomyopathy given history of last admission. -Improved following 20 mg IV Lasix -Hold Entresto and spironolactone. -Continue to monitor Elevated troponin: NSTEMI 11/22/2021 within four weeks of admission -Troponin on admission of 9.84, this is significantly down from last troponin on 11/22 of 189 -No ACS currently -Cardiology noted potential for additional PCI in future. No current symptoms suggestive of ischemia. -Troponin continuing to downtrend. -Continue aspirin, Plavix Acute kidney injury superimposed on chronic kidney disease: -Baseline creatinine approximately 1.4 -Creatinine on admission 1.97 -Slight improvement to 1.88 following 20 mg IV Lasix -Likely secondary to poor forward flow from the heart. -Continue to monitor with BMPs twice daily to closely watch effect of continued IV Lasix Hyponatremia: -Na of 119 on admission -Down from last check on 11/24 of 128 -Potential for contributions from increased fluid retention versus potential overdiuresis -Slight increase to 122 following first IV Lasix administration -Sodium 118 on latest reading. -Will consider nephro opinion if sodium persistently. -Continue to monitor with BMPs twice daily Hypercholesterolemia: -Continue rosuvastatin 10 mg nightly BPH: -Continue tamsulosin nightly Dispo: Med/Surg w/ Tele CODE STATUS: Full code Diet: Heart healthy/low-sodium DVT prophylaxis: SCDs (2) Acute systolic heart failure: (3) Acute hyponatremia: (4) Hypotension: (5) Elevated troponin I level: (6) Acute kidney injury: (7) Ischemic cardiomyopathy: (8) Hypercholesteremia: (9) Benign localized prostatic hyperplasia with lower urinary tract symptoms (LUTS): (10) Complete heart block: (11) Chronic kidney disease, stage 3a: Admission and Anticipated Discharge Date Admission Date: November 29, 2021 Supervising Physician Co-Signing Physician Notes Resident Physician Supervision Note: I independently interviewed and examined the patient and verified the deluca history and physical, reviewed labs and image studies and agree with resident Dr. Pichardo findings and care plan. Subjective Patient seen at bedside this morning. Patient states he is feeling fine today. Not having any shortness of breath or noticing any swelling in his legs. Denies any chest pain, fevers, chills, nausea. Physical Exam Constitutional: WD/WN, vitals as above Eyes: PERRL, conjunctivae normal, anicteric sclerae Respiratory: normal respiratory effort, lungs clear to auscultation Cardiovascular: Rate/Rhythm: regular rate and regular rhythm Heart Sounds: normal S1 and normal S2 Extremities: + pedal edema (1+) Gastrointestinal (Abdomen): normal bowel sounds, soft, nontender, no hepatosplenomegaly Results & Data Results & Data ([facility]) Vital Signs (Past 12 Hours) Vital Signs Temp Pulse Pulse Resp BP BP Pulse Ox 12/01/21 04:10 36.9 C 67 20 107/74 97 12/01/21 01:01 64 11/30/21 23:08 36.5 C 66 16 92/51 L 99 11/30/21 19:38 36.3 C L 65 20 93/64 L 93 Resident Activity Tracking Resident Involvement: Resident Care Provided Care Provided: Adult Hospital Medicine (1) Hypotension Hypotension type: unspecified hypotension type Qualified Code(s): I95.9 - Hypotension, unspecified
[2021-12-01] MEDS: ASPIRIN 81 MG ECTAB PO SCH (08:03)
[2021-12-01] MEDS: FERROUS SULFATE 325 MG TAB PO SCH (08:04)
[2021-12-01] MEDS: CLOPIDOGREL BISULFATE 75 MG TAB PO SCH (08:04)
[2021-12-01] MEDS: FUROSEMIDE 40 MG/4 ML VIAL IV SCH (08:05)
[2021-12-01] MEDS: carvediloL 12.5 MG TAB PO SCH (08:34)
--- NOTE | 2021-12-01 10:41 | Cardiology Progress Note ---
Date of Service December 01, 2021 Assessment & Plan (1) SOB (shortness of breath): (2) CHF (congestive heart failure): (3) Acute hyponatremia: (4) Ischemic cardiomyopathy: (5) Complete heart block: Plan: 1. Decompensated systolic heart failure: stable, but minimal improvement. He did not affect a good diuresis despite escalating doses of diuretics. In fact, he appears somewhat intravascularly depleted. He likely has cardiorenal syndrome. Renal function has declined. He appears more hemoconcentrated today. BUN is also elevated. This is all likely result of his severe LV dysfunction subsequent to his recent MRI. With some improvement in his blood pressure he may be a good candidate for a new trophic therapy. All this is not a good long- term solution perhaps we can unload the ventricle and affect some improved function. 2. Coronary artery disease: He is known to have residual left circumflex disease. No plans for immediate intervention. No current symptoms of angina or recurrent ischemia. 3. Ischemic cardiomyopathy: Severe. Hopefully stunned myocardium. He was on an aggressive regimen for an ischemic cardiomyopathy. Entresto and spironolactone currently being held due to presenting hypotension. Carvedilol also be held in order to facilitate higher blood pressures. 4. Complete heart block: Normally functioning dual-chamber ICD. 5. Hypotension: Likely related to medications and decompensated heart failure. We will temporarily hold carvedilol. 6. Hyponatremia: Slightly worse. Perhaps related to intravascular depletion in the setting of severe heart failure. Mentation appears to be adequate. I would advocate a fluid restriction. I will hold his diuretic until we can affect some inotropic therapy. 7. Anemia: Improved. Likely related to hemoconcentration from intravascular depletion. Will plan fluid restriction, PICC placement, echocardiogram to exclude mechanical complication, hold all antihypertensives including carvedilol and consider inotropic therapy. Admission and Anticipated Discharge Date Admission Date: November 29, 2021 Subjective this morning the patient reported feeling somewhat tired. He was able to ambulate around his room with some mild dyspnea and fatigue. He did not endorse symptoms of dizziness. He did not sleep well. No chest pain. No breathing difficulty at rest. Review of Systems Review of Systems: Per HPI Physical Exam Physical Exam: The patient is alert and oriented. Mood and affect appeared normal. He answered all questions appropriately. HEENT: Pupils are equal and reactive to light and accommodation. Extraocular movements are intact. The sclerae are anicteric. Neuro: Cranial nerves intact Lungs: good air movement. Occasional crackles at the bases. No expiratory wheezing. Cardiac: Heart demonstrates a regular rate and rhythm. Normal S1 and S2. No murmurs on examination. Pulses: The patient has palpable radial pulses bilaterally that are equal in intensity Extremities: There was no evidence of hypoperfusion. There is no cyanosis or clubbing. No lower extremity edema Skin: I did not appreciate any rashes on examination today. Results & Data ([facility]) Vital Signs (Past 12 Hours) Vital Signs Temp Pulse Pulse Resp BP BP Pulse Ox 12/01/21 04:10 36.9 C 67 20 107/74 97 12/01/21 01:01 64 11/30/21 23:08 36.5 C 66 16 92/51 L 99 Laboratory Results Abnormal Lab Results 11/30/21 11/30/21 11/30/21 15:47 17:10 19:25 WBC RBC Hgb Hct MCV MCH MCHC RDW Std Deviation RDW Coeff of Sonia Plt Count MPV Immature Gran % (Auto) Neut % (Auto) Lymph % (Auto) [place] % (Auto) Eos % (Auto) Baso % (Auto) Neut # (Auto) Lymph # (Auto) [place] # (Auto) Eos # (Auto) Baso # (Auto) Immature Gran # (Auto) Sodium 117 L* Potassium 5.3 H Chloride 86 L Carbon Dioxide 24 Anion Gap 7 BUN 70 H Creatinine 2.29 H Est Cr Clr Drug Dosing 22.0 Est GFR ( Amer) 29.1 Est GFR (Non-Af Amer) 25.1 BUN/Creatinine Ratio 30.6 H Glucose 152 H Osmolality 282 Calcium 8.2 L Urine Osmolality 424 L Ur Random Sodium 11/30/21 12/01/21 12/01/21 19:25 05:24 05:24 WBC 8.13 RBC 3.64 L Hgb 11.4 L Hct 32.3 L MCV 88.7 MCH 31.3 MCHC 35.3 RDW Std Deviation 41.9 RDW Coeff of Sonia 13.0 Plt Count 171 MPV 11.5 H Immature Gran % (Auto) 0.9 Neut % (Auto) 68.9 Lymph % (Auto) 18.6 [place] % (Auto) 11.1 Eos % (Auto) 0.4 Baso % (Auto) 0.1 Neut # (Auto) 5.61 Lymph # (Auto) 1.51 [place] # (Auto) 0.90 H Eos # (Auto) 0.03 Baso # (Auto) 0.01 Immature Gran # (Auto) 0.07 H Sodium Potassium 5.1 Chloride 88 L Carbon Dioxide 20 L Anion Gap 10 BUN 73 H Creatinine 2.14 H Est Cr Clr Drug Dosing 23.6 Est GFR ( Amer) 31.6 Est GFR (Non-Af Amer) 27.2 BUN/Creatinine Ratio 34.1 H Glucose 114 H Osmolality Calcium 7.9 L Urine Osmolality Ur Random Sodium 12 PG Care Time/CCT Total # of Minutes Spent Total Time Spent with Patient: Total time spent is greater than 50% in coordination of care (as documented) at patient's floor/unit and/or counseling patient: Coding Level of Care Code 76849 Subseq Hosp Care Lvl 3 Diagnoses SOB (shortness of breath) R06.02 CHF (congestive heart failure) I50.9 Heart failure chronicity: acute on chronic Heart failure type: unspecified Acute hyponatremia E87.1 Ischemic cardiomyopathy I25.5 Complete heart block I44.2 (1) CHF (congestive heart failure) Heart failure chronicity: acute on chronic Heart failure type: unspecified Qualified Code(s): I50.9 - Heart failure, unspecified
--- NOTE | 2021-12-01 12:51 | XCELERA ---
[id number] \\[id number]
--- NOTE | 2021-12-01 14:47 | XRay Report ---
XR chest 1V portable CLINICAL HISTORY: pICC tip placement. COMPARISON STUDY: 11/29/2021 TECHNIQUE: 1 view of the chest FINDINGS: Single frontal view of the chest demonstrates the cardiomediastinal silhouette to be within normal li mits. Cardiac ICD pacer is again seen. Right-sided PICC line has been placed with its tip in the rafal on of the proximal SVC. There is no evidence for pneumothorax. The lungs are clear of alveolar opacit ies. There is no evidence for pleural effusion. There is slight decrease in mild central vascular con gestion. There is no acute osseous pathology. IMPRESSION: Tip of the PICC line in the region of the proximal SVC. Decreased mild central vascular c ongestion. ACT 112: Negative or not required by law. Electronically signed by: Az Smallwood M.D. 12/01/2021 2:46 PM
[2021-12-01] MEDS: TAMSULOSIN HCL 0.4 MG CAP PO SCH (21:32)
[2021-12-01] MEDS: TEMAZEPAM 15 MG CAPSULE PO SCH (21:32)
[2021-12-01] MEDS: MEMANTINE HCL 10 MG TAB PO SCH (21:35)
[2021-12-01] MEDS: EZETIMIBE 10 MG TABLET PO SCH (21:35)
[2021-12-01] MEDS: ROSUVASTATIN CALCIUM 10 MG TAB PO SCH (21:35)
[2021-12-02 05:59] LABS: Hematocrit (blood only) 31.3 % (42-52); Mean Corpuscular Hemoglobin 31.8 pg (25-34); Mean Corpuscular Hgb Conc 35.1 g/dL (32-36); Mean Corpuscular Volume 90.5 fL (80-100); Mean Platelet Volume 11.6 fL (7.4-10.4); Platelet Count 187 K/uL (130-400); RDW Coefficient of Variation 13.1 % (11.5-14.5); RDW Standard Deviation 42.7 fL (36.4-46.3); Red Blood Count 3.46 M/uL (4.7-6.1); White Blood Count 6.97 K/uL (4.8-10.8)
[2021-12-02 06:20] LABS: BUN Creatinine Ratio 35.6 (10-20); Est GFR (African American) 33.8 ml/min; Est GFR (Non-African American) 29.2 ml/min; Potassium 4.8 mmol/L (3.5-5.1)
[2021-12-02 06:24] LABS: ALC (manual) 0.37 K/uL (1.2-3.4); ANC (manual) 5.68 K/uL (1.4-6.5); Echinocytes 1+; Lymphocytes # (manual) 0.37 K/uL (1.2-3.4); Lymphocytes % (manual) 5.3 %; Monocytes # (manual) 0.92 K/uL (0.11-0.59); Monocytes % (manual) 13.2 %; Neutrophils # (manual) 5.68 K/uL (1.4-6.5); Neutrophils % (manual) 81.5 %; Ovalocytes 1+
--- NOTE | 2021-12-02 06:36 | Hospitalist Progress Note ---
Date of Service December 02, 2021 Assessment & Plan (1) SOB (shortness of breath): Plan: Alphonso Villavicencio is a 86y/o M w/ PMH difficult for hypertension, hyperlipidemia, benign prostatic hyperplasia, CKD stage III, GERD, complete heart block s/p AICD, and recent PCI x3 to LAD following NSTEMI with significant reduction in EF; who presents following acute evaluation in cardiology clinic for worsening shortness of breath and fatigue over a week. Acute on chronic Heart Failure w/ reduced EF: BNP >35,000. 10 pound weight gain in one week. -Echo from 11/24 EF of 20 to 25% with significant LAD distribution wall motion abnormality -Cardiology consulted -PICC line placed and pt started on Dobutamine gtt, moved to ICU status while on titration. -Goal is to unload left ventricle and augment diuresis. -Monitor I's and O's closely -Continue diuresis. -Villatoro placed Hypotension: -Likely 2/2 congestive heart failure/ischemic cardiomyopathy given history of [facility] admission. -Improved following 20 mg IV Lasix -Holding Entresto and spironolactone. -Continue to monitor Elevated troponin: NSTEMI 11/22/2021 within four weeks of admission -Troponin on admission of 9.84, this is significantly down from last troponin on 11/22 189 -No ACS currently -Cardiology noted potential for additional PCI in future. No current symptoms suggestive of ischemia. -Troponin continuing to downtrend. -Continue aspirin, Plavix Acute kidney injury superimposed on chronic kidney disease: -Baseline creatinine approximately 1.4 -Creatinine on admission 1.97 -Likely secondary to poor forward flow from the heart. -Continue to monitor with BMPs twice daily to closely watch effect of continued IV Lasix Hyponatremia: -Na of 119 on admission -Sodium 123 on latest reading. -Continue to monitor with BMPs. Hypercholesterolemia: -Continue rosuvastatin 10 mg nightly BPH: -Continue tamsulosin nightly Dispo: Med/Surg w/ Tele CODE STATUS: Full code Diet: Heart healthy/low-sodium DVT prophylaxis: SCDs (2) Acute systolic heart failure: (3) Acute hyponatremia: (4) Hypotension: (5) Elevated troponin I level: (6) Acute kidney injury: (7) Ischemic cardiomyopathy: (8) Hypercholesteremia: (9) Benign localized prostatic hyperplasia with lower urinary tract symptoms (LUTS): (10) Complete heart block: (11) Chronic kidney disease, stage 3a: Admission and Anticipated Discharge Date Admission Date: November 29, 2021 Supervising Physician Co-Signing Physician Notes Resident Physician Supervision Note: I independently interviewed and examined the patient and verified the deluca history and physical, reviewed labs and image studies and agree with resident Dr. Pichardo findings and care plan. Subjective Patient seen at the bedside this morning. Patient stated he is feeling fine this morning but finds he tends to get more tired as the day progresses. Denies any chest pain, shortness of breath, fevers, chills, nausea. Physical Exam Constitutional: WD/WN, vitals as above Eyes: PERRL, conjunctivae normal, anicteric sclerae Respiratory: normal respiratory effort, lungs clear to auscultation Cardiovascular: RRR, no murmur, no edema Rate/Rhythm: regular rate and regular rhythm Heart Sounds: normal S1 and normal S2 Extremities: + pedal edema (1+) Gastrointestinal (Abdomen): normal bowel sounds, soft, nontender, no hepatosplenomegaly Results & Data Results & Data ([facility]) Vital Signs (Past 12 Hours) Vital Signs Temp Pulse Resp BP Pulse Ox 12/02/21 04:00 36.5 C 66 10 L 96/50 L 12/02/21 00:00 65 17 84/56 L 98 12/01/21 21:00 72 18 110/72 Resident Activity Tracking Resident Involvement: Resident Care Provided Care Provided: Adult Hospital Medicine (1) Hypotension Hypotension type: unspecified hypotension type Qualified Code(s): I95.9 - Hypotension, unspecified
[2021-12-02] MEDS: FERROUS SULFATE 325 MG TAB PO SCH (09:36)
[2021-12-02] MEDS: ASPIRIN 81 MG ECTAB PO SCH (09:36)
[2021-12-02] MEDS: CLOPIDOGREL BISULFATE 75 MG TAB PO SCH (09:36)
[2021-12-02] MEDS ORDERED: STAT IV Infusion **Titration per Protocol STA (10:17)
--- NOTE | 2021-12-02 10:39 | Cardiology Progress Note ---
Date of Service December 02, 2021 Assessment & Plan (1) SOB (shortness of breath): (2) CHF (congestive heart failure): (3) Acute hyponatremia: (4) Ischemic cardiomyopathy: (5) Complete heart block: Plan: 1. Decompensated systolic heart failure: Stable. Clinically improved. Reflected some diuresis yesterday. He continues on a fluid restriction. A PICC line was placed yesterday and I think we will have an opportunity for some inotropic support today. This would augment diuresis. Hopefully for less than 24 hours. Perhaps this will improve cardiac function as well. 2. Coronary artery disease: He is known to have residual left circumflex disease. No plans for immediate intervention. No current symptoms of angina or recurrent ischemia. 3. Ischemic cardiomyopathy: Severe. Hopefully stunned myocardium. He was on an aggressive regimen for an ischemic cardiomyopathy. Entresto and spironolactone currently being held due to presenting hypotension. Carvedilol also be held in order to facilitate higher blood pressures. 4. Complete heart block: Normally functioning dual-chamber ICD. At some point he will require an upgrade to a biventricular device. We will wait till his overall clinical situation stabilizes. 5. Hypotension: Likely related to medications and decompensated heart failure. Antihypertensives being held. We will try low-dose dobutamine and monitor his blood pressures closely. 6. Hyponatremia: Improved. Less diuretic administered yesterday. Also on a fluid restriction. 7. Anemia: Improved. No evidence of active bleeding. Will plan trial of inotropic agents and possible additional diuretics today. Admission and Anticipated Discharge Date Admission Date: November 29, 2021 Subjective This morning patient clinically feeling well. He was able to sleep well last night. He did not report any orthopnea. Has not been up yet this morning. No breathing difficulty at rest. No chest pain. Still fatigued. He ate breakfast without incident. Review of Systems Review of Systems: Per HPI Physical Exam Physical Exam: The patient is alert and oriented. Mood and affect appeared normal. He answered all questions appropriately. HEENT: Pupils are equal and reactive to light and accommodation. Extraocular movements are intact. The sclerae are anicteric. Neuro: Cranial nerves intact. Lungs: Clear to auscultation bilaterally. He has good air movement without use of accessory muscles. No rales wheezes or rhonchi. Cardiac: Heart demonstrates a regular rate and rhythm. Normal S1 and S2. No murmurs on examination. Extremities: There was no evidence of hypoperfusion. There is no cyanosis or clubbing. There is no edema. Skin: I did not appreciate any rashes on examination today. Atrial fibrillation Results & Data ([facility]) Vital Signs (Past 12 Hours) Vital Signs Temp Pulse Resp BP Pulse Ox 12/02/21 04:00 36.5 C 66 10 L 96/50 L 12/02/21 00:00 65 17 84/56 L 98 PG Care Time/CCT Total # of Minutes Spent Total Time Spent with Patient: Total time spent is greater than 50% in coordination of care (as documented) at patient's floor/unit and/or counseling patient: Coding Level of Care Code 23106 Subseq Hosp Care Lvl 3 Diagnoses SOB (shortness of breath) R06.02 CHF (congestive heart failure) I50.9 Heart failure chronicity: acute on chronic Heart failure type: unspecified Acute hyponatremia E87.1 Ischemic cardiomyopathy I25.5 Complete heart block I44.2 (1) CHF (congestive heart failure) Heart failure chronicity: acute on chronic Heart failure type: unspecified Qualified Code(s): I50.9 - Heart failure, unspecified
[2021-12-02] MEDS: DOBUTamine / D5W 500 MG/250 ML BAG IV SCH (10:44)
[2021-12-02] MEDS ORDERED: FUROSEMIDE 40 MG/4 ML VIAL IV ONE ×2 (14:04→23:45)
[2021-12-02] MEDS: TAMSULOSIN HCL 0.4 MG CAP PO SCH (20:14)
[2021-12-02] MEDS: EZETIMIBE 10 MG TABLET PO SCH (20:14)
[2021-12-02] MEDS: MEMANTINE HCL 10 MG TAB PO SCH (20:14)
[2021-12-02] MEDS: ROSUVASTATIN CALCIUM 10 MG TAB PO SCH (20:15)
[2021-12-02] MEDS: TEMAZEPAM 15 MG CAPSULE PO SCH (20:21)
[2021-12-03] MEDS: DOBUTamine / D5W 500 MG/250 ML BAG IV SCH ×3 (00:24→18:26)
[2021-12-03 05:04] LABS: Basophils # (auto) 0.01 K/uL (0-0.2); Basophils % (auto) 0.2 %; Eosinophils # (auto) 0.03 K/uL (0-0.5); Eosinophils % (auto) 0.5 %; Hemoglobin 10.1 g/dL (14.0-18.0); Immature Granulocytes # (auto) 0.04 K/uL (0.00-0.02); Immature Granulocytes % (auto) 0.7 %; Lymphocytes # (auto) 0.42 K/uL (1.2-3.4); Lymphocytes % (auto) 7.6 %; Mean Corpuscular Hemoglobin 30.9 pg (25-34); Mean Corpuscular Hgb Conc 34.8 g/dL (32-36); Mean Corpuscular Volume 88.7 fL (80-100); Mean Platelet Volume 10.8 fL (7.4-10.4); Monocytes # (auto) 0.96 K/uL (0.11-0.59); Monocytes % (auto) 17.3 %; Neutrophils % (auto) 73.7 %; Platelet Count 175 K/uL (130-400); RDW Coefficient of Variation 12.9 % (11.5-14.5); RDW Standard Deviation 41.8 fL (36.4-46.3); Red Blood Count 3.27 M/uL (4.7-6.1); White Blood Count 5.56 K/uL (4.8-10.8)
[2021-12-03 05:34] LABS: BUN Creatinine Ratio 35.2 (10-20); Calcium 7.7 mg/dl (8.5-10.1); Creatinine Clr Calc Pharmacy 27.7 ml/min; Est GFR (African American) 38.4 ml/min; Est GFR (Non-African American) 33.1 ml/min; Potassium 3.6 mmol/L (3.5-5.1)
--- NOTE | 2021-12-03 07:04 | Hospitalist Progress Note ---
Date of Service December 03, 2021 Assessment & Plan (1) SOB (shortness of breath): Plan: Alphonso Villavicencio is a 86y/o M w/ PMH difficult for hypertension, hyperlipidemia, benign prostatic hyperplasia, CKD stage III, GERD, complete heart block s/p AICD, and recent PCI x3 to LAD following NSTEMI with significant reduction in EF; who presents following acute evaluation in cardiology clinic for worsening shortness of breath and fatigue over a week. Acute on chronic Heart Failure w/ reduced EF: BNP >35,000. 10 pound weight gain in one week. -Echo from 11/24 EF of 20 to 25% with significant LAD distribution wall motion abnormality -Cardiology consulted -PICC line placed and pt started on Dobutamine gtt, moved to ICU status while on titration. -Goal is to unload left ventricle and augment diuresis. -Repeat BNP >4,700. -Negative fluid balance. Monitor I's and O's closely -Continue diuresis. -Villatoro in place. Hypotension: -2/2 cardiomyopathy . -Per cardiology, consider adding small dose of dopamine if continues. -Holding Entresto and spironolactone. -Continue to monitor Elevated troponin: NSTEMI 11/22/2021 within four weeks of admission -Troponin on admission of 9.84, this is significantly down from last troponin on 11/22 -No ACS currently -Cardiology noted potential for additional PCI in future. No current symptoms suggestive of ischemia. -Troponin continuing to downtrend. -Continue aspirin, Plavix Acute kidney injury superimposed on chronic kidney disease: -Baseline creatinine approximately 1.4 -Creatinine on admission 1.97 -Likely secondary to poor forward flow from the heart. -Continue to monitor with BMPs daily to closely watch effect of continued IV Lasix Hyponatremia: -Na of 119 on admission -Sodium 124 on latest reading. -Continue to monitor with BMPs. Hypercholesterolemia: -Continue rosuvastatin 10 mg nightly BPH: -Continue tamsulosin nightly Dispo: Med/Surg w/ Tele CODE STATUS: Full code Diet: Heart healthy/low-sodium DVT prophylaxis: SCDs (2) Acute systolic heart failure: (3) Acute hyponatremia: (4) Hypotension: (5) Elevated troponin I level: (6) Acute kidney injury: (7) Ischemic cardiomyopathy: (8) Hypercholesteremia: (9) Benign localized prostatic hyperplasia with lower urinary tract symptoms (LUTS): (10) Complete heart block: (11) Chronic kidney disease, stage 3a: Admission and Anticipated Discharge Date Admission Date: November 29, 2021 Supervising Physician Co-Signing Physician Notes Resident Physician Supervision Note: I independently interviewed and examined the patient and verified the deluca history and physical, reviewed labs and image studies and agree with resident Dr. Pichardo findings and care plan. Subjective Patient seen at bedside this morning. Patient stated he's feeling fine this morning. Denies any shortness of breath, chest pain, nausea, fevers, chills. Physical Exam Constitutional: WD/WN, vitals as above Eyes: PERRL, conjunctivae normal, anicteric sclerae Respiratory: normal respiratory effort, lungs clear to auscultation Cardiovascular: RRR, no murmur, no edema Rate/Rhythm: regular rate and regular rhythm Heart Sounds: normal S1 and normal S2 Extremities: + pedal edema (1+) Gastrointestinal (Abdomen): normal bowel sounds, soft, nontender, no hepatosplenomegaly Results & Data Results & Data ([facility]) Vital Signs (Past 12 Hours) Vital Signs Pulse Pulse Resp BP Pulse Ox 12/03/21 06:05 80 22 95 12/03/21 06:00 79 20 88/55 L 91 12/03/21 05:55 77 23 93 12/03/21 05:50 83 25 H 80/44 L 97 12/03/21 05:45 78 18 94 12/03/21 05:30 79 14 95 12/03/21 05:15 79 17 92 12/03/21 05:00 76 17 83/46 L 93 12/03/21 04:00 78 95/43 L 90 12/03/21 03:00 77 17 101/48 L 96 12/03/21 02:35 76 19 89/52 L 94 12/03/21 02:00 88 19 85/49 L 95 12/03/21 01:00 80 19 107/51 L 95 12/03/21 00:52 72 12/03/21 00:00 78 17 95/63 L 97 12/02/21 23:34 80 12/02/21 23:09 84 23 97/55 L 95 12/02/21 23:00 79 14 84/53 L 96 12/02/21 22:00 80 101/47 L 92 01/13/22 21:02 84 19 101/60 93 12/02/21 21:00 88 14 94 12/02/21 20:00 75 25 H 101/60 95 12/02/21 19:33 77 15 96/62 L Resident Activity Tracking Resident Involvement: Resident Care Provided Care Provided: Adult Hospital Medicine (1) Hypotension Hypotension type: unspecified hypotension type Qualified Code(s): I95.9 - Hypotension, unspecified
[2021-12-03] MEDS ORDERED: FUROSEMIDE 40 MG/4 ML VIAL IV ONE ×2 (08:58→21:32)
[2021-12-03] MEDS: CLOPIDOGREL BISULFATE 75 MG TAB PO SCH (09:17)
[2021-12-03] MEDS: ASPIRIN 81 MG ECTAB PO SCH (09:17)
[2021-12-03] MEDS: FERROUS SULFATE 325 MG TAB PO SCH (09:17)
--- NOTE | 2021-12-03 09:17 | Cardiology Progress Note ---
Date of Service December 03, 2021 Assessment & Plan (1) SOB (shortness of breath): (2) CHF (congestive heart failure): (3) Acute hyponatremia: (4) Ischemic cardiomyopathy: (5) Complete heart block: Plan: 1. Decompensated systolic heart failure: Stable. he seemed to have affected a diuresis yesterday with additional Lasix and dobutamine infusion. He is tolerating the infusion well. Higher doses apparently cause some mild hypotension and we have settled on approximately 14 micrograms/kilogram per minute as the top dose. I think we will continue this infusion through the majority of the day. We will give him additional doses of diuretics in an attempt to affect better diuresis. His renal function appeared better likely due to improved perfusion. Sodium also improving. 2. Coronary artery disease: He is known to have residual left circumflex dis ease. No plans for immediate intervention. No current symptoms of angina or recurrent ischemia. 3. Ischemic cardiomyopathy: Severe. Hopefully stunned myocardium. He was on an aggressive regimen for an ischemic cardiomyopathy. Entresto and spironolactone currently being held due to presenting hypotension. Carvedilol also be held in order to facilitate higher blood pressures. Unclear if he will tolerate any additional medications prior to discharge. Also unclear what the recovery of the ventricle will be in the long-term. Clearly our efforts at this point are designed at improving his acute symptoms. unclear if he would be a candidate for more aggressive advanced heart failure therapies. 4. Complete heart block: Normally functioning dual-chamber ICD. At some point he will require an upgrade to a biventricular device. We will wait until his overall clinical situation stabilizes. 5. Hypotension: Likely related to medications and decompensated heart failure. Antihypertensives being held. Tolerating the current dose of dobutamine. We could consider a very small infusion of dopamine as well if necessary. 6. Hyponatremia: Slowly improving with Fluid restriction and better renal perfusion. 7. Anemia: stable. No evidence of active bleeding. continue dobutamine infusion today consider low-dose dopamine for persistently low blood pressures while on dobutamine additional diuretic administration today hopefully with some unloading of the ventricle we can reach a better compensated state. I would anticipate weaning dobutamine over the next 24 hours. We will need to watch his electrolytes and renal function closely. He will need to be transition to an oral regimen of diuretics prior to discharge. Unclear at this time whether he would tolerate any resumption of his medications for his recent NV and Cardiomyopathy. Admission and Anticipated Discharge Date Admission Date: November 29, 2021 Subjective Current patient claimed he feeling well. He was somewhat tired. He claimed if slept well. He tolerated his breakfast. He felt comfortable sitting in a chair. He did not report dizziness or breathing difficulty. He has not ambulated in approximately 24 hours. Review of Systems Review of Systems: Per HPI Physical Exam Physical Exam: The patient is alert and oriented. Mood and affect appeared normal. He answered all questions appropriately. HEENT: Pupils are equal and reactive to light and accommodation. Extraocular movements are intact. The sclerae are anicteric. Neuro: Cranial nerves intact. Lungs: Clear to auscultation bilaterally. He has good air movement without use of accessory muscles. No rales wheezes or rhonchi. Cardiac: Heart demonstrates a regular rate and rhythm. Normal S1 and S2. No murmurs on examination. Extremities: There was no evidence of hypoperfusion. There is no cyanosis or c lubbing. There is no edema. Skin: I did not appreciate any rashes on examination today. Atrial fibrillation Results & Data ([facility]) Vital Signs (Past 12 Hours) Vital Signs Temp Pulse Pulse Resp BP BP Pulse Ox 12/03/21 09:00 79 15 81/44 L 95 12/03/21 08:00 78 16 93/65 L 95 12/03/21 07:30 83 12/03/21 07:00 36.5 C 85 16 87/45 L 95 12/03/21 06:05 80 22 95 12/03/21 06:00 79 20 88/55 L 91 12/03/21 05:55 77 23 93 12/03/21 05:50 83 25 H 80/44 L 97 12/03/21 05:45 78 18 94 12/03/21 05:30 79 14 95 12/03/21 05:15 79 17 92 12/03/21 05:00 76 17 83/46 L 93 12/03/21 04:00 78 95/43 L 90 12/03/21 03:00 77 17 101/48 L 96 12/03/21 02:35 76 19 89/52 L 94 12/03/21 02:00 88 19 85/49 L 95 12/03/21 01:00 80 19 107/51 L 95 12/03/21 00:52 72 12/03/21 00:00 78 17 95/63 L 97 12/02/21 23:34 80 12/02/21 23:09 84 23 97/55 L 95 12/02/21 23:00 79 14 84/53 L 96 12/02/21 22:00 80 101/47 L 92 Laboratory Results Abnormal Lab Results 12/03/21 12/03/21 12/03/21 04:39 04:39 04:39 WBC 5.56 RBC 3.27 L Hgb 10.1 L Hct 29.0 L MCV 88.7 MCH 30.9 MCHC 34.8 RDW Std Deviation 41.8 RDW Coeff of Sonia 12.9 Plt Count 175 MPV 10.8 H Immature Gran % (Auto) 0.7 Neut % (Auto) 73.7 Lymph % (Auto) 7.6 [place] % (Auto) 17.3 Eos % (Auto) 0.5 Baso % (Auto) 0.2 Neut # (Auto) 4.10 Lymph # (Auto) 0.42 L [place] # (Auto) 0.96 H Eos # (Auto) 0.03 Baso # (Auto) 0.01 Immature Gran # (Auto) 0.04 H Sodium 124 L Potassium 3.6 D Chloride 90 L Carbon Dioxide 25 Anion Gap 9 BUN 64 H Creatinine 1.82 H Est Cr Clr Drug Dosing 27.7 Est GFR ( Amer) 38.4 Est GFR (Non-Af Amer) 33.1 BUN/Creatinine Ratio 35.2 H Glucose 104 H Calcium 7.7 L B-Natriuretic Peptide > 4700 H PG Care Time/CCT Total # of Minutes Spent Total Time Spent with Patient: Total time spent is greater than 50% in coordination of care (as documented) at patient's floor/unit and/or counseling patient: Coding Level of Care Code 86060 Subseq Hosp Care Lvl 3 Diagnoses SOB (shortness of breath) R06.02 CHF (congestive heart failure) I50.9 Heart failure chronicity: acute on chronic Heart failure type: unspecified Acute hyponatremia E87.1 Ischemic cardiomyopathy I25.5 Complete heart block I44.2 (1) CHF (congestive heart failure) Heart failure chronicity: acute on chronic Heart failure type: unspecified Qualified Code(s): I50.9 - Heart failure, unspecified
[2021-12-03] MEDS: TAMSULOSIN HCL 0.4 MG CAP PO SCH (20:05)
[2021-12-03] MEDS: TEMAZEPAM 15 MG CAPSULE PO SCH (20:05)
[2021-12-03] MEDS: EZETIMIBE 10 MG TABLET PO SCH (20:06)
[2021-12-03] MEDS: ROSUVASTATIN CALCIUM 10 MG TAB PO SCH (20:06)
[2021-12-03] MEDS: MEMANTINE HCL 10 MG TAB PO SCH (20:06)
[2021-12-03 23:56] LABS: BUN Creatinine Ratio 30.2 (10-20); Calcium 7.7 mg/dl (8.5-10.1); Creatinine Clr Calc Pharmacy 28.2 ml/min; Est GFR (African American) 39.2 ml/min; Est GFR (Non-African American) 33.8 ml/min; Magnesium 2.3 mg/dl (1.7-2.4); Phosphorus 3.9 mg/dl (2.5-4.9); Potassium 3.5 mmol/L (3.5-5.1)
[2021-12-04] MEDS: POTASSIUM CHLORIDE / WTR 10 MEQ/100 ML PLCT IV SCH ×2 (00:37→01:29)
[2021-12-04] MEDS: DOBUTamine / D5W 500 MG/250 ML BAG IV SCH (04:06)
[2021-12-04 05:29] LABS: Eosinophils # (auto) 0.04 K/uL (0-0.5); Eosinophils % (auto) 0.7 %; Hematocrit (blood only) 28.9 % (42-52); Hemoglobin 9.9 g/dL (14.0-18.0); Immature Granulocytes # (auto) 0.03 K/uL (0.00-0.02); Immature Granulocytes % (auto) 0.5 %; Lymphocytes # (auto) 0.41 K/uL (1.2-3.4); Lymphocytes % (auto) 7.3 %; Mean Corpuscular Hemoglobin 31.2 pg (25-34); Mean Corpuscular Hgb Conc 34.3 g/dL (32-36); Mean Corpuscular Volume 91.2 fL (80-100); Mean Platelet Volume 10.8 fL (7.4-10.4); Monocytes % (auto) 19.7 %; Neutrophils # (auto) 4.01 K/uL (1.4-6.5); Neutrophils % (auto) 71.8 %; Platelet Count 186 K/uL (130-400); RDW Coefficient of Variation 13.1 % (11.5-14.5); RDW Standard Deviation 43.3 fL (36.4-46.3); Red Blood Count 3.17 M/uL (4.7-6.1); White Blood Count 5.59 K/uL (4.8-10.8)
[2021-12-04 05:48] LABS: BUN Creatinine Ratio 30.5 (10-20); Calcium 7.5 mg/dl (8.5-10.1); Creatinine Clr Calc Pharmacy 30.2 ml/min; Est GFR (African American) 42.6 ml/min; Est GFR (Non-African American) 36.8 ml/min; Potassium 3.7 mmol/L (3.5-5.1)
[2021-12-04] MEDS: ASPIRIN 81 MG ECTAB PO SCH (08:52)
[2021-12-04] MEDS: CLOPIDOGREL BISULFATE 75 MG TAB PO SCH (08:52)
[2021-12-04] MEDS: FERROUS SULFATE 325 MG TAB PO SCH (08:52)
--- NOTE | 2021-12-04 09:20 | Hospitalist Progress Note ---
Date of Service December 04, 2021 Assessment & Plan (1) SOB (shortness of breath): Plan: Alphonso Villavicencio is a 86y/o M w/ PMH difficult for hypertension, hyperlipidemia, benign prostatic hyperplasia, CKD stage III, GERD, complete heart block s/p AICD, and recent PCI x3 to LAD following NSTEMI with significant reduction in EF; admitted for worsening dyspnea/fatigue for 1 week, referred to hospital after acute evaluation in cardiology clinic. Acute on chronic systolic heart failure w/ reduced EF: -Admission BNP >35,000, 10 pound weight gain in one week -Echo from 11/24 EF of 20-25% with significant LAD distribution wall motion abnormality -Cardiology following -S/p dobutamine, weaned off 12/04. BPs average 80s/50s -Diuresis with Lasix 40 mg IV as needed. Improving fluid status, 12/03 repeat BNP >4,700 -12/04 recommendation- given severe LV dysfunction and limited ability to treat with medication, recommend upgrade dual chamber defibrillator to biventricular defibrillator during this hospitalization -Monitor I/O closely, daily weights, zelaya in place Hypotension: -2/2 congestive heart failure/ischemic cardiomyopathy given history of last admission -Weaned off dobutamine 12/04, will restart per cardiology if hypotension persists -Holding home Entresto and spironolactone Elevated troponin: NSTEMI 11/22/2021 within four weeks of admission -11/22 troponin 189, troponin on admission 9.84 -No ACS currently -Cardiology noted potential for additional PCI in future. No current symptoms suggestive of ischemia. -Continue aspirin, Plavix Acute kidney injury superimposed on chronic kidney disease: -Baseline creatinine approximately 1.4 -Creatinine on admission 1.97, 12/04 Cr 1.67 -Likely secondary to poor forward flow from the heart -Continue to trend BMP while on regular IV Lasix therapy Hyponatremia: -Na of 119 on admission -BMP 12/04- Na 127, stable from day prior -Likely dilutional from CHF fluid overload -Continue to trend BMP Hypercholesterolemia: -Continue rosuvastatin 10 mg nightly BPH: -Continue tamsulosin nightly Dispo: Med/Surg w/ Tele CODE STATUS: Full code Diet: Heart healthy/low-sodium DVT prophylaxis: SCDs (2) Acute systolic heart failure: (3) Acute hyponatremia: (4) Hypotension: (5) Elevated troponin I level: (6) Acute kidney injury: (7) Ischemic cardiomyopathy: (8) Hypercholesteremia: (9) Benign localized prostatic hyperplasia with lower urinary tract symptoms (LUTS): (10) Complete heart block: (11) Chronic kidney disease, stage 3a: Admission and Anticipated Discharge Date Admission Date: November 29, 2021 Supervising Physician Co-Signing Physician Notes Resident Physician Supervision Note: I independently interviewed and examined the patient and verified the deluca history and physical, reviewed labs and image studies and agree with resident Dr. Pichardo findings and care plan. Subjective Overnight, pt had multiple runs of ventricular tachycardia on monitor starting at 11:00 PM on 12/03. This continued intermittently throughout the night but pt did not experience any lightheadedness, palpitations, chest pain, dizziness, vision change, LOC. Dobutamine was decreased gradually from 15 mcg/kg/min to 8. Dobutamine stopped at 7:45 AM on 12/04, pt continues to deny symptoms. He reports feeling well, no dyspnea, producing urine. Eating and drinking without difficulty. Review of Systems Review of Systems: Per subjective Physical Exam Constitutional: WD/WN, vitals as above Respiratory: normal respiratory effort and able to speak in complete sentences; no respiratory distress and no retractions Auscultation: lungs clear to auscultation bilaterally (Faint crackles at b/l bases) Cardiovascular: Rate/Rhythm: regular rate and regular rhythm Heart Sounds: normal S1 and normal S2; no murmur Trace peripheral edema b/l LE No appreciable JVD b/l Gastrointestinal (Abdomen): normal bowel sounds, soft, nontender, no hepatosplenomegaly Results & Data Results & Data ([facility]) Vital Signs (Past 12 Hours) Vital Signs Temp Pulse Resp BP Pulse Ox 12/04/21 07:00 102 H 14 94/62 L 93 12/04/21 06:00 83 18 89/52 L 93 12/04/21 05:00 83 13 95 12/04/21 04:00 36.8 C 104 H 12 92/53 L 96 12/04/21 03:00 83 13 94 12/04/21 02:00 87 20 83/53 L 96 12/04/21 01:00 77 13 85/47 L 92 12/04/21 00:00 36.8 C 92 H 25 H 81/51 L 94 01/14/22 23:26 96 H 19 96/62 L 93 12/03/21 23:06 121 H 19 83/52 L 92 12/03/21 23:00 118 H 13 93 12/03/21 22:58 79 12/03/21 22:35 84 19 85/49 L 96 12/03/21 22:00 95 H 19 97 Resident Activity Tracking Resident Involvement: Resident Care Provided Care Provided: Adult Hospital Medicine (1) Hypotension Hypotension type: unspecified hypotension type Qualified Code(s): I95.9 - Hypotension, unspecified
--- NOTE | 2021-12-04 09:41 | Electrocardiogram Report ---
Test Reason : Blood Pressure : / mmHG Vent. Rate : 086 BPM Atrial Rate : 086 BPM P-R Int : 202 ms QRS Dur : 168 ms QT Int : 496 ms P-R-T Axes : 048 -85 086 degrees QTc Int : 593 ms Atrial-sensed ventricular-paced rhythm Normal sinus rhythm with possible PAC's Abnormal ECG When compared with ECG of 29-NOV-2021 19:06, Vent. rate has increased BY 18 BPM Confirmed by Orlando Almeida ([id number]) on 12/04/2021 9:40:57 AM Referred By: REFERRED SELF Confirmed By:Orlando Almeida
--- NOTE | 2021-12-04 10:50 | Cardiology Progress Note ---
Date of Service December 04, 2021 Assessment & Plan Admission and Anticipated Discharge Date Admission Date: November 29, 2021 Subjective Patient was seen for Dr. Almaguer. He denies any chest pain chest pressure chest heaviness. Shortness of breath is improving. He does not appear short of breath talking in sentences. He denies any lightheadedness or dizziness. He has not been out of bed to a chair today but was out yesterday and felt okay. He has no lower extremity edema he notes his abdominal distention has improved. His appetite is stable. He is unaware of any palpitations or fluttering or feeling his heart racing. Cognitively he seems okay. Results & Data ([facility]) Vital Signs (Past 12 Hours) Vital Signs Temp Pulse Resp BP Pulse Ox 12/04/21 10:00 77 13 81/56 L 95 12/04/21 09:00 75 18 81/54 L 95 12/04/21 08:13 77 17 78/47 L 94 12/04/21 08:00 88 12/04/21 07:31 87 20 97/60 L 95 12/04/21 07:00 102 H 14 94/62 L 93 12/04/21 06:00 83 18 89/52 L 93 12/04/21 05:00 83 13 95 12/04/21 04:00 36.8 C 104 H 12 92/53 L 96 12/04/21 03:00 83 13 94 12/04/21 02:00 87 20 83/53 L 96 12/04/21 01:00 77 13 85/47 L 92 12/04/21 00:00 36.8 C 92 H 25 H 81/51 L 94 12/03/21 23:26 96 H 19 96/62 L 93 12/03/21 23:06 121 H 19 83/52 L 92 12/03/21 23:00 118 H 13 93 12/03/21 22:58 79 He is awake alert and oriented x3. HEENT: Markedly reduced carotid upstrokes Lungs: Clear to auscultation bilaterally no rales rhonchi or wheezing Heart: Regular rate and rhythm (paced) no appreciable murmurs or rubs Abdomen: Soft nontender distended positive bowel sounds Extremities: No clubbing cyanosis or edema Psychiatric as after. Appropriate IMPRESSIONS: 1. Severe ischemic cardiomyopathy likely worsened by chronic RV pacing 2. History of mild left ventricular dysfunction with a nonischemic stress test and areas of scar September 2022 at [facility] 3. History of dual-chamber defibrillator 4. Complete heart block 5. History of VT arrest 6. CAD 7. Acute on chronic systolic heart failure 8. Chronic kidney disease stage III 9. Hyponatremia Dobutamine has been discontinued he did have a good diuresis with that and helped his heart failure symptoms. His blood pressures are on the soft side this morning given the severity of his LV dysfunction he likely will have blood pressures in the mid 80s to low 90s systolic and not be orthostatic. The problem is it limits our ability to give him heart failure medications. I did review the [facility] notes as well as Dr. Mak's notes. Given the fact that his LV function was only mildly abnormal September 2020 and now he has severe LV dysfunction it raises the question as to upgrading his dual- chamber defibrillator to a biventricular defibrillator sooner than later. Given our limited ability to use medications to improve his heart failure symptoms this sounds like his best option as he is not a candidate for an LVAD. There are obvious risks given his current cardiac status with regards to placing an LV lead. The primary team will have to determine the risk-benefit of proceeding. Given the issues of COVID in the hospital he is likely better off proceeding with upgrading his device while he is still here rather than trying to get it done as an outpatient and the potential for not having a bed. This was discussed with the primary service as well. If he starts to decompensate again I would restart his dobutamine at low-dose.
[2021-12-04] MEDS: TEMAZEPAM 15 MG CAPSULE PO SCH (20:49)
[2021-12-04] MEDS: MEMANTINE HCL 10 MG TAB PO SCH (20:50)
[2021-12-04] MEDS: EZETIMIBE 10 MG TABLET PO SCH (20:50)
[2021-12-04] MEDS: TAMSULOSIN HCL 0.4 MG CAP PO SCH (20:50)
[2021-12-04] MEDS: ROSUVASTATIN CALCIUM 10 MG TAB PO SCH (20:50)
[2021-12-05 05:18] LABS: Hematocrit (blood only) 30.1 % (42-52); Hemoglobin 10.1 g/dL (14.0-18.0); Mean Corpuscular Hgb Conc 33.6 g/dL (32-36); Mean Corpuscular Volume 92.3 fL (80-100); Mean Platelet Volume 10.7 fL (7.4-10.4); Platelet Count 185 K/uL (130-400); RDW Coefficient of Variation 13.3 % (11.5-14.5); RDW Standard Deviation 44.5 fL (36.4-46.3); Red Blood Count 3.26 M/uL (4.7-6.1); White Blood Count 6.13 K/uL (4.8-10.8)
[2021-12-05 05:40] LABS: BUN Creatinine Ratio 31.9 (10-20); Calcium 7.7 mg/dl (8.5-10.1); Creatinine Clr Calc Pharmacy 35.1 ml/min; Potassium 3.8 mmol/L (3.5-5.1)
[2021-12-05] MEDS: ASPIRIN 81 MG ECTAB PO SCH (08:12)
[2021-12-05] MEDS: FERROUS SULFATE 325 MG TAB PO SCH (08:12)
[2021-12-05] MEDS: CLOPIDOGREL BISULFATE 75 MG TAB PO SCH (08:12)
--- NOTE | 2021-12-05 11:18 | Hospitalist Progress Note ---
Date of Service December 05, 2021 Assessment & Plan (1) SOB (shortness of breath): Plan: Alphonso Villavicencio is a 86y/o M w/ PMH difficult for hypertension, hyperlipidemia, benign prostatic hyperplasia, CKD stage III, GERD, complete heart block s/p AICD, and recent PCI x3 to LAD following NSTEMI with significant reduction in EF; admitted for worsening dyspnea/fatigue for 1 week, referred to hospital after acute evaluation in cardiology clinic. Acute on chronic systolic heart failure w/ reduced EF: -Admission BNP >35,000, 5 kg weight gain in 1 week -Echo from 11/24 EF of 20-25% with significant LAD distribution wall motion abnormality -Cardiology following -S/p dobutamine, weaned off 12/04. BPs average 80s-90s/50s-60s -Diuresis with Lasix 40 mg IV as needed. Euvolemic on exam. 12/03 repeat BNP >4,700 -12/04 recommendation- given severe LV dysfunction and limited ability to treat with medication, recommend upgrade dual chamber defibrillator to biventricular defibrillator during this hospitalization. Will likely be done this week. -Admission weight 74.1 kg, 12/05 weight 70.3 kg -Monitor I/O closely, daily weights, zelaya in place Hypotension, improving: -Likely 2/2 congestive heart failure/ischemic cardiomyopathy given history of last admission -Weaned off dobutamine 12/04, will restart per cardiology if hypotension persists -Holding home Entresto and spironolactone -BPs stable in high 80s-90s/high 50s-60s off pressors Elevated troponin, NSTEMI 11/22/2021 within four weeks of admission -11/22 troponin 189, troponin on admission 9.84 -No ACS currently -Cardiology noted potential for additional PCI in future. No current symptoms suggestive of ischemia. -Continue aspirin, Plavix Acute kidney injury superimposed on chronic kidney disease, improving: -Baseline creatinine approximately 1.4 -Creatinine on admission 1.97, 12/05 Cr 1.44 now back to baseline -Likely secondary to poor forward flow from the heart -Continue to trend BMP Hyponatremia, improving: -Na of 119 on admission -BMP 12/05- Na 128, increased from day prior -Likely dilutional from CHF fluid overload -Continue to trend BMP Hypercholesterolemia: -Continue rosuvastatin 10 mg nightly BPH: -Continue tamsulosin nightly Dispo: Med/Surg w/ Tele CODE STATUS: Full code Diet: Heart healthy/low-sodium DVT prophylaxis: SCDs (2) Acute systolic heart failure: (3) Acute hyponatremia: (4) Hypotension: (5) Acute kidney injury: (6) Ischemic cardiomyopathy: (7) Hypercholesteremia: (8) Benign localized prostatic hyperplasia with lower urinary tract symptoms (LUTS): (9) Chronic kidney disease, stage 3a: Admission and Anticipated Discharge Date Admission Date: November 29, 2021 Supervising Physician Co-Signing Physician Notes Resident Physician Supervision Note: I independently interviewed and examined the patient and verified the deluca history and physical, reviewed labs and image studies and agree with resident Dr. Ruvalcaba findings and care plan. Subjective No acute events overnight. Slept well, eating, drinking and voiding without issue. BPs remained stable in high 80s/90s systolic over high 50s/60s diastolic. Pt feels well, no acute complaints or concerns. Review of Systems Review of Systems: Per subjective Physical Exam Constitutional: WD/WN, vitals as above Respiratory: normal respiratory effort, lungs clear to auscultation normal respiratory effort and able to speak in complete sentences; no respiratory distress and no retractions Auscultation: lungs clear to auscultation bilaterally Cardiovascular: Rate/Rhythm: regular rate and regular rhythm Heart Sounds: normal S1 and normal S2; no murmur Extremities: normal capillary refill; no pedal edema (1+) Gastrointestinal (Abdomen): normal bowel sounds, soft, nontender, no hepatosplenomegaly Results & Data Results & Data ([facility]) Vital Signs (Past 12 Hours) Vital Signs Temp Pulse Resp BP Pulse Ox 12/05/21 10:01 87 17 95/53 L 96 12/05/21 10:00 85 18 96 12/05/21 09:00 88 19 106/52 L 95 12/05/21 08:00 36.6 C 91 H 14 93/66 L 94 12/05/21 07:00 81 18 99/60 L 91 12/05/21 06:00 78 11 L 89/65 L 92 12/05/21 05:00 78 13 89/57 L 92 12/05/21 04:00 36.7 C 72 8 L 86/57 L 88 L 12/05/21 03:00 75 10 L 85/58 L 90 12/05/21 02:00 75 10 L 81/51 L 92 12/05/21 01:00 79 12 94/62 L 94 12/05/21 00:00 72 11 L 95/57 L 95 Resident Activity Tracking Resident Involvement: Resident Care Provided Care Provided: Adult Hospital Medicine (1) Hypotension Hypotension type: unspecified hypotension type Qualified Code(s): I95.9 - Hypotension, unspecified
--- NOTE | 2021-12-05 11:48 | Cardiology Progress Note ---
Date of Service December 05, 2021 Assessment & Plan Admission and Anticipated Discharge Date Admission Date: November 29, 2021 Subjective He is feeling better this morning. He is not short of breath. He does not appear short of breath talking in sentences. He denies any lightheadedness or dizziness with his blood pressures in the mid 90s systolic. His appetite is improving. And he feels much better compared to when he came in the hospital. He denies significant lower extremity edema. Results & Data ([facility]) Vital Signs (Past 12 Hours) Vital Signs Temp Pulse Resp BP Pulse Ox 12/05/21 10:01 87 17 95/53 L 96 12/05/21 10:00 85 18 96 12/05/21 09:00 88 19 106/52 L 95 12/05/21 08:00 36.6 C 91 H 14 93/66 L 94 12/05/21 07:00 81 18 99/60 L 91 12/05/21 06:00 78 11 L 89/65 L 92 12/05/21 05:00 78 13 89/57 L 92 12/05/21 04:00 36.7 C 72 8 L 86/57 L 88 L 12/05/21 03:00 75 10 L 85/58 L 90 12/05/21 02:00 75 10 L 81/51 L 92 12/05/21 01:00 79 12 94/62 L 94 12/05/21 00:00 72 11 L 95/57 L 95 He is awake alert and oriented x3. HEENT: Markedly reduced carotid upstrokes Lungs: Faint crackles in the bases bilaterally Heart: Regular rate and rhythm (paced) no appreciable murmurs or rubs Abdomen: Soft nontender distended positive bowel sounds Extremities: No clubbing cyanosis or edema Psychiatric as after. Appropriate IMPRESSIONS: 1. Severe ischemic cardiomyopathy likely worsened by chronic RV pacing 2. History of mild left ventricular dysfunction with a nonischemic stress test and areas of scar September 2022 at [facility] 3. History of dual-chamber defibrillator 4. Complete heart block 5. History of VT arrest 6. CAD 7. Acute on chronic systolic heart failure 8. Chronic kidney disease stage III 9. Hyponatremia Dobutamine has been discontinued he did have a good diuresis with that and helped his heart failure symptoms. His blood pressures are in the mid 90s systolic and given the severity of his LV dysfunction he likely will have blood pressures in the mid 80s to low 90s systolic and not be orthostatic. The problem is it limits our ability to give him heart failure medications. I did review the [facility] notes as well as Dr. Mak's notes. Given the fact that his LV function was only mildly abnormal September 2020 and now he has severe LV dysfunction it raises the question as to upgrading his dual- chamber defibrillator to a biventricular defibrillator sooner than later. Given our limited ability to use medications to improve his heart failure symptoms this sounds like his best option as he is not a candidate for an LVAD. There are obvious risks given his current cardiac status with regards to placing an LV lead but he may be of the most stable now post dobutamine infusion I will reach out to Dr. Almaguer to determine whether he wants to upgrade his device while he is here in the hospital given the issues of COVID and the challenge of elective overnight stays for procedures in the future. At this point given his low blood pressure there is no room to give him Entresto or beta-blockers. If his blood pressure remained stable we can try low-dose Toprol-XL 12-1/[address] Berg will return to continue his care tomorrow. His sodium continues to slightly improved and his renal function continues to improve as well
[2021-12-05] MEDS: TEMAZEPAM 15 MG CAPSULE PO SCH (20:25)
[2021-12-05] MEDS: EZETIMIBE 10 MG TABLET PO SCH (20:26)
[2021-12-05] MEDS: TAMSULOSIN HCL 0.4 MG CAP PO SCH (20:26)
[2021-12-05] MEDS: ROSUVASTATIN CALCIUM 10 MG TAB PO SCH (20:26)
[2021-12-05] MEDS: MEMANTINE HCL 10 MG TAB PO SCH (20:26)
[2021-12-06 04:44] LABS: Hematocrit (blood only) 30.6 % (42-52); Hemoglobin 10.3 g/dL (14.0-18.0); Mean Corpuscular Hemoglobin 31.2 pg (25-34); Mean Corpuscular Hgb Conc 33.7 g/dL (32-36); Mean Corpuscular Volume 92.7 fL (80-100); Mean Platelet Volume 10.7 fL (7.4-10.4); Platelet Count 192 K/uL (130-400); RDW Coefficient of Variation 13.5 % (11.5-14.5); White Blood Count 5.49 K/uL (4.8-10.8)
[2021-12-06 05:13] LABS: BUN Creatinine Ratio 34.8 (10-20); Calcium 7.9 mg/dl (8.5-10.1); Creatinine Clr Calc Pharmacy 38.3 ml/min; Est GFR (African American) 56.6 ml/min; Est GFR (Non-African American) 48.8 ml/min; Potassium 3.7 mmol/L (3.5-5.1)
--- NOTE | 2021-12-06 07:52 | Hospitalist Progress Note ---
Date of Service December 06, 2021 Assessment & Plan (1) SOB (shortness of breath): Plan: Alphonso Villavicencio is a 86y/o M w/ PMH difficult for hypertension, hyperlipidemia, benign prostatic hyperplasia, CKD stage III, GERD, complete heart block s/p AICD, and recent PCI x3 to LAD following NSTEMI with significant reduction in EF; admitted for worsening dyspnea/fatigue for 1 week, referred to hospital after acute evaluation in cardiology clinic. Acute on chronic systolic heart failure w/ reduced EF: Admission BNP >35,000, 5 kg weight gain in 1 week. S/p dobutamine, weaned off 12/04. BPs average 80s-90s/50s-60s -Echo from 11/24 EF of 20-25% with significant LAD distribution wall motion abnormality -Monitor I/O closely, daily weights, zelaya in place -Admission weight 74.1 kg, 12/06 weight 70.8 kg -Cardiology following -Diuresis with Lasix 40 mg IV as needed. Euvolemic on exam. 12/03 repeat BNP >4,700 -severe LV dysfunction -> limited ability to treat with medication -D/C Entresto and spironolactone -recommend upgrade dual chamber defibrillator to biventricular defibrillator during this hospitalization. -Plan to upgrade tomorrow or wednseday. Hypotension, improvin/2 congestive heart failure/ischemic cardiomyopathy given history of last admission. -Weaned off dobutamine 12/04 -will restart per cardiology if hypotension persists -BPs stable in high 80s-90s/high 50s-60s off pressors Elevated troponin, NSTEMI 11/22/2021 within four weeks of admission 11/22 troponin 189, troponin on admission 9.84, No ACS currently. Cardiology noted potential for additional PCI in future. No current symptoms suggestive of ischemia. -Continue aspirin, Plavix Acute kidney injury superimposed on chronic kidney disease, improving: Baseline creatinine approximately 1.4 Creatinine on admission 1.97, 12/05 Cr 1.44 back to baseline. Likely secondary to poor forward flow from the heart -Continue to trend BMP -Cr:2.14->2.02->1.82->1.79->1.67->1.44->1.32 Hyponatremia, improving: -Na of 119 on admission, Likely dilutional from CHF fluid overload -Continue to trend BMP -Na:117->118->123->124->127->128->129 Hypercholesterolemia: -Continue rosuvastatin 10 mg nightly BPH: -Continue tamsulosin nightly Dispo: Med/Surg w/ Tele CODE STATUS: Full code Diet: Heart healthy/low-sodium DVT prophylaxis: SCDs (2) Acute systolic heart failure: (3) Acute hyponatremia: (4) Hypotension: (5) Acute kidney injury: (6) Ischemic cardiomyopathy: (7) Hypercholesteremia: (8) Benign localized prostatic hyperplasia with lower urinary tract symptoms (LUTS): (9) Chronic kidney disease, stage 3a: Admission and Anticipated Discharge Date Admission Date: November 29, 2021 Supervising Physician Co-Signing Physician Notes I personally examined the patient and verified all deluca points of history and exam, discussed case, and agree with decision making with Dr Frey feeling ok just bored. not really sob. awaiting further input from cardiology - indirect information sounds likely that device can be done ~1-2 days vitals noted nad heent nc at mmm breathing unlabored no accessory muscles good effort skin no rashes no pallor or icterus HFrEF EF 25% complicated by lower end BP. now compensated. anticipate device upgrade by cardiology. continue current care otherwise otherwise as above Subjective Patient sitting up in bed this morning in no acute distress. Reports no acute events overnight. Ports he is breathing better, tolerating his diet, stooling, Zelaya in place. Acute concerns relate to EP consultation, all questions answered. Patient specifically denying any chest pressure chest pain, shortness of breath Physical Exam Physical Exam: General: Lying in bed in no acute distress HEENT: Normocephalic atraumatic Neck: Normal visual inspection Cardiac: Regular rate and rhythm I do not appreciate significant murmurs rubs or gallops, normal S1, normal S2, 1+ pedal edema, negative calf tenderness Respiratory: Clear to auscultation bilaterally with symmetrical chest expansion Faint crackles at the bibasilar bases GI: Soft, nontender, nondistended Neuro: AAOx3 Results & Data Results & Data ([facility]) Vital Signs (Past 12 Hours) Vital Signs Temp Pulse Resp BP Pulse Ox 12/06/21 06:47 75 4 L 95/54 L 92 12/06/21 06:00 75 10 L 84/51 L 92 01/17/22 05:00 78 14 92/63 L 94 12/06/21 04:00 104 H 6 L 99/70 L 93 12/06/21 03:00 82 11 L 104/62 97 12/06/21 02:00 88 19 103/80 94 12/06/21 01:00 78 16 102/68 97 12/06/21 00:00 37 C 81 20 103/68 90 12/05/21 23:00 78 12 96/60 L 96 12/05/21 22:00 88 18 98/63 L 95 12/05/21 21:00 87 15 124/73 95 12/05/21 20:00 83 18 101/70 78 L Laboratory Results 12/06/21 12/06/21 Range/Units 04:08 04:08 WBC 5.49 (4.8-10.8) K/uL RBC 3.30 L (4.7-6.1) M/uL Hgb 10.3 L (14.0-18.0) g/dL Hct 30.6 L (42-52) % MCV 92.7 (80-100) fL MCH 31.2 (25-34) pg MCHC 33.7 (32-36) g/dL RDW Std Deviation 45.0 (36.4-46.3) fL RDW Coeff of Sonia 13.5 (11.5-14.5) % Plt Count 192 (130-400) K/uL MPV 10.7 H (7.4-10.4) fL Sodium 129 L (136-145) mmol/L Potassium 3.7 (3.5-5.1) mmol/L Chloride 93 L (98-107) mmol/L Carbon Dioxide 27 (21-32) mmol/L Anion Gap 9 (3-11) BUN 46 H (6-23) mg/dl Creatinine 1.32 (0.6-1.4) mg/dl Est Cr Clr Drug Dosing 38.3 ml/min Est GFR ( Amer) 56.6 ml/min Est GFR (Non-Af Amer) 48.8 ml/min BUN/Creatinine Ratio 34.8 H (10-20) Glucose 102 H (70-99(Fasting)) mg/dl Calcium 7.9 L (8.5-10.1) mg/dl Medications Administered Current Inpatient Medications Al Hydrox/Mg Hydrox/Simethicone (Aluminum/Magnesium Susp 30 Ml Udc) 15 ml PO Q4H PRN PRN Reason: Dyspepsia Stop: 12/30/21 00:50 Aspirin (Aspirin 81 Mg Ectab) 81 mg PO [facility] Stop: 12/30/21 08:59 Last Admin: 12/06/21 08:12 Dose: 81 mg Documented by: Carvedilol (Carvedilol 12.5 Mg Tab) 12.5 mg PO BID [facility] Stop: 12/30/21 08:59 Last Admin: 12/01/21 08:34 Dose: Not Given Documented by: Clopidogrel Bisulfate (Clopidogrel Bisulfate 75 Mg Tab) 75 mg PO [facility] Stop: 12/30/21 08:59 Last Admin: 12/06/21 08:12 Dose: 75 mg Documented by: Ezetimibe (Ezetimibe 10 Mg Tablet) 10 mg PO PM [facility] Stop: 12/30/21 20:59 Last Admin: 12/05/21 20:26 Dose: 10 mg Documented by: Famotidine (Famotidine 20 Mg Tab) 20 mg PO DAILY PRN PRN Reason: gerd Stop: 12/30/21 00:50 Last Admin: 11/30/21 02:08 Dose: 20 mg Documented by: Ferrous Sulfate (Ferrous Sulfate 325 Mg Tab) 325 mg PO [facility] Stop: 12/30/21 08:59 Last Admin: 12/06/21 08:12 Dose: 325 mg Documented by: Heparin Sodium (Beef Lung) (Heparin 10 Unit/Ml 5 Ml Flush) 5 ml FLUSH PRN PRN PRN Reason: Flush Stop: 01/03/22 23:54 Dobutamine HCl/Dextrose (Dobutamine / D5w) 500 mg in 250 mls @ 5.52 mls/hr IV .Q24H [facility]; Protocol Stop: 01/01/22 10:29 Last Titration: 12/04/21 19:33 Dose: Infused Documented by: Magnesium Hydroxide (Magnesium Hydroxide Susp 30 Ml Udc) 30 ml PO Q12H PRN PRN Reason: Constipation Stop: 12/30/21 00:50 Memantine (Memantine Hcl 10 Mg Tab) 10 mg PO [facility] Stop: 12/30/21 20:59 Last Admin: 12/05/21 20:26 Dose: 10 mg Documented by: Nitroglycerin (Nitroglycerin Sl 0.4 Mg/Tab Tab) 0.4 mg SL Q5M PRN PRN Reason: chest pain Stop: 12/30/21 00:50 Ondansetron HCl (Ondansetron Inj 2 Mg/Ml 2 Ml Vial) 4 mg IV Q6H PRN PRN Reason: Nausea Stop: 12/30/21 00:50 Polyethylene Glycol (Polyethylene (Miralax) 17 Gm Pack) 17 gm PO DAILY PRN PRN Reason: Constipation Stop: 12/30/21 00:50 Rosuvastatin Calcium (Rosuvastatin Calcium 10 Mg Tab) 10 mg PO PM [facility] Stop: 12/30/21 20:59 Last Admin: 12/05/21 20:26 Dose: 10 mg Documented by: Sacubitril/Valsartan (Valsartan/Sacubitril 51/49 Mg Tab) 1 tab PO BID [facility] Stop: 12/30/21 08:59 Tamsulosin HCl (Tamsulosin Hcl 0.4 Mg Cap) 0.8 mg PO PM [facility] Stop: 12/30/21 20:59 Last Admin: 12/05/21 20:26 Dose: 0.8 mg Documented by: Temazepam (Temazepam 15 Mg Capsule) 15 mg PO PM [facility] Stop: 12/30/21 20:59 Last Admin: 12/05/21 20:25 Dose: 15 mg Documented by: Resident Activity Tracking Resident Involvement: Resident Care Provided Care Provided: Adult Hospital Medicine (1) Hypotension Hypotension type: unspecified hypotension type Qualified Code(s): I95.9 - Hypotension, unspecified
[2021-12-06] MEDS: CLOPIDOGREL BISULFATE 75 MG TAB PO SCH (08:12)
[2021-12-06] MEDS: FERROUS SULFATE 325 MG TAB PO SCH (08:12)
[2021-12-06] MEDS: ASPIRIN 81 MG ECTAB PO SCH (08:12)
--- NOTE | 2021-12-06 14:30 | Billing Data ---
Date of Service December 06, 2021 Coding Level of Care Code 89824 Subseq Hosp Care Lvl 2
[2021-12-06] MEDS: MEMANTINE HCL 10 MG TAB PO SCH (20:49)
[2021-12-06] MEDS: TAMSULOSIN HCL 0.4 MG CAP PO SCH (20:49)
[2021-12-06] MEDS: ROSUVASTATIN CALCIUM 10 MG TAB PO SCH (20:49)
[2021-12-06] MEDS: EZETIMIBE 10 MG TABLET PO SCH (20:49)
[2021-12-06] MEDS: TEMAZEPAM 15 MG CAPSULE PO SCH (20:49)
[2021-12-07] MEDS ORDERED: POTASSIUM CHLORIDE CRTAB 20 MEQ TABCR PO STA (04:08)
[2021-12-07 05:08] LABS: Basophils # (auto) 0.01 K/uL (0-0.2); Basophils % (auto) 0.2 %; Eosinophils # (auto) 0.06 K/uL (0-0.5); Hematocrit (blood only) 34.1 % (42-52); Hemoglobin 11.4 g/dL (14.0-18.0); Immature Granulocytes # (auto) 0.04 K/uL (0.00-0.02); Immature Granulocytes % (auto) 0.7 %; Lymphocytes # (auto) 0.87 K/uL (1.2-3.4); Lymphocytes % (auto) 14.3 %; Mean Corpuscular Hemoglobin 31.1 pg (25-34); Mean Corpuscular Hgb Conc 33.4 g/dL (32-36); Mean Corpuscular Volume 93.2 fL (80-100); Mean Platelet Volume 10.8 fL (7.4-10.4); Monocytes # (auto) 0.94 K/uL (0.11-0.59); Monocytes % (auto) 15.4 %; Neutrophils # (auto) 4.17 K/uL (1.4-6.5); Neutrophils % (auto) 68.4 %; Platelet Count 209 K/uL (130-400); RDW Coefficient of Variation 13.3 % (11.5-14.5); RDW Standard Deviation 45.7 fL (36.4-46.3); Red Blood Count 3.66 M/uL (4.7-6.1); White Blood Count 6.09 K/uL (4.8-10.8)
[2021-12-07 05:29] LABS: BUN Creatinine Ratio 34.6 (10-20); Calcium 8.2 mg/dl (8.5-10.1); Creatinine Clr Calc Pharmacy 37.1 ml/min; Est GFR (African American) 54.6 ml/min; Est GFR (Non-African American) 47.1 ml/min; Magnesium 2.6 mg/dl (1.7-2.4); Potassium 3.8 mmol/L (3.5-5.1)
[2021-12-07] MEDS ORDERED: MAGNESIUM SULFATE / D5W 1 GM/100 ML BAG IV SCH (05:30)
[2021-12-07] MEDS ORDERED: AMIODARONE IV BOLUS & DRIP IV STA (05:32)
[2021-12-07] MEDS ORDERED: STAT IV Infusion **Titration per Protocol STA ×2 (05:32→15:55)
[2021-12-07] MEDS ORDERED: 0.2 MICRON FILTER SET 1 EA IV ONE (05:32)
[2021-12-07] MEDS ORDERED: AMIODARONE / D5W 150 MG/100 ML BAG IV STA (05:35)
--- NOTE | 2021-12-07 05:36 | Communication Note ---
Date of Service: December 07, 2021 Upgrading to ICU level care prolonged V-tach. His pacer-defib fired twice at 4:56 and 4:57. K and Mg pending. Repleting empirically.
[2021-12-07] MEDS ORDERED: AMIODARONE / D5W 360 MG/200 ML BAG IV ONE (06:00)
[2021-12-07] MEDS: POTASSIUM CHLORIDE / WTR 10 MEQ/100 ML PLCT IV SCH ×2 (06:04→07:47)
--- NOTE | 2021-12-07 06:07 | Critical Care Consultation ---
Date of Consultation December 07, 2021 Assessment & Plan (1) Ventricular tachycardia: Reason Critically Ill: 86-year-old male admitted with acute on chronic systolic heart failure and BARB who was transferred to the ICU after sustained V. tach with shock from AICD. Prior to this event patient's clinical status was improving and he was scheduled to undergo upgrade to biventricular defibrillator later today. Neuro - [facility] ICU: Negative Cardiac - Ventricular tachycardiapatient with sustained ventricular tachycardia. He has had multiple runs and at one point was in V. tach for approximately 30 minutes on the floor. AICD fired and converted him x1, however he is continued to have 10-20 second runs of V. tach and a rate of 1 60-1 70. -We will replete potassium to keep greater than 4. Mag 2.6 -Bolused with 150 mg IV amiodarone and started on amnio drip -Cardiology following, will update. -Continuous monitoring on telemetry Acute on chronic systolic heart failureon admission patient had BNP greater than 35,005 kg weight gain over 1 week. He was relatively hypotensive and had developed an BARB. He had a recent NSTEMI with PCI x3. -Was temporarily on dobutamine drip which was weaned off on 12/04 -Echo 11/24 EF 20-25% with LAD distribution wall motion abnormality -Currently euvolemic on exam, continue with diuresis as needed. Monitor strict I's and O's and daily weights -Continue ASA, Plavix, Coreg, Zetia, Crestor -Cardiology following, appreciate recommendations -If patient becomes hypotensive may restart dobutamine. Baseline SBP 90s to 80s. Monitor Respiratory - Shortness of breaththis is improved following reentry of underlying paced rhythm. His volume status is also -4 L since hospitalization and he is euvolemic on exam. Lungs clear to auscultation and no respiratory distress and currently maintaining oxygen saturations on room air. Continuous monitoring with pulse ox for now. Diuresis is needed. GI - N.p.o. IV famotidine RENAL/LYTES - BARB on CKD stage IIIimproved, creatinine back to baseline at 1.36 -Continue to monitor routine BMPs. Replete electrolytes as indicated. Avoid nephrotoxins and renally adjust meds. Hyponatremiainitial sodium 119 on admission was thought to be delusional to the CHF fluid overload -Improved, most recent sodium 127 -Continue to monitor with routine BMPs - BPHFoley. Continue Flomax ENDO - No history of diabetes or thyroid disease. ICU hyperglycemic protocol HEME - H&H stable, monitor routine CBCs ID - No indication for infectious process at this time LINES/IV ACCESS - PICC line, peripheral IVs DVT PROPHYLAXIS - SCDs I have personally spent 40 minutes of critical care time in the direct management of this patient. This is a life/limb threatening event. This includes time spent evaluating patient, direct bedside care, chart review, placing orders, interpretation of diagnostic studies, discussion with consultants, patient, and family members, as well as other required patient management activities. This time is exclusive of all separately billable procedures, and teaching time and separate from and in addition to any other critical care service time. Thank you for allowing us to participate in the care of this patient. Please refer to my attending physician's documentation for any further recommendations. (2) Acute kidney injury: (3) SOB (shortness of breath): (4) Hypotension: (5) CHF (congestive heart failure): (6) Acute systolic heart failure: (7) Prostatic hypertrophy: (8) Solitary pulmonary nodule: (9) Acute hyponatremia: (10) Hypercholesteremia: (11) CAD (coronary artery disease): Supervising Physician Co-Signing Physician Notes I have personally evaluated and examined this patient. I agree with assessment and plan of Meryl BOUCHER. Patient's arrhythmia has largely resolved since initiation of amiodarone. Plan for upgrading to dual-chamber pacemaker deferring to cardiology as to optimal timing. Continued observation in the ICU. History of Present Illness Attending Physician: Trav Rod DO History of Present Illness Mr. Villavicencio is a 86-year-old male past medical history significant for systolic heart failure following recent NSTEMI with PCI x3 and with a EF 20 to 25%, complete heart block s/p AICD, HLD, HTN, BPH, CKD stage III, GERD. Patient was admitted to the hospital and was placed on dobutamine drip for acute on chronic systolic heart failure for which she was weaned off on 12/04. Patient was determined not to be candidate for LVAD. Overall, his kidney function and blood pressure had improved along with his volume status following diuresis. He currently has a dual-chamber defibrillator and was scheduled to undergo biventricular defibrillator. I was notified by the patient's primary team that he had developed sustained ventricular tachycardia and his AICD had fired. Following this event, patient was transferred to the ICU. In review of his monitor strips it appears that the patient was in ventricular tachycardia at one-point for approximately 30 minutes. Since arrival to the ICU patient has had multiple runs of sustained ventricular tachycardia with rates 160s to 170s. He is being started on amiodarone drip with bolus. For the most part, patient is asymptomatic. He did state that he felt somewhat short of breath prior to his AICD firing, but soon felt better after the AICD had fired. Patient is alert and oriented and although he was initially hypotensive with systolic pressure in the 70s, systolic pressures have now returned to the 90s since arrival to the ICU which is his baseline. Currently he denies any dizziness, syncope, headache, sore throat or congestion, cough, shortness of breath, wheezing, chest pain, palpitations, abdominal pain, nausea or vomiting, or diarrhea. Allergies Allergy/AdvReac Type Severity Reaction Status Date / Time oxycodone Allergy Mild CANT Verified 11/29/21 20:50 REMEMBER JUST HAD BAD REACTION amlodipine Allergy Unknown UNKNOWN Verified 11/29/21 20:50 codeine Allergy Unknown UNKNOWN Verified 11/29/21 20:50 lisinopril Allergy Unknown UNKNOWN Verified 11/29/21 20:50 Home Medications Medication Instructions Recorded Confirmed Type coenzyme Q10 200 mg capsule 200 mg PO QAM cap 07/03/19 11/29/21 History ezetimibe 10 mg tablet 10 mg PO PM #90 tab 07/03/19 11/29/21 History multivitamin (Daily Multi-Vitamin) 1 tab PO QAM 07/03/19 11/29/21 History rosuvastatin 10 mg tablet 10 mg PO PM tab 07/03/19 11/29/21 History tamsulosin 0.4 mg capsule 0.8 mg PO PM cap 07/03/19 11/29/21 History temazepam 15 mg capsule 15 mg PO PM cap 07/03/19 11/29/21 History aspirin 81 mg tablet,delayed 81 mg PO QAM 12/27/19 11/29/21 History release nitroglycerin 0.4 mg sublingual 0.4 mg SL Q5M PRN #30 tab 12/23/20 11/29/21 Rx tablet famotidine 20 mg tablet (Pepcid) 20 - 40 mg PO DAILY PRN tab 02/22/21 11/29/21 History carvedilol 12.5 mg tablet 12.5 mg PO BID #180 tab 04/16/21 11/29/21 Rx memantine 10 mg tablet 10 mg PO HS 04/28/21 11/29/21 History ferrous sulfate 325 mg (65 mg 325 mg PO QAM 11/22/21 11/29/21 History iron) tablet vit C 250 mg-vit E 90 mg-zinc 40 1 tab PO BID 11/22/21 11/29/21 History mg-copper 1 [id number] capsule (PreserVision AREDS-2) clopidogrel 75 mg tablet 75 mg PO QAM 30 Days #30 tab 11/24/21 11/29/21 Rx furosemide 20 mg tablet 20 mg PO DAILY #30 tab 11/26/21 11/29/21 Rx sacubitril 49 mg-valsartan 51 mg 1 tab PO BID 12/02/21 12/02/21 History tablet (Entresto) Patient History Medical History BPH (benign prostatic hyperplasia) CAD (coronary artery disease) CHF (congestive heart failure) Chronic kidney disease, stage 3a GERD (gastroesophageal reflux disease) Hearing deficit [facility] [place] History of colon polyps History of complete heart block History of myocardial infarction 1996, 2016 History of ventricular tachycardia HLD (hyperlipidemia) HTN (hypertension) ICD (implantable cardioverter-defibrillator) in place Dual-chamber Medtronic; 2019; [facility]; last check 2 weeks ago Ischemic cardiomyopathy Osteoarthritis Poor historian Surgical History H/O heart artery stent pt unsure of amt. per records, x 1 in 2017 History of cardiac catheterization most recent 2017 History of cataract surgery History of esophagogastroduodenoscopy (EGD) History of inguinal hernia repair sliding History of intestinal surgery removal of large polyp History of tonsillectomy History of wisdom tooth extraction Family History Other Family history non-contributory Social History Smoking Status: Former smoker Tobacco Type: Cigarettes Second Hand Exposure: No; Do You Dip or Chew Tobacco: No; Tobacco Cessation Education Requested by Patient: No Hx Alcohol Use: No Hx Substance Use: No Preferred Language: Venezuelan Communication Ability: Effective [employer]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 Beliefs That Will Affect Care: None marital status: Current Living Situation: Spouse current occupational status: retired Other Information That Helps Us Care for You: No Feels Safe at Home: Yes Safety Concerns: Feels Safe At This Time Assistive Devices: Walker Review of Systems Review of Systems: All systems reviewed & are unremarkable except as noted in HPI & below Physical Exam Constitutional: cooperative and comfortable; no acute distress Eyes: PERRL, conjunctivae normal, anicteric sclerae ENMT: external ear and nose normal, oropharynx normal Neck: trachea midline, no thyromegaly Respiratory: normal respiratory effort, lungs clear to auscultation Cardiovascular: Paced rhythm with runs of sustained V. tach on monitor. No murmur. Trace bilateral lower extremity edema. No JVD. Gastrointestinal (Abdomen): normal bowel sounds, soft, nontender, no hepatosplenomegaly Musculoskeletal: no cyanosis or clubbing, extremities motor strength 5/5 Skin: no rashes, warm and dry Neurologic: PERRL, EOMI, accommodation nl, no face palsy, no dysarthria Psychiatric: A+Ox3, euthymic affect Genitourinary: Blood-tinged urine in catheter tubing Results & Data Results & Data ([facility]) Vital Signs (Past 12 Hours) Vital Signs Temp Pulse Pulse Pulse Resp BP BP 12/07/21 05:13 104 H 81/57 L 12/07/21 05:02 35.9 C L 90 18 75/28 L 12/07/21 02:16 79 12/07/21 00:05 36.5 C 87 18 96/64 L 12/06/21 19:53 36.4 C L 84 18 97/65 L 97/65 L Pulse Ox 12/07/21 05:13 12/07/21 05:02 91 12/07/21 02:16 12/07/21 00:05 98 12/06/21 19:53 94 Coding Level of Care Code Critical Care 1st 30-74 mins Diagnoses Ventricular tachycardia I47.2 Acute kidney injury N17.9 SOB (shortness of breath) R06.02 Hypotension I95.9 Hypotension type: unspecified hypotension type CHF (congestive heart failure) I50.9 Heart failure chronicity: acute on chronic Heart failure type: unspecified Acute systolic heart failure I50.21 Prostatic hypertrophy N40.0 Solitary pulmonary nodule R91.1 Acute hyponatremia E87.1 Hypercholesteremia E78.00 CAD (coronary artery disease) I25.10 (1) CHF (congestive heart failure) Heart failure chronicity: acute on chronic Heart failure type: unspecified Qualified Code(s): I50.9 - Heart failure, unspecified (2) Hypotension Hypotension type: unspecified hypotension type Qualified Code(s): I95.9 - Hypotension, unspecified
--- NOTE | 2021-12-07 07:11 | Hospitalist Progress Note ---
Date of Service December 07, 2021 Assessment & Plan (1) SOB (shortness of breath): Plan: *ICU Status* Alphonso Villavicencio is a 86y/o M w/ PMH difficult for hypertension, hyperlipidemia, benign prostatic hyperplasia, CKD stage III, GERD, complete heart block s/p AICD, and recent PCI x3 to LAD following NSTEMI with significant reduction in EF; admitted for worsening dyspnea/fatigue for 1 week, referred to hospital after acute evaluation in cardiology clinic. Ventricular tachycardia Overnight on 12/06 patient had a 30-minute long sustained run of ventricular tachycardia requiring 2 firings of is a AICD. He was subsequently transferred to the ICU and continued to have multiple runs of sustained ventricular tachycardia with rates the 160s to 170s. He was started on an amiodarone drip. Of note for the most part the patient has been asymptomatic and was cognizant when his AICD fired. -Assuming patient remains stable on amnio plan to upgrade pacemaker later today Acute on chronic systolic heart failure w/ reduced EF: Admission BNP >35,000, 5 kg weight gain in 1 week. S/p dobutamine, weaned off 12/04. BPs average 80s-90s/50s-60s. 12/03 repeat BNP >4,700 -Echo from 11/24 EF of 20-25% with significant LAD distribution wall motion abnormality -Monitor I/O closely, daily weights, zelaya in place -Admission weight 74.1 kg, 12/07 weight 70.9 kg -Cardiology following -Diuresis with Lasix 40 mg IV as needed. Euvolemic on exam. -severe LV dysfunction -> limited ability to treat with medication -D/C Entresto and spironolactone -recommend upgrade dual chamber defibrillator to biventricular defibrillator during this hospitalization. -Plan to upgrade Today pending clinically Stable Hypotension, improvin/2 congestive heart failure/ischemic cardiomyopathy given history of last admission. -Weaned off dobutamine 12/04 -will restart per cardiology if hypotension persists -BPs stable in high 80s-90s/high 50s-60s off pressors Elevated troponin, NSTEMI 11/22/2021 within four weeks of admission 11/22 troponin 189, troponin on admission 9.84, No ACS currently. Cardiology noted potential for additional PCI in future. No current symptoms suggestive of ischemia. -Continue aspirin, Plavix Acute kidney injury superimposed on chronic kidney disease, improving: Baseline creatinine approximately 1.4 Creatinine on admission 1.97, 116 Cr 1.44 back to baseline. Likely secondary to poor forward flow from the heart -Continue to trend BMP -Cr:2.14->2.02->1.82->1.79->1.67->1.44->1.32->1.36 Hyponatremia, improving: -Na of 119 on admission, Likely dilutional from CHF fluid overload -Continue to trend BMP -Na:117->118->123->124->127->128->129->127 Hypercholesterolemia: -Continue rosuvastatin 10 mg nightly BPH: -Continue tamsulosin nightly Dispo: ICU CODE STATUS: Full code Diet: Heart healthy/low-sodium DVT prophylaxis: SCDs (2) Acute systolic heart failure: (3) Acute hyponatremia: (4) Hypotension: (5) Acute kidney injury: (6) Ischemic cardiomyopathy: (7) Hypercholesteremia: (8) Benign localized prostatic hyperplasia with lower urinary tract symptoms (LUTS): (9) Chronic kidney disease, stage 3a: Admission and Anticipated Discharge Date Admission Date: November 29, 2021 Supervising Physician Co-Signing Physician Notes I personally examined the patient and verified all deluca points of history and exam, discussed case, and agree with decision making with Dr Frey More fatigued. Not really short of breath. A little bit nauseated. Notes he thinks it might be from not eating. Procedure delayed till tomorrow due to V. tachnow improved. vitals noted nad heent nc at mmm breathing unlabored no accessory muscles good effort lungs overall clear without rales rhonchi or wheezes skin no rashes no pallor or icterus V. tachnow improved. Continue amiodarone. Device upgrade likely tomorrow. Suspect mild diastolic/systolic CHF (combined given his tachycardia would lend towards diastolic failure, but his EF obviously would be systolic)but oxygenating well, and with blood pressures at the lower end caution with additional Lasix at this time. HFrEF EF 25% complicated by lower end BPsee above, probably mildly acute from tachycardia. anticipate device upgrade by cardiology. continue current care otherwise otherwise as above Subjective Patient sitting upright in bed this morning in no acute distress. He reported a difficult night overnight secondary to runs of V. tach which required defibrillation. He is currently on amiodarone drip. Patient states he met with EP this morning and they are planning to upgrade his pacemaker this afternoon. He denies any chest pressure chest pain or shortness of breath. All questions answered Physical Exam Physical Exam: General: Lying in bed in no acute distress HEENT: Normocephalic atraumatic Neck: Normal visual inspection Cardiac: Regular rate and rhythm I do not appreciate significant murmurs rubs or gallops, normal S1, normal S2, 1+ pedal edema, negative calf tenderness Respiratory: Clear to auscultation bilaterally with symmetrical chest expansion Faint crackles at the bibasilar bases GI: Soft, nontender, nondistended Neuro: AAOx3 Results & Data Results & Data ([facility]) Vital Signs (Past 12 Hours) Vital Signs Temp Pulse Pulse Pulse Resp BP BP 12/07/21 06:45 79 14 96/65 L 12/07/21 06:30 77 16 81/60 L 12/07/21 06:15 77 18 89/59 L 12/07/21 06:00 80 16 90/66 L 12/07/21 05:47 111 H 15 90/59 L 12/07/21 05:40 89 24 12/07/21 05:13 104 H 81/57 L 12/07/21 05:02 35.9 C L 90 18 75/28 L 12/07/21 02:16 79 12/07/21 00:05 36.5 C 87 18 96/64 L 12/06/21 19:53 36.4 C L 84 18 97/65 L BP Pulse Ox 12/07/21 06:45 89 L 12/07/21 06:30 98 12/07/21 06:15 93 12/07/21 06:00 93 12/07/21 05:47 12/07/21 05:40 12/07/21 05:13 12/07/21 05:02 91 12/07/21 02:16 12/07/21 00:05 98 12/06/21 19:53 97/65 L 94 Laboratory Results 12/07/21 12/07/21 Range/Units 04:38 04:38 WBC 6.09 (4.8-10.8) K/uL RBC 3.66 L (4.7-6.1) M/uL Hgb 11.4 L (14.0-18.0) g/dL Hct 34.1 L (42-52) % MCV 93.2 (80-100) fL MCH 31.1 (25-34) pg MCHC 33.4 (32-36) g/dL RDW Std Deviation 45.7 (36.4-46.3) fL RDW Coeff of Sonia 13.3 (11.5-14.5) % Plt Count 209 (130-400) K/uL MPV 10.8 H (7.4-10.4) fL Immature Gran % (Auto) 0.7 % Neut % (Auto) 68.4 % Lymph % (Auto) 14.3 % Duchesne % (Auto) 15.4 % Eos % (Auto) 1.0 % Baso % (Auto) 0.2 % Neut # (Auto) 4.17 (1.4-6.5) K/uL Lymph # (Auto) 0.87 L (1.2-3.4) K/uL Duchesne # (Auto) 0.94 H (0.11-0.59) K/uL Eos # (Auto) 0.06 (0-0.5) K/uL Baso # (Auto) 0.01 (0-0.2) K/uL Immature Gran # (Auto) 0.04 H (0.00-0.02) K/uL Sodium 127 L (136-145) mmol/L Potassium 3.8 (3.5-5.1) mmol/L Chloride 91 L (98-107) mmol/L Carbon Dioxide 28 (21-32) mmol/L Anion Gap 8 (3-11) BUN 47 H (6-23) mg/dl Creatinine 1.36 (0.6-1.4) mg/dl Est Cr Clr Drug Dosing 37.1 ml/min Est GFR ( Amer) 54.6 ml/min Est GFR (Non-Af Amer) 47.1 ml/min BUN/Creatinine Ratio 34.6 H (10-20) Glucose 115 H (70-99(Fasting)) mg/dl Calcium 8.2 L (8.5-10.1) mg/dl Magnesium 2.6 H (1.7-2.4) mg/dl Medications Administered Current Inpatient Medications Al Hydrox/Mg Hydrox/Simethicone (Aluminum/Magnesium Susp 30 Ml Udc) 15 ml PO Q4H PRN PRN Reason: Dyspepsia Stop: 12/30/21 00:50 Aspirin (Aspirin 81 Mg Ectab) [facility] [place]: 12/30/21 08:59 Last Admin: 12/06/21 08:12 Dose: 81 mg Documented by: Carvedilol (Carvedilol 12.5 Mg Tab) 12.5 mg PO BID [facility] Stop: 12/30/21 08:59 Last Admin: 12/01/21 08:34 Dose: Not Given Documented by: Clopidogrel Bisulfate (Clopidogrel Bisulfate 75 Mg Tab) 75 mg PO [facility] [place] Stop: 12/30/21 08:59 Last Admin: 12/06/21 08:12 Dose: 75 mg Documented by: Ezetimibe (Ezetimibe 10 Mg Tablet) 10 mg PO PM [facility] Stop: 12/30/21 20:59 Last Admin: 12/06/21 20:49 Dose: 10 mg Documented by: Famotidine (Famotidine 20 Mg Tab) 20 mg PO DAILY PRN PRN Reason: gerd Stop: 12/30/21 00:50 Last Admin: 11/30/21 02:08 Dose: 20 mg Documented by: Ferrous Sulfate (Ferrous Sulfate 325 Mg Tab) 325 mg PO [facility] [place] Stop: 12/30/21 08:59 Last Admin: 12/06/21 08:12 Dose: 325 mg Documented by: Heparin Sodium (Beef Lung) (Heparin 10 Unit/Ml 5 Ml Flush) 5 ml FLUSH PRN PRN PRN Reason: Flush Stop: 01/03/22 23:54 Amiodarone HCl/Dextrose (Nexterone / D5w) 360 mg in 200 mls @ 33.333 mls/hr IV ONE ONE Stop: 12/07/21 11:59 Last Admin: 12/07/21 05:59 Dose: 33.3 mls/hr Documented by: Amiodarone HCl/Dextrose (Nexterone / D5w) 360 mg in 200 mls @ 16.667 mls/hr IV .Q12H [facility] Stop: 01/06/22 11:59 Magnesium Hydroxide (Magnesium Hydroxide Susp 30 Ml Udc) 30 ml PO Q12H PRN PRN Reason: Constipation Stop: 12/30/21 00:50 Memantine (Memantine Hcl 10 Mg Tab) 10 mg PO HS SHANE Stop: 12/30/21 20:59 Last Admin: 12/06/21 20:49 Dose: 10 mg Documented by: Multivitamins/Minerals (Cerovite Adv Formula Tab) 1 tab PO DAILY SHANE Stop: 01/06/22 08:59 Nitroglycerin (Nitroglycerin Sl 0.4 Mg/Tab Tab) 0.4 mg SL Q5M PRN PRN Reason: chest pain Stop: 12/30/21 00:50 Ondansetron HCl (Ondansetron Inj 2 Mg/Ml 2 Ml Vial) 4 mg IV Q6H PRN PRN Reason: Nausea Stop: 12/30/21 00:50 Polyethylene Glycol (Polyethylene (Miralax) 17 Gm Pack) 17 gm PO DAILY PRN PRN Reason: Constipation Stop: 12/30/21 00:50 Rosuvastatin Calcium (Rosuvastatin Calcium 10 Mg Tab) 10 mg PO PM SHANE Stop: 12/30/21 20:59 Last Admin: 12/06/21 20:49 Dose: 10 mg Documented by: Sacubitril/Valsartan (Valsartan/Sacubitril 51/49 Mg Tab) 1 tab PO BID SHANE Stop: 12/30/21 08:59 Tamsulosin HCl (Tamsulosin Hcl 0.4 Mg Cap) 0.8 mg PO PM SHANE Stop: 12/30/21 20:59 Last Admin: 12/06/21 20:49 Dose: 0.8 mg Documented by: Resident Activity Tracking Resident Involvement: Resident Care Provided Care Provided: Adult Hospital Medicine (1) Hypotension Hypotension type: unspecified hypotension type Qualified Code(s): I95.9 - Hypotension, unspecified
[2021-12-07] MEDS ORDERED: VALSARTAN/SACUBITRIL 51/49 MG TAB PO SCH (09:00)
[2021-12-07] MEDS: CLOPIDOGREL BISULFATE 75 MG TAB PO SCH (09:29)
[2021-12-07] MEDS: ASPIRIN 81 MG ECTAB PO SCH (09:29)
[2021-12-07] MEDS: FERROUS SULFATE 325 MG TAB PO SCH (09:30)
[2021-12-07] MEDS ORDERED: FUROSEMIDE 40 MG/4 ML VIAL IV ONE ×2 (10:35→23:45)
[2021-12-07] MEDS: carvediloL 12.5 MG TAB PO SCH (10:51)
[2021-12-07] MEDS: CEROVITE ADV FORMULA TAB PO SCH (11:02)
[2021-12-07] MEDS: AMIODARONE / D5W 360 MG/200 ML BAG IV SCH ×2 (11:03→23:16)
[2021-12-07] MEDS: MIDODRINE HCL 2.5 MG TAB PO SCH (15:33)
[2021-12-07] MEDS ORDERED: FUROSEMIDE 40 MG/4 ML VIAL IV STA (15:52)
[2021-12-07] MEDS ORDERED: DOBUTamine 500MG / 250ML D5W IV ONE (15:57)
[2021-12-07] MEDS: DOBUTamine / D5W 500 MG/250 ML BAG IV SCH (16:05)
--- NOTE | 2021-12-07 16:30 | Billing Data ---
Date of Service December 07, 2021 Coding Level of Care Code 25586 Subseq Hosp Care Lvl 2
--- NOTE | 2021-12-07 16:34 | XRay Report ---
XR chest 1V portable CLINICAL HISTORY: Shortness of breath COMPARISON STUDY: Chest radiograph December 01, 2021. FINDINGS: A dual-lead left pacer/AICD is in place. A right PICC is noted. There is no pneumothorax. S mall bilateral pleural effusions are present. Cardiomegaly is unchanged. Interstitial thickening has developed. IMPRESSION: 1. Interval development of interstitial thickening which favors pulmonary edema. An infectious proces s could appear similar although is considered less likely. 2. Small bilateral pleural effusions. ACT 112: Negative or not required by law. Electronically signed by: Neto Urbina M.D. 12/07/2021 4:32 PM
--- NOTE | 2021-12-07 17:19 | XCELERA ---
[id number]
--- NOTE | 2021-12-07 17:32 | Cardiology Progress Note ---
Date of Service December 07, 2021 Assessment & Plan (1) SOB (shortness of breath): (2) CHF (congestive heart failure): (3) Acute hyponatremia: (4) Ischemic cardiomyopathy: (5) Complete heart block: (6) Ventricular tachycardia: Plan: 1. Decompensated systolic heart failure: Worse this evening. He did well for a couple of days. Unclear if the VT episode last night resulted in decompensation or was a result of decompensation. He has pulmonary edema that did not respond to diuretics this morning. Now on dobutamine again with improved hemodynamics and reduced pulmonary congestion. We'll see if we can effect a diuresis. I did contact [facility] to see if he is a candidate for any advanced therapies. I am worried he will continue to decompensate without pressors. He will not tolerate additional medical therapy. [facility] suggested that outpatient inotropes may be an op tion for palliative/hospice care. I had a discussion with is regarding code status. Currently DNI and no compressions. 2. Coronary artery disease: He is known to have residual left circumflex disease. No plans for immediate intervention. No current symptoms of angina or recurrent ischemia. 3. Ischemic cardiomyopathy: Severe. Now with evidence of biventricular failure. No mechanical complication seen on echo today. He did not tolerate addition of low-dose carvedilol today. 4. Complete heart block: Normally functioning dual-chamber ICD. The plan was for an upgrade today, but he has decompensated over the course of the afternoon. postponed indefinitely. 5. Hypotension: This hampers our ability to be more aggressive with medical therapy. 6. Hyponatremia: Slowly improving with Fluid restriction and better renal perfusion. Will need to monitor with more aggressive diuretic therapy 7. Anemia: stable. No evidence of active bleeding. 8. Ventricular tachycardia: Appropriately treated with ICD (below detection limit at first). Will continue amiodarone. Admission and Anticipated Discharge Date Admission Date: November 29, 2021 Subjective The patient was evaluated twice today. Initially tired and weak after the events of last night. He did not describe much dizziness, but was "agitated". He did feel a shock, but not painful. Later int he day he felt more dyspneic and tired. He felt as if he was gasping for air. No pain. Very weak. Review of Systems Review of Systems: Per HPI Physical Exam Physical Exam: The patient is alert and oriented.Very tired. Mildly Tachypneic HEENT: Pupils are equal and reactive to light and accommodation. Extraocular movements are intact. The sclerae are anicteric. Neuro: Cranial nerves intact. Lungs: Rales noted. Poor inspiratory effort Cardiac: Heart demonstrates a regular rate and rhythm. Normal S1 and S2. No murmurs on examination. Extremities: There was no evidence of hypoperfusion. There is no cyanosis or clubbing. There is no edema. Skin: I did not appreciate any rashes on examination today. Results & Data ([facility]) Vital Signs (Past 12 Hours) Vital Signs Temp Pulse Resp BP Pulse Ox 12/07/21 16:25 60 21 100 12/07/21 14:15 60 25 H 72/34 L 93 12/07/21 14:08 60 18 76/55 L 93 12/07/21 14:00 60 22 94 12/07/21 13:45 61 20 98 12/07/21 13:30 60 22 71/45 L 99 12/07/21 13:20 61 21 77/50 L 12/07/21 13:16 60 20 71/53 L 95 12/07/21 13:00 60 17 77/52 L 97 12/07/21 12:00 60 16 93/60 L 96 12/07/21 11:00 61 19 92 12/07/21 10:00 61 20 94/50 L 12/07/21 09:00 61 18 12/07/21 08:30 36.5 C 12/07/21 08:00 76 18 12/07/21 07:45 80 19 90/69 L 90 12/07/21 07:00 80 18 97/74 L 93 12/07/21 06:45 79 14 96/65 L 89 L 12/07/21 06:30 77 16 81/60 L 98 12/07/21 06:15 77 18 89/59 L 93 12/07/21 06:00 80 16 90/66 L 93 12/07/21 05:47 111 H 15 90/59 L 12/07/21 05:40 89 24 Laboratory Results Diagnostic Findings Repeat echo demonstrates biventricular failure. Moderate MR. Device interrogation performed this AM revealing the VT/VF and therapies. VT detection turned down to 140 BPM. MAx tracking rate turned down to 120 BPM. Appropriate therapy and detection. Normal device function. PG Care Time/CCT Total # of Minutes Spent Total Time Spent with Patient: Total time spent is greater than 50% in coordination of care (as documented) at patient's floor/unit and/or counseling patient: Coding Level of Care Code 58983 Subseq Hosp Care Lvl 3 Diagnoses SOB (shortness of breath) R06.02 CHF (congestive heart failure) I50.9 Heart failure chronicity: acute on chronic Heart failure type: unspecified Acute hyponatremia E87.1 Ischemic cardiomyopathy I25.5 Complete heart block I44.2 Ventricular tachycardia I47.2 (1) CHF (congestive heart failure) Heart failure chronicity: acute on chronic Heart failure type: unspecified Qualified Code(s): I50.9 - Heart failure, unspecified
[2021-12-07] MEDS: ROSUVASTATIN CALCIUM 10 MG TAB PO SCH (21:08)
[2021-12-07] MEDS: TAMSULOSIN HCL 0.4 MG CAP PO SCH (21:08)
[2021-12-07] MEDS: EZETIMIBE 10 MG TABLET PO SCH (21:09)
[2021-12-07] MEDS: MEMANTINE HCL 10 MG TAB PO SCH (21:09)
--- NOTE | 2021-12-07 21:13 | Electrocardiogram Report ---
Test Reason : Blood Pressure : / mmHG Vent. Rate : 087 BPM Atrial Rate : 078 BPM P-R Int : 240 ms QRS Dur : 182 ms QT Int : 306 ms P-R-T Axes : 066 092 113 degrees QTc Int : 368 ms Atrial-sensed ventricular-paced rhythm with intermittent AV pacing and episode of ventricular tachyca rdia Abnormal ECG When compared with ECG of 03-DEC-2021 23:26, Episode of VT is now present Confirmed by Carlitos Sanderson ([id number]) on 12/07/2021 9:12:44 PM Referred By: REFERRED SELF Confirmed By:Carlitos Sanderson
[2021-12-07] MEDS: MELATONIN 3 MG TAB PO PRN (21:24)
[2021-12-08] MEDS: DOBUTamine / D5W 500 MG/250 ML BAG IV SCH ×2 (05:06→15:44)
[2021-12-08 05:07] LABS: Hematocrit (blood only) 33.2 % (42-52); Hemoglobin 11.2 g/dL (14.0-18.0); Mean Corpuscular Hemoglobin 30.7 pg (25-34); Mean Corpuscular Hgb Conc 33.7 g/dL (32-36); Mean Platelet Volume 11.2 fL (7.4-10.4); Platelet Count 166 K/uL (130-400); RDW Coefficient of Variation 13.3 % (11.5-14.5); RDW Standard Deviation 43.9 fL (36.4-46.3); Red Blood Count 3.65 M/uL (4.7-6.1); White Blood Count 6.96 K/uL (4.8-10.8)
[2021-12-08 05:33] LABS: Acanthocytes 1+; Eosinophils # (auto) 0.02 K/uL (0-0.5); Eosinophils % (auto) 0.3 %; Immature Granulocytes # (auto) 0.04 K/uL (0.00-0.02); Immature Granulocytes % (auto) 0.6 %; Lymphocytes # (auto) 0.53 K/uL (1.2-3.4); Lymphocytes % (auto) 7.6 %; Monocytes # (auto) 0.98 K/uL (0.11-0.59); Monocytes % (auto) 14.1 %; Neutrophils # (auto) 5.39 K/uL (1.4-6.5); Neutrophils % (auto) 77.4 %
[2021-12-08 05:39] LABS: BUN Creatinine Ratio 28.2 (10-20); Calcium 8.1 mg/dl (8.5-10.1); Est GFR (African American) 33.8 ml/min; Est GFR (Non-African American) 29.2 ml/min; Magnesium 2.6 mg/dl (1.7-2.4); Phosphorus 4.1 mg/dl (2.5-4.9); Potassium 4.7 mmol/L (3.5-5.1)
--- NOTE | 2021-12-08 07:23 | Hospitalist Progress Note ---
Date of Service December 08, 2021 Assessment & Plan (1) SOB (shortness of breath): Plan: *ICU Status* Alphonso Villavicencio is a 86y/o M w/ PMH difficult for hypertension, hyperlipidemia, benign prostatic hyperplasia, CKD stage III, GERD, complete heart block s/p AICD, and recent PCI x3 to LAD following NSTEMI with significant reduction in EF; admitted for worsening dyspnea/fatigue for 1 week, referred to hospital after acute evaluation in cardiology clinic. Acute on chronic systolic heart failure w/ reduced EF: Admission BNP >35,000, 5 kg weight gain in 1 week. S/p dobutamine, weaned off 12/04. BPs average 80s-90s/50s-60s. 12/03 repeat BNP >4,700. severe LV dysfunction -> limited ability to treat with medication D/C'd Entresto and spironolactone Restarted on Pressors 12/07. Prognosis poor -Echo from 11/24 EF of 20-25% with significant LAD distribution wall motion abnormality -Monitor I/O closely, daily weights, zelaya in place -Admission weight 74.1 kg, 12/07 weight 70.9 kg -Cardiology following -Attempt dopamine to effect diuresis -recommend upgrade dual chamber defibrillator to biventricular defibrillator during this hospitalization. -Prognosis poor, patients goals are to return home -Likely will require outpt ionotrope infusion to return home Ventricular tachycardia Overnight on 12/06 patient had a 30-minute long sustained run of ventricular tachycardia requiring 2 firings of is a AICD. He was subsequently transferred to the ICU and continued to have multiple runs of sustained ventricular tachycardia with rates the 160s to 170s. He was started on an amiodarone drip. Of note for the most part the patient has been asymptomatic and was cognizant when his AICD fired. Hypotension, improvin/2 congestive heart failure/ischemic cardiomyopathy given history of last admission. -Weaned off dobutamine 12/04 restarted 12/07 Elevated troponin, NSTEMI 11/22/2021 within four weeks of admission 11/22 troponin 189, troponin on admission 9.84, No ACS currently. Cardiology noted potential for additional PCI in future. No current symptoms suggestive of ischemia. -Continue aspirin, Plavix Acute kidney injury superimposed on chronic kidney disease, improving: Baseline creatinine approximately 1.4 Creatinine on admission 1.97, 1/16 Cr 1.44 back to baseline. Likely secondary to poor forward flow from the heart -Continue to trend BMP -Cr:2.14->2.02->1.82->1.79->1.67->1.44->1.32->1.36->2.02 Hyponatremia, improving: -Na of 119 on admission, Likely dilutional from CHF fluid overload -Continue to trend BMP -Na:117->118->123->124->127->128->129->127->127 Hypercholesterolemia: -Continue rosuvastatin 10 mg nightly BPH: -Continue tamsulosin nightly Dispo: ICU CODE STATUS: Full code Diet: Heart healthy/low-sodium DVT prophylaxis: SCDs (2) Acute systolic heart failure: (3) Acute hyponatremia: (4) Hypotension: (5) Acute kidney injury: (6) Ischemic cardiomyopathy: (7) Hypercholesteremia: (8) Benign localized prostatic hyperplasia with lower urinary tract symptoms (LUTS): (9) Chronic kidney disease, stage 3a: Admission and Anticipated Discharge Date Admission Date: November 29, 2021 Supervising Physician Co-Signing Physician Notes I personally examined the patient and verified all deluca points of history and exam, discussed case, and agree with decision making with Dr Frey feeling better again - no sob, fatigue improved. talking w . wants to get home - plan is home on dobutamine - sounds like case management has found options to make this viable. vitals noted nad heent nc at mmm breathing unlabored no accessory muscles good effortskin no rashes no pallor or icterus no focal neuro deficits V. tachnow improved. Continue amiodarone. Suspect mild diastolic/systolic CHF (combined given his tachycardia would lend towards diastolic failure, but his EF obviously would be systolic)that has now improved HFrEF EF 25% complicated by lower end BPsee above, probably mildly acute from tachycardia now improved to compensated. now goal is home on dobutamine otherwise as above Subjective Patient lying in bed this morning in no acute distress. Reported doing better overnight last night. At present he denies any chest pressure or chest pain. Given the events of the past few days his prognosis is tenuous. He reports he is tolerating his diet, voiding and stooling. Acute concerns relate to plans to return home. Physical Exam Physical Exam: General: Lying in bed in no acute distress HEENT: Normocephalic atraumatic Neck: Normal visual inspection Cardiac: Regular rate and rhythm I do not appreciate significant murmurs rubs or gallops, normal S1, normal S2, 1+ pedal edema, negative calf tenderness Respiratory: Clear to auscultation bilaterally with symmetrical chest expansion Faint crackles at the bibasilar bases GI: Soft, nontender, nondistended Neuro: AAOx3 Results & Data Results & Data ([facility]) Vital Signs (Past 12 Hours) Vital Signs Temp Pulse Resp BP Pulse Ox 12/08/21 06:04 36.3 C L 12/08/21 06:01 85 16 97/63 L 98 12/08/21 06:00 84 16 92 12/08/21 05:49 99 12/08/21 05:00 84 17 97/65 L 97 12/08/21 04:30 85 13 112/62 97 12/08/21 04:00 84 96/62 L 97 12/08/21 03:30 84 94/62 L 97 12/08/21 03:00 84 96/61 L 97 12/08/21 02:30 84 16 99/62 L 96 12/08/21 02:01 36.3 C L 12/08/21 02:00 85 12 94/63 L 97 12/08/21 01:30 84 12 98/65 L 98 12/08/21 01:00 84 15 104/63 94 12/08/21 00:30 84 12 90/63 L 97 12/08/21 00:00 85 15 95/67 L 100 12/07/21 23:30 84 13 100/63 100 12/07/21 23:00 85 11 L 89/66 L 12/07/21 22:30 36.3 C L 84 21 99/61 L 98 12/07/21 22:00 84 17 93/69 L 100 12/07/21 21:30 34.6 C L 84 20 100 12/07/21 21:00 85 100/68 99 12/07/21 20:30 84 13 100/65 100 12/07/21 20:00 85 16 102/71 100 12/07/21 19:30 87 20 103/74 100 Laboratory Results 12/08/21 12/08/21 Range/Units 04:27 04:27 WBC 6.96 (4.8-10.8) K/uL RBC 3.65 L (4.7-6.1) M/uL Hgb 11.2 L (14.0-18.0) g/dL Hct 33.2 L (42-52) % MCV 91.0 (80-100) fL MCH 30.7 (25-34) pg MCHC 33.7 (32-36) g/dL RDW Std Deviation 43.9 (36.4-46.3) fL RDW Coeff of Sonia 13.3 (11.5-14.5) % Plt Count 166 (130-400) K/uL MPV 11.2 H (7.4-10.4) fL Immature Gran % (Auto) 0.6 % Neut % (Auto) 77.4 % Lymph % (Auto) 7.6 % Sunflower % (Auto) 14.1 % Eos % (Auto) 0.3 % Baso % (Auto) 0.0 % Neut # (Auto) 5.39 (1.4-6.5) K/uL Lymph # (Auto) 0.53 L (1.2-3.4) K/uL Sunflower # (Auto) 0.98 H (0.11-0.59) K/uL Eos # (Auto) 0.02 (0-0.5) K/uL Baso # (Auto) 0.00 (0-0.2) K/uL Immature Gran # (Auto) 0.04 H (0.00-0.02) K/uL Acanthocytes (Spur) 1+ Sodium 127 L (136-145) mmol/L Potassium 4.7 D (3.5-5.1) mmol/L Chloride 91 L (98-107) mmol/L Carbon Dioxide 26 (21-32) mmol/L Anion Gap 10 (3-11) BUN 57 H (6-23) mg/dl Creatinine 2.02 H D (0.6-1.4) mg/dl Est Cr Clr Drug Dosing 25.0 ml/min Est GFR ( Amer) 33.8 ml/min Est GFR (Non-Af Amer) 29.2 ml/min BUN/Creatinine Ratio 28.2 H (10-20) Glucose 113 H (70-99(Fasting)) mg/dl Calcium 8.1 L (8.5-10.1) mg/dl Phosphorus 4.1 (2.5-4.9) mg/dl Magnesium 2.6 H (1.7-2.4) mg/dl Medications Administered Current Inpatient Medications Al Hydrox/Mg Hydrox/Simethicone (Aluminum/Magnesium Susp 30 Ml Udc) 15 ml PO Q4H PRN PRN Reason: Dyspepsia Stop: 12/30/21 00:50 Aspirin (Aspirin 81 Mg Ectab) [address] [facility] Stop: 12/30/21 08:59 Last Admin: 12/08/21 08:03 Dose: 81 mg Documented by: Clopidogrel Bisulfate (Clopidogrel Bisulfate 75 Mg Tab) [address] [facility] Stop: 12/30/21 08:59 Last Admin: 12/08/21 08:03 Dose: 75 mg Documented by: Ezetimibe (Ezetimibe 10 Mg Tablet) 10 mg PO PM [facility] Stop: 12/30/21 20:59 Last Admin: 12/07/21 21:09 Dose: 10 mg Documented by: Famotidine (Famotidine 20 Mg Tab) 20 mg PO DAILY PRN PRN Reason: gerd Stop: 12/30/21 00:50 Last Admin: 11/30/21 02:08 Dose: 20 mg Documented by: Ferrous Sulfate (Ferrous Sulfate 325 Mg Tab) [address] [facility] Stop: 12/30/21 08:59 Last Admin: 12/08/21 08:03 Dose: 325 mg Documented by: Heparin Sodium (Beef Lung) (Heparin 10 Unit/Ml 5 Ml Flush) 5 ml FLUSH PRN PRN PRN Reason: Flush Stop: 01/03/22 23:54 Amiodarone HCl/Dextrose (Nexterone / D5w) 360 mg in 200 mls @ 16.667 mls/hr IV .Q12H [facility] Stop: 01/06/22 11:59 Last Admin: 12/08/21 10:23 Dose: 0.5 mg/min, 16.7 mls/hr Documented by: Dobutamine HCl/Dextrose (Dobutamine / D5w) 500 mg in 250 mls @ 5.318 mls/hr IV .Q24H [facility]; Protocol Stop: 01/06/22 15:59 Last Admin: 12/08/21 05:06 Dose: 10 mcg/kg/min, 21.3 mls/hr Documented by: Dopamine HCl/Dextrose (Dopamine / D5w) 400 mg in 250 mls @ 13.294 mls/hr IV .[id number] [facility]; Protocol Stop: 01/07/22 08:44 Last Admin: 12/08/21 09:23 Dose: 5 mcg/kg/min, 13.3 mls/hr Documented by: Magnesium Hydroxide (Magnesium Hydroxide Susp 30 Ml Udc) 30 ml PO Q12H PRN PRN Reason: Constipation Stop: 12/30/21 00:50 Melatonin (Melatonin 3 Mg Tab) 3 mg PO HS PRN PRN Reason: Sleep Stop: 01/06/22 21:12 Last Admin: 12/07/21 21:24 Dose: 3 mg Documented by: Memantine (Memantine Hcl 10 Mg Tab) 10 mg PO HS SHANE Stop: 12/30/21 20:59 Last Admin: 12/07/21 21:09 Dose: 10 mg Documented by: Midodrine (Midodrine Hcl 2.5 Mg Tab) 5 mg PO TID@0800,1200,1700 [facility] Stop: 01/06/22 16:59 Last Admin: 12/08/21 07:35 Dose: 5 mg Documented by: Multivitamins/Minerals (Cerovite Adv Formula Tab) 1 tab PO DAILY [facility] Stop: 01/06/22 08:59 Last Admin: 12/08/21 08:03 Dose: 1 tab Documented by: Nitroglycerin (Nitroglycerin Sl 0.4 Mg/Tab Tab) 0.4 mg SL Q5M PRN PRN Reason: chest pain Stop: 12/30/21 00:50 Ondansetron HCl (Ondansetron Inj 2 Mg/Ml 2 Ml Vial) 4 mg IV Q6H PRN PRN Reason: Nausea Stop: 12/30/21 00:50 Last Admin: 12/08/21 10:23 Dose: 4 mg Documented by: Polyethylene Glycol (Polyethylene (Miralax) 17 Gm Pack) 17 gm PO DAILY PRN PRN Reason: Constipation Stop: 12/30/21 00:50 Rosuvastatin Calcium (Rosuvastatin Calcium 10 Mg Tab) 10 mg PO PM SHANE Stop: 12/30/21 20:59 Last Admin: 12/07/21 21:08 Dose: 10 mg Documented by: Sacubitril/Valsartan (Valsartan/Sacubitril 51/49 Mg Tab) 1 tab PO BID [facility] Stop: 12/30/21 08:59 Tamsulosin HCl (Tamsulosin Hcl 0.4 Mg Cap) 0.8 mg PO PM [facility] Stop: 12/30/21 20:59 Last Admin: 12/07/21 21:08 Dose: 0.8 mg Documented by: Resident Activity Tracking Resident Involvement: Resident Care Provided Care Provided: Adult Hospital Medicine (1) Hypotension Hypotension type: unspecified hypotension type Qualified Code(s): I95.9 - Hypotension, unspecified
[2021-12-08] MEDS: MIDODRINE HCL 2.5 MG TAB PO SCH ×3 (07:35→16:47)
--- NOTE | 2021-12-08 07:48 | XRay Report ---
XR chest 1V portable CLINICAL HISTORY: Respiratory failure. COMPARISON STUDY: Chest radiograph December 07, 2021. FINDINGS: Dual lead left subclavian pacer/AICD is in place. Cardiomegaly is unchanged. There is no pn eumothorax. There are small bilateral pleural effusions. Interstitial thickening has improved. Mild l eft basilar opacity favors atelectasis. A right PICC is in place. IMPRESSION: 1. Interval improvement in pulmonary edema. 2. Small bilateral pleural effusions. ACT 112: Negative or not required by law. Electronically signed by: Neto Urbina M.D. 12/08/2021 7:46 AM
--- NOTE | 2021-12-08 07:55 | Critical Care Progress Note ---
Date of Service December 08, 2021 Assessment & Plan (1) SOB (shortness of breath): (2) Acute systolic heart failure: (3) Acute hyponatremia: (4) Hypotension: (5) Acute kidney injury: (6) Ischemic cardiomyopathy: (7) Hypercholesteremia: (8) Benign localized prostatic hyperplasia with lower urinary tract symptoms (LUTS): (9) Chronic kidney disease, stage 3a: Plan: Reason Critically Ill: 86-year-old male admitted with acute on chronic systolic heart failure and BARB who was transferred to the ICU after sustained V. tach with shock from AICD. Prior to this event patient's clinical status was improving and he was scheduled to undergo upgrade to biventricular defibrillator. Neuro - [facility] ICU: Negative Cardiac - Ventricular tachycardiapatient with sustained ventricular tachycardia. He has had multiple runs and at one point was in V. tach for approximately 30 minutes on the floor. AICD fired and converted him x1, however he continued to have 10- 20 second runs of V. tach and a rate of 1 60-1 70. -We will replete potassium to keep greater than 4. Mag 2.6 -Bolused with 150 mg IV amiodarone and started on amnio drip -- transition to oral amio today per cardiology -Cardiology following -Continuous monitoring on telemetry Acute on chronic systolic heart failureon admission patient had BNP greater than 35,000. 5 kg weight gain over 1 week. He was relatively hypotensive and had developed an BARB. He had a recent NSTEMI with PCI x3. -Was temporarily on dobutamine drip which was weaned off on 12/04 -Echo 11/24 EF 20-25% with LAD distribution wall motion abnormality -Continue ASA, Plavix, Zetia, Crestor -Cardiology following, appreciate recommendations -Patient became hypotensive 12/07 in afternoon - Coreg discontinued, dobutamine gtt restarted (titrate to MAP of 60), started on midodrine TID as well -- continue - Will start dopamine today at 5mcg/kg/min, give Bumex 2mg IV for diuresis as Lasix 60mg on 12/07 not resulting in significant diuresis - Likely his heart failure is end-stage and goal may be to stabilize him for discharge with palliative/hospice Respiratory - Shortness of breathWorsened 12/07 in PM. At that point started on BiPAP at 10/5 with 40% FiO2. He only required this shortly and returned to room air with no significant SOB thereafter. Lungs clear to auscultation and no respiratory distress and currently maintaining oxygen saturations on room air. Continuous monitoring with pulse ox for now. Diuresis as needed. GI - Heart healthy, low sodium diet IV famotidine RENAL/LYTES - BARB on CKD stage III creatinine increased today, possibly secondary to decreased perfusion in the setting of end-stage heart failure. - Will diurese further with Bumex today as above. - BMP at 1600 to monitor kidney function -Continue to monitor routine BMPs. Replete electrolytes as indicated. Avoid nephrotoxins and renally adjust meds. Hyponatremiainitial sodium 119 on admission was thought to be dilutional to the CHF fluid overload -Improved, most recent sodium 127 -Continue to monitor with routine BMPs - BPHFoley. DC Flomax today. ENDO - No history of diabetes or thyroid disease. ICU hyperglycemic protocol HEME - H&H stable, monitor routine CBCs ID - No indication for infectious process at this time LINES/IV ACCESS - PICC line, peripheral IVs DVT PROPHYLAXIS - SCDs Admission and Anticipated Discharge Date Admission Date: November 29, 2021 Supervising Physician Co-Signing Physician Notes Dr. Chaparro was resident physician during care of patient. I separately evaluated patient for deluca portions of the history and the exam. I was present during the critical portion of medical decision making, and I discussed the case with the resident. I generally agree with the findings and plan. Adding low-dose renal dopamine attempt diuresis, also given 2 mg Bumex. Discussed with cardiology we feel this is approaching a palliative care situation as the patient's heart does not appear to be recovering and now has right-sided heart failure in addition to left-sided heart failure. I have personally spent 50 minutes of critical care time in the direct management of this patient. This is a life/limb threatening event. This includes time spent evaluating patient, direct bedside care, chart review, placing orders, interpretation of diagnostic studies, discussion with consultants, patient, and/or family members regarding treatment decisions, as well as other required patient management activities. This time is exclusive of all separately billable procedures, and teaching time and separate from and in addition to any other critical care service time. Subjective No acute events overnight. This AM reports feeling much better than yesterday in the afternoon. He had developed significant SOB and feeling very weak. At that point was started on midodrine and dobutamine gtt. Started on BiPAP as well. Now on room air and denies SOB, feeling much improved without significant weakness. Review of Systems Review of Systems: Denies CP, palpitations, SOB, cough, n/v, f/c, abd pain, diarrhea Physical Exam Physical Exam: GENERAL: A&Ox3. NAD. HEENT: PERRL, EOMI. Moist mucous membranes. CHEST/LUNGS: CTAB A/P. No crackles, wheezes, rales, rhonchi. HEART: RRR. No m/g/r. ABDOMEN: NT/ND, soft. BS+ x4 EXTREMITIES: No cyanosis, no clubbing, no edema SKIN: Warm and dry. No rashes or lesions. PSYCHIATRIC: Euthymic affect, no SI, no pressured speech, no hallucinations NEUROLOGIC: No FND. CN II-XII grossly intact. Results & Data Results & Data ([facility]) Vital Signs (Past 12 Hours) Vital Signs Temp Pulse Resp BP Pulse Ox 12/08/21 07:30 85 24 89/63 L 90 12/08/21 07:01 85 16 99 12/08/21 06:04 36.3 C L 12/08/21 06:01 85 16 97/63 L 98 12/08/21 06:00 84 16 92 12/08/21 05:49 99 12/08/21 05:00 84 17 97/65 L 97 12/08/21 04:30 85 13 112/62 97 12/08/21 04:00 84 96/62 L 97 12/08/21 03:30 84 94/62 L 97 12/08/21 03:00 84 96/61 L 97 12/08/21 02:30 84 16 99/62 L 96 12/08/21 02:01 36.3 C L 12/08/21 02:00 85 12 94/63 L 97 12/08/21 01:30 84 12 98/65 L 98 12/08/21 01:00 84 15 104/63 94 12/08/21 00:30 84 12 90/63 L 97 12/08/21 00:00 85 15 95/67 L 100 12/07/21 23:30 84 13 100/63 100 12/07/21 23:00 85 11 L 89/66 L 12/07/21 22:30 36.3 C L 84 21 99/61 L 98 12/07/21 22:00 84 17 93/69 L 100 12/07/21 21:30 34.6 C L 84 20 100 12/07/21 21:00 85 100/68 99 12/07/21 20:30 84 13 100/65 100 12/07/21 20:00 85 16 102/71 100 Resident Activity Tracking Resident Involvement: Resident Care Provided Care Provided: Adult Hospital Medicine (1) Hypotension Hypotension type: unspecified hypotension type Qualified Code(s): I95.9 - Hypotension, unspecified
[2021-12-08] MEDS: CEROVITE ADV FORMULA TAB PO SCH (08:03)
[2021-12-08] MEDS: CLOPIDOGREL BISULFATE 75 MG TAB PO SCH (08:03)
[2021-12-08] MEDS: ASPIRIN 81 MG ECTAB PO SCH (08:03)
[2021-12-08] MEDS: FERROUS SULFATE 325 MG TAB PO SCH (08:03)
[2021-12-08] MEDS ORDERED: STAT IV Infusion **Titration per Protocol STA (08:36)
[2021-12-08] MEDS ORDERED: BUMETANIDE IV BOLUS FROM BAG IV ONE (08:37)
[2021-12-08] MEDS ORDERED: BUMETANIDE 2 MG in SYRINGE 0 ML IV ONE (09:00)
[2021-12-08] MEDS: DOPamine / D5W 400 MG/250 ML BAG IV SCH (09:23)
--- NOTE | 2021-12-08 09:23 | Billing Data ---
Date of Service December 08, 2021 Coding Level of Care Code Critical Care 1st - mins
[2021-12-08] MEDS: AMIODARONE / D5W 360 MG/200 ML BAG IV SCH (10:23)
--- NOTE | 2021-12-08 15:23 | Cardiology Progress Note ---
Date of Service December 08, 2021 Assessment & Plan (1) SOB (shortness of breath): (2) CHF (congestive heart failure): (3) Acute hyponatremia: (4) Ischemic cardiomyopathy: (5) Complete heart block: (6) Ventricular tachycardia: Plan: 1. Decompensated systolic heart failure: clinically improved on pressor support. Overall prognosis seems poor given decompensation off of pressors. Perhaps exacerbated by sustained VT and therapy from his device. Will continue d obutamine and slowly wean dopamine. Still trying to effect a diuresis. We discussed hospice and palliative care briefly. Echo yesterday demonstrated new RV failure as well. This certainly puts us in a difficult position with respect to fluid balance. 2. Coronary artery disease: He is known to have residual left circumflex disease. No plans for immediate intervention. No current symptoms of angina or recurrent ischemia. 3. Ischemic cardiomyopathy: Severe. Now with evidence of biventricular failure. No mechanical complication seen on echo today. He did not tolerate addition of low-dose carvedilol today. No option for traditional medical therapy at this time. 4. Complete heart block: Normally functioning dual-chamber ICD. The plan was for an upgrade today, but he has decompensated over the course of the afternoon. postponed indefinitely. Pacing rate increased to provide more cardiac output 5. Hypotension: This hampers our ability to be more aggressive with medical therapy. He did well initially with dobutamine, but now on both dobutamine and dopamine, pressure slightly lower. 6. Hyponatremia: Slowly improving with Fluid restriction and better renal perfusion. Will need to monitor with more aggressive diuretic therapy 7. Anemia: stable. No evidence of active bleeding. 8. Ventricular tachycardia: Appropriately treated with ICD (below detection limit at first). Will continue amiodarone. Switch to oral today. Admission and Anticipated Discharge Date Admission Date: November 29, 2021 Subjective This morning the patient feels much better. Requesting discharge. Breathing not labored. No chest pain. Review of Systems Review of Systems: Par HPI Physical Exam Physical Exam: The patient is alert and oriented. Answered questions appropriately HEENT: Pupils are equal and reactive to light and accommodation. Extraocular movements are intact. The sclerae are anicteric. Neuro: Cranial nerves intact. Lungs: Rales noted. normal respiratory effort Cardiac: Heart demonstrates a regular rhythm Extremities: There was no evidence of hypoperfusion. There is no cyanosis or clubbing. mild lower extremity edema Skin: I did not appreciate any rashes on examination today. Results & Data ([facility]) Vital Signs (Past 12 Hours) Vital Signs Temp Pulse Pulse Resp BP BP Pulse Ox 12/08/21 11:46 87 100/76 12/08/21 08:00 85 12/08/21 07:30 85 24 89/63 L 90 12/08/21 07:01 85 16 99 12/08/21 06:04 36.3 C L 12/08/21 06:01 85 16 97/63 L 98 12/08/21 06:00 84 16 92 12/08/21 05:49 99 12/08/21 05:00 84 17 97/65 L 97 12/08/21 04:30 85 13 112/62 97 12/08/21 04:00 84 96/62 L 97 12/08/21 03:30 84 94/62 L 97 Laboratory Results Abnormal Lab Results 12/08/21 12/08/21 04:27 04:27 WBC 6.96 RBC 3.65 L Hgb 11.2 L Hct 33.2 L MCV 91.0 MCH 30.7 MCHC 33.7 RDW Std Deviation 43.9 RDW Coeff of Sonia 13.3 Plt Count 166 MPV 11.2 H Immature Gran % (Auto) 0.6 Neut % (Auto) 77.4 Lymph % (Auto) 7.6 [place] % (Auto) 14.1 Eos % (Auto) 0.3 Baso % (Auto) 0.0 Neut # (Auto) 5.39 Lymph # (Auto) 0.53 L [place] # (Auto) 0.98 H Eos # (Auto) 0.02 Baso # (Auto) 0.00 Immature Gran # (Auto) 0.04 H Acanthocytes (Spur) 1+ Sodium 127 L Potassium 4.7 D Chloride 91 L Carbon Dioxide 26 Anion Gap 10 BUN 57 H Creatinine 2.02 H D Est Cr Clr Drug Dosing 25.0 Est GFR ( Amer) 33.8 Est GFR (Non-Af Amer) 29.2 BUN/Creatinine Ratio 28.2 H Glucose 113 H Calcium 8.1 L Phosphorus 4.1 Magnesium 2.6 H PG Care Time/CCT Total # of Minutes Spent Total Time Spent with Patient: Total time spent is greater than 50% in coordination of care (as documented) at patient's floor/unit and/or counseling patient: Coding Level of Care Code 46784 Subseq Hosp Care Lvl 3 Diagnoses SOB (shortness of breath) R06.02 CHF (congestive heart failure) I50.9 Heart failure chronicity: acute on chronic Heart failure type: unspecified Acute hyponatremia E87.1 Ischemic cardiomyopathy I25.5 Complete heart block I44.2 Ventricular tachycardia I47.2 (1) CHF (congestive heart failure) Heart failure chronicity: acute on chronic Heart failure type: unspecified Qualified Code(s): I50.9 - Heart failure, unspecified
[2021-12-08 16:21] LABS: BUN Creatinine Ratio 27.4 (10-20); Calcium 8.3 mg/dl (8.5-10.1); Creatinine Clr Calc Pharmacy 24.3 ml/min; Est GFR (African American) 32.7 ml/min; Est GFR (Non-African American) 28.2 ml/min; Potassium 4.3 mmol/L (3.5-5.1)
[2021-12-08] MEDS ORDERED: Nursing to Pharmacy Communication SCH (16:45)
[2021-12-08] MEDS: AMIODARONE 200 MG TAB PO SCH (16:47)
--- NOTE | 2021-12-08 16:49 | Billing Data ---
Date of Service December 08, 2021 Coding Level of Care Code 48541 Subseq Hosp Care Lvl 2
[2021-12-08] MEDS ORDERED: FUROSEMIDE 40 MG/4 ML VIAL IV ONE ×2 (18:39→20:43)
[2021-12-08] MEDS: ROSUVASTATIN CALCIUM 10 MG TAB PO SCH (20:45)
[2021-12-08] MEDS: MEMANTINE HCL 10 MG TAB PO SCH (20:45)
[2021-12-08] MEDS: EZETIMIBE 10 MG TABLET PO SCH (20:45)
[2021-12-09] MEDS: DOBUTamine / D5W 500 MG/250 ML BAG IV SCH (04:07)
[2021-12-09 05:05] LABS: Basophils # (auto) 0.01 K/uL (0-0.2); Basophils % (auto) 0.2 %; Eosinophils # (auto) 0.04 K/uL (0-0.5); Eosinophils % (auto) 0.6 %; Hematocrit (blood only) 30.5 % (42-52); Hemoglobin 10.1 g/dL (14.0-18.0); Immature Granulocytes # (auto) 0.02 K/uL (0.00-0.02); Immature Granulocytes % (auto) 0.3 %; Lymphocytes # (auto) 0.87 K/uL (1.2-3.4); Lymphocytes % (auto) 14.1 %; Mean Corpuscular Hemoglobin 30.5 pg (25-34); Mean Corpuscular Hgb Conc 33.1 g/dL (32-36); Mean Corpuscular Volume 92.1 fL (80-100); Monocytes # (auto) 0.34 K/uL (0.11-0.59); Monocytes % (auto) 5.5 %; Neutrophils # (auto) 4.88 K/uL (1.4-6.5); Neutrophils % (auto) 79.3 %; Platelet Count 160 K/uL (130-400); RDW Coefficient of Variation 13.4 % (11.5-14.5); RDW Standard Deviation 45.2 fL (36.4-46.3); Red Blood Count 3.31 M/uL (4.7-6.1); White Blood Count 6.16 K/uL (4.8-10.8)
[2021-12-09 05:23] LABS: BUN Creatinine Ratio 25.7 (10-20); Calcium 7.9 mg/dl (8.5-10.1); Est GFR (African American) 32.3 ml/min; Est GFR (Non-African American) 27.9 ml/min; Magnesium 2.3 mg/dl (1.7-2.4); Phosphorus 4.3 mg/dl (2.5-4.9); Potassium 3.8 mmol/L (3.5-5.1)
--- NOTE | 2021-12-09 07:11 | Critical Care Progress Note ---
Date of Service December 09, 2021 Assessment & Plan (1) SOB (shortness of breath): (2) Acute systolic heart failure: (3) Acute hyponatremia: (4) Hypotension: (5) Acute kidney injury: (6) Ischemic cardiomyopathy: (7) Hypercholesteremia: (8) Benign localized prostatic hyperplasia with lower urinary tract symptoms (LUTS): (9) Chronic kidney disease, stage 3a: Plan: Reason Critically Ill: 86-year-old male admitted with acute on chronic systolic heart failure and BARB who was transferred to the ICU after sustained V. tach with shock from AICD. Prior to this event patient's clinical status was improving and he was scheduled to undergo upgrade to biventricular defibrillator. Neuro - [facility] ICU: Negative Cardiac - Ventricular tachycardia 12/06 patient with sustained ventricular tachycardia. He has had multiple runs and at one point was in V. tach for approximately 30 minutes on the floor. AICD fired and converted him x1, however he continued to have 10-20 second runs of V. tach and a rate of 1 60-1 70. -We will replete potassium to keep greater than 4. Mag 2.6 -Bolused with 150 mg IV amiodarone and then amio drip -- now on oral amio per cardiology - Overnight and this AM having various limited runs of vtach on monitor -- patient asymptomatic and AICD has not fired -Cardiology following -Continuous monitoring on telemetry Acute on chronic systolic heart failureon admission patient had BNP greater than 35,000. 5 kg weight gain over 1 week. He was relatively hypotensive and had developed an BARB. He had a recent NSTEMI with PCI x3. -Was temporarily on dobutamine drip which was weaned off on 12/04 -Echo 11/24 EF 20-25% with LAD distribution wall motion abnormality -Continue ASA, Plavix, Zetia, Crestor -Cardiology following, appreciate recommendations -Patient became hypotensive 12/07 in afternoon - Coreg discontinued, dobutamine gtt restarted (titrate to MAP of 60), started on midodrine TID as well -- continue - Bumex 2mg IV x1 yesterday resulting in 1.5L diuresed - Dopamine and dobutamine had been stopped in setting of vtach -- will restart dobutamine per cards - No escalation of care currently - Likely his heart failure is end-stage and goal may be to stabilize him for discharge with palliative/hospice -- patient desires home with hospice, meeting with family at 1300 to discuss DC planning Respiratory - Shortness of breathWorsened 12/07 in PM. At that point started on BiPAP at 10/5 with 40% FiO2. He only required this shortly and returned to room air with no significant SOB thereafter. Lungs clear to auscultation and no respiratory distress and currently maintaining oxygen saturations on room air. Continuous monitoring with pulse ox for now. Diuresis as needed. GI - Heart healthy, low sodium diet IV famotidine RENAL/LYTES - BARB on CKD stage III creatinine increased today, possibly secondary to decreased perfusion in the setting of end-stage heart failure. - Bumex yesterday as above - BMP at 1600 to monitor kidney function -Continue to monitor routine BMPs. Replete electrolytes as indicated. Avoid nephrotoxins and renally adjust meds. Hyponatremiainitial sodium 119 on admission was thought to be dilutional to the CHF fluid overload -Improved, most recent sodium 127 -Continue to monitor with routine BMPs - BPHFoley. Flomax DC'd. ENDO - No history of diabetes or thyroid disease. ICU hyperglycemic protocol HEME - H&H stable, monitor routine CBCs ID - No indication for infectious process at this time LINES/IV ACCESS - PICC line, peripheral IVs DVT PROPHYLAXIS - SCDs Admission and Anticipated Discharge Date Admission Date: November 29, 2021 Supervising Physician Co-Signing Physician Notes Dr. Chaparro was resident physician during care of patient. I separately evaluated patient for deluca portions of the history and the exam. I was present during the critical portion of medical decision making, and I discussed the case with the resident. I generally agree with the findings and plan. Currently off dopamine and dobutamine, still with worsening baseline labs. Patient desires to go home working with social work to facilitate hospice. Anticipate meeting with family and cardiology at 1300 today. Tentatively planning for home with Hospice, currently no escalation of care Subjective No acute events overnight. Feels well this AM without significant discomfort. Anxious to go home as soon as able. Review of Systems Review of Systems: Denies CP, palpitations, SOB, cough, n/v, f/c, abd pain, diarrhea Physical Exam Physical Exam: GENERAL: A&Ox3. NAD. HEENT: PERRL, EOMI. Moist mucous membranes. CHEST/LUNGS: CTAB A/P. No crackles, wheezes, rales, rhonchi. HEART: RRR. No m/g/r. ABDOMEN: NT/ND, soft. BS+ x4 EXTREMITIES: No cyanosis, no clubbing, no edema SKIN: Warm and dry. No rashes or lesions. PSYCHIATRIC: Euthymic affect, no SI, no pressured speech, no hallucinations NEUROLOGIC: No FND. CN II-XII grossly intact. Results & Data Results & Data ([facility]) Vital Signs (Past 12 Hours) Vital Signs Temp Pulse Resp BP Pulse Ox 12/09/21 06:05 84 15 93/57 L 95 12/09/21 06:00 84 14 95 12/09/21 05:30 84 16 104/66 93 12/09/21 05:00 84 102/58 L 93 12/09/21 04:30 85 16 102/62 92 12/09/21 04:00 85 13 99/58 L 94 12/09/21 03:56 36.6 C 12/09/21 03:30 84 99/58 L 93 12/09/21 03:00 85 99/60 L 93 12/09/21 02:30 85 13 100/57 L 96 12/09/21 02:00 84 100/56 L 91 12/09/21 01:30 84 99/58 L 94 12/09/21 01:00 84 96/57 L 94 12/09/21 00:30 85 106/55 L 91 12/09/21 00:00 85 104/62 96 12/08/21 23:30 84 16 100/62 97 12/08/21 23:23 95 H 99/60 L 96 12/08/21 23:18 36.7 C 12/08/21 23:00 85 101/58 L 95 12/08/21 22:30 84 13 104/61 95 12/08/21 22:00 85 100/60 93 12/08/21 21:30 85 103/61 99 12/08/21 21:05 36.6 C 12/08/21 21:00 85 12 100/64 96 12/08/21 20:30 84 98/63 L 93 12/08/21 20:00 84 16 100/65 95 12/08/21 19:30 84 15 84/65 L 95 12/08/21 19:16 86 19 90/55 L 12/08/21 19:15 86 14 Critical Care Results & Data Vital Signs (Past 12 Hours) Vital Signs Temp Pulse Resp BP Pulse Ox 12/09/21 06:05 84 15 93/57 L 95 12/09/21 06:00 84 14 95 12/09/21 05:30 84 16 104/66 93 12/09/21 05:00 84 102/58 L 93 12/09/21 04:30 85 16 102/62 92 12/09/21 04:00 85 13 99/58 L 94 12/09/21 03:56 36.6 C 12/09/21 03:30 84 99/58 L 93 12/09/21 03:00 85 99/60 L 93 12/09/21 02:30 85 13 100/57 L 96 12/09/21 02:00 84 100/56 L 91 12/09/21 01:30 84 99/58 L 94 12/09/21 01:00 84 96/57 L 94 12/09/21 00:30 85 106/55 L 91 12/09/21 00:00 85 104/62 96 12/08/21 23:30 84 16 100/62 97 12/08/21 23:23 95 H 99/60 L 96 12/08/21 23:18 36.7 C 12/08/21 23:00 85 101/58 L 95 12/08/21 22:30 84 13 104/61 95 12/08/21 22:00 85 100/60 93 12/08/21 21:30 85 103/61 99 12/08/21 21:05 36.6 C 12/08/21 21:00 85 12 100/64 96 12/08/21 20:30 84 98/63 L 93 Lab & Micro Results (Past 24 Hours) RBC 3.31 M/uL (4.7-6.1) L 12/09/21 WBC 6.16 K/uL (4.8-10.8) 12/09/21 Hgb 10.1 g/dL (14.0-18.0) L 12/09/21 Hct 30.5 % (42-52) L 12/09/21 MCV 92.1 fL (80-100) 12/09/21 MCH 30.5 pg (25-34) 12/09/21 MCHC 33.1 g/dL (32-36) 12/09/21 RDW Standard Deviation 45.2 fL (36.4-46.3) 12/09/21 RDW Coefficient of Variation 13.4 % (11.5-14.5) 12/09/21 Plt Count 160 K/uL (130-400) 12/09/21 MPV 11.0 fL (7.4-10.4) H 12/09/21 Neutrophils (%) (Auto) 79.3 % 12/09/21 Lymphocytes (%) (Auto) 14.1 % 12/09/21 Monocytes # (Auto) 0.34 K/uL (0.11-0.59) 12/09/21 Eosinophils # (Auto) 0.04 K/uL (0-0.5) 12/09/21 Immature Granulocyte % (Auto) 0.3 % 12/09/21 Neutrophils # (Auto) 4.88 K/uL (1.4-6.5) 12/09/21 Lymphocytes # (Auto) 0.87 K/uL (1.2-3.4) L 12/09/21 Monocytes # (Auto) 0.34 K/uL (0.11-0.59) 12/09/21 Eosinophils # (Auto) 0.04 K/uL (0-0.5) 12/09/21 Basophils # (Auto) 0.01 K/uL (0-0.2) 12/09/21 Immature Granulocyte # (Auto) 0.02 K/uL (0.00-0.02) 12/09/21 Na 127 mmol/L (136-145) L 12/09/21 K 3.8 mmol/L (3.5-5.1) 12/09/21 Cl 89 mmol/L (98-107) L 12/09/21 CO2 27 mmol/L (21-32) 12/09/21 Anion Gap 11 (3-11) 12/09/21 BUN 54 mg/dl (6-23) H 12/09/21 Creatinine 2.10 mg/dl (0.6-1.4) H 12/09/21 Estimated GFR ( Amer) 32.3 ml/min 12/09/21 Estimated GFR (Non-Af Amer) 27.9 ml/min 12/09/21 BUN/Creatinine Ratio 25.7 (10-20) H 12/09/21 Glu 97 mg/dl (70-99(Fasting)) 12/09/21 Ca 7.9 mg/dl (8.5-10.1) L 12/09/21 Phosphorus Level 4.3 mg/dl (2.5-4.9) 12/09/21 Mg 2.3 mg/dl (1.7-2.4) 12/09/21 04:39 12/09/21 Calcium Level 7.9 mg/dl (8.5-10.1) L 12/09/21 04:39 12/09/21 I & O Totals 24 Hours 12/08/21 12/09/21 12/10/21 06:59 06:59 06:59 Intake Total 940.000 / 940.000 887.258 / 887.258 Output Total 660 / 660 2440 / 2440 Balance 280.000 / 280.000 -1552.742 / -1552.742 Cumulative 11/29/21 16:20 thru 12/09/21 05:57 Intake Total 7615.554 Output Total 08351 Balance -5564.446 RT Ventilator Mngmt (Last Documented) Ventilator Ordered Settings Respiratory Rate 15 12/09/21 06:05 Fraction of Inspired Oxygen 80 12/07/21 16:25 Ventilator - PT Measurements Respiratory Rate 15 Critical Care Time I have personally spent 35 minutes of critical care time in the direct management of this patient. This is a life/limb threatening event. This includes time spent evaluating patient, direct bedside care, chart review, placing orders, interpretation of diagnostic studies, discussion with consultants, patient, and/or family members regarding treatment decisions, as well as other required patient management activities. This time is exclusive of all separately billable procedures, and teaching time and separate from and in addition to any other critical care service time. Resident Activity Tracking Resident Involvement: Resident Care Provided Care Provided: Adult Hospital Medicine (1) Hypotension Hypotension type: unspecified hypotension type Qualified Code(s): I95.9 - Hypotension, unspecified
[2021-12-09] MEDS: MIDODRINE HCL 2.5 MG TAB PO SCH ×3 (08:03→16:51)
[2021-12-09] MEDS: AMIODARONE 200 MG TAB PO SCH ×2 (08:03→16:51)
[2021-12-09] MEDS: ASPIRIN 81 MG ECTAB PO SCH (08:04)
[2021-12-09] MEDS: CEROVITE ADV FORMULA TAB PO SCH (08:04)
[2021-12-09] MEDS: CLOPIDOGREL BISULFATE 75 MG TAB PO SCH (08:04)
[2021-12-09] MEDS: FERROUS SULFATE 325 MG TAB PO SCH (08:04)
--- NOTE | 2021-12-09 08:42 | Hospitalist Progress Note ---
Date of Service December 09, 2021 Assessment & Plan (1) SOB (shortness of breath): Plan: *ICU Status* Alphonso Villavicencio is a 86y/o M w/ PMH difficult for hypertension, hyperlipidemia, benign prostatic hyperplasia, CKD stage III, GERD, complete heart block s/p AICD, and recent PCI x3 to LAD following NSTEMI with significant reduction in EF; admitted for worsening dyspnea/fatigue for 1 week, referred to hospital after acute evaluation in cardiology clinic. Acute on chronic systolic heart failure w/ reduced EF: Admission BNP >35,000, 5 kg weight gain in 1 week. S/p dobutamine, weaned off 12/04. BPs average 80s-90s/50s-60s. 12/03 repeat BNP >4,700. severe LV dysfunction -> limited ability to treat with medication D/C'd Entresto and spironolactone Restarted on Pressors 12/07. Prognosis poor -Echo from 11/24 EF of 20-25% with significant LAD distribution wall motion abnormality -Monitor I/O closely, daily weights, zelaya in place -Admission weight 74.1 kg, 12/07 weight 68 kg -Cardiology following -Prognosis poor, patients goals are to return home on dobutamine -Case management assisting Ventricular tachycardia Overnight on 12/06 patient had a 30-minute long sustained run of ventricular tachycardia requiring 2 firings of is a AICD. He was subsequently transferred to the ICU and continued to have multiple runs of sustained ventricular tachycardia with rates the 160s to 170s. He was started on an amiodarone drip. Of note for the most part the patient has been asymptomatic and was cognizant when his AICD fired. -improved Hypotension, improvin/2 congestive heart failure/ischemic cardiomyopathy given history of last admission. -Weaned off dobutamine 12/04 restarted 12/07 Elevated troponin, NSTEMI 11/22/2021 within four weeks of admission 11/22 troponin 189, troponin on admission 9.84, No ACS currently. Cardiology noted potential for additional PCI in future. No current symptoms suggestive of ischemia. -Continue aspirin, Plavix Acute kidney injury superimposed on chronic kidney disease, improving: Baseline creatinine approximately 1.4 Creatinine on admission 1.97, 12/05 Cr 1.44 back to baseline. Likely secondary to poor forward flow from the heart -Continue to trend BMP -Cr:2.14->2.02->1.82->1.79->1.67->1.44->1.32->1.36->2.02->2.1 Hyponatremia, improving: -Na of 119 on admission, Likely dilutional from CHF fluid overload -Continue to trend BMP -Na:117->118->123->124->127->128->129->127->127->127 Hypercholesterolemia: -Continue rosuvastatin 10 mg nightly BPH: -Continue tamsulosin nightly Dispo: ICU CODE STATUS: DNR/DNI Diet: Heart healthy/low-sodium DVT prophylaxis: SCDs (2) Acute systolic heart failure: (3) Acute hyponatremia: (4) Hypotension: (5) Acute kidney injury: (6) Ischemic cardiomyopathy: (7) Hypercholesteremia: (8) Benign localized prostatic hyperplasia with lower urinary tract symptoms (LUTS): (9) Chronic kidney disease, stage 3a: Admission and Anticipated Discharge Date Admission Date: November 29, 2021 Supervising Physician Co-Signing Physician Notes I personally examined the patient and verified all deluca points of history and exam, discussed case, and agree with decision making with Dr Fery feeloj about the same. did have more vtach but didn't feel it. vitals noted nad heent nc at mmm breathing unlabored no accessory muscles good effort skin no rashes no pallor or icterus no focal neuro deficits V. tachcontinue amiodarone. ongoing cardiology input Suspect mild diastolic/systolic CHF (combined given his tachycardia would lend towards diastolic failure, but his EF obviously would be systolic)that has now improved HFrEF EF 25% complicated by lower end BPsee above, probably mildly acute from tachycardia now improved to compensated. now goal is home on dobutamine. no new apparent sx with recurrent vtach otherwise as above Subjective Patient sitting upright in bed this morning in no acute distress. Patient reports tolerating his diet, voiding and stooling. Patient were doing well overnight. Patient understands that his prognosis is poor and is transitioning to home hospice. Acute concerns related to DC which will hopefully be tomorrow Physical Exam Physical Exam: General: Lying in bed in no acute distress HEENT: Normocephalic atraumatic Neck: Normal visual inspection Cardiac: Regular rate and rhythm , 1+ pedal edema, negative calf tenderness Respiratory: Clear to auscultation bilaterally with symmetrical chest expansion Faint crackles at the bibasilar bases GI: Soft, nontender, nondistended Neuro: AAOx3 Results & Data Results & Data ([facility]) Vital Signs (Past 12 Hours) Vital Signs Temp Pulse Resp BP Pulse Ox 12/09/21 08:18 36.4 C L 12/09/21 06:05 84 15 93/57 L 95 12/09/21 06:00 84 14 95 12/09/21 05:30 84 16 104/66 93 12/09/21 05:00 84 102/58 L 93 12/09/21 04:30 85 16 102/62 92 12/09/21 04:00 85 13 99/58 L 94 12/09/21 03:56 36.6 C 12/09/21 03:30 84 99/58 L 93 12/09/21 03:00 85 99/60 L 93 12/09/21 02:30 85 13 100/57 L 96 12/09/21 02:00 84 100/56 L 91 12/09/21 01:30 84 99/58 L 94 12/09/21 01:00 84 96/57 L 94 12/09/21 00:30 85 106/55 L 91 12/09/21 00:00 85 104/62 96 12/08/21 23:30 84 16 100/62 97 12/08/21 23:23 95 H 99/60 L 96 12/08/21 23:18 36.7 C 12/08/21 23:00 85 101/58 L 95 12/08/21 22:30 84 13 104/61 95 12/08/21 22:00 85 100/60 93 12/08/21 21:30 85 103/61 99 12/08/21 21:05 36.6 C 12/08/21 21:00 85 12 100/64 96 Laboratory Results 12/09/21 12/09/21 12/08/21 Range/Units 04:39 04:39 15:53 WBC 6.16 (4.8-10.8) K/uL RBC 3.31 L (4.7-6.1) M/uL Hgb 10.1 L (14.0-18.0) g/dL Hct 30.5 L (42-52) % MCV 92.1 (80-100) fL MCH 30.5 (25-34) pg MCHC 33.1 (32-36) g/dL RDW Std Deviation 45.2 (36.4-46.3) fL RDW Coeff of Sonia 13.4 (11.5-14.5) % Plt Count 160 (130-400) K/uL MPV 11.0 H (7.4-10.4) fL Immature Gran % (Auto) 0.3 % Neut % (Auto) 79.3 % Lymph % (Auto) 14.1 % Rooks % (Auto) 5.5 % Eos % (Auto) 0.6 % Baso % (Auto) 0.2 % Neut # (Auto) 4.88 (1.4-6.5) K/uL Lymph # (Auto) 0.87 L (1.2-3.4) K/uL Rooks # (Auto) 0.34 (0.11-0.59) K/uL Eos # (Auto) 0.04 (0-0.5) K/uL Baso # (Auto) 0.01 (0-0.2) K/uL Immature Gran # (Auto) 0.02 (0.00-0.02) K/uL Sodium 127 L 125 L (136-145) mmol/L Potassium 3.8 4.3 (3.5-5.1) mmol/L Chloride 89 L 89 L (98-107) mmol/L Carbon Dioxide 27 27 (21-32) mmol/L Anion Gap 11 9 (3-11) BUN 54 H 57 H (6-23) mg/dl Creatinine 2.10 H 2.08 H (0.6-1.4) mg/dl Est Cr Clr Drug Dosing 24.0 24.3 ml/min Est GFR ( Amer) 32.3 32.7 ml/min Est GFR (Non-Af Amer) 27.9 28.2 ml/min BUN/Creatinine Ratio 25.7 H 27.4 H (10-20) Glucose 97 135 H (70-99(Fasting)) mg/dl Calcium 7.9 L 8.3 L (8.5-10.1) mg/dl Phosphorus 4.3 (2.5-4.9) mg/dl Magnesium 2.3 (1.7-2.4) mg/dl Medications Administered Current Inpatient Medications Al Hydrox/Mg Hydrox/Simethicone (Aluminum/Magnesium Susp 30 Ml Udc) 15 ml PO Q4H PRN PRN Reason: Dyspepsia Stop: 12/30/21 00:50 Amiodarone HCl (Amiodarone 200 Mg Tab) 400 mg PO BIDM [facility] Stop: 01/07/22 16:59 Last Admin: 12/09/21 08:03 Dose: 400 mg Documented by: Aspirin (Aspirin 81 Mg Ectab) 81 mg PO [facility] Stop: 12/30/21 08:59 Last Admin: 12/09/21 08:04 Dose: 81 mg Documented by: Clopidogrel Bisulfate (Clopidogrel Bisulfate 75 Mg Tab) 75 mg PO [facility] Stop: 12/30/21 08:59 Last Admin: 12/09/21 08:04 Dose: 75 mg Documented by: Ezetimibe (Ezetimibe 10 Mg Tablet) 10 mg PO PM [facility] Stop: 12/30/21 20:59 Last Admin: 12/08/21 20:45 Dose: 10 mg Documented by: Famotidine (Famotidine 20 Mg Tab) 20 mg PO DAILY PRN PRN Reason: gerd Stop: 12/30/21 00:50 Last Admin: 11/30/21 02:08 Dose: 20 mg Documented by: Ferrous Sulfate (Ferrous Sulfate 325 Mg Tab) 325 mg PO [facility] Stop: 12/30/21 08:59 Last Admin: 12/09/21 08:04 Dose: 325 mg Documented by: Heparin Sodium (Beef Lung) (Heparin 10 Unit/Ml 5 Ml Flush) 5 ml FLUSH PRN PRN PRN Reason: Flush Stop: 01/03/22 23:54 Last Admin: 12/08/21 18:36 Dose: 5 ml Documented by: Dobutamine HCl/Dextrose (Dobutamine / D5w) 500 mg in 250 mls @ 5.318 mls/hr IV .Q24H [facility]; Protocol Stop: 01/06/22 15:59 Last Admin: 12/09/21 04:07 Dose: 10 mcg/kg/min, 21.3 mls/hr Documented by: Dopamine HCl/Dextrose (Dopamine / D5w) 400 mg in 250 mls @ 0 mls/hr IV .Q0M [facility]; Protocol Stop: 01/07/22 08:44 Last Titration: 12/08/21 22:51 Dose: 0 mcg/kg/min, 0 mls/hr Documented by: Magnesium Hydroxide (Magnesium Hydroxide Susp 30 Ml Udc) 30 ml PO Q12H PRN PRN Reason: Constipation Stop: 12/30/21 00:50 Melatonin (Melatonin 3 Mg Tab) 3 mg PO HS PRN PRN Reason: Sleep Stop: 01/06/22 21:12 Last Admin: 12/07/21 21:24 Dose: 3 mg Documented by: Memantine (Memantine Hcl 10 Mg Tab) 10 mg PO HS [facility] Stop: 12/30/21 20:59 Last Admin: 12/08/21 20:45 Dose: 10 mg Documented by: Midodrine (Midodrine Hcl 2.5 Mg Tab) 5 mg PO TID@0800,1200,1700 [facility] Stop: 01/06/22 16:59 Last Admin: 12/09/21 08:03 Dose: 5 mg Documented by: Multivitamins/Minerals (Cerovite Adv Formula Tab) 1 tab PO DAILY [facility] Stop: 01/06/22 08:59 Last Admin: 12/09/21 08:04 Dose: 1 tab Documented by: Nitroglycerin (Nitroglycerin Sl 0.4 Mg/Tab Tab) 0.4 mg SL Q5M PRN PRN Reason: chest pain Stop: 12/30/21 00:50 Ondansetron HCl (Ondansetron Inj 2 Mg/Ml 2 Ml Vial) 4 mg IV Q6H PRN PRN Reason: Nausea Stop: 12/30/21 00:50 Last Admin: 12/08/21 10:23 Dose: 4 mg Documented by: Polyethylene Glycol (Polyethylene (Miralax) 17 Gm Pack) 17 gm PO DAILY PRN PRN Reason: Constipation Stop: 12/30/21 00:50 Rosuvastatin Calcium (Rosuvastatin Calcium 10 Mg Tab) 10 mg PO PM [facility] Stop: 12/30/21 20:59 Last Admin: 12/08/21 20:45 Dose: 10 mg Documented by: Sacubitril/Valsartan (Valsartan/Sacubitril 51/49 Mg Tab) 1 tab PO BID [facility] Stop: 12/30/21 08:59 Tamsulosin HCl (Tamsulosin Hcl 0.4 Mg Cap) 0.8 mg PO PM [facility] Stop: 12/30/21 20:59 Last Admin: 12/07/21 21:08 Dose: 0.8 mg Documented by: (1) Hypotension Hypotension type: unspecified hypotension type Qualified Code(s): I95.9 - Hypotension, unspecified
--- NOTE | 2021-12-09 09:47 | Billing Data ---
Date of Service December 09, 2021 Coding Level of Care Code Critical Care 1st - mins
[2021-12-09] MEDS ORDERED: FUROSEMIDE 40 MG/4 ML VIAL IV ONE ×2 (10:25→21:08)
--- NOTE | 2021-12-09 12:02 | Billing Data ---
Date of Service December 09, 2021 Coding Level of Care Code 73252 Subseq Hosp Care Lvl 2
[2021-12-09] MEDS: DOPamine / D5W 400 MG/250 ML BAG IV SCH (15:17)
--- NOTE | 2021-12-09 19:08 | Cardiology Progress Note ---
Date of Service December 09, 2021 Assessment & Plan (1) SOB (shortness of breath): (2) CHF (congestive heart failure): (3) Acute hyponatremia: (4) Ischemic cardiomyopathy: (5) Complete heart block: (6) Ventricular tachycardia: Plan: 1. Decompensated systolic heart failure: Subjectively feeling fine. While his hemodynamics seem stable off of pressors, His renal function has not improved. I think we will continue to have trouble with diuresis and he will likely have gradual development of pulmonary edema again. We have had a lengthy discussion regarding treatment options. He desperately wants to go home and I don't hitnk we have much more to offer as a inpatient in any regard. Arrangements being made with home hospice. 2. Coronary artery disease: He is known to have residual left circumflex disease. No plans for immediate intervention. No current symptoms of angina or recurrent ischemia. 3. Ischemic cardiomyopathy: Severe. Now with evidence of biventricular failure. No mechanical complication seen on echo. He did not tolerate addition of low-dose carvedilol today. No option for traditional medical therapy at this time. 4. Complete heart block: Normally functioning dual-chamber ICD. The plan was for an upgrade today, but he has decompensated over the course of the afternoon. postponed indefinitely. Pacing rate increased to provide more cardiac output 5. Hypotension: This hampers our ability to be more aggressive with medical therapy. Mildly hypotensive (even with midodrine) but clinically feeling well. 6. Hyponatremia: Essentially unchanged. WIll likely get worse. 7. Anemia: stable. No evidence of active bleeding. 8. Ventricular tachycardia: Some very brief runs of VT earlier. At discharge will de-activate VT therapies. We discussed how this could result in sudden . Planning home hospice with inotrope infusion. Admission and Anticipated Discharge Date Admission Date: November 29, 2021 Subjective This morning the patient was feeling well. He reported sleeping well and had a good breakfast. No significant dyspnea. Ambulatory yesterday without dizziness. Anxious to go home. Review of Systems Review of Systems: Per [facility] Results & Data ([facility]) Vital Signs (Past 12 Hours) Vital Signs Temp Pulse Pulse Resp BP BP Pulse Ox 12/09/21 18:00 85 14 104/61 95 12/09/21 17:00 84 17 85/57 L 97 12/09/21 16:24 37.7 C H 12/09/21 16:00 85 20 97/66 L 95 12/09/21 15:00 84 16 90/60 L 96 12/09/21 14:00 85 27 H 88/65 L 96 12/09/21 13:00 83 16 86/62 L 96 12/09/21 12:00 84 17 95/62 L 96 12/09/21 11:30 36.4 C L 84 16 89 L 12/09/21 11:00 85 18 86/64 L 96 12/09/21 10:31 85 18 100/73 98 12/09/21 10:30 84 18 97 12/09/21 10:00 85 25 H 87/56 L 98 12/09/21 09:30 85 15 85/62 L 87 L 12/09/21 09:22 84 16 92/62 L 100 12/09/21 09:00 84 12/09/21 08:30 84 17 90/53 L 98 12/09/21 08:18 36.4 C L 12/09/21 08:00 85 17 82/56 L 98 12/09/21 07:30 84 30 H 104/62 96 Laboratory Results Abnormal Lab Results 12/09/21 12/09/21 04:39 04:39 WBC 6.16 RBC 3.31 L Hgb 10.1 L Hct 30.5 L MCV 92.1 MCH 30.5 MCHC 33.1 RDW Std Deviation 45.2 RDW Coeff of Sonia 13.4 Plt Count 160 MPV 11.0 H Immature Gran % (Auto) 0.3 Neut % (Auto) 79.3 Lymph % (Auto) 14.1 Motley % (Auto) 5.5 Eos % (Auto) 0.6 Baso % (Auto) 0.2 Neut # (Auto) 4.88 Lymph # (Auto) 0.87 L Motley # (Auto) 0.34 Eos # (Auto) 0.04 Baso # (Auto) 0.01 Immature Gran # (Auto) 0.02 Sodium 127 L Potassium 3.8 Chloride 89 L Carbon Dioxide 27 Anion Gap 11 BUN 54 H Creatinine 2.10 H Est Cr Clr Drug Dosing 24.0 Est GFR ( Amer) 32.3 Est GFR (Non-Af Amer) 27.9 BUN/Creatinine Ratio 25.7 H Glucose 97 Calcium 7.9 L Phosphorus 4.3 Magnesium 2.3 PG Care Time/CCT Total # of Minutes Spent Total Time Spent with Patient: Total time spent is greater than 50% in coordination of care (as documented) at patient's floor/unit and/or counseling patient: Coding Level of Care Code 37479 Subseq Hosp Care Lvl 3 Diagnoses SOB (shortness of breath) R06.02 CHF (congestive heart failure) I50.9 Heart failure chronicity: acute on chronic Heart failure type: unspecified Acute hyponatremia E87.1 Ischemic cardiomyopathy I25.5 Complete heart block I44.2 Ventricular tachycardia I47.2 (1) CHF (congestive heart failure) Heart failure chronicity: acute on chronic Heart failure type: unspecified Qualified Code(s): I50.9 - Heart failure, unspecified
[2021-12-09] MEDS: MEMANTINE HCL 10 MG TAB PO SCH (20:03)
[2021-12-09] MEDS: ROSUVASTATIN CALCIUM 10 MG TAB PO SCH (20:03)
[2021-12-09] MEDS: EZETIMIBE 10 MG TABLET PO SCH (20:03)
[2021-12-09] MEDS: MELATONIN 3 MG TAB PO PRN (21:56)
[2021-12-10 04:58] LABS: Hematocrit (blood only) 32.5 % (42-52); Mean Corpuscular Hemoglobin 30.8 pg (25-34); Mean Corpuscular Hgb Conc 33.8 g/dL (32-36); Mean Platelet Volume 10.5 fL (7.4-10.4); Platelet Count 150 K/uL (130-400); RDW Coefficient of Variation 13.3 % (11.5-14.5); RDW Standard Deviation 43.5 fL (36.4-46.3); Red Blood Count 3.57 M/uL (4.7-6.1); White Blood Count 6.26 K/uL (4.8-10.8)
[2021-12-10 05:19] LABS: BUN Creatinine Ratio 25.7 (10-20); Est GFR (African American) 32.3 ml/min; Est GFR (Non-African American) 27.9 ml/min; Magnesium 2.3 mg/dl (1.7-2.4); Phosphorus 4.8 mg/dl (2.5-4.9); Potassium 3.5 mmol/L (3.5-5.1)
[2021-12-10 05:29] LABS: ALC (manual) 0.44 K/uL (1.2-3.4); ANC (manual) 5.26 K/uL (1.4-6.5); Acanthocytes 1+; Lymphocytes # (manual) 0.44 K/uL (1.2-3.4); Lymphocytes % (manual) 7.1 %; Monocytes # (manual) 0.55 K/uL (0.11-0.59); Monocytes % (manual) 8.8 %; Neutrophils # (manual) 5.26 K/uL (1.4-6.5); Neutrophils % (manual) 84.1 %; Ovalocytes 1+; Polychromasia 1+
--- NOTE | 2021-12-10 06:58 | Critical Care Progress Note ---
Date of Service December 10, 2021 Assessment & Plan (1) SOB (shortness of breath): (2) Acute systolic heart failure: (3) Acute hyponatremia: (4) Hypotension: (5) Acute kidney injury: (6) Ischemic cardiomyopathy: (7) Hypercholesteremia: (8) Benign localized prostatic hyperplasia with lower urinary tract symptoms (LUTS): (9) Chronic kidney disease, stage 3a: Plan: Reason Critically Ill: 86-year-old male admitted with acute on chronic systolic heart failure and BARB who was transferred to the ICU after sustained V. tach with shock from AICD. Prior to this event patient's clinical status was improving and he was scheduled to undergo upgrade to biventricular defibrillator. Neuro - [facility] ICU: Negative Cardiac - Ventricular tachycardia 12/06 patient with sustained ventricular tachycardia. He has had multiple runs and at one point was in V. tach for approximately 30 minutes on the floor. AICD fired and converted him x1, however he continued to have 10-20 second runs of V. tach and a rate of 1 60-1 70. -We will replete potassium to keep greater than 4. Mag 2.6 -Bolused with 150 mg IV amiodarone and then amio drip -- now on oral amio per cardiology - Overnight and this AM having various limited runs of vtach on monitor -- patient asymptomatic and AICD has not fired -Cardiology following Acute on chronic systolic heart failureon admission patient had BNP greater than 35,000. 5 kg weight gain over 1 week. He was relatively hypotensive and had developed an BARB. He had a recent NSTEMI with PCI x3. -Was temporarily on dobutamine drip which was weaned off on 12/04 -Echo 11/24 EF 20-25% with LAD distribution wall motion abnormality -Continue ASA, Plavix, Zetia, Crestor -Cardiology following, appreciate recommendations -Patient became hypotensive 12/07 in afternoon - Coreg discontinued, dobutamine gtt restarted (titrate to MAP of 60), started on midodrine TID as well -- continue - Dopamine and dobutamine had been stopped in setting of vtach -- will restart dobutamine per cards - No escalation of care currently - Likely his heart failure is end-stage and goal may be to stabilize him for discharge with palliative/hospice -- patient desires home with hospice, plan for transportation home with dobutamine today Respiratory - Shortness of breathWorsened 12/07 in PM. At that point started on BiPAP at 10/5 with 40% FiO2. He only required this shortly and returned to room air with no significant SOB thereafter. Lungs clear to auscultation and no respiratory distress and currently maintaining oxygen saturations on room air. Continuous monitoring with pulse ox for now. Diuresis as needed. GI - Heart healthy, low sodium diet IV famotidine RENAL/LYTES - BARB on CKD stage III creatinine increased today, possibly secondary to decreased perfusion in the setting of end-stage heart failure. -Continue to monitor routine BMPs. Replete electrolytes as indicated. Avoid nephrotoxins and renally adjust meds. Hyponatremiainitial sodium 119 on admission was thought to be dilutional to the CHF fluid overload -Improved, most recent sodium 127 -Continue to monitor with routine BMPs - BPHFoley. Flomax DC'd. ENDO - No history of diabetes or thyroid disease. ICU hyperglycemic protocol HEME - H&H stable, monitor routine CBCs ID - No indication for infectious process at this time LINES/IV ACCESS - PICC line, peripheral IVs DVT PROPHYLAXIS - SCDs Admission and Anticipated Discharge Date Admission Date: November 29, 2021 Supervising Physician Co-Signing Physician Notes Dr. Chaparro was resident physician during care of patient. I separately evaluated patient for deluca portions of the history and the exam. I was present during the critical portion of medical decision making, and I discussed the case with the resident. I generally agree with the findings and plan. Discharge home with comfort care DNR/DNI no critical care needs at this time Subjective No acute events overnight. Reports feeling well with no complaints. Review of Systems Review of Systems: Denies CP, palpitations, SOB, cough, n/v, f/c, abd pain, diarrhea Physical Exam Physical Exam: GENERAL: A&Ox3. NAD. HEENT: PERRL, EOMI. Moist mucous membranes. CHEST/LUNGS: CTAB A/P. No crackles, wheezes, rales, rhonchi. HEART: RRR. No m/g/r. ABDOMEN: NT/ND, soft. BS+ x4 EXTREMITIES: No cyanosis, no clubbing, no edema SKIN: Warm and dry. No rashes or lesions. PSYCHIATRIC: Euthymic affect, no SI, no pressured speech, no hallucinations NEUROLOGIC: No FND. CN II-XII grossly intact. Results & Data Results & Data ([facility]) Vital Signs (Past 12 Hours) Vital Signs Pulse Resp BP Pulse Ox 12/10/21 06:00 91 H 13 93 12/10/21 05:00 78 16 95 12/10/21 04:00 76 12 98 12/10/21 03:00 84 9 L 97 12/10/21 02:00 84 9 L 88/46 L 93 12/10/21 01:00 93 H 17 90 12/10/21 00:00 85 17 98 12/09/21 23:00 106 H 14 105/69 93 12/09/21 22:01 78 18 104/61 96 12/09/21 22:00 81 16 97 12/09/21 21:00 103 H 12 100 12/09/21 20:30 78 12 97 12/09/21 20:00 85 14 93 12/09/21 19:30 84 15 96 12/09/21 19:00 84 15 93/59 L 95 Critical Care Results & Data Vital Signs (Past 12 Hours) Vital Signs Pulse Resp BP Pulse Ox 12/10/21 06:00 91 H 13 93 12/10/21 05:00 78 16 95 12/10/21 04:00 76 12 98 12/10/21 03:00 84 9 L 97 12/10/21 02:00 84 9 L 88/46 L 93 12/10/21 01:00 93 H 17 90 12/10/21 00:00 85 17 98 12/09/21 23:00 106 H 14 105/69 93 12/09/21 22:01 78 18 104/61 96 12/09/21 22:00 81 16 97 12/09/21 21:00 103 H 12 100 12/09/21 20:30 78 12 97 12/09/21 20:00 85 14 93 12/09/21 19:30 84 15 96 12/09/21 19:00 84 15 93/59 L 95 Lab & Micro Results (Past 24 Hours) RBC 3.57 M/uL (4.7-6.1) L 12/10/21 WBC 6.26 K/uL (4.8-10.8) 12/10/21 Hgb 11.0 g/dL (14.0-18.0) L 12/10/21 Hct 32.5 % (42-52) L 12/10/21 MCV 91.0 fL (80-100) 12/10/21 MCH 30.8 pg (25-34) 12/10/21 MCHC 33.8 g/dL (32-36) 12/10/21 RDW Standard Deviation 43.5 fL (36.4-46.3) 12/10/21 RDW Coefficient of Variation 13.3 % (11.5-14.5) 12/10/21 Plt Count 150 K/uL (130-400) 12/10/21 MPV 10.5 fL (7.4-10.4) H 12/10/21 ANC 5.26 K/uL (1.4-6.5) 12/10/21 ALC 0.44 K/uL (1.2-3.4) L 12/10/21 Neutrophils % (Manual) 84.1 % 12/10/21 Lymphocytes % (Manual) 7.1 % 12/10/21 Monocytes % (Manual) 8.8 % 12/10/21 Neutrophils # (Manual) 5.26 K/uL (1.4-6.5) 12/10/21 Lymphocytes # (Manual) 0.44 K/uL (1.2-3.4) L 12/10/21 Monocytes # (Manual) 0.55 K/uL (0.11-0.59) 12/10/21 Polychromasia 1+ 12/10/21 Ovalocytes 1+ 12/10/21 Acanthocytes 1+ 12/10/21 Na 127 mmol/L (136-145) L 12/10/21 K 3.5 mmol/L (3.5-5.1) 12/10/21 Cl 89 mmol/L (98-107) L 12/10/21 CO2 30 mmol/L (21-32) 12/10/21 Anion Gap 8 (3-11) 12/10/21 BUN 54 mg/dl (6-23) H 12/10/21 Creatinine 2.10 mg/dl (0.6-1.4) H 12/10/21 Estimated GFR ( Amer) 32.3 ml/min 12/10/21 Estimated GFR (Non-Af Amer) 27.9 ml/min 12/10/21 BUN/Creatinine Ratio 25.7 (10-20) H 12/10/21 Glu 93 mg/dl (70-99(Fasting)) 12/10/21 Ca 8.0 mg/dl (8.5-10.1) L 12/10/21 Phosphorus Level 4.8 mg/dl (2.5-4.9) 12/10/21 Mg 2.3 mg/dl (1.7-2.4) 12/10/21 04:38 12/10/21 Calcium Level 8.0 mg/dl (8.5-10.1) L 12/10/21 04:38 12/10/21 I & O Totals 24 Hours 12/08/21 12/09/21 12/10/21 06:59 06:59 06:59 Intake Total 940.000 / 940.000 887.258 / 887.258 570.000 / 570.000 Output Total 660 / 660 2440 / 2440 1600 / 1600 Balance 280.000 / 280.000 -1552.742 / -1552.742 -1030.000 / -1030.000 Cumulative 11/29/21 16:20 thru 12/10/21 06:00 Intake Total 8185.554 Output Total 72062 Balance -6594.446 RT Ventilator Mngmt (Last Documented) Ventilator Ordered Settings Respiratory Rate 13 12/10/21 06:00 Fraction of Inspired Oxygen 80 12/07/21 16:25 Ventilator - PT Measurements Respiratory Rate 13 Resident Activity Tracking Resident Involvement: Resident Care Provided Care Provided: Adult Hospital Medicine (1) Hypotension Hypotension type: unspecified hypotension type Qualified Code(s): I95.9 - Hypotension, unspecified
--- NOTE | 2021-12-10 07:44 | Discharge Summary ---
Date of Service December 10, 2021 Admission HPI Per Admitting Provider Alphonso Villavicencio is a 86y/o M w/ PMH difficult for hypertension, hyperlipidemia, benign prostatic hyperplasia, CKD stage III, GERD, complete heart block s/p AICD, and recent PCI x3 to LAD following NSTEMI with significant reduction in EF; who presents following acute evaluation in cardiology clinic this afternoon for worsening shortness of breath and fatigue over the last week. Of note patient presented approximately 1 week ago with acute onset abdominal pain and subsequently underwent cardiac catheterization with 3 drug-eluting stents deployed. After that time had echo which demonstrated EF of 20 to 25% with s ignificant wall motion abnormalities across the LAD distribution. Since that time he has continued to take his medication regularly, however has noticed that he has continued to have increasing shortness of breath and fatigue throughout the day. Occasionally helps had his note low blood pressures. Was seen by cardiology office earlier today for these concerns, and subsequently sent to the ED after discovery of 10 pound weight gain since discharge from hospital, as well as JVD. He notes that he feels comfortable lying flat at this time and most notices this when he is having to move around at all. Neither he nor noticed significant swelling of arms or legs, but did note that his ring was slightly tighter on his hand over the last several days. Admission Exam Per Admitting Provider Constitutional: WD/WN, vitals as above Eyes: PERRL, conjunctivae normal, anicteric sclerae ENMT: external ear and nose normal, oropharynx normal Respiratory: normal respiratory effort, lungs clear to auscultation Cardiovascular: Rate/Rhythm: regular rate and regular rhythm Heart Sounds: no murmur Vessels: + JVD Extremities: + pedal edema (trace to 1+); no calf tenderness Gastrointestinal (Abdomen): normal bowel sounds, soft, nontender, no hepatosplenomegaly Skin: + dry skin; no rashes and no erythema Psychiatric: A+Ox3, euthymic affect Principal Diagnosis Acute on chronic decompensated congestive heart failure secondary to ischemic cardiomyopathy Discharge Exam General: Lying in bed in no acute distress HEENT: Normocephalic atraumatic Neck: Normal visual inspection Cardiac: Regular rate and rhythm , 2+ pedal edema, negative calf tenderness Respiratory: Clear to auscultation bilaterally with symmetrical chest expansion Faint crackles at the bibasilar bases GI: Soft, nontender, nondistended Neuro: AAOx3 Discharge Data Allergies Allergy/AdvReac Type Severity Reaction Status Date / Time oxycodone Allergy Mild CANT Verified 11/29/21 20:50 REMEMBER JUST HAD BAD REACTION amlodipine Allergy Unknown UNKNOWN Verified 11/29/21 20:50 codeine Allergy Unknown UNKNOWN Verified 11/29/21 20:50 lisinopril Allergy Unknown UNKNOWN Verified 11/29/21 20:50 Consultations 11/29/21 20:05 ED Decision to Admit Stat 11/29/21 21:56 Consult Cardiology Routine 12/07/21 05:20 Consult Pot Fireman Routine Procedures Performed Operation Date: 12/08/21 13:30 <No data on this case meets the specified criteria> Ordered Studies 12/07/21 07:15 EP Lab Images for PACS ONCE 12/08/21 06:45 EP Lab Images for PACS ONCE Hospital Course (1) SOB (shortness of breath): Alphonso Villavicencio is a 86y/o M w/ PMH difficult for hypertension, hyperlipidemia, benign prostatic hyperplasia, CKD stage III, GERD, complete heart block s/p AICD, and recent PCI x3 to LAD following NSTEMI with significant reduction in EF; admitted for worsening dyspnea/fatigue for 1 week, referred to hospital after acute evaluation in cardiology clinic. Acute on chronic systolic heart failure w/ reduced EF: Admission BNP >35,000, 5 kg weight gain in 1 week. Cardiology was consulted. Echo from 11/24 EF of 20-25% with significant LAD distribution wall motion abnormality, Started on dobutamine, weaned off 12/04. BPs were reasonable average 80s-90s/50s-60s. 12/03 repeat BNP >4,700. Echo from 12/07 demonstrating severe LV dysfunction with global hypokinesis and akinesis of the anterior septum. limited ability to treat with medication D/C'd Entresto and spironolactone. Restarted on Pressors 12/07. Prognosis poor plan for home hospice with pressor support. Ventricular tachycardia Overnight on 12/06 patient had a 30-minute long sustained run of ventricular tachycardia requiring 2 firings of is a AICD. He was subsequently transferred to the ICU and continued to have multiple runs of sustained ventricular tachycardia with rates the 160s to 170s. He was started on an amiodarone drip. Of note for the most part the patient has been asymptomatic and was cognizant when his AICD fired. -Has had repeat episodes of sustained ventricular tachycardia since that time. Hypotension: 2/2 congestive heart failure/ischemic cardiomyopathy given history of last admission. -See above Elevated troponin, NSTEMI 11/22/2021 within four weeks of admission 11/22 troponin 189, troponin on admission 9.84, No ACS currently. Cardiology noted potential for additional PCI in future. No current symptoms suggestive of ischemia. -Continue aspirin, Plavix Acute kidney injury superimposed on chronic kidney disease, improving: Baseline creatinine approximately 1.4 Creatinine on admission 1.97, 12/05 Cr 1.44 back to baseline. Likely secondary to poor forward flow from the heart -Cr: 2.1 on d/c Hyponatremia, improving: -Na of 119 on admission, Likely dilutional from CHF fluid overload -Continue to trend BMP -Na: 127 on d/c Hypercholesterolemia: -Continue rosuvastatin 10 mg nightly BPH: -Continue tamsulosin nightly Tyler Frey MD PGY 3, FCM This chart was completed utilizing [employer] voice recognition software. Grammatical errors, random word insertions, pronoun errors, and in complete sentences are an occasional consequence of the system. Any questions or concerns about the content, text, or information contained within the body of this dictation should be addressed directly to the physician for clarification. (2) Acute systolic heart failure: (3) Acute hyponatremia: (4) Hypotension: (5) Acute kidney injury: (6) Ischemic cardiomyopathy: (7) Hypercholesteremia: (8) Benign localized prostatic hyperplasia with lower urinary tract symptoms (LUTS): (9) Chronic kidney disease, stage 3a: Total Time Total Time Spent Total Time Spent (In Minutes): <30 Discharge Plan Discharge Items Patient Disposition: Hospice - Home Reason For Visit: CONGESTIVE HEART FAILURE Discharge Diagnosis: Decompensated systolic heart failure secondary to ischemic cardiomyopathy with complete heart block Condition on Discharge: Fair Activity: Resume your previous activity Non-emergency contact: Primary Care Provider and Fun House Operator Call non-emergency contact if: you have any medication questions, your symptoms worsen and you have a fever Follow-up/Referrals: Austin Merino MD [Primary Care Provider] - Diet: Heart Healthy Addtl Attending Provider Instructions: Care instructions: You were admitted to [facility] for treatment of chronic systolic heart failure secondary to ischemic cardiomyopathy resulting in him while hospitalized you were extensively evaluated by painter and paperhanger apprentice and critical care physicians. We optimized your medical therapy in efforts to treat your underlying cardiac disease. Your heart is very sick and was unable to tolerate aggressive medical therapy. We will be discharging you on home hospice with pressor support. On discharge new medications have been sent Eloy reno. -Amiodarone twice daily -Melatonin 3 mg p.o. at bedtime -Midodrine 3 times daily 8 AM, noon, and 5 PM -Zofran 4 mg every 8 hours as needed for nausea -Lasix 80mg daily Please stop taking your previously prescribed -Tamsulosin -Carvedilol -Entresto As discussed prior to discharge. Please do not hesitate to reach out to your primary care provider should your symptoms began to worsen. A discharge summary will be sent to your primary care physician to ensure continuity of care. Please bring this discharge summary with you to your next office appointment so that your provider can review it at that time. Follow-up appointments: - Keep all your follow-up appointments as already scheduled. If you cannot make an appointment, notify your provider. - Please call to request a follow-up appointment with your primary care physician within one week of discharge. Please let us know if you are unable to obtain an appointment Follow-up labs: - Please go to a lab nearest you and obtain the requested lab work. Please have this completed at least 3 hours before your doctor's appointment (or the day before your appointment if possible). Medications: - Your medication list has been reviewed and reconciled upon discharge to ensure accuracy and continuity of care. - You are provided with a list of all your current medications at this time. Please review this list closely and make note of any changes. - Please take all of your medications exactly as prescribed. - Tell your primary care provider if you cannot afford your medications. - Call your primary care provider if you are having any side effects or any other problems. - Call your primary care provider before taking any over the counter medications or supplements, including herbals and vitamins, because some of these may interact with your current medications and/or make your symptoms worse. Symptoms: Please call your primary care provider for symptoms including, but not limited to: fevers (temperatures greater than 100.4), chills, intractable nausea or vomiting, diarrhea, rash, shortness of breath, bleeding, pain, or if you experi ence any worsening of the symptoms that brought you to the hospital. For EMERGENCY and VERY SERIOUS health-related issues, such as chest pain, shortness of breath, or sudden onset of the symptoms that brought you to the hospital, you may need to call 911 or go directly to the Emergency Room It has been our privilege to take care of you during your hospital stay. And Above All Else Feel Better! Best Wishes, Tyler Frey MD PGY3 Resident, Family & Community Medicine [facility] FCM Residency at [facility] - [address], [address] MC: [address], [place] [address] Pending Studies at Discharge: No Stand-Alone Forms: My [facility] Medications and DC Order Prescriptions: New amiodarone 200 mg Tablet 400 mg PO BIDM Qty: 60 RF: 0 melatonin 3 mg Tablet 3 mg PO HS PRN (Reason: sleep) Qty: 30 RF: 0 midodrine 2.5 mg Tablet 5 mg PO TID@0800,1200,1700 Qty: 90 RF: 0 ondansetron 4 mg tablet,disintegrating 4 mg PO Q8H PRN (Reason: nausea and vomiting) Qty: 20 RF: 0 furosemide [Lasix] 80 mg tablet 80 mg PO DAILY 30 Days Qty: 30 RF: 0 scopolamine base 1 mg over 3 days patch 3 day 1 patch transdermal Q3D PRN (Reason: respiratory secretion difi) Qty: 4 RF: 0 Continued nitroglycerin 0.4 mg tablet, sublingual 0.4 mg SL Q5M PRN (Reason: chest pain) Qty: 30 RF: 3 furosemide 20 mg tablet 20 mg PO DAILY Qty: 30 RF: 2 multivitamin [Daily Multi-Vitamin] tablet 1 tab PO QAM RF: 0 ezetimibe 10 mg tablet 10 mg PO PM Qty: 90 RF: 0 rosuvastatin 10 mg tablet 10 mg PO PM RF: 0 temazepam 15 mg capsule 15 mg PO PM RF: 0 coenzyme Q10 200 mg capsule 200 mg PO QAM RF: 0 memantine 10 mg tablet 10 mg PO HS RF: 0 famotidine [Pepcid] 20 mg tablet 20 - 40 mg PO DAILY PRN (Reason: gerd) RF: 0 aspirin 81 mg Tablet,Delayed Release (Dr/Ec) 81 mg PO QAM RF: 0 PreserVision AREDS-2 250-90-40-1 mg Capsule 1 tab PO BID RF: 0 ferrous sulfate 325 mg (65 mg iron) Tablet 325 mg PO QAM RF: 0 clopidogrel 75 mg Tablet 75 mg PO QAM 30 Days Qty: 30 RF: 0 Discontinued carvedilol 12.5 mg tablet 12.5 mg PO BID Qty: 180 RF: 3 tamsulosin 0.4 mg capsule 0.8 mg PO PM RF: 0 Entresto 49-51 mg tablet 1 tab PO BID RF: 0 Discharge Orders: Discharge Order (Routine); Ordered 12/10/21 Ordered By: Tyler Frey Admission Data Admit Date/Time: 11/29/21 21:36 Attending Provider: Trav Rod Admit Provider: Sammy Najera Primary Care Provider: Austin Merino Other Providers: Ana Bah ; Kassie Frey ; Jim Singh ; Crispin Monique ; [facility],Home Healthcare Supervising Physician Co-Signing Physician Notes I personally examined the patient and verified all deluca points of history and exam, discussed case, and agree with decision making with Dr Frey ready to go home. discussed end of life decisions. answered questions to the best of my ability vitals noted nad heent nc at mmm breathing unlabored no accessory muscles good effort skin no rashes no pallor or icterus no focal neuro deficits V. tachcontinue amiodarone.home w palliative emphasis HFrEF EF 25% complicated by lower end BPsee above, probably mildly acute from tachycardia now improved to compensated. now goal is home on dobutamine. comfort goals otherwise as above Resident Activity Tracking Resident Involvement: Resident Care Provided Care Provided: Adult Hospital Medicine
[2021-12-10] MEDS ORDERED: FUROSEMIDE 40 MG/4 ML VIAL IV ONE (07:48)
[2021-12-10] MEDS: AMIODARONE 200 MG TAB PO SCH ×2 (09:02→16:35)
[2021-12-10] MEDS: MIDODRINE HCL 2.5 MG TAB PO SCH ×3 (09:03→16:35)
[2021-12-10] MEDS: CLOPIDOGREL BISULFATE 75 MG TAB PO SCH (09:03)
[2021-12-10] MEDS: ASPIRIN 81 MG ECTAB PO SCH (09:03)
[2021-12-10] MEDS: FERROUS SULFATE 325 MG TAB PO SCH (09:04)
[2021-12-10] MEDS: CEROVITE ADV FORMULA TAB PO SCH (09:04)
--- NOTE | 2021-12-10 09:39 | Billing Data ---
Date of Service December 10, 2021 Coding Level of Care Code 00706 Subseq Hosp Care Lvl 1
--- NOTE | 2021-12-10 10:18 | Cardiology Progress Note ---
Date of Service December 10, 2021 Assessment & Plan (1) SOB (shortness of breath): (2) CHF (congestive heart failure): (3) Acute hyponatremia: (4) Ischemic cardiomyopathy: (5) Complete heart block: (6) Ventricular tachycardia: Plan: 1. Decompensated systolic heart failure: Subjectively feeling fine. blood pressure on the lower side even with dobutamine and midodrine. after discussion with the patient, his family and case management our plan is for discharge today with dobutamine infusion. This is a palliative/ hospice intervention. I did deactivate his ICD therapies today. The pacing function was continued. Despite a good urine output and dobutamine infusion, his renal function has not improved. I would anticipate a slow decline in both renal function and urine output over the next several days and certainly once the dobutamine infusion is discontinued he will likely have worsening symptoms of heart failure. ICD therapies are no longer active Planning home hospice with inotrope infusion. Admission and Anticipated Discharge Date Admission Date: November 29, 2021 Subjective this morning the patient claims to be feeling fine. He was able ambulate out of bed to a chair without significant dizziness. He denies any breathing difficulty currently. He has no chest pain. He had a good appetite and ate his full breakfast. Review of Systems Review of Systems: Per HPI Physical Exam Physical Exam: The patient is alert and oriented. Mood and affect appeared normal. He answered all questions appropriately. HEENT: Pupils are equal and reactive to light and accommodation. Extraocular movements are intact. The sclerae are anicteric. Neuro: Cranial nerves intact Lungs: normal respiratory effort Pulses: The patient has palpable radial pulses bilaterally that are equal in intensity Extremities: There was no evidence of hypoperfusion. There is no cyanosis or clubbing. mild lower extremity edema Skin: I did not appreciate any rashes on examination today. Results & Data ([facility]) Vital Signs (Past 12 Hours) Vital Signs Pulse Resp BP Pulse Ox 12/10/21 10:00 84 15 97 12/10/21 09:00 87 14 96 12/10/21 08:00 78 22 96 12/10/21 07:00 84 26 H 92 12/10/21 06:00 91 H 13 93 12/10/21 05:00 78 16 95 12/10/21 04:00 76 12 98 12/10/21 03:00 84 9 L 97 12/10/21 02:00 84 9 L 88/46 L 93 12/10/21 01:00 93 H 17 90 12/10/21 00:00 85 17 98 12/09/21 23:00 106 H 14 105/69 93 Laboratory Results Abnormal Lab Results 12/10/21 12/10/21 04:38 04:38 WBC 6.26 RBC 3.57 L Hgb 11.0 L Hct 32.5 L MCV 91.0 MCH 30.8 MCHC 33.8 RDW Std Deviation 43.5 RDW Coeff of Sonia 13.3 Plt Count 150 MPV 10.5 H Neutrophils % (Manual) 84.1 Lymphocytes % (Manual) 7.1 Monocytes % (Manual) 8.8 Neutrophils # (Manual) 5.26 Total Absolute Neuts 5.26 Lymphocytes # (Manual) 0.44 L Total Abs Lymphocytes 0.44 L Monocytes # (Manual) 0.55 Polychromasia 1+ Ovalocytes 1+ Acanthocytes (Spur) 1+ Sodium 127 L Potassium 3.5 Chloride 89 L Carbon Dioxide 30 Anion Gap 8 BUN 54 H Creatinine 2.10 H Est Cr Clr Drug Dosing 24.0 Est GFR ( Amer) 32.3 Est GFR (Non-Af Amer) 27.9 BUN/Creatinine Ratio 25.7 H Glucose 93 Calcium 8.0 L Phosphorus 4.8 Magnesium 2.3 PG Care Time/CCT Total # of Minutes Spent Total Time Spent with Patient: Total time spent is greater than 50% in coordination of care (as documented) at patient's floor/unit and/or counseling patient: Coding Level of Care Code 54480 Subseq Hosp Care Lvl 3 Diagnoses SOB (shortness of breath) R06.02 CHF (congestive heart failure) I50.9 Heart failure chronicity: acute on chronic Heart failure type: unspecified Acute hyponatremia E87.1 Ischemic cardiomyopathy I25.5 Complete heart block I44.2 Ventricular tachycardia I47.2 (1) CHF (congestive heart failure) Heart failure chronicity: acute on chronic Heart failure type: unspecified Qualified Code(s): I50.9 - Heart failure, unspecified
--- NOTE | 2021-12-10 15:59 | Billing Data ---
Date of Service December 10, 2021 Coding Level of Care Code D/C DAY MANAGEMENT <30 MINS
== END 2021-12-10 16:47 | disposition hospice, home (50) | DRG 280 ==
LOC: ED 16:20 → EDINP 21:36 → SUATTDRO 21:36 → 1E 11-30 00:22 → 2N 12-07 00:06 → 1E 12-07 06:50